=== PATIENT | female | born 1960 | race Caucasian/White ===

== ENCOUNTER 2017-03-10 20:19 | Inpatient (IN) | payer MEDICARE, OTHER ==
[2017-03-10] MEDS ORDERED: ONDANSETRON 4 MG/2 ML VIAL IVP STA (21:01)
[2017-03-10] MEDS ORDERED: SODIUM CHLORIDE 0.9% 1,000 ML IV STA ×2 (21:01→23:24)
--- NOTE | 2017-03-10 21:12 | ED ---
General Adult HPI - General Source: patient, RN notes reviewed Mode of arrival: ambulatory Limitations: no limitations <Edwina Mercer - Last Filed: 03/11/17 00:46> <Avery Mendes - Last Filed: 03/11/17 10:07> - General Chief complaint: Upper Respiratory Infection Stated complaint: left eye swelling Time Seen by Provider: 03/10/17 20:28 - History of Present Illness Initial comments: 56-year-old female presents emergency Department chief complaint of left eye pain and erythema. Patient states that over the last 2 days as well as redness to the left eye as well as above the left eye and came to the left eye. Patient also complaining of a terrible headache. Patient states that she has history of stroke and the headache was concerning her. Patient states that she chronically has nausea and vomiting. Patient states that she was concerned due to her symptoms so she thought that she should be evaluated. Patient states she has had cough cold runny nose like symptoms as well. Patient denies any other symptoms at this time. Patient denies any recent fever, chills, shortness of breath, chest pain, back pain, abdominal pain, nausea vomiting, numbness or tingling, dysuria or hematuria, constipation or diarrhea, visual changes, or any other current symptoms. (Edwina Mercer) - Related Data Home Medications Medication Instructions Recorded Confirmed Clopidogrel [Plavix] 75 mg PO DAILY 04/08/14 03/11/17 Lansoprazole [Prevacid] 30 mg PO DAILY 05/26/14 03/11/17 Tiotropium 18 Mcg/Puff [Spiriva] 1 cap INHALATION RT-DAILY 05/26/14 03/11/17 Mometasone/Formoterol [Dulera 200 1 puff INHALATION RT-BID PRN 12/16/15 03/11/17 Mcg/5 Mcg Inhaler] ARIPiprazole [Abilify] 5 mg PO HS 03/10/17 03/11/17 Aspirin 325 mg PO DAILY 03/10/17 03/11/17 Baclofen 10 mg PO HS 03/10/17 03/11/17 Ergocalciferol [Vitamin D2] 50,000 unit PO TH 03/10/17 03/11/17 Loratadine [Claritin] 10 mg PO DAILY 03/10/17 03/11/17 Omeprazole 40 mg PO DAILY 03/10/17 03/11/17 QUEtiapine FUMARATE [Seroquel] 50 mg PO HS 03/10/17 03/11/17 Sertraline [Zoloft] 100 mg PO HS 03/10/17 03/11/17 Vitamin B Complex 1 cap PO DAILY 03/10/17 03/11/17 traMADol HCL [Ultram] 50 mg PO BID PRN 03/10/17 03/11/17 Allergies Allergy/AdvReac Type Severity Reaction Status Date / Time iodine Allergy Rash/Hives Verified 03/10/17 20:38 codeine AdvReac Nausea & Verified 03/10/17 20:38 Vomiting & Diarrhea Review of Systems ROS Other: All systems not noted in ROS Statement are negative. <Edwina Mercer - Last Filed: 03/11/17 00:46> ROS Other: All systems not noted in ROS Statement are negative. <Avery Mendse - Last Filed: 03/11/17 10:07> ROS Statement: Those systems with pertinent positive or pertinent negative responses have been documented in the HPI. 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 History of Any Multi-Drug Resistant Organisms: None Reported Past Surgical History: Appendectomy, Cholecystectomy, Hysterectomy, Tonsillectomy Past Anesthesia/Blood Transfusion Reactions: No Reported Reaction Past Psychological History: Anxiety, Depression Smoking Status: Current every day smoker Past Alcohol Use History: None Reported Past Drug Use History: Marijuana - Past Family History Father Additional Family Medical History / Comment(s): Her father had bone cancer <Edwina Mercer - Last Filed: 03/11/17 00:46> General Exam Limitations: no limitations <Edwina Mercer - Last Filed: 03/11/17 00:46> <Avery Mendes - Last Filed: 03/11/17 10:07> - General Exam Comments Initial Comments: General: The patient is awake and alert, in no distress, and does not appear acutely ill. Eye: Pupils are equal, round and reactive to light, extra-ocular movements are intact; there is normal conjunctiva to the right eye, left eye does appear to have female. Left eyelid also appears to have bruising. No signs of icterus. Ears, nose, mouth and throat: There are moist mucous membranes and no oral lesions. Neck: The neck is supple, there is no tenderness. Cardiovascular: There is a regular rate and rhythm. No murmur, rub or gallop is appreciated. Respiratory: Lungs are clear to auscultation, respirations are non-labored, breath sounds are equal. No wheezes, stridor, rales, or rhonchi. Gastrointestinal: Soft, non-distended, non-tender abdomen without masses or organomegaly noted. There is no rebound or guarding present. No CVA tenderness. Bowel sounds are unremarkable. Back: There is no tenderness to palpation in the midline. There is no obvious deformity. No rashes noted. Musculoskeletal: Normal ROM, no tenderness, There is no pedal edema. There is no calf tenderness or swelling. Sensation intact. Pulses equal bilaterally 2+. Neurological: CN II-XII intact, There are no obvious motor or sensory deficits. Coordination appears grossly intact. Speech is normal. Skin: Skin is warm and dry and no rashes or lesions are noted. Psychiatric: Cooperative, appropriate mood & affect, normal judgment. (Edwina Mercer) Medical Decision Making - Lab Data Result diagrams: 03/10/17 21:38 03/10/17 21:38 - Radiology Data Radiology results: report reviewed, image reviewed <Edwina Mercer - Last Filed: 03/11/17 00:46> - Lab Data Result diagrams: 03/10/17 21:38 03/10/17 21:38 <Avery Mendes - Last Filed: 03/11/17 10:07> - Medical Decision Making 56-year-old female presents emergency room chief complaint of multiple complaints. At this time there is concerned due to the erythema and redness to the left eye. This and there is concern for orbital cellulitis. Vanco and Unasyn were started. This and will admit for continued IV antibiotics. This was discussed with the patient who is in agreement with the plan. All questions have been answered. They will be discharged. (Edwina Mercer) I saw this patient in conjunction with the physician pediatric assistant. I did perform independent H+P. Agree with case management. (Avery Mendes) - Lab Data Lab Results 03/10/17 03/10/17 03/10/17 Range/Units 21:38 21:38 21:38 WBC 9.2 (3.8-10.6) k/uL RBC 4.62 (3.80-5.40) m/uL Hgb 14.4 (11.4-16.0) gm/dL Hct 42.8 (34.0-46.0) % MCV 92.7 (80.0-100.0) fL MCH 31.1 (25.0-35.0) pg MCHC 33.5 (31.0-37.0) g/dL RDW 14.0 (11.5-15.5) % Plt Count 220 (150-450) k/uL Neutrophils % 68 % Lymphocytes % 24 % Monocytes % 6 % Eosinophils % 1 % Basophils % 0 % Neutrophils # 6.2 (1.3-7.7) k/uL Lymphocytes # 2.2 (1.0-4.8) k/uL Monocytes # 0.5 (0-1.0) k/uL Eosinophils # 0.1 (0-0.7) k/uL Basophils # 0.0 (0-0.2) k/uL PT 10.6 (9.0-12.0) sec INR 1.1 (<1.1) APTT 26.7 (22.0-30.0) sec Sodium 142 (137-145) mmol/L Potassium 4.2 (3.5-5.1) mmol/L Chloride 106 (98-107) mmol/L Carbon Dioxide 30 (22-30) mmol/L Anion Gap 6 mmol/L BUN 11 (7-17) mg/dL Creatinine 0.70 (0.52-1.04) mg/dL Est GFR (MDRD) Af Amer >60 (>60 ml/min/1.73 sqM) Est GFR (MDRD) Non-Af >60 (>60 ml/min/1.73 sqM) Glucose 96 (74-99) mg/dL Calcium 9.6 (8.4-10.2) mg/dL Total Bilirubin 0.4 (0.2-1.3) mg/dL AST 20 (14-36) U/L ALT 27 (9-52) U/L Alkaline Phosphatase 74 (38-126) U/L Total Protein 6.4 (6.3-8.2) g/dL Albumin 4.0 (3.5-5.0) g/dL Urine Color Urine Appearance (Clear) Urine pH (5.0-8.0) Ur Specific [place] (1.001-1.035) Urine Protein (Negative) Urine Glucose (UA) (Negative) Urine Ketones (Negative) Urine Blood (Negative) Urine Nitrite (Negative) Urine Bilirubin (Negative) Urine Urobilinogen (<2.0) mg/dL Ur Leukocyte Esterase (Negative) Urine RBC (0-5) /hpf Urine WBC (0-5) /hpf Ur Squamous Epith Cells (0-4) /hpf Amorphous Sediment (None) /hpf Urine Mucus (None) /hpf 03/10/17 Range/Units 21:38 WBC (3.8-10.6) k/uL RBC (3.80-5.40) m/uL Hgb (11.4-16.0) gm/dL Hct (34.0-46.0) % MCV (80.0-100.0) fL MCH (25.0-35.0) pg MCHC (31.0-37.0) g/dL RDW (11.5-15.5) % Plt Count (150-450) k/uL Neutrophils % % Lymphocytes % % Monocytes % % Eosinophils % % Basophils % % Neutrophils # (1.3-7.7) k/uL Lymphocytes # (1.0-4.8) k/uL Monocytes # (0-1.0) k/uL Eosinophils # (0-0.7) k/uL Basophils # (0-0.2) k/uL PT (9.0-12.0) sec INR (<1.1) APTT (22.0-30.0) sec Sodium (137-145) mmol/L Potassium (3.5-5.1) mmol/L Chloride (98-107) mmol/L Carbon Dioxide (22-30) mmol/L Anion Gap mmol/L BUN (7-17) mg/dL Creatinine (0.52-1.04) mg/dL Est GFR (MDRD) Af Amer (>60 ml/min/1.73 sqM) Est GFR (MDRD) Non-Af (>60 ml/min/1.73 sqM) Glucose (74-99) mg/dL Calcium (8.4-10.2) mg/dL Total Bilirubin (0.2-1.3) mg/dL AST (14-36) U/L ALT (9-52) U/L Alkaline Phosphatase (38-126) U/L Total Protein (6.3-8.2) g/dL Albumin (3.5-5.0) g/dL Urine Color Yellow Urine Appearance Clear (Clear) Urine pH 6.0 (5.0-8.0) Ur Specific [place] 1.016 (1.001-1.035) Urine Protein Negative (Negative) Urine Glucose (UA) Negative (Negative) Urine Ketones Negative (Negative) Urine Blood Negative (Negative) Urine Nitrite Negative (Negative) Urine Bilirubin Negative (Negative) Urine Urobilinogen <2.0 (<2.0) mg/dL Ur Leukocyte Esterase Moderate H (Negative) Urine RBC 2 (0-5) /hpf Urine WBC 36 H (0-5) /hpf Ur Squamous Epith Cells 3 (0-4) /hpf Amorphous Sediment Occasional H (None) /hpf Urine Mucus Occasional H (None) /hpf Disposition Time of Disposition: 00:00 Decision Date: 03/11/17 Decision Time: 00:00 <Edwina Mercer - Last Filed: 03/11/17 00:46> <Avery Mendes - Last Filed: 03/11/17 10:07> Clinical Impression: Orbital cellulitis on left, Traumatic subconjunctival hemorrhage of left eye Disposition: ADMITTED IP TO THIS [facility] Condition: Stable
[2017-03-10] MEDS ORDERED: HYDROmorphone 1 MG/ML 1 ML SYRINGE IVP STA (21:53)
[2017-03-10 22:10] LABS: Basophils % (A) 0 %; CH 31.1; CHCM 33.7; Eosinophils # (A) 0.1 k/uL (0-0.7); Eosinophils % (A) 1 %; HCT 42.8 % (34.0-46.0); HDW 2.32; HGB 14.4 gm/dL (11.4-16.0); Luc # (Auto) 0.14; Luc % (Auto) 2; Lymphocytes # (A) 2.2 k/uL (1.0-4.8); Lymphocytes % (A) 24 %; MCH 31.1 pg (25.0-35.0); MCHC 33.5 g/dL (31.0-37.0); MCV 92.7 fL (80.0-100.0); Mean Platelet Volume 6.8; Monocytes # (A) 0.5 k/uL (0-1.0); Monocytes % (A) 6 %; Neutrophils # (A) 6.2 k/uL (1.3-7.7); Neutrophils % (A) 68 %; RBC 4.62 m/uL (3.80-5.40); WBC 9.2 k/uL (3.8-10.6); WBC (Perox) 8.77
[2017-03-10 22:27] LABS: ALT 27 U/L (9-52); AST 20 U/L (14-36); Alkaline Phosphatase 74 U/L (38-126); Anion Gap 6 mmol/L; Blood Urea Nitrogen 11 mg/dL (7-17); Calcium 9.6 mg/dL (8.4-10.2); Carbon Dioxide 30 mmol/L (22-30); Chloride 106 mmol/L (98-107); Glucose 96 mg/dL (74-99); Non-African American GFR(MDRD) >60 (>60 ml/min/1.73 sqM); Potassium 4.2 mmol/L (3.5-5.1); Sodium 142 mmol/L (137-145); Total Bilirubin 0.4 mg/dL (0.2-1.3); Total Protein 6.4 g/dL (6.3-8.2)
[2017-03-10 22:29] LABS: Amorphous Sediment,Urine Occasional /hpf; Appearance,Urine Clear (Clear); Bilirubin,Urine Negative (Negative); Glucose,Urine (UA) Negative (Negative); Ketones,Urine Negative (Negative); Leukocyte Esterase,Urine Moderate (Negative); Mucus,Urine Occasional /hpf; Nitrite,Urine Negative (Negative); Particle Count 7252; Protein,Urine Negative (Negative); RBC,Urine 2 /hpf (0-5); Specific Gravity,Urine 1.016 (1.001-1.035); Squamous Epithelial Cell,Urine 3 /hpf (0-4); UA Billing (MACRO vs. MICRO) MICRO; Urobilinogen,Urine <2.0 mg/dL (<2.0); WBC,Urine 36 /hpf (0-5)
[2017-03-10 22:30] LABS: INR 1.1 (<1.1); Partial Thromboplastin Time 26.7 sec (22.0-30.0); Prothrombin Time 10.6 sec (9.0-12.0)
--- NOTE | 2017-03-10 22:40 | XR ---
EXAM: XR Chest, 2 Views CLINICAL HISTORY: Reason: cough TECHNIQUE: Frontal and lateral views of the chest. COMPARISON: 12/16/15. FINDINGS: Lungs: Mild basilar opacities, possible atelectasis. Pleural space: Unremarkable. No pneumothorax. Heart: Stable. Mediastinum: Unremarkable. Bones/joints: Unremarkable. IMPRESSION: Mild basilar opacities, possible atelectasis.
--- NOTE | 2017-03-10 22:51 | CT ---
ADDENDUM - Added by Mary Lou Tony M.D. on 03/10/2017 10:58 PM (-07:00) CTDI is 30.1 mGy and DLP is 313.7 mGy-cm. EXAM: CT Orbits Without Intravenous Contrast CLINICAL HISTORY: Reason: Pain TECHNIQUE: Axial computed tomography images of the orbits without intravenous contrast. CTDI is mGy and DLP is mGy-cm. This CT exam was performed using one or more of the following dose reduction techniques: automated exposure control, adjustment of the mA and/or kV according to patient size, and/or use of iterative reconstruction technique. COMPARISON: No relevant prior studies available. FINDINGS: Orbits: Left periorbital soft tissue swelling with mild stranding in the intraconal fat. Sinuses: Minimal paranasal sinus mucosal thickening. No air-fluid levels. Bones/joints: No acute fracture. Soft tissues: See above. A 7 x 3 x 10 mm mm low density subcutaneous lesion at the left medial cheek (image 3-5 and 7-9). IMPRESSION: 1. Left periorbital soft tissue swelling with mild stranding in the intraconal fat. Correlate clinically for orbital cellulitis. 2. A 7 x 3 x 10 mm mm low density subcutaneous lesion at the left medial cheek. [employer] 03/10/17 23:14 Verify Receipt Verified receipt with RAMYA Arguelles for Dr. Conklin 03/10 23:14 (-04:00)
--- NOTE | 2017-03-10 22:57 | CT ---
EXAM: CT Head Without Intravenous Contrast CLINICAL HISTORY: Reason: Pain TECHNIQUE: Axial computed tomography images of the head/brain without intravenous contrast. CTDI is 60.3 mGy and DLP is 1017.9 mGy-cm. This CT exam was performed using one or more of the following dose reduction techniques: automated exposure control, adjustment of the mA and/or kV according to patient size, and/or use of iterative reconstruction technique. COMPARISON: No relevant prior studies available. FINDINGS: Brain: Involutional changes. Right periventricular low attenuation compatible with chronic infarct. No intracranial hemorrhage, mass effect, or midline shift. No acute cortical infarct. Ventricles: See above. Bones/joints: No acute fracture. Soft tissues: Unremarkable. Sinuses: No air fluid levels. Mastoid air cells: Small left mastoid fluid. Orbits: Please refer to concurrent CT orbits report for additional findings. IMPRESSION: 1. No acute intracranial process. 2. Small left mastoid fluid.
[2017-03-10] MEDS ORDERED: AMPICILLIN-SULBACTAM 3 GM in SODIUM CHLORIDE 0.9% 100 ML IVPB STA (23:39)
[2017-03-10] MEDS ORDERED: IV VANCOMYCIN PER PHARMACY 1 EACH MISC MISCELLANE PRN (23:39)
[2017-03-11] MEDS ORDERED: NALOXONE 0.4 MG/ML 1 ML VIAL IV PRN
[2017-03-11] MEDS ORDERED: IBUPROFEN 400 MG TAB PO PRN
[2017-03-11] MEDS: SODIUM CHLORIDE 0.9% 1,000 ML IV SCH ×3 (01:13→13:40)
[2017-03-11] MEDS: VANCOMYCIN 1,000 MG in SODIUM CHLORIDE 0.9% 250 ML IVPB SCH ×2 (01:48→13:47)
[2017-03-11 02:14] VITALS: BMI 19.5
[2017-03-11] MEDS ORDERED: QUEtiapine 50 MG TAB PO STA (02:28)
[2017-03-11] MEDS: HYDROcodone/APAP 5-325MG 1 EACH TAB PO PRN ×4 (02:33→18:31)
[2017-03-11] MEDS: BACLOFEN 10 MG TAB PO SCH ×2 (02:52→21:03)
[2017-03-11] MEDS: ARIPiprazole 5 MG TAB PO SCH ×2 (02:53→21:04)
[2017-03-11] MEDS: ONDANSETRON 4 MG/2 ML VIAL IVP PRN ×2 (06:57→21:15)
[2017-03-11] MEDS ORDERED: NON-FORMULARY DRUG (Omeprazole [Omeprazole] 40 MG) PO SCH (09:00)
[2017-03-11] MEDS ORDERED: ASPIRIN 325 MG TAB PO SCH (09:00)
[2017-03-11] MEDS ORDERED: CLOPIDOGREL 75 MG TAB PO SCH (09:00)
[2017-03-11] MEDS: B COMPLEX-VIT C-VIT E-ZINC 1 EACH TAB PO SCH (10:35)
[2017-03-11] MEDS: LORATADINE 10 MG TAB PO SCH (10:35)
[2017-03-11] MEDS: PANTOPRAZOLE 40 MG TABLET PO SCH (10:35)
[2017-03-11] MEDS: ALBUTEROL NEBULIZED 2.5 MG/3 ML INHALATION PRN ×2 (11:49→20:50)
[2017-03-11] MEDS: TIOTROPIUM 18 MCG/PUFF INHALER INHALATION SCH (11:58)
--- NOTE | 2017-03-11 13:50 | P.HPIM ---
History of Present Illness H&P Date: 03/11/17 Chief Complaint: L eye pain and erythema Patient is a 56-year-old female who states that yesterday morning she woke up with pain in her left eye she started developing redness on the upper lid of her left eye that progress quickly, patient started having erythema in her eyeball, she decided to come to emergency room she was evaluated in the emergency department she was diagnosed was periorbital cellulitis she was started on Unasyn and vancomycin and was admitted to medical floor. Patient states that 15 years ago she had a stroke, she has been maintained on aspirin 325 mg daily and Plavix 75 mg daily for that the indication. Patient states that she had herpes zoster eruption "shingles", few years ago that was on the left side of her neck she was treated with pills and the rash disappeared after a few days. Otherwise patient denies any significant infections in the past she denies any previous surgery on her eyes she denies any eye problems in the past. 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 smoker 2 ppd since age 16 (40+ yrs) History of Any Multi-Drug Resistant Organisms: None Reported Past Surgical History: Appendectomy, Cholecystectomy, Hysterectomy, Tonsillectomy Past Anesthesia/Blood Transfusion Reactions: No Reported Reaction Past Psychological History: Anxiety, Depression Smoking Status: Former smoker Past Alcohol Use History: None Reported Past Drug Use History: Marijuana Additional Drug Use History / Comment(s): patient states she had accu puncture done and quit smoking 2 months ago. pt continues to smoke marijuana daily via vaporizer - Past Family History Father Additional Family Medical History / Comment(s): Her father had bone cancer Mother Additional Family Medical History / Comment(s): aneurism, heart problems Medications and Allergies Home Medications Medication Instructions Recorded Confirmed Type Clopidogrel [Plavix] 75 mg PO DAILY 04/08/14 03/11/17 History Lansoprazole [Prevacid] 30 mg PO DAILY 05/26/14 03/11/17 History Tiotropium 18 Mcg/Puff [Spiriva] 1 cap INHALATION RT-DAILY 05/26/14 03/11/17 History Mometasone/Formoterol [Dulera 200 1 puff INHALATION RT-BID PRN 12/16/15 History Mcg/5 Mcg Inhaler] ARIPiprazole [Abilify] 5 mg PO HS 03/10/17 03/11/17 History Aspirin 325 mg PO DAILY 03/10/17 03/11/17 History Baclofen 10 mg PO HS 03/10/17 03/11/17 History Ergocalciferol [Vitamin D2] 50,000 unit PO TH 03/10/17 03/11/17 History Loratadine [Claritin] 10 mg PO DAILY 03/10/17 03/11/17 History Omeprazole 40 mg PO DAILY 03/10/17 03/11/17 History QUEtiapine FUMARATE [Seroquel] 50 mg PO HS 03/10/17 03/11/17 History Sertraline [Zoloft] 100 mg PO HS 03/10/17 03/11/17 History Vitamin B Complex 1 cap PO DAILY 03/10/17 03/11/17 History traMADol HCL [Ultram] 50 mg PO BID PRN 03/10/17 03/11/17 History Allergies Allergy/AdvReac Type Severity Reaction Status Date / Time iodine Allergy Rash/Hives Verified 03/10/17 20:38 codeine AdvReac Nausea & Verified 03/10/17 20:38 Vomiting & Diarrhea Physical Exam Vitals: Vital Signs Temp Pulse Pulse Resp BP BP Pulse Ox 03/11/17 12:02 80 03/11/17 11:49 80 03/11/17 08:13 98.3 F 78 19 92/63 100 03/11/17 04:00 66 20 03/11/17 01:50 98.7 F 67 20 85/56 93 L 03/11/17 01:00 98.9 F 86 16 108/50 100 03/11/17 00:00 88 18 106/52 99 03/10/17 23:24 90 16 82/50 03/10/17 20:23 98.3 F 86 20 105/71 92 L Intake and Output 03/10/17 03/11/17 03/11/17 22:59 06:59 14:59 Output Total 200 Balance -200 Output: Emesis 200 Other: Weight 57.153 kg 60.1 kg 60.1 kg Patient Weight 03/12/17 06:59 Weight 60.1 kg HEENT there is erythema on the left upper eyelid there is erythema was conjunctival bleed in the left eye otherwise no significant abnormality Neck is supple no JVD no goiter no lymphadenopathy Chest exam reveals a few scattered rhonchi with wheezing Cardiac exam reveals regular heart sounds S1 and S2 no gallops no murmurs Abdomen is soft nontender no organomegaly Extremity exam reveals no edema no cyanosis or clubbing Results CBC & Chem 7: 03/10/17 21:38 03/10/17 21:38 Labs: Abnormal Lab Results - Last 24 Hours (Table) 03/10/17 Range/Units 21:38 Ur Leukocyte Esterase Moderate H (Negative) Urine WBC 36 H (0-5) /hpf Amorphous Sediment Occasional H (None) /hpf Urine Mucus Occasional H (None) /hpf Microbiology - Last 24 Hours (Table) 03/10/17 21:38 Urine Culture - Preliminary Urine,Clean Catch Thrombosis Risk Factor Assmnt - Choose All That Apply Any of the Below Risk Factors Present?: Yes Each Factor Represents 1 point: Abnormal pulmonary function (COPD), Age 41-60 years Other Risk Factors: No Other congenital or acquired thrombophilia - If yes, enter type in comment: No Thrombosis Risk Factor Assessment Total Risk Factor Score: 2 Thrombosis Risk Factor Assessment Level: Low Risk Assessment and Plan Plan: #1 left periorbital cellulitis #2 left conjunctiva bleeding #3 previous history of stroke 15 years ago #4 wheezing was possible COPD patient is a lifelong smoker she states she quit 2 ago, at this time she was started on albuterol updrafts when necessary Medication and labs were reviewed continue with IV vancomycin and IV Unasyn Consultation for infectious disease and ophthalmology were initiated Plavix and aspirin are on hold due to conjunctival bleeding Will follow closely
[2017-03-11] MEDS ORDERED: AMPICILLIN-SULBACTAM 3 GM in SODIUM CHLORIDE 0.9% 100 ML IVPB SCH (15:00)
[2017-03-11] MEDS ORDERED: TROPICAMIDE 1% OPHTH DROPS 2 ML BTL LEFT EYE ONE (16:45)
--- NOTE | 2017-03-11 20:38 | P.CONS ---
History of Present Illness - Reason for Consult Consult date: 03/11/17 - Chief Complaint Left eye swelling - History of Present Illness 56-year-old female with history of tobacco smoking until 2 months ago also has a history of a cerebrovascular accident 12 years ago. Choice at that time she was taking a weight loss supplement which resulted in a hypertensive stroke. Because of that she's been maintained on Plavix and aspirin from her neurologist Dr. Singh. The patient relates that she was gardening. And accidentally struck her face with the [employer] [place] when she was working. She rapidly developed swelling and erythema around the left eye and left eye itself. It is quite painful and has been associated with some increase of her baseline nausea and emesis. Pain is been significant. She denying bleeding in any other places. Vision the right eye is completely intact. She has mild headache. Denies neck stiffness. Relates that her health in general is quite poor. Review of Systems 56-year-old woman who appears older than her stated age is uncomfortable. No current emesis but has had nausea and emesis earlier in the day. HEENT:Denies headache or acute visual change. Denies sinus or mouth discomforts. Denies neck stiffness or pain. Denies significant oral cavity pain. Denies difficulty on swallowing. As per the HPI has a significant swelling to the left eye. Lungs: Denies significant shortness of breath, cough, sputum production, or hemoptysis. Cardiovascular: Denies significant shortness of breath, chest pain, chest wall pain, orthopnea, dyspnea on exertion, syncope Gastrointestinal:Denies diarrhea, constipation, hematemesis, melena, hematochezia. No no significant change of bowel habit noticed. Musculoskeletal: denies significant myalgias or arthralgias. No new joint swelling. Denies new back pain. Skin: As per the HPI Neuro: Denies headache or visual change. Denies any new onset weakness or difficulty with ambulation. Denies falls or seizures. 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 smoker 2 ppd since age 16 (40+ yrs) History of Any Multi-Drug Resistant Organisms: None Reported Past Surgical History: Appendectomy, Cholecystectomy, Hysterectomy, Tonsillectomy Past Anesthesia/Blood Transfusion Reactions: No Reported Reaction Past Psychological History: Anxiety, Depression Additional Psychological History / Comment(s): Patient is not . She lives with her daughter and her mother. Her father many years ago from lung cancer and metastasis. Patient was a smoker until 2 months ago. Denies alcohol use or recreational drug use. No experience. No international travel. Pet dog in the home recently had a cat but she did give it away to her nephew. Animals have not been ill. Smoking Status: Former smoker Past Alcohol Use History: None Reported Past Drug Use History: Marijuana Additional Drug Use History / Comment(s): patient states she had accu puncture done and quit smoking 2 months ago. pt continues to smoke marijuana daily via vaporizer - Past Family History Father Additional Family Medical History / Comment(s): Her father had bone cancer Mother Additional Family Medical History / Comment(s): aneurism, heart problems Medications and Allergies Home Medications and Allergies Comment(s): Current Medications Acetaminophen (Tylenol Tab) 650 mg PO Q6HR PRN PRN Reason: Mild Pain or Fever > 100.5 Hydrocodone Bitart/Acetaminophen ([place] 5-325) 1 each PO Q4HR PRN PRN Reason: Moderate Pain Last Admin: 03/11/17 18:31 Dose: 1 each Albuterol Sulfate (Ventolin Nebulized) 2.5 mg INHALATION RT-Q4H PRN PRN Reason: wheeze Last Admin: 03/11/17 11:49 Dose: 2.5 mg Aripiprazole (Abilify) 5 mg PO [facility] Last Admin: 03/11/17 02:53 Dose: 5 mg Baclofen (Lioresal) [address] [facility] Last Admin: 03/11/17 02:52 Dose: 10 mg Budesonide/Formoterol Fumarate (Symbicort 160-4.5 Mcg Inhaler) 1 puff INHALATION RT-BID PRN PRN Reason: Dyspnea Ciprofloxacin (Cipro Ophth Soln) [address]ID [facility] Ergocalciferol (Vitamin D2) 50,[address] [facility] Hydromorphone HCl (Dilaudid) 0.5 mg IV Q3HR PRN PRN Reason: Severe Pain Vancomycin HCl 1,000 mg/ (Sodium Chloride) 250 mls @ 125 mls/hr IVPB Q12H [facility] Last Admin: 03/11/17 13:47 Dose: 125 mls/hr Sodium Chloride (Saline 0.9%) 1,000 mls @ 100 mls/hr IV .Q10H [facility] Last Admin: 03/11/17 13:40 Dose: 100 mls/hr Ampicillin Sodium/Sulbactam (Sodium 3 gm/ Sodium Chloride) 100 mls @ 100 mls/ hr IVPB Q6H [facility] Last Admin: 03/11/17 16:54 Dose: 100 mls/hr Ibuprofen (Motrin) 400 mg PO Q6HR PRN PRN Reason: Mild Pain or Fever > 100.5 Loratadine (Claritin) [address] [facility] Last Admin: 03/11/17 10:35 Dose: 10 mg Naloxone HCl (Narcan) 0.2 mg IV Q2M PRN PRN Reason: Opioid Reversal Ondansetron HCl (Zofran) 4 mg IVP Q8HR PRN PRN Reason: Nausea And Vomiting Last Admin: 03/11/17 06:57 Dose: 4 mg Pantoprazole Sodium (Protonix) [address] [facility] Last Admin: 03/11/17 10:35 Dose: 40 mg Quetiapine Fumarate (Seroquel) [address] [facility] Sertraline HCl (Zoloft) [address] [facility] Tiotropium Soper (Spiriva) 1 puff INHALATION RT-DAILY [facility] Last Admin: 03/11/17 11:58 Dose: 1 puff Vitamin B Complex/Vit C/Vit E/Zinc (Z-Bec) [address] [facility] Last Admin: 03/11/17 10:35 Dose: 1 each Home Medications Medication Instructions Recorded Confirmed Type Clopidogrel [Plavix] 75 mg PO DAILY 04/08/14 03/11/17 History Lansoprazole [Prevacid] 30 mg PO DAILY 05/26/14 03/11/17 History Tiotropium 18 Mcg/Puff [Spiriva] 1 cap INHALATION RT-DAILY 05/26/14 03/11/17 History Mometasone/Formoterol [Dulera 200 1 puff INHALATION RT-BID PRN 12/16/15 History Mcg/5 Mcg Inhaler] ARIPiprazole [Abilify] 5 mg PO HS 03/10/17 03/11/17 History Aspirin 325 mg PO DAILY 03/10/17 03/11/17 History Baclofen 10 mg PO HS 03/10/17 03/11/17 History Ergocalciferol [Vitamin D2] 50,000 unit PO TH 03/10/17 03/11/17 History Loratadine [Claritin] 10 mg PO DAILY 03/10/17 03/11/17 History Omeprazole 40 mg PO DAILY 03/10/17 03/11/17 History QUEtiapine FUMARATE [Seroquel] 50 mg PO HS 03/10/17 03/11/17 History Sertraline [Zoloft] 100 mg PO HS 03/10/17 03/11/17 History Vitamin B Complex 1 cap PO DAILY 03/10/17 03/11/17 History traMADol HCL [Ultram] 50 mg PO BID PRN 03/10/17 03/11/17 History Allergies Allergy/AdvReac Type Severity Reaction Status Date / Time iodine Allergy Rash/Hives Verified 03/10/17 20:38 codeine AdvReac Nausea & Verified 03/10/17 20:38 Vomiting & Diarrhea Physical Exam Vitals: Vital Signs Temp Pulse Pulse Pulse Resp BP BP 03/11/17 16:25 97.9 F 70 20 114/79 03/11/17 13:15 98.0 F 71 19 90/62 03/11/17 12:02 80 03/11/17 11:49 80 03/11/17 08:13 98.3 F 78 19 92/63 03/11/17 04:00 66 20 03/11/17 01:50 98.7 F 67 20 85/56 03/11/17 01:00 98.9 F 86 16 108/50 03/11/17 00:00 88 18 106/52 03/10/17 23:24 90 16 82/50 Pulse Ox 03/11/17 16:25 95 03/11/17 13:15 92 L 03/11/17 12:02 03/11/17 11:49 03/11/17 08:13 100 03/11/17 04:00 03/11/17 01:50 93 L 03/11/17 01:00 100 03/11/17 00:00 99 03/10/17 23:24 Intake and Output 03/11/17 03/11/17 03/11/17 06:59 14:59 22:59 Intake Total 240 240 Output Total 200 Balance -200 240 240 Intake: Oral 240 240 Output: Emesis 200 Other: Weight 60.1 kg 60.1 kg Patient Weight 03/12/17 06:59 Weight 60.1 kg 56-year-old woman who appears older than her stated age. Is quite uncomfortable due to pain in her left eye as well as nausea. She has some chronic abdominal pain. HEENT: Anicteric, the right eye is without lesions. Left eye reveals evidence of the extensive hematoma about the lids and of the sclera. The periorbital tissue is slightly edematous but there is no tracking erythema. She does have ability to move the left eye in all 4 directions, no evidence of any lymphadenopathy to the neck. Oral cavity shows evidence of an upper plate poor dentition lower. No thrush is seen. Neck: The neck is supple without significant lymphadenopathy or thyromegaly. Lungs: Symmetrical air entry. Expiratory wheezes are scattered at the lung fernando. Few basilar crackles. No egophony or dullness. She coughs quite frequently. She relates that her chronic smoker's cough. Heart: Regular rate and rhythm with an audible S1-S2, no S3 no S4. There is no significant murmur click or rub, PMI was nondisplaced. Abdomen: Thin, Positive bowel sounds soft and nontender without palpable masses or organomegaly. There was no guarding or rebound. Extremities: The upper extremities have excellent pulses they are symmetric, no significant petechiae or telangiectasia. No splinter hemorrhages were noted. The lower extremities are free from significant edema. The peripheral pulses were 2+ and symmetric. Neuro: Awake alert oriented to person place and time. There are no acute new gross focal sensory motor deficits. Results CBC & Chem 7: 03/10/17 21:38 03/10/17 21:38 Labs: Abnormal Lab Results - Last 24 Hours (Table) 03/10/17 Range/Units 21:38 Ur Leukocyte Esterase Moderate H (Negative) Urine WBC 36 H (0-5) /hpf Amorphous Sediment Occasional H (None) /hpf Urine Mucus Occasional H (None) /hpf Microbiology - Last 24 Hours (Table) 03/10/17 21:38 Urine Culture - Preliminary Urine,Clean Catch Laboratory Results WBC 9.2 k/uL (3.8-10.6) 03/10/17 21:38 RBC 4.62 m/uL (3.80-5.40) 03/10/17 21:38 Hgb 14.4 gm/dL (11.4-16.0) 03/10/17 21:38 Hct 42.8 % (34.0-46.0) 03/10/17 21:38 MCV 92.7 fL (80.0-100.0) 03/10/17 21:38 MCH 31.1 pg (25.0-35.0) 03/10/17 21:38 MCHC 33.5 g/dL (31.0-37.0) 03/10/17 21:38 RDW 14.0 % (11.5-15.5) 03/10/17 21:38 Plt Count 220 k/uL (150-450) 03/10/17 21:38 Neutrophils % 68 % 03/10/17 21:38 Lymphocytes % 24 % 03/10/17 21:38 Monocytes % 6 % 03/10/17 21:38 Eosinophils % 1 % 03/10/17 21:38 Basophils % 0 % 03/10/17 21:38 Neutrophils # 6.2 k/uL (1.3-7.7) 03/10/17 21:38 Lymphocytes # 2.2 k/uL (1.0-4.8) 03/10/17 21:38 Monocytes # 0.5 k/uL (0-1.0) 03/10/17 21:38 Eosinophils # 0.1 k/uL (0-0.7) 03/10/17 21:38 Basophils # 0.0 k/uL (0-0.2) 03/10/17 21:38 PT 10.6 sec (9.0-12.0) 03/10/17 21:38 INR 1.1 (<1.1) 03/10/17 21:38 APTT 26.7 sec (22.0-30.0) 03/10/17 21:38 Sodium 142 mmol/L (137-145) 03/10/17 21:38 Potassium 4.2 mmol/L (3.5-5.1) 03/10/17 21:38 Chloride 106 mmol/L (98-107) 03/10/17 21:38 Carbon Dioxide 30 mmol/L (22-30) 03/10/17 21:38 Anion Gap 6 mmol/L 03/10/17 21:38 BUN 11 mg/dL (7-17) 03/10/17 21:38 Creatinine 0.70 mg/dL (0.52-1.04) 03/10/17 21:38 Est GFR (MDRD) Af Amer >60 (>60 ml/min/1.73 sqM) 03/10/17 21:38 Est GFR (MDRD) Non-Af >60 (>60 ml/min/1.73 sqM) 03/10/17 21:38 Glucose 96 mg/dL (74-99) 03/10/17 21:38 Calcium 9.6 mg/dL (8.4-10.2) 03/10/17 21:38 Total Bilirubin 0.4 mg/dL (0.2-1.3) 03/10/17 21:38 AST 20 U/L (14-36) 03/10/17 21:38 ALT 27 U/L (9-52) 03/10/17 21:38 Alkaline Phosphatase 74 U/L (38-126) 03/10/17 21:38 Total Protein 6.4 g/dL (6.3-8.2) 03/10/17 21:38 Albumin 4.0 g/dL (3.5-5.0) 03/10/17 21:38 Urine Color Yellow 03/10/17 21:38 Urine Appearance Clear (Clear) 03/10/17 21:38 Urine pH 6.0 (5.0-8.0) 03/10/17 21:38 Ur Specific [place] 1.016 (1.001-1.035) 03/10/17 21:38 Urine Protein Negative (Negative) 03/10/17 21:38 Urine Glucose (UA) Negative (Negative) 03/10/17 21:38 Urine Ketones Negative (Negative) 03/10/17 21:38 Urine Blood Negative (Negative) 03/10/17 21:38 Urine Nitrite Negative (Negative) 03/10/17 21:38 Urine Bilirubin Negative (Negative) 03/10/17 21:38 Urine Urobilinogen <2.0 mg/dL (<2.0) 03/10/17 21:38 Ur Leukocyte Esterase Moderate (Negative) H 03/10/17 21:38 Urine RBC 2 /hpf (0-5) 03/10/17 21:38 Urine WBC 36 /hpf (0-5) H 03/10/17 21:38 Ur Squamous Epith Cells 3 /hpf (0-4) 03/10/17 21:38 Amorphous Sediment Occasional /hpf (None) H 03/10/17 21:38 Urine Mucus Occasional /hpf (None) H 03/10/17 21:38 Microbiology 03/10/17 21:38 Urine,Clean Catch Urine Culture - Preliminary Comments: CT of orbits shows evidence of no fracture but some edema to the left eye and minimal stranding possible periorbital cellulitis CT brain without abnormality Chest x-ray shows evidence of possible basilar atelectasis, no focal infiltrate or mass Assessment and Plan (1) Traumatic subconjunctival hemorrhage of left eye Narrative/Plan: 56 year old female long-standing history of tobacco use stopping 2 months ago who has underlying symptoms of COPD, has a history of a prior stroke is on Plavix and aspirin. The patient relates that she was gardening and suffered a minimal trauma in her garden spade to her left eye area. This is resulted in the significant hematoma. She's been seen by ophthalmology with no plans for any specific intervention except topical drops. The patient has no history of MRSA The chest x-ray as mildly abnormal and she has ongoing symptoms. Will at this time streamline antibiotic therapy to Levaquin to complete a course for her potential pulmonary infection, would also finish treatment for the early cellulitic changes to the left periorbital site. Will need to follow with her primary care physician after discharge, in regards to her anticoagulation status. Status: Acute (2) Nausea and vomiting Status: Acute
[2017-03-11] MEDS: SYMBICORT 160-4.5 MCG INHALER INHALATION PRN (20:50)
[2017-03-11] MEDS: HYDROmorphone 1 MG/ML 1 ML SYRINGE IV PRN (20:55)
[2017-03-11] MEDS ORDERED: BACLOFEN 10 MG TAB PO SCH (21:00)
[2017-03-11] MEDS ORDERED: ARIPiprazole 5 MG TAB PO SCH (21:00)
[2017-03-11] MEDS: SERTRALINE 100 MG TAB PO SCH (21:03)
[2017-03-11] MEDS: LEVOFLOXACIN 500MG-D5W PMX 500 MG in DEXTROSE/WATER 1 100ML.BAG IVPB SCH (21:06)
[2017-03-11] MEDS: QUEtiapine 50 MG TAB PO SCH (21:06)
[2017-03-11] MEDS: CIPROFLOXACIN 0.3% OPHTH SOLN 2.5 ML BTL LEFT EYE SCH (21:10)
[2017-03-12] MEDS: PROCHLORPERAZINE 10 MG TAB PO PRN ×3 (01:24→21:17)
[2017-03-12] MEDS: SODIUM CHLORIDE 0.9% 1,000 ML IV SCH ×3 (03:22→20:54)
[2017-03-12] MEDS: ONDANSETRON 4 MG/2 ML VIAL IVP PRN ×2 (04:57→17:18)
[2017-03-12] MEDS: HYDROmorphone 1 MG/ML 1 ML SYRINGE IV PRN ×4 (05:00→20:44)
[2017-03-12 07:04] LABS: Basophils # (A) 0.1 k/uL (0-0.2); Basophils % (A) 0 %; CH 31.1; CHCM 33.2; Eosinophils # (A) 0.1 k/uL (0-0.7); Eosinophils % (A) 1 %; HCT 38.8 % (34.0-46.0); HDW 2.32; HGB 12.8 gm/dL (11.4-16.0); Luc # (Auto) 0.15; Luc % (Auto) 1; Lymphocytes # (A) 1.6 k/uL (1.0-4.8); Lymphocytes % (A) 15 %; MCH 31.1 pg (25.0-35.0); MCV 94.2 fL (80.0-100.0); Mean Platelet Volume 6.7; Monocytes # (A) 0.4 k/uL (0-1.0); Monocytes % (A) 4 %; Neutrophils # (A) 8.4 k/uL (1.3-7.7); Neutrophils % (A) 78 %; RBC 4.11 m/uL (3.80-5.40); RDW 13.8 % (11.5-15.5); WBC 10.8 k/uL (3.8-10.6); WBC (Perox) 11.35
[2017-03-12 07:23] LABS: ALT 25 U/L (9-52); AST 24 U/L (14-36); Alkaline Phosphatase 64 U/L (38-126); Anion Gap 5 mmol/L; Blood Urea Nitrogen 9 mg/dL (7-17); Calcium 8.5 mg/dL (8.4-10.2); Carbon Dioxide 28 mmol/L (22-30); Chloride 108 mmol/L (98-107); Glucose 105 mg/dL (74-99); Non-African American GFR(MDRD) >60 (>60 ml/min/1.73 sqM); Potassium 4.2 mmol/L (3.5-5.1); Sodium 141 mmol/L (137-145); Total Bilirubin 0.5 mg/dL (0.2-1.3); Total Protein 5.8 g/dL (6.3-8.2)
--- NOTE | 2017-03-12 09:27 | CONS ---
DATE OF CONSULTATION: CHIEF COMPLAINT: Redness left eye associated with discomfort for the last 2 days. HISTORY OF PRESENT ILLNESS: The patient developed redness and swelling of the left eye following a minor injury. She was accidentally hit with a shovel handle in the nasal bridge mainly on the left side. Since then, she developed this swelling of the lids and swelling of the conjunctiva. The patient is on Plavix, which was stopped today. MEDICAL HISTORY: Reviewed including patient developed stroke and was started on Plavix for this reason. EYE EXAMINATION: Vision is 20/25 right eye and 20/50 in the left eye. Extraocular motility full. Tension applanation was 20 mmHg right eye and 25 mmHg left eye. Left upper and lower lid shows hematoma and 2+ lid edema. Conjunctiva shows severe subconjunctival hemorrhage protruding through the palpebral fissure. Lens 1+ NS both eyes. Vitreous: No hemorrhage. Retina: No retinal detachment with normal disc. ASSESSMENT: 1. Left severe subconjunctival hemorrhage following trauma. 2. Left upper and lower lid edema. PLAN: This is mostly related to the bleeding from Plavix into the lid and subconjunctival area. Intravenous antibiotic is accepted to prevent secondary infection. I would start her on ciprofloxacin eye drops 1 drop 4 times a day to the left eye and continue the intravenous antibiotic. A CT scan of the orbit was reviewed. I would expect improvement of the swelling in a day or 2 and I will reexamine her in the office on Friday at 9 a.m.
[2017-03-12] MEDS: ALBUTEROL NEBULIZED 2.5 MG/3 ML INHALATION PRN ×2 (11:04→14:55)
[2017-03-12] MEDS: TIOTROPIUM 18 MCG/PUFF INHALER INHALATION SCH (11:04)
[2017-03-12] MEDS: PANTOPRAZOLE 40 MG TABLET PO SCH (11:05)
[2017-03-12] MEDS: CIPROFLOXACIN 0.3% OPHTH SOLN 2.5 ML BTL LEFT EYE SCH ×4 (11:06→23:44)
[2017-03-12] MEDS: LORATADINE 10 MG TAB PO SCH (11:06)
[2017-03-12] MEDS: B COMPLEX-VIT C-VIT E-ZINC 1 EACH TAB PO SCH (11:06)
--- NOTE | 2017-03-12 13:24 | P.PN ---
Subjective Patient is a 56-year-old female who states that yesterday morning she woke up with pain in her left eye she started developing redness on the upper lid of her left eye that progress quickly, patient started having erythema in her eyeball, she decided to come to emergency room she was evaluated in the emergency department she was diagnosed was periorbital cellulitis she was started on Unasyn and vancomycin and was admitted to medical floor. Patient was evaluated by Dr. Aiken and antibiotic were changed to Levaquin, to cover acute bronchitis and the periorbital cellulitis She was evaluated by ophthalmology and Cipro eyedrops were added Plavix and aspirin are on hold due to conjunctiva and bleed on the left, no other intervention recommended by ophthalmology Patient is complaining of nausea and multiple episodes of vomiting otherwise no new complaints Objective - Vital Signs Vital signs: Vital Signs Temp 98.7 F 03/12/17 12:12 Pulse 97 03/12/17 12:12 Resp 18 03/12/17 12:12 BP 127/78 03/12/17 12:12 Pulse Ox 96 03/12/17 12:12 Intake & Output 03/11/17 03/12/17 03/12/17 18:59 06:59 18:59 Intake Total 240 240 Output Total 700 600 Balance 240 -460 -600 Weight 60.1 kg Intake: Oral 240 240 Output: Urine 600 Emesis 700 Other: Voiding Method Toilet Toilet # Voids 1 - Exam HEENT there is erythema on the left upper eyelid there is erythema was conjunctival bleed in the left eye otherwise no significant abnormality Neck is supple no JVD no goiter no lymphadenopathy Chest exam reveals a few scattered rhonchi with wheezing Cardiac exam reveals regular heart sounds S1 and S2 no gallops no murmurs Abdomen is soft nontender no organomegaly Extremity exam reveals no edema no cyanosis or clubbing - Labs CBC & Chem 7: 03/12/17 06:44 03/12/17 06:44 Labs: Abnormal Lab Results - Last 24 Hours (Table) 03/12/17 03/12/17 Range/Units 06:44 06:44 WBC 10.8 H (3.8-10.6) k/uL Neutrophils # 8.4 H (1.3-7.7) k/uL Chloride 108 H (98-107) mmol/L Glucose 105 H (74-99) mg/dL Total Protein 5.8 L (6.3-8.2) g/dL Albumin 3.3 L (3.5-5.0) g/dL Microbiology - Last 24 Hours (Table) 060517 21:38 Blood Culture - Preliminary Blood No Growth after 24 hours [id number] 21:38 Urine Culture - Final Urine,Clean Catch Assessment and Plan Plan: #1 left periorbital cellulitis #2 left conjunctiva bleeding #3 previous history of stroke 15 years ago #4 wheezing was possible COPD patient is a lifelong smoker she states she quit 2 ago, at this time she was started on albuterol updrafts when necessary #5 multiple episodes of vomiting, will treat symptomatically Will obtain ultrasound of the abdomen to assess cause Medication and labs were reviewed continue with IV Levaquin per infectious disease recommendation Consultation for infectious disease and ophthalmology were initiated Plavix and aspirin are on hold due to conjunctival bleeding Will follow closely
[2017-03-12 13:48] LABS: Amylase 42 U/L (30-110)
--- NOTE | 2017-03-12 18:12 | P.PN ---
Subjective Principal diagnosis: Left eye swelling 56-year-old female with history of tobacco smoking until 2 months ago also has a history of a cerebrovascular accident 12 years ago. Choice at that time she was taking a weight loss supplement which resulted in a hypertensive stroke. Because of that she's been maintained on Plavix and aspirin from her neurologist Dr. Singh. The patient relates that she was gardening. And accidentally struck her face with the [employer] when she was working. She rapidly developed swelling and erythema around the left eye and left eye itself. It is quite painful and has been associated with some increase of her baseline nausea and emesis. Pain is been significant. She denying bleeding in any other places. Vision the right eye is completely intact. She has mild headache. Denies neck stiffness. Relates that her health in general is quite poor. Does relate the eye slightly better. However she's having significant nausea and emesis today. Apparently she's had great difficulties with this over time. She's been evaluated by GI in the past. She has a known hiatal hernia and gastritis. The symptoms are getting worse now that she's been in hospital. Has active emesis while in the room. Objective - Vital Signs Vital signs: Vital Signs Temp 98.1 F 03/12/17 15:45 Pulse 88 03/12/17 15:45 Resp 16 03/12/17 15:45 BP 107/64 03/12/17 15:45 Pulse Ox 97 03/12/17 15:45 Intake & Output 03/11/17 03/12/17 03/12/17 18:59 06:59 18:59 Intake Total 240 240 Output Total 700 600 Balance 240 -460 -600 Weight 60.1 kg Intake: Oral 240 240 Output: Urine 600 Emesis 700 Other: Voiding Method Toilet Toilet # Voids 1 # Emeses 1 - Exam Just after the exam the patient actually has emesis 2 nonbloody material. 56-year-old woman who appears older than her stated age. Is quite uncomfortable due to pain in her left eye as well as nausea. She has some chronic abdominal pain. HEENT: Anicteric, the right eye is without lesions. Left eye reveals evidence of the extensive hematoma about the lids and of the sclera. The periorbital tissue is slightly edematous but there is no tracking erythema. She does have ability to move the left eye in all 4 directions, no evidence of any lymphadenopathy to the neck. Oral cavity shows evidence of an upper plate poor dentition lower. No thrush is seen. Neck: The neck is supple without significant lymphadenopathy or thyromegaly. Lungs: Symmetrical air entry. Expiratory wheezes are scattered at the lung fernando. Few basilar crackles. No egophony or dullness. She coughs quite frequently. She relates that her chronic smoker's cough. Heart: Regular rate and rhythm with an audible S1-S2, no S3 no S4. There is no significant murmur click or rub, PMI was nondisplaced. Abdomen: Thin, Positive bowel sounds soft and nontender without palpable masses or organomegaly. There was no guarding or rebound. Extremities: The upper extremities have excellent pulses they are symmetric, no significant petechiae or telangiectasia. No splinter hemorrhages were noted. The lower extremities are free from significant edema. The peripheral pulses were 2+ and symmetric. Neuro: Awake alert oriented to person place and time. There are no acute new gross focal sensory motor deficits. - Labs CBC & Chem 7: 03/12/17 06:44 03/12/17 06:44 Labs: Abnormal Lab Results - Last 24 Hours (Table) 03/12/17 03/12/17 Range/Units 06:44 06:44 WBC 10.8 H (3.8-10.6) k/uL Neutrophils # 8.4 H (1.3-7.7) k/uL Chloride 108 H (98-107) mmol/L Glucose 105 H (74-99) mg/dL Total Protein 5.8 L (6.3-8.2) g/dL Albumin 3.3 L (3.5-5.0) g/dL Microbiology - Last 24 Hours (Table) 03/10/17 21:38 Blood Culture - Preliminary Blood No Growth after 24 hours 03/10/17 21:38 Urine Culture - Final Urine,Clean Catch Laboratory Results WBC 10.8 k/uL (3.8-10.6) H 03/12/17 06:44 RBC 4.11 m/uL (3.80-5.40) 03/12/17 06:44 Hgb 12.8 gm/dL (11.4-16.0) 03/12/17 06:44 Hct 38.8 % (34.0-46.0) 03/12/17 06:44 MCV 94.2 fL (80.0-100.0) 03/12/17 06:44 MCH 31.1 pg (25.0-35.0) 03/12/17 06:44 MCHC 33.0 g/dL (31.0-37.0) 03/12/17 06:44 RDW 13.8 % (11.5-15.5) 03/12/17 06:44 Plt Count 179 k/uL (150-450) 03/12/17 06:44 Neutrophils % 78 % 03/12/17 06:44 Lymphocytes % 15 % 03/12/17 06:44 Monocytes % 4 % 03/12/17 06:44 Eosinophils % 1 % 03/12/17 06:44 Basophils % 0 % 03/12/17 06:44 Neutrophils # 8.4 k/uL (1.3-7.7) H 03/12/17 06:44 Lymphocytes # 1.6 k/uL (1.0-4.8) 03/12/17 06:44 Monocytes # 0.4 k/uL (0-1.0) 03/12/17 06:44 Eosinophils # 0.1 k/uL (0-0.7) 03/12/17 06:44 Basophils # 0.1 k/uL (0-0.2) 03/12/17 06:44 PT 10.6 sec (9.0-12.0) 03/10/17 21:38 INR 1.1 (<1.1) 03/10/17 21:38 APTT 26.7 sec (22.0-30.0) 03/10/17 21:38 Sodium 141 mmol/L (137-145) 03/12/17 06:44 Potassium 4.2 mmol/L (3.5-5.1) 03/12/17 06:44 Chloride 108 mmol/L (98-107) H 03/12/17 06:44 Carbon Dioxide 28 mmol/L (22-30) 03/12/17 06:44 Anion Gap 5 mmol/L 03/12/17 06:44 BUN 9 mg/dL (7-17) 03/12/17 06:44 Creatinine 0.53 mg/dL (0.52-1.04) 03/12/17 06:44 Est GFR (MDRD) Af Amer >60 (>60 ml/min/1.73 sqM) 03/12/17 06:44 Est GFR (MDRD) Non-Af >60 (>60 ml/min/1.73 sqM) 03/12/17 06:44 Glucose 105 mg/dL (74-99) H 03/12/17 06:44 Calcium 8.5 mg/dL (8.4-10.2) 03/12/17 06:44 Total Bilirubin 0.5 mg/dL (0.2-1.3) 03/12/17 06:44 AST 24 U/L (14-36) 03/12/17 06:44 ALT 25 U/L (9-52) 03/12/17 06:44 Alkaline Phosphatase 64 U/L (38-126) 03/12/17 06:44 Total Protein 5.8 g/dL (6.3-8.2) L 03/12/17 06:44 Albumin 3.3 g/dL (3.5-5.0) L 03/12/17 06:44 Amylase 42 U/L (30-110) 03/12/17 06:44 Lipase 35 U/L (23-300) 03/12/17 06:44 Urine Color Yellow 03/10/17 21:38 Urine Appearance Clear (Clear) 03/10/17 21:38 Urine pH 6.0 (5.0-8.0) 03/10/17 21:38 Ur Specific [place] 1.016 (1.001-1.035) 03/10/17 21:38 Urine Protein Negative (Negative) 03/10/17 21:38 Urine Glucose (UA) Negative (Negative) 03/10/17 21:38 Urine Ketones Negative (Negative) 03/10/17 21:38 Urine Blood Negative (Negative) 03/10/17 21:38 Urine Nitrite Negative (Negative) 03/10/17 21:38 Urine Bilirubin Negative (Negative) 03/10/17 21:38 Urine Urobilinogen <2.0 mg/dL (<2.0) 03/10/17 21:38 Ur Leukocyte Esterase Moderate (Negative) H 03/10/17 21:38 Urine RBC 2 /hpf (0-5) 03/10/17 21:38 Urine WBC 36 /hpf (0-5) H 03/10/17 21:38 Ur Squamous Epith Cells 3 /hpf (0-4) 03/10/17 21:38 Amorphous Sediment Occasional /hpf (None) H 03/10/17 21:38 Urine Mucus Occasional /hpf (None) H 03/10/17 21:38 Microbiology 03/10/17 21:38 Blood Blood Culture - Preliminary No Growth after 24 hours 03/10/17 21:38 Urine,Clean Catch Urine Culture - Final Assessment and Plan (1) Traumatic subconjunctival hemorrhage of left eye Narrative/Plan: 56 year old female long-standing history of tobacco use stopping 2 months ago who has underlying symptoms of COPD, has a history of a prior stroke is on Plavix and aspirin. The patient relates that she was gardening and suffered a minimal trauma in her garden spade to her left eye area. This is resulted in the significant hematoma. She's been seen by ophthalmology with no plans for any specific intervention except topical drops. The patient has no history of MRSA The chest x-ray as mildly abnormal and she has ongoing symptoms. Will at this time streamline antibiotic therapy to Levaquin to complete a course for her potential pulmonary infection, would also finish treatment for the early cellulitic changes to the left periorbital site. Will need to follow with her primary care physician after discharge, in regards to her anticoagulation status. She is having active nausea and emesis. Warfarin as the primary care as far as any next workup is needed. Antiemetics are given. Status: Acute (2) Nausea and vomiting Status: Acute
[2017-03-12] MEDS: SYMBICORT 160-4.5 MCG INHALER INHALATION PRN (18:58)
[2017-03-12] MEDS: LEVOFLOXACIN 500MG-D5W PMX 500 MG in DEXTROSE/WATER 1 100ML.BAG IVPB SCH (20:51)
[2017-03-12] MEDS: BACLOFEN 10 MG TAB PO SCH (22:03)
[2017-03-12] MEDS: SERTRALINE 100 MG TAB PO SCH (22:03)
[2017-03-12] MEDS: ARIPiprazole 5 MG TAB PO SCH (22:03)
[2017-03-12] MEDS: QUEtiapine 50 MG TAB PO SCH (22:03)
[2017-03-13] MEDS: ONDANSETRON 4 MG/2 ML VIAL IVP PRN ×3 (01:23→18:30)
[2017-03-13] MEDS: HYDROmorphone 1 MG/ML 1 ML SYRINGE IV PRN ×5 (02:50→21:38)
[2017-03-13] MEDS: SODIUM CHLORIDE 0.9% 1,000 ML IV SCH (06:40)
[2017-03-13 07:12] LABS: Basophils % (A) 1 %; CH 31.3; CHCM 33.2; Eosinophils # (A) 0.1 k/uL (0-0.7); Eosinophils % (A) 1 %; HCT 37.9 % (34.0-46.0); HDW 2.31; HGB 12.3 gm/dL (11.4-16.0); Luc # (Auto) 0.12; Luc % (Auto) 2; Lymphocytes # (A) 1.7 k/uL (1.0-4.8); Lymphocytes % (A) 24 %; MCH 30.9 pg (25.0-35.0); MCHC 32.5 g/dL (31.0-37.0); MCV 94.9 fL (80.0-100.0); Mean Platelet Volume 7.7; Monocytes # (A) 0.4 k/uL (0-1.0); Monocytes % (A) 5 %; Neutrophils # (A) 4.9 k/uL (1.3-7.7); Neutrophils % (A) 68 %; RBC 3.99 m/uL (3.80-5.40); RDW 13.8 % (11.5-15.5); WBC 7.3 k/uL (3.8-10.6); WBC (Perox) 7.48
[2017-03-13 07:27] LABS: ALT 24 U/L (9-52); AST 20 U/L (14-36); Alkaline Phosphatase 62 U/L (38-126); Anion Gap 7 mmol/L; Blood Urea Nitrogen 8 mg/dL (7-17); Calcium 8.7 mg/dL (8.4-10.2); Carbon Dioxide 28 mmol/L (22-30); Chloride 107 mmol/L (98-107); Glucose 98 mg/dL (74-99); Non-African American GFR(MDRD) >60 (>60 ml/min/1.73 sqM); Sodium 142 mmol/L (137-145); Total Bilirubin 0.6 mg/dL (0.2-1.3); Total Protein 5.8 g/dL (6.3-8.2)
[2017-03-13] MEDS ORDERED: ERGOCALCIFEROL 50,000 UNIT CAP PO SCH (09:00)
[2017-03-13] MEDS: CIPROFLOXACIN 0.3% OPHTH SOLN 2.5 ML BTL LEFT EYE SCH ×2 (09:37→18:31)
[2017-03-13] MEDS: PANTOPRAZOLE 40 MG TABLET PO SCH (09:38)
[2017-03-13] MEDS: B COMPLEX-VIT C-VIT E-ZINC 1 EACH TAB PO SCH (09:38)
[2017-03-13] MEDS: LORATADINE 10 MG TAB PO SCH (09:38)
--- NOTE | 2017-03-13 10:18 | US ---
EXAMINATION TYPE: US abdomen complete DATE OF EXAM: 03/13/2017 COMPARISON: CT abdomen and pelvis May 27, 2014 CLINICAL HISTORY: vomiting. Vomiting, history of cholecystectomy EXAM MEASUREMENTS: Liver Length: 17.9 cm Gallbladder Wall: surgically absent CBD: 0.9 cm Spleen: 9.8 cm Right Kidney: 12.7 x 3.4 x 4.6 cm Left Kidney: 12.7 x 5.0 x 4.6 cm Pancreas: visualized portions wnl, tail obscured by overlying midline bowel gas Liver: slightly course echogenicity, otherwise wnl Gallbladder: surgically absent Evidence for sonographic Vigil's sign: yes CBD: wnl Spleen: visualized portions wnl, limited by rib shadowing and overlying bowel gas Right Kidney: dilated renal pelvis Left Kidney: dilated renal pelvis, superior pole limited by rib shadowing Upper IVC: wnl Abd Aorta: visualized portions wnl, distal portion partially obscured by overlying midline bowel gas Atherosclerotic change throughout aorta is present. Pancreatic duct is visualized but is upper limits of normal in size. There is prominent renal pelvis bilaterally without calyceal dilatation consisten t with extrarenal pelvises. The visualized liver is homogenous. The intrahepatic portion of the IVC and visualized abdominal aor ta are within normal limits. Gallbladder is surgically absent. Common bile duct is within normal mora its after cholecystectomy. The visualized portions of the pancreas are homogenous. The spleen is un remarkable. Kidneys are symmetric and free of hydronephrosis. No renal lesions are seen. IMPRESSION: No significant finding is seen to account for patient's symptoms of vomiting.
--- NOTE | 2017-03-13 11:07 | P.PN ---
Subjective Patient is a 56-year-old female who states that yesterday morning she woke up with pain in her left eye she started developing redness on the upper lid of her left eye that progress quickly after trauma to that eye, patient started having erythema in her eyeball, she decided to come to emergency room she was evaluated in the emergency department she was diagnosed was periorbital cellulitis she was started on Unasyn and vancomycin and was admitted to medical floor. Patient was evaluated by Dr. Aiken and antibiotic were changed to Levaquin, to cover acute bronchitis and the periorbital cellulitis She was evaluated by ophthalmology and Cipro eyedrops were added Plavix and aspirin are on hold due to conjunctiva and bleed on the left, no other intervention recommended by ophthalmology Patient is still complaining of some eye pain. Planning also of nausea with multiple episodes of vomiting. Patient does have a history of peptic ulcer disease. Her last EGD was about 6 years ago. Patient reports also at home she' s been vomiting about 3 times a week. She notes it after acid foods like spaghetti sauce. Abdominal ultrasound was negative. Amylase and lipase are within normal limits. Patient bowel movement was 2 days ago. She denies any chest pain or shortness of breath. Denies any difficulty urinating. Objective - Vital Signs Vital signs: Vital Signs Temp 98.2 F 03/13/17 08:00 Pulse 73 03/13/17 08:00 Resp 16 03/13/17 08:00 BP 105/60 03/13/17 08:00 Pulse Ox 98 03/13/17 08:00 Intake & Output 03/12/17 03/13/17 03/13/17 18:59 06:59 18:59 Intake Total 120 200 Output Total 600 1500 Balance -600 -1380 200 Intake: Oral 120 200 Output: Urine 600 1000 Emesis 500 Other: Voiding Method Toilet Toilet # Voids 1 # Emeses 1 2 - Exam HEENT erythema and bruising noted in the periorbital area of the left only. There is conjunctival bleeding in the left eye Head normocephalic Neck supple Lungs clear to auscultation bilaterally no wheezing or crackles Heart regular rate and rhythm S1-S2, no rub or gallop Abdomen is soft epigastric tenderness nondistended positive bowel sounds no hepatosplenomegaly Extremities no edema Neuro alert and orientated to 3 - Labs CBC & Chem 7: 03/13/17 06:51 03/13/17 06:51 Labs: Abnormal Lab Results - Last 24 Hours (Table) 03/13/17 Range/Units 06:51 Total Protein 5.8 L (6.3-8.2) g/dL Albumin 3.4 L (3.5-5.0) g/dL Microbiology - Last 24 Hours (Table) 03/10/17 21:38 Blood Culture - Preliminary Blood No Growth after 48 hours Assessment and Plan Plan: #1 left periorbital cellulitis: Antibiotics per infectious disease currently on Levaquin. Cipro eyedrops added by ophthalmology. Patient is a follow-up with ophthalmology outpatient on Friday #2 left conjunctiva bleeding: Evaluated by ophthalmology #3 previous history of stroke 15 years ago: Hold aspirin and Plavix due to the conjunctival hemorrhage #4 wheezing was possible COPD patient is a lifelong smoker she states she quit 2 ago, at this time she was started on albuterol updrafts when necessary #5 nausea and vomiting: Change Protonix to IV Protonix. Change Zofran to every 6 hours. Consult GI service for possible EGD. Patient has known history of peptic ulcer disease. Amylase and lipase normal. Abdominal ultrasound normal 6. Acute bronchitis currently on Levaquin. I performed an examination of the patient and discussed their management with the physician Charge Account Identification Clerk. I have reviewed the Physician Charge Account Identification Clerk's notes and agree with the documented findings and plan of care
[2017-03-13] MEDS: TIOTROPIUM 18 MCG/PUFF INHALER INHALATION SCH (13:12)
--- NOTE | 2017-03-13 21:03 | P.PN ---
Subjective Principal diagnosis: Left eye swelling 56-year-old female with history of tobacco smoking until 2 months ago also has a history of a cerebrovascular accident 12 years ago. Choice at that time she was taking a weight loss supplement which resulted in a hypertensive stroke. Because of that she's been maintained on Plavix and aspirin from her neurologist Dr. Singh. The patient relates that she was gardening. And accidentally struck her face with the [employer] when she was working. She rapidly developed swelling and erythema around the left eye and left eye itself. It is quite painful and has been associated with some increase of her baseline nausea and emesis. Pain is been significant. She denying bleeding in any other places. Vision the right eye is completely intact. She has mild headache. Denies neck stiffness. Relates that her health in general is quite poor. Does relate the eye slightly better. However she's having significant nausea and emesis today. Apparently she's had great difficulties with this over time. She's been evaluated by GI in the past. She has a known hiatal hernia and gastritis. The symptoms are getting worse now that she's been in hospital. Has had emesis today. Eating very little. Objective - Vital Signs Vital signs: Vital Signs Temp 98.6 F 03/13/17 17:30 Pulse 74 03/13/17 17:30 Resp 20 03/13/17 17:30 BP 124/79 03/13/17 17:30 Pulse Ox 97 03/13/17 17:30 Intake & Output 03/13/17 03/13/17 03/14/17 06:59 18:59 06:59 Intake Total 120 400 Output Total 1500 Balance -1380 400 Intake: Oral 120 400 Output: Urine 1000 Emesis 500 Other: Voiding Method Toilet # Voids 1 # Emeses 2 - Exam Just after the exam the patient actually has emesis 2 nonbloody material. 56-year-old woman who appears older than her stated age. Is quite uncomfortable due to pain in her left eye as well as nausea. She has some chronic abdominal pain. HEENT: Anicteric, the right eye is without lesions. Left eye reveals evidence of the improvement of the periorbital area. I is now open. The scleral hemorrhage is starting to improve a bit also. She does have ability to move the left eye in all 4 directions, no evidence of any lymphadenopathy to the neck. Oral cavity shows evidence of an upper plate poor dentition lower. No thrush is seen. Neck: The neck is supple without significant lymphadenopathy or thyromegaly. Lungs: Symmetrical air entry. Expiratory wheezes are scattered at the lung fernando. Few basilar crackles. No egophony or dullness. She coughs quite frequently. She relates that her chronic smoker's cough. Heart: Regular rate and rhythm with an audible S1-S2, no S3 no S4. There is no significant murmur click or rub, PMI was nondisplaced. Abdomen: Thin, Positive bowel sounds soft and nontender without palpable masses or organomegaly. There was no guarding or rebound. Extremities: The upper extremities have excellent pulses they are symmetric, no significant petechiae or telangiectasia. No splinter hemorrhages were noted. The lower extremities are free from significant edema. The peripheral pulses were 2+ and symmetric. Neuro: Awake alert oriented to person place and time. There are no acute new gross focal sensory motor deficits. - Labs CBC & Chem 7: 03/13/17 06:51 03/13/17 06:51 Labs: Abnormal Lab Results - Last 24 Hours (Table) 03/13/17 Range/Units 06:51 Total Protein 5.8 L (6.3-8.2) g/dL Albumin 3.4 L (3.5-5.0) g/dL Microbiology - Last 24 Hours (Table) 03/10/17 21:38 Blood Culture - Preliminary Blood No Growth after 48 hours Laboratory Results WBC 7.3 k/uL (3.8-10.6) 03/13/17 06:51 RBC 3.99 m/uL (3.80-5.40) 03/13/17 06:51 Hgb 12.3 gm/dL (11.4-16.0) 03/13/17 06:51 Hct 37.9 % (34.0-46.0) 03/13/17 06:51 MCV 94.9 fL (80.0-100.0) 03/13/17 06:51 MCH 30.9 pg (25.0-35.0) 03/13/17 06:51 MCHC 32.5 g/dL (31.0-37.0) 03/13/17 06:51 RDW 13.8 % (11.5-15.5) 03/13/17 06:51 Plt Count 178 k/uL (150-450) 03/13/17 06:51 Neutrophils % 68 % 03/13/17 06:51 Lymphocytes % 24 % 03/13/17 06:51 Monocytes % 5 % 03/13/17 06:51 Eosinophils % 1 % 03/13/17 06:51 Basophils % 1 % 03/13/17 06:51 Neutrophils # 4.9 k/uL (1.3-7.7) 03/13/17 06:51 Lymphocytes # 1.7 k/uL (1.0-4.8) 03/13/17 06:51 Monocytes # 0.4 k/uL (0-1.0) 03/13/17 06:51 Eosinophils # 0.1 k/uL (0-0.7) 03/13/17 06:51 Basophils # 0.0 k/uL (0-0.2) 03/13/17 06:51 PT 10.6 sec (9.0-12.0) 03/10/17 21:38 INR 1.1 (<1.1) 03/10/17 21:38 APTT 26.7 sec (22.0-30.0) 03/10/17 21:38 Sodium 142 mmol/L (137-145) 03/13/17 06:51 Potassium 4.0 mmol/L (3.5-5.1) 03/13/17 06:51 Chloride 107 mmol/L (98-107) 03/13/17 06:51 Carbon Dioxide 28 mmol/L (22-30) 03/13/17 06:51 Anion Gap 7 mmol/L 03/13/17 06:51 BUN 8 mg/dL (7-17) 03/13/17 06:51 Creatinine 0.56 mg/dL (0.52-1.04) 03/13/17 06:51 Est GFR (MDRD) Af Amer >60 (>60 ml/min/1.73 sqM) 03/13/17 06:51 Est GFR (MDRD) Non-Af >60 (>60 ml/min/1.73 sqM) 03/13/17 06:51 Glucose 98 mg/dL (74-99) 03/13/17 06:51 Calcium 8.7 mg/dL (8.4-10.2) 03/13/17 06:51 Total Bilirubin 0.6 mg/dL (0.2-1.3) 03/13/17 06:51 AST 20 U/L (14-36) 03/13/17 06:51 ALT 24 U/L (9-52) 03/13/17 06:51 Alkaline Phosphatase 62 U/L (38-126) 03/13/17 06:51 Total Protein 5.8 g/dL (6.3-8.2) L 03/13/17 06:51 Albumin 3.4 g/dL (3.5-5.0) L 03/13/17 06:51 Amylase 42 U/L (30-110) 03/12/17 06:44 Lipase 35 U/L (23-300) 03/12/17 06:44 Urine Color Yellow 03/10/17 21:38 Urine Appearance Clear (Clear) 03/10/17 21:38 Urine pH 6.0 (5.0-8.0) 03/10/17 21:38 Ur Specific [place] 1.016 (1.001-1.035) 03/10/17 21:38 Urine Protein Negative (Negative) 03/10/17 21:38 Urine Glucose (UA) Negative (Negative) 03/10/17 21:38 Urine Ketones Negative (Negative) 03/10/17 21:38 Urine Blood Negative (Negative) 03/10/17 21:38 Urine Nitrite Negative (Negative) 03/10/17 21:38 Urine Bilirubin Negative (Negative) 03/10/17 21:38 Urine Urobilinogen <2.0 mg/dL (<2.0) 03/10/17 21:38 Ur Leukocyte Esterase Moderate (Negative) H 03/10/17 21:38 Urine RBC 2 /hpf (0-5) 03/10/17 21:38 Urine WBC 36 /hpf (0-5) H 03/10/17 21:38 Ur Squamous Epith Cells 3 /hpf (0-4) 03/10/17 21:38 Amorphous Sediment Occasional /hpf (None) H 03/10/17 21:38 Urine Mucus Occasional /hpf (None) H 03/10/17 21:38 Microbiology 03/10/17 21:38 Blood Blood Culture - Preliminary No Growth after 48 hours 03/10/17 21:38 Urine,Clean Catch Urine Culture - Final Assessment and Plan (1) Traumatic subconjunctival hemorrhage of left eye Narrative/Plan: 56 year old female long-standing history of tobacco use stopping 2 months ago who has underlying symptoms of COPD, has a history of a prior stroke is on Plavix and aspirin. The patient relates that she was gardening and suffered a minimal trauma in her garden spade to her left eye area. This is resulted in the significant hematoma. She's been seen by ophthalmology with no plans for any specific intervention except topical drops. The patient has no history of MRSA The chest x-ray as mildly abnormal and she has ongoing symptoms. Will at this time streamline antibiotic therapy to Levaquin to complete a course for her potential pulmonary infection, would also finish treatment for the early cellulitic changes to the left periorbital site. Will need to follow with her primary care physician after discharge, in regards to her anticoagulation status. She is having active nausea and emesis. GI consult was then placed and hopefully will have EGD soon for further diagnosis. Status: Acute (2) Nausea and vomiting Status: Acute
[2017-03-13] MEDS: BACLOFEN 10 MG TAB PO SCH (21:28)
[2017-03-13] MEDS: ARIPiprazole 5 MG TAB PO SCH (21:28)
[2017-03-13] MEDS: LEVOFLOXACIN 500 MG TAB PO SCH (21:28)
[2017-03-13] MEDS: SERTRALINE 100 MG TAB PO SCH (21:28)
[2017-03-13] MEDS: QUEtiapine 50 MG TAB PO SCH (21:29)
[2017-03-14] MEDS: CIPROFLOXACIN 0.3% OPHTH SOLN 2.5 ML BTL LEFT EYE SCH ×6 (02:58→21:39)
[2017-03-14] MEDS: SODIUM CHLORIDE 0.9% 1,000 ML IV SCH ×4 (02:59→21:40)
[2017-03-14] MEDS: ONDANSETRON 4 MG/2 ML VIAL IVP PRN ×2 (03:00→09:17)
[2017-03-14] MEDS: HYDROmorphone 1 MG/ML 1 ML SYRINGE IV PRN ×2 (03:00→21:29)
[2017-03-14] MEDS: LORATADINE 10 MG TAB PO SCH (07:55)
[2017-03-14] MEDS: B COMPLEX-VIT C-VIT E-ZINC 1 EACH TAB PO SCH (07:55)
[2017-03-14] MEDS: TIOTROPIUM 18 MCG/PUFF INHALER INHALATION SCH (08:11)
[2017-03-14] MEDS ORDERED: PANTOPRAZOLE 40 MG/10 ML VIAL IVP SCH (09:00)
--- NOTE | 2017-03-14 09:35 | P.PN ---
Subjective Patient is a 56-year-old female who states that yesterday morning she woke up with pain in her left eye she started developing redness on the upper lid of her left eye that progress quickly after trauma to that eye, patient started having erythema in her eyeball, she decided to come to emergency room she was evaluated in the emergency department she was diagnosed was periorbital cellulitis she was started on Unasyn and vancomycin and was admitted to medical floor. Patient was evaluated by Dr. Aiken and antibiotic were changed to Levaquin, to cover acute bronchitis and the periorbital cellulitis She was evaluated by ophthalmology and Cipro eyedrops were added Plavix and aspirin are on hold due to conjunctiva and bleed on the left, no other intervention recommended by ophthalmology 03/13/2017 Patient is still complaining of some eye pain. Planning also of nausea with multiple episodes of vomiting. Patient does have a history of peptic ulcer disease. Her last EGD was about 6 years ago. Patient reports also at home she' s been vomiting about 3 times a week. She notes it after acid foods like spaghetti sauce. Abdominal ultrasound was negative. Amylase and lipase are within normal limits. Patient bowel movement was 2 days ago. She denies any chest pain or shortness of breath. Denies any difficulty urinating. 03/14/2017 patient complaining of nausea no vomiting to the night or this morning. She is scheduled for EGD this afternoon. Still complaining of some eye pain. Swelling has shown improvement. No bowel movement 3 days. Denies any chest pain or shortness of breath. Cough improving. Denies any difficulty urinating. Objective - Vital Signs Vital signs: Vital Signs Temp 98.1 F 03/14/17 07:45 Pulse 86 03/14/17 07:45 Resp 16 03/14/17 07:45 BP 144/80 03/14/17 07:45 Pulse Ox 94 L 03/14/17 07:45 Intake & Output 03/13/17 03/14/17 03/14/17 18:59 06:59 18:59 Intake Total 400 Balance 400 Weight 60.1 kg Intake: Oral 400 Other: Voiding Method Toilet Toilet # Voids 1 # Emeses 2 - Exam HEENT erythema and bruising noted in the periorbital area of the left only. There is conjunctival bleeding in the left eye Mouth oral thrush present Head normocephalic Neck supple Lungs clear to auscultation bilaterally no wheezing or crackles Heart regular rate and rhythm S1-S2, no rub or gallop Abdomen is soft epigastric tenderness nondistended positive bowel sounds no hepatosplenomegaly Extremities no edema Neuro alert and orientated to 3 - Labs CBC & Chem 7: 03/13/17 06:51 03/13/17 06:51 Labs: Microbiology - Last 24 Hours (Table) 03/10/17 21:38 Blood Culture - Preliminary Blood No Growth after 72 hours Assessment and Plan Plan: #1 left periorbital cellulitis: Antibiotics per infectious disease currently on Levaquin. Cipro eyedrops added by ophthalmology. Patient is a follow-up with ophthalmology outpatient on Friday #2 left conjunctiva bleeding: Evaluated by ophthalmology #3 previous history of stroke 15 years ago: Hold aspirin and Plavix due to the conjunctival hemorrhage #4 mild acute COPD exacerbation: patient is a lifelong smoker she states she quit 2 ago, at this time she was started on albuterol updrafts when necessary #5 nausea and vomiting: Change Protonix to IV Protonix. Change Zofran to every 6 hours. Age is scheduled for EGD this afternoon. Patient has known history of peptic ulcer disease. Amylase and lipase normal. Abdominal ultrasound normal 6. Acute bronchitis currently on Levaquin. 7. Oral thrush start nystatin swish and swallow 8. Pain management: To switch patient to oral pain medication such as [place] for pain control. Use Dilaudid for breakthrough pain I performed an examination of the patient and discussed their management with the physician School Psychologist. I have reviewed the Physician School Psychologist's notes and agree with the documented findings and plan of care
--- NOTE | 2017-03-14 11:48 | P.CONS ---
History of Present Illness - Reason for Consult Consult date: 03/14/17 Nausea vomiting Requesting physician: Chuck Max - History of Present Illness 56-year-old female with a history of COPD long-standing nicotine cigarette dependency quit a few months ago, CVA/TIA, hyperlipidemia, cholecystectomy, anxiety and depression. Patient admitted with left eye swelling pain redness secondary to garden shovel injury while gardening. Consultation requested for nausea vomiting. Apparently patient has been having intermittent nonbloody nausea vomiting for the last 4 months. No history of peptic ulcer disease or EGD. Denies abdominal pain, fever, chills, or rapid weight loss. Gallbladder ultrasound CBD 0.9 cm. White count 7.3. Hemoglobin 12.3. INR 1.1. LFTs total bilirubin normal. Lipase 35. Home medications include respiratory updrafts, Plavix, and full strength aspirin. Aspirin and Plavix have been discontinued. Review of Systems Constitutional: Denies fever, chills, sweats, weight gain, or loss. HEENT: Negative for migraines, blurred vision or loss, earaches, drainage, tinnitus, oral mucosal lesions, dysphagia, or odynophagia. CARDIAC: Hyperlipidemia. Negative for chest pain, arrhythmias, or palpitation. RESPIRATORY: COPD. Negative for shortness of breath, hemoptysis, cough, or sputum production. GI: See HPI for pertinent findings. : Negative for hematuria, urgency, frequency, polyuria, or dysuria. GYNc: Denies possibility of . Negative vaginal discharge. MUSCULOSKELETAL: Negative for muscle aches, swelling, arthritis, and arthralgias. NEUROLOGIC: CVA/TIA. ENDOCRINE: Negative for thyroid problems. SKIN: Negative for rash or itching. PSYCHIATRIC: Depression and anxiety All systems: negative (See HPI) Past Medical History Past Medical History: COPD, CVA/TIA, Hyperlipidemia Additional Past Medical History / Comment(s): Rt sided CVA 2003 with foot drop. smoker 2 ppd since age 16 (40+ yrs) History of Any Multi-Drug Resistant Organisms: None Reported Past Surgical History: Appendectomy, Cholecystectomy, Hysterectomy, Tonsillectomy Past Anesthesia/Blood Transfusion Reactions: No Reported Reaction Past Psychological History: Anxiety, Depression Additional Psychological History / Comment(s): Patient is not . She lives with her daughter and her mother. Her father many years ago from lung cancer and metastasis. Patient was a smoker until 2 months ago. Denies alcohol use or recreational drug use. No experience. No international travel. Pet dog in the home recently had a cat but she did give it away to her nephew. Animals have not been ill. Smoking Status: Former smoker Past Alcohol Use History: None Reported Past Drug Use History: Marijuana Additional Drug Use History / Comment(s): patient states she had accu puncture done and quit smoking 2 months ago. pt continues to smoke marijuana daily via vaporizer - Past Family History Father Additional Family Medical History / Comment(s): Her father had bone cancer Mother Additional Family Medical History / Comment(s): aneurism, heart problems Medications and Allergies Home Medications Medication Instructions Recorded Confirmed Type Clopidogrel [Plavix] 75 mg PO DAILY 04/08/14 03/11/17 History Lansoprazole [Prevacid] 30 mg PO DAILY 05/26/14 03/11/17 History Tiotropium 18 Mcg/Puff [Spiriva] 1 cap INHALATION RT-DAILY 05/26/14 03/11/17 History Mometasone/Formoterol [Dulera 200 1 puff INHALATION RT-BID PRN 12/16/15 History Mcg/5 Mcg Inhaler] ARIPiprazole [Abilify] 5 mg PO HS 03/10/17 03/11/17 History Aspirin 325 mg PO DAILY 03/10/17 03/11/17 History Baclofen 10 mg PO HS 03/10/17 03/11/17 History Ergocalciferol [Vitamin D2] 50,000 unit PO TH 03/10/17 03/11/17 History Loratadine [Claritin] 10 mg PO DAILY 03/10/17 03/11/17 History Omeprazole 40 mg PO DAILY 03/10/17 03/11/17 History QUEtiapine FUMARATE [Seroquel] 50 mg PO HS 03/10/17 03/11/17 History Sertraline [Zoloft] 100 mg PO HS 03/10/17 03/11/17 History Vitamin B Complex 1 cap PO DAILY 03/10/17 03/11/17 History traMADol HCL [Ultram] 50 mg PO BID PRN 03/10/17 03/11/17 History Allergies Allergy/AdvReac Type Severity Reaction Status Date / Time iodine Allergy Rash/Hives Verified 03/10/17 20:38 codeine AdvReac Nausea & Verified 03/10/17 20:38 Vomiting & Diarrhea Physical Exam Vitals: Vital Signs Temp Pulse Pulse Resp BP Pulse Ox 03/14/17 07:45 98.1 F 86 16 144/80 94 L 03/14/17 04:00 98.2 F 72 18 140/78 93 L 03/14/17 00:00 20 03/13/17 17:30 98.6 F 74 20 124/79 97 03/13/17 12:30 98.7 F 86 16 102/54 90 L Intake and Output 03/13/17 03/14/17 03/14/17 22:59 06:59 14:59 Other: Voiding Method Toilet Toilet # Voids 1 Weight 60.1 kg General appearance: The patient is alert, oriented, in no acute distress. HET: Head is normocephalic and atraumatic. Pupils are equal and reactive. Left orbital swelling erythema eyelid closed. Oropharynx with white-based tongue possible candidiasis. Neck: Supple without lymphadenopathy. Trachea midline. Heart: S1 S2. Regular rate and rhythm. Lungs: No crackles or wheezes are heard. Abdomen: Soft, nontender, nondistended with bowel sounds. No peritoneal signs. No palpable organomegaly or masses. Extremities: Normal skin color and turgor. No cyanosis, rash, ulceration, clubbing, or edema. Radial and pedal pulses are 2/4 bilaterally. Neurological: No focal deficits. Strength and sensation are grossly intact. Results CBC & Chem 7: 03/13/17 06:51 03/13/17 06:51 Labs: Microbiology - Last 24 Hours (Table) 03/10/17 21:38 Blood Culture - Preliminary Blood No Growth after 72 hours US - abdomen: report reviewed (Dr. Coreas) Assessment and Plan (1) Nausea & vomiting Narrative/Plan: Evidence of oral candidiasis possible esophageal candidiasis which could be contributing to her symptoms. We'll evaluate for evidence of peptic ulcer disease, gastritis, esophagitis. Status: Acute (2) Oral candidiasis Status: Acute (3) Left eye injury Status: Acute (4) Orbital cellulitis on left Status: Acute Plan: 1. We'll proceed with EGD evaluation. 2. Continue supportive measures and GI prophylaxis. The directional bore operator has discussed the risks, benefits and alternative therapies for the above-mentioned procedure and for both sedation/analgesia as well as necessary blood product administration, if indicated, as they pertain to this patient. The patient has indicated understanding and acceptance of the risks and procedures discussed. Thank you for this kind referral and the opportunity to participate in the care of your patient. This consultation was discussed with Dr. Coreas. The impression and plan of care have been directed as dictated.
[2017-03-14] MEDS: NYSTATIN 100,000 UNIT/ML SUSP 500,000 UNIT/5 ML CUP PO SCH ×4 (12:18→21:23)
--- NOTE | 2017-03-14 12:57 | P.PN ---
Subjective Principal diagnosis: Left eye swelling 56-year-old female with history of tobacco smoking until 2 months ago also has a history of a cerebrovascular accident 12 years ago. Choice at that time she was taking a weight loss supplement which resulted in a hypertensive stroke. Because of that she's been maintained on Plavix and aspirin from her neurologist Dr. Singh. The patient relates that she was gardening. And accidentally struck her face with the [employer] [place] when she was working. She rapidly developed swelling and erythema around the left eye and left eye itself. It is quite painful and has been associated with some increase of her baseline nausea and emesis. Pain is been significant. She denying bleeding in any other places. Vision the right eye is completely intact. She has mild headache. Denies neck stiffness. Relates that her health in general is quite poor. Does relate the eye slightly better. However she's having significant nausea and emesis today. Apparently she's had great difficulties with this over time. She's been evaluated by GI in the past. She has a known hiatal hernia and gastritis. The symptoms are getting worse now that she's been in hospital. Has had emesis today. Eating very little. Objective - Vital Signs Vital signs: Vital Signs Temp 98.1 F 03/14/17 07:45 Pulse 86 03/14/17 07:45 Resp 16 03/14/17 07:45 BP 144/80 03/14/17 07:45 Pulse Ox 94 L 03/14/17 07:45 Intake & Output 03/13/17 03/14/17 03/14/17 18:59 06:59 18:59 Intake Total 400 Balance 400 Weight 60.1 kg Intake: Oral 400 Other: Voiding Method Toilet Toilet # Voids 1 1 # Emeses 2 - Exam Just after the exam the patient actually has emesis 2 nonbloody material. 56-year-old woman who appears older than her stated age. Is quite uncomfortable due to pain in her left eye as well as nausea. She has some chronic abdominal pain. HEENT: Anicteric, the right eye is without lesions. Left eye reveals evidence of the improvement of the periorbital area. I is now open. The scleral hemorrhage is starting to improve a bit also. She does have ability to move the left eye in all 4 directions, no evidence of any lymphadenopathy to the neck. Oral cavity shows evidence of an upper plate poor dentition lower. No thrush is seen. Neck: The neck is supple without significant lymphadenopathy or thyromegaly. Lungs: Symmetrical air entry. Expiratory wheezes are scattered at the lung fernando. Few basilar crackles. No egophony or dullness. She coughs quite frequently. She relates that her chronic smoker's cough. Heart: Regular rate and rhythm with an audible S1-S2, no S3 no S4. There is no significant murmur click or rub, PMI was nondisplaced. Abdomen: Thin, Positive bowel sounds soft and nontender without palpable masses or organomegaly. There was no guarding or rebound. Extremities: The upper extremities have excellent pulses they are symmetric, no significant petechiae or telangiectasia. No splinter hemorrhages were noted. The lower extremities are free from significant edema. The peripheral pulses were 2+ and symmetric. Neuro: Awake alert oriented to person place and time. There are no acute new gross focal sensory motor deficits. - Labs CBC & Chem 7: 03/13/17 06:51 03/13/17 06:51 Labs: Microbiology - Last 24 Hours (Table) 03/10/17 21:38 Blood Culture - Preliminary Blood No Growth after 72 hours Laboratory Results WBC 7.3 k/uL (3.8-10.6) 03/13/17 06:51 RBC 3.99 m/uL (3.80-5.40) 03/13/17 06:51 Hgb 12.3 gm/dL (11.4-16.0) 03/13/17 06:51 Hct 37.9 % (34.0-46.0) 03/13/17 06:51 MCV 94.9 fL (80.0-100.0) 03/13/17 06:51 MCH 30.9 pg (25.0-35.0) 03/13/17 06:51 MCHC 32.5 g/dL (31.0-37.0) 03/13/17 06:51 RDW 13.8 % (11.5-15.5) 03/13/17 06:51 Plt Count 178 k/uL (150-450) 03/13/17 06:51 Neutrophils % 68 % 03/13/17 06:51 Lymphocytes % 24 % 03/13/17 06:51 Monocytes % 5 % 03/13/17 06:51 Eosinophils % 1 % 03/13/17 06:51 Basophils % 1 % 03/13/17 06:51 Neutrophils # 4.9 k/uL (1.3-7.7) 03/13/17 06:51 Lymphocytes # 1.7 k/uL (1.0-4.8) 03/13/17 06:51 Monocytes # 0.4 k/uL (0-1.0) 03/13/17 06:51 Eosinophils # 0.1 k/uL (0-0.7) 03/13/17 06:51 Basophils # 0.0 k/uL (0-0.2) 03/13/17 06:51 PT 10.6 sec (9.0-12.0) 03/10/17 21:38 INR 1.1 (<1.1) 03/10/17 21:38 APTT 26.7 sec (22.0-30.0) 03/10/17 21:38 Sodium 142 mmol/L (137-145) 03/13/17 06:51 Potassium 4.0 mmol/L (3.5-5.1) 03/13/17 06:51 Chloride 107 mmol/L (98-107) 03/13/17 06:51 Carbon Dioxide 28 mmol/L (22-30) 03/13/17 06:51 Anion Gap 7 mmol/L 03/13/17 06:51 BUN 8 mg/dL (7-17) 03/13/17 06:51 Creatinine 0.56 mg/dL (0.52-1.04) 03/13/17 06:51 Est GFR (MDRD) Af Amer >60 (>60 ml/min/1.73 sqM) 03/13/17 06:51 Est GFR (MDRD) Non-Af >60 (>60 ml/min/1.73 sqM) 03/13/17 06:51 Glucose 98 mg/dL (74-99) 03/13/17 06:51 Calcium 8.7 mg/dL (8.4-10.2) 03/13/17 06:51 Total Bilirubin 0.6 mg/dL (0.2-1.3) 03/13/17 06:51 AST 20 U/L (14-36) 03/13/17 06:51 ALT 24 U/L (9-52) 03/13/17 06:51 Alkaline Phosphatase 62 U/L (38-126) 03/13/17 06:51 Total Protein 5.8 g/dL (6.3-8.2) L 03/13/17 06:51 Albumin 3.4 g/dL (3.5-5.0) L 03/13/17 06:51 Amylase 42 U/L (30-110) 03/12/17 06:44 Lipase 35 U/L (23-300) 03/12/17 06:44 Urine Color Yellow 03/10/17 21:38 Urine Appearance Clear (Clear) 03/10/17 21:38 Urine pH 6.0 (5.0-8.0) 03/10/17 21:38 Ur Specific [place] 1.016 (1.001-1.035) 03/10/17 21:38 Urine Protein Negative (Negative) 03/10/17 21:38 Urine Glucose (UA) Negative (Negative) 03/10/17 21:38 Urine Ketones Negative (Negative) 03/10/17 21:38 Urine Blood Negative (Negative) 03/10/17 21:38 Urine Nitrite Negative (Negative) 03/10/17 21:38 Urine Bilirubin Negative (Negative) 03/10/17 21:38 Urine Urobilinogen <2.0 mg/dL (<2.0) 03/10/17 21:38 Ur Leukocyte Esterase Moderate (Negative) H 03/10/17 21:38 Urine RBC 2 /hpf (0-5) 03/10/17 21:38 Urine WBC 36 /hpf (0-5) H 03/10/17 21:38 Ur Squamous Epith Cells 3 /hpf (0-4) 03/10/17 21:38 Amorphous Sediment Occasional /hpf (None) H 03/10/17 21:38 Urine Mucus Occasional /hpf (None) H 03/10/17 21:38 Microbiology 03/10/17 21:38 Blood Blood Culture - Preliminary No Growth after 72 hours 03/10/17 21:38 Urine,Clean Catch Urine Culture - Final Assessment and Plan (1) Traumatic subconjunctival hemorrhage of left eye Narrative/Plan: 56 year old female long-standing history of tobacco use stopping 2 months ago who has underlying symptoms of COPD, has a history of a prior stroke is on Plavix and aspirin. The patient relates that she was gardening and suffered a minimal trauma in her garden spade to her left eye area. This is resulted in the significant hematoma. She's been seen by ophthalmology with no plans for any specific intervention except topical drops. The patient has no history of MRSA The chest x-ray as mildly abnormal and she has ongoing symptoms. Will at this time streamline antibiotic therapy to Levaquin to complete a course for her potential pulmonary infection, would also finish treatment for the early cellulitic changes to the left periorbital site. Will need to follow with her primary care physician after discharge, in regards to her anticoagulation status. She is having active nausea and emesis. GI consult was then placed and will have EGD today for further diagnosis. Status: Acute (2) Nausea and vomiting Status: Acute
[2017-03-14] MEDS: HYDROcodone/APAP 5-325MG 1 EACH TAB PO PRN (14:46)
[2017-03-14] MEDS ORDERED: IV FLUID CONTINUATION 1,000 ML IV ONE (15:45)
[2017-03-14] MEDS ORDERED: LIDOCAINE 1% INJ 10MG/ML (20 ML MDV) ONE (15:50)
[2017-03-14] MEDS ORDERED: PROPOFOL 10 MG/ML 20 ML VIAL IV ONE (15:50)
--- NOTE | 2017-03-14 16:14 | P.PCN ---
Date of Procedure: 03/14/17 Preoperative Diagnosis: Postoperative Diagnosis: Procedure(s) Performed: Procedure: Esophagogastroduodenoscopy and biopsy. Preoperative diagnosis: Nausea and vomiting. Postoperative diagnosis: 1. Small sliding hiatal hernia with no obvious esophagitis or complicated reflux disease. 2. Mild antral gastritis. 3. Multiple biopsies obtained from the duodenum, antrum and esophagus. Preparation sedation: Was provided by anesthesia. Brief clinical history: The patient is a 56-year-old female with a history of COPD long-standing nicotine cigarette dependency quit a few months ago, CVA/TIA , hyperlipidemia, cholecystectomy, anxiety and depression. She was admitted with left eye swelling, pain and redness secondary to garden shovel injury while gardening. Consultation was requested for nausea vomiting. Apparently, patient has been having intermittent nausea and nonbloody vomiting for the last 4 months. No history of peptic ulcer disease or EGD. Denies abdominal pain, fever, chills, or rapid weight loss. Gallbladder ultrasound CBD 0.9 cm. White count 7.3. Hemoglobin 12.3. INR 1.1. LFTs total bilirubin normal. Lipase 35. The details are summarized in the history and physical and dictated consultation. Procedure: With the patient on her left lateral decubitus position and after informed consent and adequate sedation, I passed the Olympus-GIF 160 video upper endoscope through the cricopharyngeus down the esophagus. GE junction was around 41-42 cm from the incisors and there was a small sliding hiatal hernia. The esophagus did not show any obvious erosions, ulcers, strictures or Booker's esophagus. The endoscope was then passed into the stomach which was insufflated with air and inspected in detail including the retroflex view in the cardia. There was some mottling and erythema in the antrum but no ulcers or erosions. Pyloric channel, duodenal bulb, post bulbar area and descending duodenum appeared within normal limits. Because of her symptoms, I obtained biopsies from the duodenum, antrum and esophagus then the endoscope was withdrawn. The patient tolerated the procedure well. Plan: The patient was reassured. Will await pathology results. Will allow regular diet as tolerated and further plans based on her course and biopsy results. Implants: Indications for Procedure: Operative Findings: Description of Procedure:
[2017-03-14] MEDS: SYMBICORT 160-4.5 MCG INHALER INHALATION PRN (19:27)
[2017-03-14] MEDS: SERTRALINE 100 MG TAB PO SCH (21:22)
[2017-03-14] MEDS: QUEtiapine 50 MG TAB PO SCH (21:22)
[2017-03-14] MEDS: ARIPiprazole 5 MG TAB PO SCH (21:22)
[2017-03-14] MEDS: LEVOFLOXACIN 500 MG TAB PO SCH (21:22)
[2017-03-14] MEDS: BACLOFEN 10 MG TAB PO SCH (21:22)
[2017-03-15] MEDS: ACETAMINOPHEN TAB 325 MG TAB PO PRN ×4 (02:39→21:48)
[2017-03-15] MEDS: TIOTROPIUM 18 MCG/PUFF INHALER INHALATION SCH ×2 (08:40→08:46)
[2017-03-15] MEDS: CIPROFLOXACIN 0.3% OPHTH SOLN 2.5 ML BTL LEFT EYE SCH ×4 (10:01→21:51)
[2017-03-15] MEDS: PANTOPRAZOLE 40 MG TABLET PO SCH (10:02)
[2017-03-15] MEDS: LORATADINE 10 MG TAB PO SCH (10:02)
[2017-03-15] MEDS: NYSTATIN 100,000 UNIT/ML SUSP 500,000 UNIT/5 ML CUP PO SCH ×4 (10:02→21:58)
[2017-03-15] MEDS: B COMPLEX-VIT C-VIT E-ZINC 1 EACH TAB PO SCH (10:02)
[2017-03-15 10:40] LABS: Basophils % (A) 1 %; CH 31.8; CHCM 34.8; Eosinophils # (A) 0.1 k/uL (0-0.7); Eosinophils % (A) 1 %; HCT 36.5 % (34.0-46.0); HDW 2.44; HGB 12.3 gm/dL (11.4-16.0); Luc # (Auto) 0.14; Luc % (Auto) 2; Lymphocytes # (A) 1.8 k/uL (1.0-4.8); Lymphocytes % (A) 24 %; MCH 30.8 pg (25.0-35.0); MCHC 33.6 g/dL (31.0-37.0); MCV 91.6 fL (80.0-100.0); Mean Platelet Volume 7.3; Monocytes # (A) 0.4 k/uL (0-1.0); Monocytes % (A) 6 %; Neutrophils # (A) 4.8 k/uL (1.3-7.7); Neutrophils % (A) 66 %; RBC 3.99 m/uL (3.80-5.40); RDW 13.3 % (11.5-15.5); WBC 7.2 k/uL (3.8-10.6); WBC (Perox) 7.68
[2017-03-15 10:53] LABS: ALT 23 U/L (9-52); AST 18 U/L (14-36); Alkaline Phosphatase 57 U/L (38-126); Anion Gap 5 mmol/L; Blood Urea Nitrogen 12 mg/dL (7-17); Calcium 8.3 mg/dL (8.4-10.2); Carbon Dioxide 29 mmol/L (22-30); Chloride 107 mmol/L (98-107); Glucose 81 mg/dL (74-99); Non-African American GFR(MDRD) >60 (>60 ml/min/1.73 sqM); Potassium 3.7 mmol/L (3.5-5.1); Sodium 141 mmol/L (137-145); Total Bilirubin 0.6 mg/dL (0.2-1.3); Total Protein 5.3 g/dL (6.3-8.2)
--- NOTE | 2017-03-15 11:27 | P.PN ---
Subjective Patient is doing slightly better today. She was able to tolerate liquid diet this morning. Objective - Vital Signs Vital signs: Vital Signs Temp 98.5 F 03/15/17 08:20 Pulse 79 03/15/17 08:20 Resp 16 03/15/17 08:20 BP 132/81 03/15/17 08:20 Pulse Ox 96 03/15/17 08:20 Intake & Output 03/14/17 03/15/17 03/15/17 18:59 06:59 18:59 Intake Total 50 200 150 Balance 50 200 150 Weight 60.1 kg Intake: IV 50 Oral 200 150 Other: Voiding Method Toilet # Voids 1 1 - Exam General: The patient is awake and alert, in no distress Eye: there is significant upper and lower eyelid swelling on the left. There is conjunctival injection. Neck: The neck is supple, there is no JVD. Cardiovascular: Normal S1-S2, no S3-S4, no murmurs. Respiratory: Lungs clear to auscultation bilaterally Gastrointestinal: Abdomen is soft, nontender Musculoskeletal: There is no pedal edema. Neurological:. Speech is normal. Skin: Skin is warm and dry - Labs CBC & Chem 7: 03/15/17 06:19 03/15/17 06:19 Labs: Abnormal Lab Results - Last 24 Hours (Table) 03/15/17 Range/Units 06:19 Calcium 8.3 L (8.4-10.2) mg/dL Total Protein 5.3 L (6.3-8.2) g/dL Albumin 3.0 L (3.5-5.0) g/dL Microbiology - Last 24 Hours (Table) 03/10/17 21:38 Blood Culture - Preliminary Blood No Growth after 96 hours Assessment and Plan Plan: #1 left periorbital cellulitis: Antibiotics per infectious disease patient was seen and evaluated by ophthalmology. To follow-up in the office. #2 left conjunctiva bleeding: #3 previous history of stroke 15 years ago: Hold aspirin and Plavix for now due to conjunctival hemorrhage #4 mild acute COPD exacerbation: patient is a lifelong smoker she states she quit 2 ago, at this time she was started on albuterol updrafts when necessary #5 nausea and vomiting: Seen and evaluated by GI. Underwent an EGD with mild gastritis and no other significant findings. Continue Zofran when necessary. Patient has known history of peptic ulcer disease. Amylase and lipase normal. Abdominal ultrasound normal 6. Acute bronchitis currently on Levaquin. 7. Oral thrush start nystatin swish and swallow
[2017-03-15] MEDS: ALBUTEROL NEBULIZED 2.5 MG/3 ML INHALATION PRN (12:07)
--- NOTE | 2017-03-15 18:25 | PN ---
DATE OF SERVICE: 03/15/1027 The patient is a 56-year-old pleasant white female admitted to the hospital with intractable nausea and vomiting for the last 4 days' duration. She underwent an upper endoscopy by Dr. Coreas yesterday, which showed evidence of small hiatal hernia and mild antral gastritis. No evidence of peptic ulcer disease or gastric outlet obstruction presently seen. Presently on proton pump inhibitors and antiemetics. This morning she is feeling better. She still has some pain, but no emesis. On a regular diet, tolerating well. On physical examination, she appears comfortable in no apparent distress. Vitals as are stable. Blood pressure 131/90, pulse rate 83, temperature 98.7. HEENT: Unremarkable. Conjunctivae pink. Sclerae anicteric. Oral cavity, no lesions. NECK: No JVD or lymph node enlargement. CHEST: Clear to auscultation. HEART: Regular rate and rhythm. ABDOMEN: Soft. There was mild tenderness in the epigastric area. Bowel sounds positive. No organomegaly. EXTREMITIES: No pedal edema. SKIN: No rashes. NEURO: Alert and oriented x3. No focal deficits. IMPRESSION: Persistent nausea and vomiting for the last 4 days' duration. Upper endoscopy done yesterday showed small hiatal hernia and mild gastritis. Presently on Protonix 40 mg daily as well as antiemetics with Compazine and Zofran as needed, doing much better. RECOMMENDATIONS: 1. Advance diet as tolerated. 2. Continue with Protonix and antiemetics for now. 3. Hopefully discharge home in a.m. Thank you for this consultation.
[2017-03-15] MEDS ORDERED: ONDANSETRON 4 MG TAB PO PRN (18:42)
[2017-03-15] MEDS: SYMBICORT 160-4.5 MCG INHALER INHALATION PRN (19:31)
[2017-03-15] MEDS: HYDROcodone/APAP 5-325MG 1 EACH TAB PO PRN (21:47)
[2017-03-15] MEDS: QUEtiapine 50 MG TAB PO SCH (21:50)
[2017-03-15] MEDS: LEVOFLOXACIN 500 MG TAB PO SCH (21:50)
[2017-03-15] MEDS: ARIPiprazole 5 MG TAB PO SCH (21:50)
[2017-03-15] MEDS: SERTRALINE 100 MG TAB PO SCH (21:50)
[2017-03-15] MEDS: BACLOFEN 10 MG TAB PO SCH (21:51)
[2017-03-16] MEDS: ACETAMINOPHEN TAB 325 MG TAB PO PRN (04:39)
[2017-03-16] MEDS: HYDROcodone/APAP 5-325MG 1 EACH TAB PO PRN ×3 (04:39→21:24)
[2017-03-16 06:55] LABS: Basophils % (A) 1 %; CH 31.9; CHCM 34.5; Eosinophils # (A) 0.1 k/uL (0-0.7); Eosinophils % (A) 2 %; HCT 39.5 % (34.0-46.0); HDW 2.34; HGB 13.5 gm/dL (11.4-16.0); Luc # (Auto) 0.13; Luc % (Auto) 2; Lymphocytes # (A) 1.5 k/uL (1.0-4.8); Lymphocytes % (A) 25 %; MCH 31.7 pg (25.0-35.0); MCHC 34.3 g/dL (31.0-37.0); MCV 92.6 fL (80.0-100.0); Monocytes # (A) 0.4 k/uL (0-1.0); Monocytes % (A) 6 %; Neutrophils # (A) 3.8 k/uL (1.3-7.7); Neutrophils % (A) 64 %; RBC 4.26 m/uL (3.80-5.40); RDW 13.8 % (11.5-15.5); WBC (Perox) 6.32
[2017-03-16 07:27] LABS: ALT 31 U/L (9-52); AST 19 U/L (14-36); Alkaline Phosphatase 64 U/L (38-126); Anion Gap 8 mmol/L; Blood Urea Nitrogen 10 mg/dL (7-17); Calcium 8.9 mg/dL (8.4-10.2); Carbon Dioxide 28 mmol/L (22-30); Chloride 106 mmol/L (98-107); Glucose 116 mg/dL (74-99); Non-African American GFR(MDRD) >60 (>60 ml/min/1.73 sqM); Potassium 3.7 mmol/L (3.5-5.1); Sodium 142 mmol/L (137-145); Total Bilirubin 0.4 mg/dL (0.2-1.3); Total Protein 5.7 g/dL (6.3-8.2)
[2017-03-16] MEDS: LORATADINE 10 MG TAB PO SCH (09:00)
[2017-03-16] MEDS: NYSTATIN 100,000 UNIT/ML SUSP 500,000 UNIT/5 ML CUP PO SCH ×4 (09:00→21:26)
[2017-03-16] MEDS: CIPROFLOXACIN 0.3% OPHTH SOLN 2.5 ML BTL LEFT EYE SCH ×4 (09:00→21:26)
[2017-03-16] MEDS: B COMPLEX-VIT C-VIT E-ZINC 1 EACH TAB PO SCH (09:00)
[2017-03-16] MEDS: TIOTROPIUM 18 MCG/PUFF INHALER INHALATION SCH (09:11)
[2017-03-16] MEDS: SYMBICORT 160-4.5 MCG INHALER INHALATION PRN (09:11)
[2017-03-16] MEDS: PANTOPRAZOLE 40 MG TABLET PO SCH (09:12)
--- NOTE | 2017-03-16 13:25 | P.PN ---
Subjective Patient is complaining of headache that she rates as 6 out of 10 in severity. She said that earlier her headache was 15 out of 10 in severity. Her blood pressure is not well controlled this morning. Objective - Vital Signs Vital signs: Vital Signs Temp 98.5 F 03/16/17 11:51 Pulse 94 03/16/17 11:51 Resp 16 03/16/17 11:51 BP 153/97 03/16/17 11:51 Pulse Ox 96 03/16/17 11:51 Intake & Output 03/15/17 03/16/17 03/16/17 18:59 06:59 18:59 Intake Total 300 250 Balance 300 250 Intake: Oral 300 250 Other: # Voids 1 - Exam General: The patient is awake and alert, in no distress Eye: there is significant upper and lower eyelid swelling on the left. There is conjunctival injection. Neck: The neck is supple, there is no JVD. Cardiovascular: Normal S1-S2, no S3-S4, no murmurs. Respiratory: Lungs clear to auscultation bilaterally Gastrointestinal: Abdomen is soft, nontender Musculoskeletal: There is no pedal edema. Neurological:. Speech is normal. Skin: Skin is warm and dry - Labs CBC & Chem 7: 03/16/17 06:36 03/16/17 06:36 Labs: Abnormal Lab Results - Last 24 Hours (Table) 03/16/17 Range/Units 06:36 Glucose 116 H (74-99) mg/dL Total Protein 5.7 L (6.3-8.2) g/dL Albumin 3.4 L (3.5-5.0) g/dL Microbiology - Last 24 Hours (Table) 03/10/17 21:38 Blood Culture - Preliminary Blood No Growth after 120 hours Assessment and Plan Plan: #1 left periorbital cellulitis: Antibiotics per infectious disease patient was seen and evaluated by ophthalmology. #2 left conjunctiva bleeding: #3 previous history of stroke 15 years ago: Hold aspirin and Plavix for now due to conjunctival hemorrhage #4 mild acute COPD exacerbation: patient is a lifelong smoker she states she quit 2 ago, at this time she was started on albuterol updrafts when necessary #5 nausea and vomiting: Seen and evaluated by GI. Underwent an EGD with mild gastritis and no other significant findings. Continue Zofran when necessary. Patient has known history of peptic ulcer disease. Amylase and lipase normal. Abdominal ultrasound normal 6. Acute bronchitis currently on Levaquin. 7. Oral thrush start nystatin swish and swallow For better blood pressure control. Ordered Versed as needed for her headache. We will continue to monitor closely. If headache is not improving and may consider noncontrast CT of the brain tomorrow. Otherwise if better patient will be discharged home. Aspirin and Plavix need to be discussed with ophthalmology prior to resuming giving conjunctiva bleeding.
[2017-03-16] MEDS: amLODIPine 2.5 MG TAB PO SCH (13:36)
[2017-03-16] MEDS ORDERED: SENNOSIDES-DOCUSATE SODIUM 1 EACH TAB PO PRN (15:32)
[2017-03-16] MEDS: BUTA/APAP/CAF/COD 50-325-40-30 CAP PO PRN (18:49)
[2017-03-16] MEDS: LEVOFLOXACIN 500 MG TAB PO SCH (21:23)
[2017-03-16] MEDS: QUEtiapine 50 MG TAB PO SCH (21:23)
[2017-03-16] MEDS: SERTRALINE 100 MG TAB PO SCH (21:24)
[2017-03-16] MEDS: BACLOFEN 10 MG TAB PO SCH (21:25)
[2017-03-16] MEDS: ARIPiprazole 5 MG TAB PO SCH (21:25)
[2017-03-17] MEDS: BUTA/APAP/CAF/COD 50-325-40-30 CAP PO PRN ×2 (01:53→08:34)
[2017-03-17 06:55] LABS: Basophils # (A) 0.1 k/uL (0-0.2); Basophils % (A) 1 %; CH 31.5; Eosinophils # (A) 0.2 k/uL (0-0.7); Eosinophils % (A) 3 %; HCT 42.7 % (34.0-46.0); HDW 2.31; HGB 14.2 gm/dL (11.4-16.0); Luc # (Auto) 0.21; Luc % (Auto) 4; Lymphocytes # (A) 2.1 k/uL (1.0-4.8); Lymphocytes % (A) 35 %; MCHC 33.3 g/dL (31.0-37.0); MCV 93.1 fL (80.0-100.0); Mean Platelet Volume 6.9; Monocytes # (A) 0.4 k/uL (0-1.0); Monocytes % (A) 6 %; Neutrophils # (A) 3.2 k/uL (1.3-7.7); Neutrophils % (A) 52 %; RBC 4.59 m/uL (3.80-5.40); RDW 13.9 % (11.5-15.5); WBC 6.2 k/uL (3.8-10.6); WBC (Perox) 6.41
[2017-03-17] MEDS: TIOTROPIUM 18 MCG/PUFF INHALER INHALATION SCH (07:02)
[2017-03-17 07:05] LABS: ALT 33 U/L (9-52); AST 18 U/L (14-36); Alkaline Phosphatase 62 U/L (38-126); Anion Gap 10 mmol/L; Blood Urea Nitrogen 15 mg/dL (7-17); Calcium 9.1 mg/dL (8.4-10.2); Carbon Dioxide 28 mmol/L (22-30); Chloride 105 mmol/L (98-107); Glucose 93 mg/dL (74-99); Non-African American GFR(MDRD) >60 (>60 ml/min/1.73 sqM); Potassium 4.1 mmol/L (3.5-5.1); Sodium 143 mmol/L (137-145); Total Bilirubin 0.3 mg/dL (0.2-1.3); Total Protein 5.9 g/dL (6.3-8.2)
[2017-03-17] MEDS: PANTOPRAZOLE 40 MG TABLET PO SCH (07:48)
[2017-03-17 08:27] VITALS: RESP 16
[2017-03-17] MEDS: amLODIPine 2.5 MG TAB PO SCH (08:35)
[2017-03-17] MEDS: NYSTATIN 100,000 UNIT/ML SUSP 500,000 UNIT/5 ML CUP PO SCH (08:35)
[2017-03-17] MEDS: B COMPLEX-VIT C-VIT E-ZINC 1 EACH TAB PO SCH (08:35)
[2017-03-17] MEDS: LORATADINE 10 MG TAB PO SCH (08:36)
[2017-03-17] MEDS: CIPROFLOXACIN 0.3% OPHTH SOLN 2.5 ML BTL LEFT EYE SCH ×2 (08:36→12:34)
--- NOTE | 2017-03-17 11:41 | P.DS ---
Providers Date of admission: 03/11/17 00:46 Expected date of discharge: 03/17/17 Attending physician: Chuck Max Consults: 03/11/17 00:47 Consult Physician Routine Consulting Provider: Linda Greer Consult Reason/Comments: left eye orbital cellulitis Do you want consulting provider notified?: Yes, Notify in am 03/11/17 13:34 Consult Physician Routine Consulting Provider: Herman Aiken Consult Reason/Comments: periorbital cellulitis Do you want consulting provider notified?: Yes 03/13/17 10:54 Consult Physician Routine Consulting Provider: Kelly Lai Consult Reason/Comments: vomiting, possible EGD Do you want consulting provider notified?: Yes Primary care physician: Jeana Bridges [facility] Course: Discharge diagnosis #1 left periorbital cellulitis: Antibiotics per infectious disease patient was seen and evaluated by ophthalmology. #2 left conjunctiva bleeding: #3 previous history of stroke 15 years ago: Hold aspirin and Plavix for now due to conjunctival hemorrhage #4 mild acute COPD exacerbation: patient is a lifelong smoker she states she quit 2 ago, at this time she was started on albuterol updrafts when necessary #5 nausea and vomiting: Seen and evaluated by GI. Underwent an EGD with mild gastritis and small hiatal hernia. Continue Protonix. Patient has known history of peptic ulcer disease. Amylase and lipase normal. Abdominal ultrasound normal 6. Acute bronchitis currently on Levaquin. 7. Oral thrush start nystatin swish and swallow 8. Hypertension started on Norvasc during this admission Hospital course Patient is a 56-year-old female who states that yesterday morning she woke up with pain in her left eye she started developing redness on the upper lid of her left eye that progress quickly after trauma to that eye, patient started having erythema in her eyeball, she decided to come to emergency room she was evaluated in the emergency department she was diagnosed was periorbital cellulitis she was started on Unasyn and vancomycin and was admitted to medical floor. On admission patient did have a computed tomography scan of the brain which showed no acute changes. Computed tomography scan of the orbits which had shown a left periorbital soft tissue swelling with mild stranding and they intraconal fat. Correlate for orbital cellulitis. And a 7 x 3 x 10 mm low- density subcutaneous lesion in the left medial cheek. Patient was evaluated by Dr. Aiken and antibiotic were changed to Levaquin, to cover acute bronchitis and the periorbital cellulitis She was evaluated by ophthalmology and Cipro eyedrops were added Plavix and aspirin are on hold due to conjunctiva and bleed on the left, no other intervention recommended by ophthalmology. Patient also continue has some nausea and multiple episodes of vomiting due to her history of peptic ulcer disease GI service was consulted. She underwent an EGD that had showed mild gastritis and a small hiatal hernia. She will continue on Protonix. Symptoms have resolved and she is tolerating diet. Her left orbital cellulitis and conjunctival bleeding is showing improvement. 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 We will continue to hold the aspirin and Plavix for now until she is evaluated by ophthalmology outpatient. She can resume those medications when they have cleared it. She also was started on small blood pressure pill Norvasc 2.5 mg daily for her hypertension. Blood pressures are stable. She is medically stable for discharge. She has also been complaining of headaches and will be given a prescription for Fioricet with codeine. This has helped with her headaches. Patient is medically stable for discharge. She'll follow-up with ophthalmology outpatient and her primary care physician in the next 3 days. We'll continue with the eyedrops and Levaquin. Patient Condition at Discharge: Stable Plan - Discharge Summary New Discharge Prescriptions: New amLODIPine [Norvasc] 2.5 mg PO DAILY #30 tab Buta/APAP/Caf/Cod 12-798-96-30 [Fioricet w/Cod 46-850-76-30MG] 1 each PO Q6HR PRN #40 cap PRN Reason: Headache Ciprofloxacin Ophth Soln [Ciloxan 0.3% Ophth Soln] 2 drops LEFT EYE QID #1 bottle Nystatin 100,000 Unit/ml Susp [Mycostatin Oral Susp] 500,000 unit PO QID #28 dose Pantoprazole [Protonix] 40 mg PO AC-BRKFST #30 tab Continue Tiotropium 18 Mcg/Puff [Spiriva] 1 cap INHALATION RT-DAILY Mometasone/Formoterol [Dulera 200 Mcg/5 Mcg Inhaler] 1 puff INHALATION RT- BID PRN PRN Reason: Dyspnea Loratadine [Claritin] 10 mg PO DAILY Vitamin B Complex 1 cap PO DAILY QUEtiapine FUMARATE [Seroquel] 50 mg PO HS Ergocalciferol [Vitamin D2 (DRISDOL)] 50,000 unit PO TH Baclofen 10 mg PO HS ARIPiprazole [Abilify] 5 mg PO HS traMADol HCL [Ultram] 50 mg PO BID PRN PRN Reason: Pain Sertraline [Zoloft] 100 mg PO HS Discontinued Clopidogrel [Plavix] 75 mg PO DAILY Lansoprazole [Prevacid] 30 mg PO DAILY Omeprazole 40 mg PO DAILY Aspirin 325 mg PO DAILY Discharge Medication List Tiotropium 18 Mcg/Puff [Spiriva] 1 cap INHALATION RT-DAILY 05/26/14 [History] Mometasone/Formoterol [Dulera 200 Mcg/5 Mcg Inhaler] 1 puff INHALATION RT-BID PRN 12/16/15 [History] ARIPiprazole [Abilify] 5 mg PO HS 03/10/17 [History] Baclofen 10 mg PO HS 03/10/17 [History] Ergocalciferol [Vitamin D2 (DRISDOL)] 50,000 unit PO TH 03/10/17 [History] Loratadine [Claritin] 10 mg PO DAILY 03/10/17 [History] QUEtiapine FUMARATE [Seroquel] 50 mg PO HS 03/10/17 [History] Sertraline [Zoloft] 100 mg PO HS 03/10/17 [History] Vitamin B Complex 1 cap PO DAILY 03/10/17 [History] traMADol HCL [Ultram] 50 mg PO BID PRN 03/10/17 [History] Buta/APAP/Caf/Cod [id number] [Fioricet w/Cod 18-192-53-30MG] 1 each PO Q6HR PRN #40 cap 03/17/17 [Rx] Ciprofloxacin Ophth Soln [Ciloxan 0.3% Ophth Soln] 2 drops LEFT EYE QID #1 bottle 03/17/17 [Rx] Nystatin 100,000 Unit/ml Susp [Mycostatin Oral Susp] 500,000 unit PO QID #28 dose 03/17/17 [Rx] Pantoprazole [Protonix] 40 mg PO AC-BRKFST #30 tab 03/17/17 [Rx] amLODIPine [Norvasc] 2.5 mg PO DAILY #30 tab 03/17/17 [Rx] Follow up Appointment(s)/Referral(s): Fior Mckeon MD [STAFF PHYSICIAN] - 03/19/17 3:00 pm [facility], [NON-STAFF] - 1 Week Jeana Bridges MD [Primary Care Provider] - 3 Days Activity/Diet/Wound Care/Special Instructions: Diet: cardiac Activity: as tolerated Hold aspirin and plavix until opthamologist says it is ok to resume Discharge Disposition: HOME WITH HOME HEALTH SERVICES
[2017-03-17 11:53] VITALS: BP 114/72; PULSE 80; TEMP 98.3
== END 2017-03-17 12:50 | disposition home health service (06) | DRG 121 ==
LOC: EC 20:19 → 6PED 03-11 00:46
PROVIDERS: ADMIT Internal Medicine; ATTEND Internal Medicine
PROC: 0DB78ZX Excision of Stomach, Pylorus, Via Natural or Artificial Opening Endoscopic, Diagnostic (ICD-10-PCS; 2017-03-14)
PROC: 0DB58ZX Excision of Esophagus, Via Natural or Artificial Opening Endoscopic, Diagnostic (ICD-10-PCS; 2017-03-14)
PROC: 0DB98ZX Excision of Duodenum, Via Natural or Artificial Opening Endoscopic, Diagnostic (ICD-10-PCS; principal; 2017-03-14 09:40)
DX: H05.012 Cellulitis of left orbit (principal); L03.213 Periorbital cellulitis; B37.0 Candidal stomatitis; J44.0 Chronic obstructive pulmonary disease with (acute) lower respiratory infection; J44.1 Chronic obstructive pulmonary disease with (acute) exacerbation; I10 Essential (primary) hypertension; R51 Headache; J20.9 Acute bronchitis, unspecified; K29.60 Other gastritis without bleeding; K44.9 Diaphragmatic hernia without obstruction or gangrene; F41.9 Anxiety disorder, unspecified; M21.371 Foot drop, right foot; I69.398 Other sequelae of cerebral infarction; T45.525A Adverse effect of antithrombotic drugs, initial encounter; H11.32 Conjunctival hemorrhage, left eye; S00.12XA Contusion of left eyelid and periocular area, initial encounter; E78.5 Hyperlipidemia, unspecified; G89.29 Other chronic pain; F32.9 Major depressive disorder, single episode, unspecified; F12.90 Cannabis use, unspecified, uncomplicated; Z88.5 Allergy status to narcotic agent; Z87.891 Personal history of nicotine dependence; Z86.19 Personal history of other infectious and parasitic diseases; Z91.041 Radiographic dye allergy status; Z79.82 Long term (current) use of aspirin; Z80.8 Family history of malignant neoplasm of other organs or systems; Z79.02 Long term (current) use of antithrombotics/antiplatelets; Z79.899 Other long term (current) drug therapy; Z87.11 Personal history of peptic ulcer disease; Z80.1 Family history of malignant neoplasm of trachea, bronchus and lung; Z79.891 Long term (current) use of opiate analgesic; Z71.3 Dietary counseling and surveillance; Z82.49 Family history of ischemic heart disease and other diseases of the circulatory system; Z90.49 Acquired absence of other specified parts of digestive tract; Z90.710 Acquired absence of both cervix and uterus; X58.XXXA Exposure to other specified factors, initial encounter; Y93.H2 Activity, gardening and landscaping; Y92.017 Garden or yard in single-family (private) house as the place of occurrence of the external cause
CPT/HCPCS: 36415; 43239; 70450; 70480; 71020; 76700; 80053; 81001; 82150; 83690; 85025; 85610; 85730; 87040; 87086; 88305; 88342; 94640; 94760; 96361; 96365; 96375; 99285

== ENCOUNTER → 2017-12-11 | Outpatient (CLI) | payer MEDICARE, OTHER ==
--- NOTE | 2017-12-11 19:19 | MR ---
EXAMINATION TYPE: MR shoulder LT wo con DATE OF EXAM: 12/11/2017 COMPARISON: Left humerus MRI same date HISTORY: Pain Swelling in arm and Limited ROM Left Shoulder TECHNIQUE: Multiplanar, multisequence imaging of the left shoulder is performed without contrast. FINDINGS: There is motion on the exam. Rotator Cuff: Abnormal increased signal present within the rotator cuff. At minimum there is tendinos is, findings suggest a small tear at the insertion of the rotator cuff. Acromioclavicular Joint: Acromioclavicular joint arthropathy changes present. Glenohumeral Joint: Intact, no dislocation Labrum: The labrum appears grossly intact given limitation of non-arthrogram study. Biceps Tendon: The long head of biceps is in normal location within bicipital groove. Bone marrow signal: No focal abnormal marrow signal is appreciated. Other: Fluid signal present in the subacromial subdeltoid bursa, questionable left upper lobe lung ma ss present on axial image 14, coronal image 1 IMPRESSION: There is motion due to patient's cough. There may be a small partial tear of the rotator cuff. Cannot exclude the left upper lobe subpleural lung mass. Acromioclavicular joint arthropathy.
--- NOTE | 2017-12-11 19:24 | MR ---
MR left humerus HISTORY: Pain and swelling, limited range of motion Multiplanar multisequence imaging through the left humerus Left humerus shows normal marrow signal. Surrounding musculature is unremarkable. Questionable mass a t the aorticopulmonary window. No evident axillary adenopathy. There is motion due to patient's cough . IMPRESSION: Findings suspicious for mediastinal mass, recommend chest CT. Motion on the exam. Exam is limited. Findings relayed to Dr. Bridges telephonically at the time of interpretation.
== END | disposition home or self-care (01) ==
LOC: RADMRIMAIN 17:10
PROVIDERS: ATTEND Family Medicine
DX: M12.812 Other specific arthropathies, not elsewhere classified, left shoulder (principal); M79.89 Other specified soft tissue disorders
CPT/HCPCS: 73220; 73221; A9581

== ENCOUNTER → 2017-12-16 | Outpatient (CLI) | payer MEDICARE, OTHER ==
--- NOTE | 2017-12-16 19:29 | CT ---
EXAMINATION TYPE: CT chest w con DATE OF EXAM: 12/16/2017 COMPARISON: NONE HISTORY: chest mass CT DLP: 600 mGycm Automated exposure control for dose reduction was used. CONTRAST: CT scan of the chest is performed with IV Contrast, patient injected with 100 mL of Omnipaque 300. FINDINGS: There is a 9 mm rounded soft tissue density adjacent to the pleura in the lateral left upper lobe. It is not clear if this is arising from the pleura or from the lung. The other lung fernando are clear. There is focal emphysema at the left posterior lung base. There is n o pleural effusion. Heart size is normal. There is no pericardial effusion. There is a 2.5 cm rounded intermediate density at the superior left pulmonary hilum consistent with an enlarged lymph node. Th ere is a 1 cm enlarged lymph node anterior to the lower trachea. Thyroid gland is symmetric. Thoracic aorta has normal size. There is no sign of aneurysm or dissection. The bony thorax appears intact. IMPRESSION: There are 2 enlarged mediastinal densities. There is also a subpleural or pleural nodule in the lateral left upper lobe. Minimal emphysema. The findings are nonspecific.
== END | disposition home or self-care (01) ==
LOC: RADCTMAIN 18:38
PROVIDERS: ATTEND Family Medicine
DX: J43.9 Emphysema, unspecified (principal); R91.1 Solitary pulmonary nodule
CPT/HCPCS: 71260; Q9967

== ENCOUNTER → 2017-12-20 | Outpatient (CLI) | payer MEDICARE, OTHER ==
--- NOTE | 2017-12-23 07:05 | PE ---
EXAMINATION TYPE: PET CT fusion skull to thigh DATE OF EXAM: 12/20/2017 COMPARISON: CT chest December 16, 2017 HISTORY: Solitary pulmonary nodule, abnormal CT TECHNIQUE: Following the intravenous administration of 14.798 mCi of F-18 FDG, whole body images are performed from the skull base to the midthigh. Images are reviewed on the computer in the coronal, axial, and sagittal planes. Reconstructed rotating images are created on independent workstation and reviewed on the computer. A noncontrast CT is performed in conjunction with the PET scan. SCAN: Initial Scan FINDINGS: SKULL BASE AND NECK: In posterior aspect right parotid gland there is hypermetabolic 9 x 4 mm solid nodule in which neoplasm cannot be excluded axial image 24, max SUV is 4.3. CHEST, MEDIASTINUM, AND HILAR REGION: There is background mild to moderate underlying emphysematous c hange redemonstrated. In the periphery of left upper lobe there is redemonstration of 10 x 7 mm nodul e abutting pleural surface axial image 59, max SUV is 5.78. There is abnormal left anterior superior hilar mass or adenopathy adjacent to pulmonary root measurin g 2.1 x 1.4 cm axial image 83 with max SUV of 17.81. This is better seen on recent contrast-enhanced CT measuring 2.4 x 2.1 cm more accurately axial image 27 more likely localize to the prevascular spac e. No additional areas of suspicious hypermetabolic uptake are seen in the thorax. ABDOMEN AND PELVIS: No suspicious hypermetabolic uptake is identified in the abdomen or pelvis. OSSEOUS STRUCTURES: No suspicious hypermetabolic uptake is seen. OTHER CT: Cholecystectomy clips are present. There is some cortical atrophy in the right kidney. There is redemonstration of prominent renal pelvi ses bilaterally without definitive calyceal dilatation consistent with extrarenal pelvises. Uterus is surgically absent. There are few scattered colonic diverticula. There is mild to moderate calcified plaque scattered throughout the aorta and visualized branches. Slight underlying S-shaped scoliosis is present. IMPRESSION: Unusual case where small peripheral lymph node and larger mediastinal adenopathy. Would s till favor primary lung carcinoma. Suspicious lesion posterior right parotid gland warrants further w orkup, advise ENT consult and ultrasound guided fine-needle aspiration to sample. Cannot exclude [place] primary neoplasm or malignancy. Unusual to be metastatic disease. Lung Cancer Staging T2(pleura involvement),N2,M0(favored see above parotid) Stage IIIA (favored if M0)
== END | disposition home or self-care (01) ==
LOC: RADPETMAIN 15:50
PROVIDERS: ATTEND Internal Medicine Critical Care Medicine
DX: R91.1 Solitary pulmonary nodule (principal); R59.0 Localized enlarged lymph nodes
CPT/HCPCS: 78815; A9552

== ENCOUNTER → 2017-12-22 | Outpatient (CLI) | payer MEDICARE, OTHER ==
[2017-12-23 02:15] LABS: Hepatitis A Ab, Total Reactive (Non-Reactive); Hepatitis A Antibody IgM Reactive (Non-Reactive)
== END | disposition home or self-care (01) ==
LOC: LABWHC1 16:42
PROVIDERS: ATTEND Family Medicine
DX: R53.83 Other fatigue (principal); R41.0 Disorientation, unspecified; R19.7 Diarrhea, unspecified
CPT/HCPCS: 36415; 86708; 86709

== ENCOUNTER → 2018-01-12 | Outpatient (CLI) | payer MEDICARE, OTHER ==
[2018-01-12 14:32] LABS: Appearance,Urine Cloudy (Clear); Bacteria,Urine Rare /hpf; Bilirubin,Urine Negative (Negative); Blood,Urine Negative (Negative); Color,Urine Yellow; Glucose,Urine (UA) Negative (Negative); Ketones,Urine Negative (Negative); Leukocyte Esterase,Urine Large (Negative); Mucus,Urine Rare /hpf; Nitrite,Urine Negative (Negative); Protein,Urine Negative (Negative); Specific Gravity,Urine 1.008 (1.001-1.035); Squamous Epithelial Cell,Urine 5 /hpf (0-4); Urobilinogen,Urine <2.0 mg/dL (<2.0); WBC,Urine 11 /hpf (0-5)
[2018-01-12 14:36] LABS: Basophils % (A) 1 %; Eosinophils # (A) 0.1 k/uL (0-0.7); Eosinophils % (A) 1 %; HGB 13.3 gm/dL (11.4-16.0); Lymphocytes # (A) 1.5 k/uL (1.0-4.8); Lymphocytes % (A) 22 %; MCH 29.1 pg (25.0-35.0); MCHC 33.3 g/dL (31.0-37.0); MCV 87.4 fL (80.0-100.0); Mean Platelet Volume 6.8; Monocytes # (A) 0.4 k/uL (0-1.0); Monocytes % (A) 5 %; Neutrophils # (A) 4.7 k/uL (1.3-7.7); Neutrophils % (A) 69 %; Platelet Count 240 k/uL (150-450); RBC 4.57 m/uL (3.80-5.40); RDW 13.4 % (11.5-15.5); WBC 6.8 k/uL (3.8-10.6)
[2018-01-12 14:39] LABS: Potassium 4.1 mmol/L (3.5-5.1)
[2018-01-12 14:40] LABS: Partial Thromboplastin Time 24.8 sec (22.0-30.0); Prothrombin Time 9.7 sec (9.0-12.0)
== END | disposition home or self-care (01) ==
LOC: LABPAT 14:04
PROVIDERS: ATTEND Thoracic Surgery (Cardiothoracic Vascular Surgery)
DX: R91.8 Other nonspecific abnormal finding of lung field (principal)
CPT/HCPCS: 36415; 80051; 81001; 82947; 85025; 85610; 85730; 87086

== ENCOUNTER 2018-01-21 10:37 | Inpatient (IN) | payer MEDICARE, OTHER ==
[~2018-01-21 10:37] MED LIST: DEXAMETHASONE SOD PHOSPHATE 10 MG/ML 1 ML VIAL IV ONE; LACTATED RINGERS 1,000 ML IV SCH; LIDOCAINE 1% 20 ML VIAL (10MG/ML) FOR IV START INTRADERMA PRN; ONDANSETRON 4 MG/2 ML VIAL IVP ONE; SCOPOLAMINE 1.5MG/72HR PATCH TRANSDERM ONE; ceFAZolin IN SWFI 2 GM/20 ML SYRINGE IVP ONE
[2018-01-21] MEDS ORDERED: MIDAZOLAM 2 MG/2 ML VIAL ONE ×2 (12:11→12:59)
[2018-01-21] MEDS ORDERED: fentaNYL (PF) 50 MCG/ML 2 ML AMP ONE (12:59)
[2018-01-21] MEDS ORDERED: GLYCOPYRROLATE 0.2 MG/ML 2 ML VIAL ONE (12:59)
[2018-01-21] MEDS ORDERED: ROCURONIUM BROMIDE 10 MG/ML 10 ML VIAL IV ONE (12:59)
[2018-01-21] MEDS ORDERED: NEOSTIGMINE 1 MG/ML 10 ML VIAL ONE (12:59)
[2018-01-21] MEDS ORDERED: PROPOFOL 10 MG/ML 20 ML VIAL IV ONE (12:59)
[2018-01-21] MEDS ORDERED: SUCCINYLCHOLINE CHLORIDE 100 MG/5 ML SYR IV ONE (12:59)
[2018-01-21] MEDS ORDERED: LIDOCAINE 1% INJ 10MG/ML (20 ML MDV) ONE (12:59)
[2018-01-21] MEDS ORDERED: BUPIVACAINE (PF) 0.5% 30 ML VIAL SQ ONE ×2 (13:34→14:15)
[2018-01-21] MEDS ORDERED: MORPHINE SULFATE 4 MG/ML SYRINGE IV ONE ×2 (14:50→15:29)
--- NOTE | 2018-01-21 14:54 | P.OP ---
Date of Procedure: 01/21/18 Preoperative Diagnosis: Upper lobe lung mass, enlarged AP window lymph node. Postoperative Diagnosis: Same Procedure(s) Performed: Left thoracoscopy with lysis of adhesions and excisional biopsy of left upper lobe mass, Trung-Cut needle biopsy of mediastinal mass. Anesthesia: GABBYA Surgeon: Mekhi Garcia Research And Development Manager #1: Chauncey Rae Estimated Blood Loss (ml): 20 IV fluids (ml): 1,000 Urine output (ml): 250 Pathology: other (Left upper lobe wedge resection, Trung-Cut needle biopsy of AP window lymph node, culture of left upper lobe mass) Condition: stable Disposition: PACU Indications for Procedure: 57-year-old female with complaints of shoulder pain who underwent CT of the shoulder. This demonstrated a mass in the left upper lobe of the lung. Computed tomography scan of the chest confirmed the presence of a mass in the left upper lobe along as well as enlarged lymph node in the AP window. PET scan confirmed uptake in both the lung mass and the mediastinal lymph node. Operative Findings: On entering the left pleural space, the left pleural space was fused with filmy adhesions throughout. There able to successfully take these down. We were not able to clearly identify the mass in the left upper lobe. Initial wedge resection was performed but did not demonstrate the mass. On careful examination of the staple line in the chest we saw suspicious area. We will re- resected this area and identified the mass right at the previous staple line. The new staple line was grossly free of tumor and was marked for pathology. There was a large mass in the AP window. This was very hard and firm. There were unable to biopsy it with either scissors or mediastinoscopy biopsy forceps but were able to successfully obtain a good core with the Trung-Cut needle. Description of Procedure: Patient was brought to the operating room, placed supine on the operating table , anesthetized and intubated with a double-lumen endotracheal tube. The tube was positioned with fiberoptic bronchoscopy and secured. Patient was turned in the right lateral decubitus position and the left chest sterilely prepped and draped. Initial incision was made in the sixth interspace in the anterior axillary line. It was carried down through skin and subcutaneous tissue and through the pericostal muscle and pleura under direct vision. It was immediately evidence of filmy adhesions in the pleural space. These were taken down with a finger. Second incision was made in the fourth interspace anterior axillary line and adhesions between the 2 sites were taken down with blunt dissection and electrocautery dissection. Incision was then made in the seventh interspace in the posterior axillary line and through these 3 incisions we proceeded to take down all the adhesions in the upper lobe and superior segment of the lower lobe region. CO2 insufflation was used to facilitate maintaining the lung out of our visual field. Palpation of the apex of the lung was unable to reveal the mass. A generous resection of the apex of the left upper lobe was performed with multiple firings of Endo BERNY stapler. Specimen was removed with an Endo Catch bag and examined on the back table. Clear-cut evidence of the mass was not present. We again palpated the lung and were still unable to feel a mass. However on careful examination there appeared to be a little bit of the mass sticking out right adjacent to the staple line inside the chest. We resection of this area of the staple line was performed with a Endo BERNY stapler. On removing the mass from the chest with another Endo Catch bag it was evident that the mass was just adjacent to the initial staple line and had a good margin with the new staple line. The new staple line was marked with a suture. A small bit of the mass was resected and sent for culture. The remainder was placed in formalin for permanent section. We now dissected further the lung in the upper lobe away from the mediastinal pleura and identified the arch and the aorta and the underlying enlarged AP window lymph node. This was aspirated with a skinny needle and no blood return was noted. The mass was very hard and firm. Attempts to biopsy it with mediastinoscopy biopsy forceps were unsuccessful due to its size and firmness. We used a 14-gauge Trung-Cut needle to take a generous core biopsy and a good specimen was obtained. There was a small amount of bleeding from the puncture site and this was controlled with direct pressure. Once the bleeding and been controlled, the chest was suctioned free and a 28-Norwegian chest tube was placed through separate stab incision and positioned posterior apically. It was secured with an 0 Ethibond suture. Rib blocks were performed at the level of the incision with half percent Marcaine. We then closed the incision with layers of Vicryl suture. Skin glue and dry sterile dressings were applied and the patient was transferred to recovery room in stable condition.
[2018-01-21] MEDS ORDERED: traMADol 50 MG TAB PO PRN (14:57)
--- NOTE | 2018-01-21 15:02 | XR ---
EXAMINATION TYPE: XR chest 1V portable DATE OF EXAM: 01/21/2018 COMPARISON: 03/10/2017 INDICATION: Left side thoracoscopy TECHNIQUE: Single frontal view of the chest is obtained. Patient is slightly rotated to the left. FINDINGS: The heart size is normal. The pulmonary vasculature is normal. The lungs are clear. No pneumothorax is evident. Left-sided chest tube is directed towards the apex. IMPRESSION: 1. No pneumothorax is evident. Left-sided chest tube is in position.
[2018-01-21] MEDS ORDERED: DEXTROSE 5%-0.45% NACL 1,000 ML IV SCH (15:08)
[2018-01-21] MEDS ORDERED: IPRATROPIUM-ALBUTEROL 3 ML NEB IH PRN (15:08)
[2018-01-21] MEDS ORDERED: HYDROcodone/APAP 5-325MG 1 EACH TAB PO PRN (15:56)
[2018-01-21] MEDS ORDERED: ONDANSETRON 4 MG/2 ML VIAL IVP PRN (15:57)
[2018-01-21] MEDS: IPRATROPIUM-ALBUTEROL 3 ML NEB IH SCH ×2 (16:26→19:11)
--- NOTE | 2018-01-21 16:53 | P.CNPUL ---
<Nina Elkins - Last Filed: 01/21/18 16:46> History of Present Illness Consult date: 01/21/18 Reason for consult: lung mass History of present illness: A 57-year-old female patient who was taken to the operating room today for a left thoracoscopy, excision of a left upper lobe mass and a needle biopsy of a mediastinal mass. The patient has been seen by Dr. Villalpando on outpatient basis regarding a lung mass. The patient as part of her workup underwent a PET scan that showed background moderate severe emphysema in addition to a lesion in the left upper lobe periphery measuring around 10 x 7 mm in size abutting the pleural surface with an SUV of 5.7. There is also an abnormal left superior hilar mass/lymph node measuring 2.1 x 1.4 cm in size with an SUV of 17.8 and overall finding was highly suspicious for an underlying malignancy. Nevertheless, the left upper lobe and a left suprahilar mass was not accessible for bronchoscopic approach and based on that the patient underwent a wedge resection and a biopsy of the mediastinal mass. The patient is currently postop day #0. She has chest tubes on the left. No significant air leaks. The chest x-ray is showing no evidence of any pneumothorax. Left sided chest tubes are in place. Her pain is under good control. She is hemodynamically stable and there has been no other significant events. Note that the patient has advanced COPD with a baseline FEV1 of 0.8 L which is only 26% of predicted. The diffusion capacity is at 34% of predicted. She has been maintained on Symbicort on outpatient basis. She has a long history of smoking of around 2-3 pack of cigarettes for the past 40 years. She quit smoking approximately year ago. She also continues to smoke marijuana and she does marijuana edibles in addition. Review of Systems Constitutional: Denies chills, Denies fever Eyes: denies blurred vision, denies bulging eye, denies decreased vision Ears: deny: ear discharge, earache, tinnitus Ears, nose, mouth and throat: Denies headache, Denies sore throat Cardiovascular: Reports decreased exercise tolerance, Reports dyspnea on exertion, Reports shortness of breath Respiratory: Reports dyspnea, Reports wheezing Gastrointestinal: Denies abdominal pain, Denies diarrhea, Denies nausea, Denies vomiting Genitourinary: Denies dysuria, Denies hematuria Menstruation: Reports as per HPI Musculoskeletal: Reports as per HPI Musculoskeletal: absent: ankle pain, ankle stiffness, ankle swelling Integumentary: Denies pruritus, Denies rash Neurological: Denies numbness, Denies weakness Psychiatric: Denies anxiety, Denies depression Endocrine: Denies fatigue, Denies weight change Past Medical History Past Medical History: COPD, CVA/TIA, GERD/Reflux, Hyperlipidemia Additional Past Medical History / Comment(s): Advanced COPD with an FEV1 of 26% of predicted, hyperlipidemia, acid reflux, history of a right-sided CVA with residual foot drop, history of chronic smoking, smoker 2 ppd since age 16 (40+ yrs) History of Any Multi-Drug Resistant Organisms: None Reported Past Surgical History: Appendectomy, Cholecystectomy, Hysterectomy, Tonsillectomy Past Anesthesia/Blood Transfusion Reactions: No Reported Reaction, Motion Sickness Smoking Status: Former smoker (Patient has smoked around 2-3 pack of cigarette a day for a total of 40 years and she quit smoking approximately year ago. She continues to use marijuana mainly edibles and she does not smoke much. No history of IV drugs.) - Past Family History Father Family Medical History: Cancer Additional Family Medical History / Comment(s): Her father had bone cancer Mother Additional Family Medical History / Comment(s): aneurysm, heart problems Medications and Allergies Home Medications Medication Instructions Recorded Confirmed Type ARIPiprazole [Abilify] 5 mg PO HS 03/10/17 01/21/18 History QUEtiapine FUMARATE [Seroquel] 50 mg PO HS 03/10/17 01/21/18 History Vitamin B Complex 1 cap PO DAILY 03/10/17 01/21/18 History traMADol HCL [Ultram] 50 mg PO BID PRN 03/10/17 01/21/18 History Albuterol Inhaler [Ventolin Hfa 1 - 2 puff INHALATION RT-Q6H PRN 01/13/18 History Inhaler] Aspirin [Adult Low Dose Aspirin EC] 81 mg PO DAILY 01/13/18 01/21/18 History Budesonide-Formot 160-4.5 Mcg 1 puff INHALATION RT-BID 01/13/18 01/21/18 History [Symbicort 160-4.5 Mcg Inhaler] Cbd Oil 1 dose TOPICAL BID 01/13/18 01/21/18 History Cholecalciferol [Vitamin D3] 800 unit PO BID 01/13/18 01/21/18 History Clopidogrel [Plavix] 75 mg PO DAILY 01/13/18 01/21/18 History Cyclobenzaprine [Flexeril] 10 mg PO HS 01/13/18 01/21/18 History Manuka Honey 1 dose PO DAILY 01/13/18 01/21/18 History Ondansetron [Zofran] 4 mg PO Q12HR 01/13/18 01/21/18 History Ben Ariza Oil 1 dose TOPICAL BID 01/13/18 01/21/18 History Sertraline [Zoloft] 200 mg PO DAILY 01/13/18 01/21/18 History Tiotropium 18 Mcg/Puff [Spiriva] 1 cap INHALATION RT-HS 01/13/18 01/21/18 History Allergies Allergy/AdvReac Type Severity Reaction Status Date / Time iodine Allergy Rash/Hives Verified 01/21/18 11:09 codeine AdvReac Nausea & Verified 01/21/18 11:09 Vomiting & Diarrhea Physical Exam Vitals: Vital Signs Temp Pulse Resp BP Pulse Ox 01/21/18 16:15 89 18 124/77 98 01/21/18 16:02 91 18 122/78 98 01/21/18 15:45 92 18 124/79 98 01/21/18 15:34 146/78 01/21/18 15:30 94 18 140/89 100 01/21/18 15:15 94 18 140/89 100 01/21/18 15:00 89 18 141/90 100 01/21/18 14:45 90 18 126/82 100 01/21/18 14:38 97.1 F L 96 18 125/74 100 01/21/18 11:02 98.2 F 91 16 141/95 94 L Intake and Output 01/21/18 01/21/18 01/21/18 06:59 14:59 22:59 Intake Total 700 350 Output Total 170 Balance 530 350 Intake: IV 700 350 Output: Urine 150 Estimated Blood Loss 20 Head exam was generally normal. There was no scleral icterus or corneal arcus. Mucous membranes were moist.Head exam was generally normal. There was no scleral icterus or corneal arcus. Mucous membranes were moist. There was no scleral icterus or corneal arcus. Mucous membranes were moist.Neck was supple and without jugular venous distension, thyromegaly, or carotid bruits. Carotids were easily palpable bilaterally. There was no adenopathy. Lung sounds are diminished bilaterally. The patient has a surgical wound site over the left anterior chest area which is dry clean and intact. Chest tubes in place. There are diminished breath sound bilaterally. Few scattered expiratory wheeze. No use of accessory muscles of breathing and she is calm and comfortable. No evidence of any air leak from the chest tube.Cardiac exam revealed the PMI to be normally situated and sized. The rhythm was regular and no extrasystoles were noted during several minutes of auscultation. The first and second heart sounds were normal and physiologic splitting of the second heart sound was noted. There were no murmurs, rubs, clicks, or gallops.Abdominal exam revealed normal bowel sounds. The abdomen was soft, non- tender, and without masses, organomegaly, or appreciable enlargement of the abdominal aorta.Examination of the extremities revealed easily palpable radial, femoral and pedal pulses. There was no cyanosis, clubbing or edema.Examination of the skin revealed no evidence of significant rashes, suspicious appearing nevi or other concerning lesions. Neurologically she is a bit sedated yet she is following commands and answering questions appropriately. Results - Diagnostic Findings Chest x-ray: image reviewed CT scan - chest: image reviewed Assessment and Plan Plan: Assessment 1 left superior hilar mass/lymph node measuring 2.1 x 1.4 cm in size with a peripheral 9 x 4 cm pulmonary nodule in the left upper lobe abutting the pleura. The findings are highly suggestive of an underlying lung cancer and for that reason the patient underwent a thoracoscopic left upper lobe wedge resection in addition to biopsy of the left suprahilar lymph nodes. Results are still pending for now. Patient is postop day #0. Surgical wound site is clean. Chest tubes in place. She is hemodynamically stable 2 COPD severe with a baseline FEV1 of 28% of predicted 3 history of chronic smoking more than [id number] 4 CVA history of with some residual right-sided weakness 5 hyperlipidemia 6 history of foot drop related to a CVA Plan Provide this patient incentive spirometer. Continue DuoNeb nebulized treatments around the clock. Restart Symbicort as maintenance. Noted the patient has Spiriva in addition regarding advanced COPD that she does on outpatient basis. The postoperative chest x-ray was reviewed and there is adequate expansion of the left lung without evidence of any pneumothorax. The chest tube is in a good location. Pain is under good control. The patient has an outpatient medication or renewed. We'll continue to follow and make further recommendations based on her progress. <Yarely Wilder M - Last Filed: 01/22/18 09:33> Physical Exam Vitals: Vital Signs Temp Pulse Pulse Resp BP BP Pulse Ox 01/22/18 08:38 86 01/22/18 08:28 84 01/22/18 04:00 98.1 F 83 18 95/55 96 01/22/18 00:00 97.9 F 79 17 87/45 94 L 01/21/18 20:00 97.9 F 73 16 94/61 96 01/21/18 19:22 88 01/21/18 19:12 86 01/21/18 18:31 94 16 102/50 96 01/21/18 16:45 97.4 F L 98 20 113/64 96 01/21/18 16:15 89 18 124/77 98 01/21/18 16:02 91 18 122/78 98 01/21/18 15:45 92 18 124/79 98 01/21/18 15:34 146/78 01/21/18 15:30 94 18 140/89 100 01/21/18 15:15 94 18 140/89 100 01/21/18 15:00 89 18 141/90 100 01/21/18 14:45 90 18 126/82 100 01/21/18 14:38 97.1 F L 96 18 125/74 100 01/21/18 11:02 98.2 F 91 16 141/95 94 L Intake and Output 01/21/18 01/22/18 01/22/18 22:59 06:59 14:59 Intake Total 410 200 Output Total 110 16 Balance 300 184 Intake: IV 350 200 Dextrose 5%-0.45% NaCl 1, 200 000 ml @ 40 mls/hr IV . Q24H [facility] Rx#:[id number] Oral 60 Output: Chest Tube Drainage 110 16 Chest Tube Left Lower 110 16 Other: Weight 70.5 kg Results - Laboratory Findings CBC and BMP: 01/22/18 06:15 01/22/18 06:15 Abnormal lab findings: Abnormal Labs 01/22/18 01/22/18 06:15 06:15 WBC 11.9 H Neutrophils # 9.2 H BUN 19 H Glucose 112 H
[2018-01-21] MEDS: CHOLECALCIFEROL 400 UNIT TAB PO SCH (17:32)
[2018-01-21] MEDS: HEPARIN SODIUM,PORCINE 5,000 UNIT/ML 1 ML VIAL SQ SCH ×2 (17:32→23:25)
[2018-01-21] MEDS: KETOROLAC 30 MG/ML 1 ML VIAL IVP SCH ×2 (17:41→23:25)
[2018-01-21] MEDS: HYDROcodone/APAP 5-325MG 1 EACH TAB PO PRN ×2 (17:46→22:14)
[2018-01-21] MEDS: SYMBICORT 160-4.5 MCG INHALER INHALATION SCH (19:11)
[2018-01-21] MEDS ORDERED: CYCLOBENZAPRINE 10 MG TAB PO SCH (21:00)
[2018-01-21] MEDS ORDERED: NON-FORMULARY DRUG (Tiotropium 18 Mcg/Puff 1 CAP) INHALATION SCH (21:00)
[2018-01-21] MEDS ORDERED: QUEtiapine 50 MG TAB PO SCH (21:00)
[2018-01-21] MEDS ORDERED: ARIPiprazole 5 MG TAB PO SCH (21:00)
[2018-01-21] MEDS ORDERED: ONDANSETRON 4 MG TAB PO SCH (21:00)
[2018-01-21] MEDS: ceFAZolin IN SWFI 2 GM/20 ML SYRINGE IVP SCH (21:27)
[2018-01-22] MEDS: HYDROcodone/APAP 5-325MG 1 EACH TAB PO PRN (04:55)
[2018-01-22] MEDS: ceFAZolin IN SWFI 2 GM/20 ML SYRINGE IVP SCH (05:04)
[2018-01-22 05:20] VITALS: RESP 18
[2018-01-22] MEDS: KETOROLAC 30 MG/ML 1 ML VIAL IVP SCH ×2 (05:42→11:24)
[2018-01-22 06:40] LABS: Basophils % (A) 0 %; Eosinophils % (A) 0 %; Lymphocytes % (A) 16 %; MCH 28.7 pg (25.0-35.0); MCHC 32.3 g/dL (31.0-37.0); MCV 88.9 fL (80.0-100.0); Monocytes # (A) 0.6 k/uL (0-1.0); Monocytes % (A) 5 %; Neutrophils # (A) 9.2 k/uL (1.3-7.7); Neutrophils % (A) 77 %; Platelet Count 208 k/uL (150-450); RBC 4.16 m/uL (3.80-5.40); RDW 13.6 % (11.5-15.5); WBC 11.9 k/uL (3.8-10.6)
[2018-01-22] MEDS: CHOLECALCIFEROL 400 UNIT TAB PO SCH (06:40)
[2018-01-22 06:50] LABS: Calcium 8.9 mg/dL (8.4-10.2); Potassium 4.3 mmol/L (3.5-5.1)
--- NOTE | 2018-01-22 07:20 | XR ---
EXAMINATION TYPE: XR chest 1V DATE OF EXAM: 01/22/2018 HISTORY: Shortness of breath. COMPARISON: 01/21/2018 TECHNIQUE: Single view of the chest is submitted. FINDINGS: Left-sided chest tube noted with small less than 10% pneumothorax identified. There is no evidence for focal infiltrate. The heart is stable. Hilar and mediastinal structures are within normal limits. Degenerative changes are seen of the dorsal spine. IMPRESSION: 1. Left-sided chest tube noted with small less than 10% pneumothorax identified.
[2018-01-22] MEDS: HEPARIN SODIUM,PORCINE 5,000 UNIT/ML 1 ML VIAL SQ SCH (08:23)
[2018-01-22] MEDS: SYMBICORT 160-4.5 MCG INHALER INHALATION SCH (08:28)
[2018-01-22] MEDS: IPRATROPIUM-ALBUTEROL 3 ML NEB IH SCH ×2 (08:28→11:49)
[2018-01-22] MEDS ORDERED: CLOPIDOGREL 75 MG TAB PO SCH (09:00)
[2018-01-22] MEDS ORDERED: SERTRALINE 100 MG TAB PO SCH (09:00)
[2018-01-22] MEDS ORDERED: ASPIRIN 81 MG PO SCH (09:00)
[2018-01-22 09:56] VITALS: BMI 22.9
--- NOTE | 2018-01-22 11:27 | XR ---
EXAMINATION TYPE: XR chest 2V DATE OF EXAM: 01/22/2018 COMPARISON: 01/22/2018 HISTORY: Status post chest tube removal TECHNIQUE: Frontal and lateral views of the chest are obtained. FINDINGS: Left-sided chest tube has been removed. Approximately 10% pneumothorax continues to be visible. There is new subcutaneous emphysema noted along the upper left chest wall. No focal infiltrates. No evidence for mediastinal shift. Heart size is stable. Mediastinal structures are stable and grossly unremarkable. No evidence for hilar prominence. Degenerative changes dorsal spine. IMPRESSION: 1. Left-sided chest tube has been removed. Approximately 10% pneumothorax continues to be visible. Th ere is new subcutaneous emphysema noted along the upper left chest wall.
[2018-01-22] MEDS ORDERED: B COMPLEX-VIT C-VIT E-ZINC 1 EACH TAB PO SCH (12:00)
[2018-01-22 12:02] VITALS: BP 87/57; PULSE 83; TEMP 97.2
--- NOTE | 2018-01-22 12:29 | P.PN ---
Subjective Progress Note Date: 01/22/18 Principal diagnosis: Upper lobe lung mass, enlarged AP window lymph node. History of stroke, hypertension, marijuana use, previous tobacco dependence. POD #1 left thoracoscopy with lysis of adhesions and excisional biopsy of left upper lobe mass, Trung-Cut needle biopsy of mediastinal mass. Patient's currently sitting up in bed in no acute distress. States pain is controlled on current medications. Objective - Vital Signs Vital signs: Vital Signs Temp 97.2 F L 01/22/18 11:00 Pulse 80 01/22/18 11:59 Resp 18 01/22/18 11:00 BP 87/57 01/22/18 11:00 Pulse Ox 96 01/22/18 11:00 Intake & Output 01/21/18 01/22/18 01/22/18 18:59 06:59 18:59 Intake Total 1110 200 118 Output Total 245 51 0 Balance 865 149 118 Weight 70.5 kg 70.5 kg Intake: IV 1050 200 Dextrose 5%-0.45% NaCl 1, 200 000 ml @ 40 mls/hr IV . Q24H [facility] Rx#:[id number] Oral 60 118 Output: Chest Tube Drainage 75 51 0 Chest Tube Left Lower 75 51 0 Urine 150 Estimated Blood Loss 20 - Constitutional General appearance: Present: cooperative, no acute distress - Respiratory Details: Lungs sounds diminished bilaterally. Respirations even, nonlabored. Currently on room air with oxygen saturation 96%. Able to achieve 1009 mL on incentive spirometry. Left pleural chest tube to waterseal, 60 mL serous drainage overnight, 130 mL since surgery, no air leaks present. - Cardiovascular Details: S1, S2 present. Regular rate and rhythm, sinus rhythm on telemetry. Palpable peripheral pulses bilaterally. No edema present. No calf pain or tenderness noted. SCDs present. - Gastrointestinal Gastrointestinal Comment(s): Abdomen soft, nontender, nondistended. Active bowel sounds present 4 quadrants. Tolerating diet. - Genitourinary Genitourinary Comment(s): Continues to void clear, yellow urine. - Integumentary Integumentary Comment(s): Skin is warm and dry with evidence of good perfusion. - Neurologic Neurologic: Present: CNII-XII intact - Musculoskeletal Musculoskeletal: Present: gait normal, strength equal bilaterally - Psychiatric Psychiatric: Present: A&O x's 3, appropriate affect, intact judgment & insight - Allied health notes Allied health notes reviewed: nursing - Labs CBC & Chem 7: 01/22/18 06:15 01/22/18 06:15 Labs: Abnormal Lab Results - Last 24 Hours (Table) 01/22/18 01/22/18 Range/Units 06:15 06:15 WBC 11.9 H (3.8-10.6) k/uL Neutrophils # 9.2 H (1.3-7.7) k/uL BUN 19 H (7-17) mg/dL Glucose 112 H (74-99) mg/dL Microbiology - Last 24 Hours (Table) 01/21/18 14:18 Gram Stain - Preliminary Lung - Left Upper Lobe Tissue Culture - Preliminary 01/21/18 14:18 Acid Fast Bacilli Culture - Preliminary Lung - Left Upper Lobe 01/21/18 14:18 Anaerobic Culture - Preliminary Lung - Left Upper Lobe 01/21/18 14:18 Fungal Culture - Preliminary Lung - Left Upper Lobe - Imaging and Cardiology Chest x-ray: report reviewed, image reviewed Assessment and Plan (1) Mass of upper lobe of left lung Current Visit: Yes Status: Chronic Code(s): R91.8 - OTHER NONSPECIFIC ABNORMAL FINDING OF LUNG FIELD SNOMED Code(s): 771354921 (2) Tobacco dependence in remission Current Visit: No Status: Resolved Code(s): F17.201 - NICOTINE DEPENDENCE, UNSPECIFIED, IN REMISSION SNOMED Code(s): 819398314 (3) Marijuana use Current Visit: Yes Status: Chronic Code(s): F12.90 - CANNABIS USE, UNSPECIFIED, UNCOMPLICATED SNOMED Code(s): 915596657 (4) History of stroke Current Visit: No Status: Resolved Code(s): Z86.73 - PRSNL HX OF TIA (TIA), AND CEREB INFRC W/O RESID DEFICITS SNOMED Code(s): 031741927 (5) Hypertension Current Visit: Yes Status: Chronic Code(s): I10 - ESSENTIAL (PRIMARY) HYPERTENSION SNOMED Code(s): 11850772 Plan: 1. Left chest tube discontinued without incident. Repeat chest x-ray demonstrates small but stable pneumothorax. 2. Encourage incentive spirometry 10 times every hour. 3. Encourage continued smoking cessation. 4. Pain management with ordered pain medication. 5. Will discharge to home later today. Follow-up appointment made with Dr. Garcia. Time with Patient: Greater than 30
--- NOTE | 2018-01-22 13:02 | P.PN ---
Subjective Progress Note Date: 01/22/18 Principal diagnosis: Left superior hilar mass/lymph node enlargement suggestive of an underlying lung cancer, that is post-thoracoscopic left upper lobe wedge resection and biopsy of the left suprahilar lymph nodes A 57-year-old female patient who was taken to the operating room today for a left thoracoscopy, excision of a left upper lobe mass and a needle biopsy of a mediastinal mass. The patient has been seen by Dr. Villalpando on outpatient basis regarding a lung mass. The patient as part of her workup underwent a PET scan that showed background moderate severe emphysema in addition to a lesion in the left upper lobe periphery measuring around 10 x 7 mm in size abutting the pleural surface with an SUV of 5.7. There is also an abnormal left superior hilar mass/lymph node measuring 2.1 x 1.4 cm in size with an SUV of 17.8 and overall finding was highly suspicious for an underlying malignancy. Nevertheless, the left upper lobe and a left suprahilar mass was not accessible for bronchoscopic approach and based on that the patient underwent a wedge resection and a biopsy of the mediastinal mass. The patient is currently postop day #0. She has chest tubes on the left. No significant air leaks. The chest x-ray is showing no evidence of any pneumothorax. Left sided chest tubes are in place. Her pain is under good control. She is hemodynamically stable and there has been no other significant events. Note that the patient has advanced COPD with a baseline FEV1 of 0.8 L which is only 26% of predicted. The diffusion capacity is at 34% of predicted. She has been maintained on Symbicort on outpatient basis. She has a long history of smoking of around 2-3 pack of cigarettes for the past 40 years. She quit smoking approximately year ago. She also continues to smoke marijuana and she does marijuana edibles in addition. On 01/22/2018 patient seen in follow-up on selective care unit. Her left pleural chest tube was discontinued today per cardiothoracic surgery, patient is currently on 2 L per nasal cannula with O2 sat 96%. She is afebrile, vital signs are stable. Denies any acute distress, her pain is controlled on oral pain medications. Able to achieve 1000 mL on the incentive spirometry, today's chest x-ray showed interval change of the left-sided chest tube, with approximately 10% pneumothorax on the left, with new subcutaneous emphysema along the upper left chest wall. The lung wedge biopsy and lymph node biopsy results are still pending at this time. Remains stable, and is anticipated to be discharged home today. Objective - Vital Signs Vital signs: Vital Signs Temp 97.2 F L 01/22/18 11:00 Pulse 80 01/22/18 11:59 Resp 18 01/22/18 11:00 BP 87/57 01/22/18 11:00 Pulse Ox 96 01/22/18 11:00 Intake & Output 01/21/18 01/22/18 01/22/18 18:59 06:59 18:59 Intake Total 1110 200 118 Output Total 245 51 0 Balance 865 149 118 Weight 70.5 kg 70.5 kg Intake: IV 1050 200 Dextrose 5%-0.45% NaCl 1, 200 000 ml @ 40 mls/hr IV . Q24H [facility] Rx#:[id number] Oral 60 118 Output: Chest Tube Drainage 75 51 0 Chest Tube Left Lower 75 51 0 Urine 150 Estimated Blood Loss 20 - Exam GENERAL EXAM: Alert, pleasant, 57-year-old white female comfortable in no apparent distress. Left pleural chest tube has been discontinued, left chest incisions clean dry and intact. HEAD: Normocephalic/atraumatic. EYES: Normal reaction of pupils, equal size. Conjunctiva pink, sclera white. NOSE: Clear with pink turbinates. THROAT: No erythema or exudates. NECK: No masses, no JVD, no thyroid enlargement, no adenopathy. CHEST: No chest wall deformity. Symmetrical expansion. LUNGS: Equal air entry with no crackles, wheeze, rhonchi or dullness. Left pleural chest tube has been discontinued, the site is covered with a dressing, left chest incision is clean dry and intact CVS: Regular rate and rhythm, normal S1 and S2, no gallops, no murmurs, no rubs ABDOMEN: Soft, nontender. No hepatosplenomegaly, normal bowel sounds, no guarding or rigidity. EXTREMITIES: No clubbing, no edema, no cyanosis, 2+ pulses and upper and lower extremities. MUSCULOSKELETAL: Muscle strength and tone normal. SPINE: No scoliosis or deformity SKIN: No rashes CENTRAL NERVOUS SYSTEM: Alert and oriented -3. No focal deficits, tone is normal in all 4 extremities. PSYCHIATRIC: Alert and oriented -3. Appropriate affect. Intact judgment and insight. - Labs CBC & Chem 7: 01/22/18 06:15 01/22/18 06:15 Labs: Abnormal Lab Results - Last 24 Hours (Table) 01/22/18 01/22/18 Range/Units 06:15 06:15 WBC 11.9 H (3.8-10.6) k/uL Neutrophils # 9.2 H (1.3-7.7) k/uL BUN 19 H (7-17) mg/dL Glucose 112 H (74-99) mg/dL Microbiology - Last 24 Hours (Table) 01/21/18 14:18 Gram Stain - Preliminary Lung - Left Upper Lobe Tissue Culture - Preliminary 01/21/18 14:18 Acid Fast Bacilli Culture - Preliminary Lung - Left Upper Lobe 01/21/18 14:18 Anaerobic Culture - Preliminary Lung - Left Upper Lobe 01/21/18 14:18 Fungal Culture - Preliminary Lung - Left Upper Lobe Assessment and Plan Plan: Assessment: 1 left superior hilar mass/lymph node measuring 2.1 x 1.4 cm in size with a peripheral 9 x 4 cm pulmonary nodule in the left upper lobe abutting the pleura. The findings are highly suggestive of an underlying lung cancer and for that reason the patient underwent a thoracoscopic left upper lobe wedge resection in addition to biopsy of the left suprahilar lymph nodes. Results are still pending for now. Patient is postop day #1. Surgical wound site is clean. Left pleural chest tube was discontinued, patient is hemodynamically stable, is anticipated for discharge today 2 COPD severe with a baseline FEV1 of 28% of predicted 3 history of chronic smoking more than [id number] 4 CVA history of with some residual right-sided weakness 5 hyperlipidemia 6 history of foot drop related to a CVA Plan Left pleural chest tube has been discontinued per cardiothoracic surgery. Patient is doing well, remains stable, denies any acute distress, her pain is reasonably controlled with oral indications. No dyspnea, vital signs are stable , no acute events overnight. Left upper lobe wedge biopsy and lymph node biopsy results are still pending at this time. Continue encouraging incentive spirometry, ambulation. Cardiothoracic surgery has cleared the patient for discharge later today. I performed a history & physical examination of the patient and discussed their management with my nurse practitioner, Yarely Wilder. I reviewed the nurse practitioner's note and agree with the documented findings and plan of care. Lung sounds are clear. The findings and the impression was discussed with the patient. I attest to the documentation by the nurse practitioner. Time with Patient: Less than 30
--- NOTE | 2018-01-22 17:09 | P.DS ---
Providers Date of admission: 01/21/18 10:37 Expected date of discharge: 01/22/18 Attending physician: Mekhi Garcia Consults: 01/21/18 15:08 Consult Physician Routine Consulting Provider: [place] Reason/Comments: pulmonology managment Do you want consulting provider notified?: Yes Primary care physician: Stated None - Discharge Diagnosis(es) (1) Mass of upper lobe of left lung Status: Chronic (2) Tobacco dependence in remission Status: Resolved (3) Marijuana use Status: Chronic (4) History of stroke Status: Resolved (5) Hypertension Status: Chronic Hospital Course: FINAL DIAGNOSIS: 1. Left upper lobe lung mass, enlarged AP window lymph node 2. History of stroke 3. History of hypertension 4. Previous tobacco dependence 5. Marijuana use PRINCIPAL PROCEDURE: 1. Left thoracoscopy with lysis of adhesions and excisional biopsy of left upper lobe mass, Trung-Cut needle biopsy of mediastinal mass HISTORY OF PRESENT ILLNESS: This is a 57-year-old female patient referred by Dr. Victoria for possible lung mediastinal mass biopsy. She had presented to her primary care physician with left shoulder pain with an indeterminant etiology. As part of her workup she had CAT scan which demonstrated presence of a small peripheral mass in the left upper lobe of the lung as well as a large mediastinal mass in the AP window and the patient was referred to Dr. Victoria. Dr. Victoria ordered a PET scan which demonstrated significant uptake in both masses consistent with stage IIIa lung carcinoma. Of note, there was right parotid focal uptake in the patient and is pending a consult with Dr. Montano. She was referred to Dr. Garcia, recommendation was made for surgical biopsy of the lung mass as well as mediastinal mass, risks versus benefits and possible complications were outlined to the patient, the usual perioperative course was outlined. All questions were answered. The patient verbalized agreement and consented to surgery. HOSPITAL COURSE: On 01/21/2018 the patient was brought to the hospital, taken to the preoperative area, prepared in the usual fashion, and subsequently taken to the operating room where Dr. Garcia performed an elective left thoracoscopy with lysis of adhesions and excisional biopsy of the left upper lobe mass, and Trung-Cut needle biopsy of the mediastinal mass. Upon completion of surgery she was extubated and taken to the recovery room where she was monitored hemodynamically. She was eventually admitted to 6 E. selective care for further monitoring. On postop day #1 she was tolerating oral intake, her pain was controlled with ordered medications, she had minimal drainage from her chest tube with no air leak, and her chest tube was discontinued. Follow-up x- ray demonstrated small but stable apical pneumothorax. Her oxygen was titrated down, she was ambulatory in the hallway, and she was ready to be discharged to home on postoperative day #1. She received written and verbal instructions regarding her medications, activity restriction, signs and symptoms requiring physician notification, and follow-up appointments. COMPLICATIONS: The patient experienced no postoperative complications. Patient Condition at Discharge: Stable Plan - Discharge Summary Discharge Rx Participant: Yes New Discharge Prescriptions: Continue Vitamin B Complex 1 cap PO DAILY QUEtiapine FUMARATE [Seroquel] 50 mg PO HS ARIPiprazole [Abilify] 5 mg PO HS traMADol HCL [Ultram] 50 mg PO BID PRN PRN Reason: Pain Tiotropium 18 Mcg/Puff [Spiriva] 1 cap INHALATION RT-HS Budesonide-Formot 160-4.5 Mcg [Symbicort 160-4.5 Mcg Inhaler] 1 puff INHALATION RT-BID Albuterol Inhaler [Ventolin Hfa Inhaler] 1 - 2 puff INHALATION RT-Q6H PRN PRN Reason: Dyspnea Sertraline [Zoloft] 200 mg PO DAILY Ondansetron [Zofran] 4 mg PO Q12HR Clopidogrel [Plavix] 75 mg PO DAILY Aspirin [Adult Low Dose Aspirin EC] 81 mg PO DAILY Cyclobenzaprine [Flexeril] 10 mg PO HS Cholecalciferol [Vitamin D3] 800 unit PO BID Ben Ariza Oil 1 dose TOPICAL BID Cbd Oil 1 dose TOPICAL BID Manuka Honey 1 dose PO DAILY Discharge Medication List ARIPiprazole [Abilify] 5 mg PO HS 03/10/17 [History] QUEtiapine FUMARATE [Seroquel] 50 mg PO HS 03/10/17 [History] Vitamin B Complex 1 cap PO DAILY 03/10/17 [History] traMADol HCL [Ultram] 50 mg PO BID PRN 03/10/17 [History] Albuterol Inhaler [Ventolin Hfa Inhaler] 1 - 2 puff INHALATION RT-Q6H PRN [History] Aspirin [Adult Low Dose Aspirin EC] 81 mg PO DAILY 01/13/18 [History] Budesonide-Formot 160-4.5 Mcg [Symbicort 160-4.5 Mcg Inhaler] 1 puff INHALATION RT-BID 01/13/18 [History] Cbd Oil 1 dose TOPICAL BID 01/13/18 [History] Cholecalciferol [Vitamin D3] 800 unit PO BID 01/13/18 [History] Clopidogrel [Plavix] 75 mg PO DAILY 01/13/18 [History] Cyclobenzaprine [Flexeril] 10 mg PO HS 01/13/18 [History] Manuka Honey 1 dose PO DAILY 01/13/18 [History] Ondansetron [Zofran] 4 mg PO Q12HR 01/13/18 [History] Ben Ariza Oil 1 dose TOPICAL BID 01/13/18 [History] Sertraline [Zoloft] 200 mg PO DAILY 01/13/18 [History] Tiotropium 18 Mcg/Puff [Spiriva] 1 cap INHALATION RT-HS 01/13/18 [History] Follow up Appointment(s)/Referral(s): Mekhi Garcia MD [STAFF PHYSICIAN] - 02/05/18 1:45 pm [place] DO [Doctor of Osteopathic Medicine] - 01/29/18 10:00 am Activity/Diet/Wound Care/Special Instructions: DISCHARGE INSTRUCTIONS: 1. No driving for 2 weeks, or until physician gives their ok. 2. The patient should sleep in their own bed, no medical bed needed. 3. Stairs are not an issue. If the bedroom is upstairs, it is advised that the patient go up at night and down in the morning for the first week. Go slowly, using handrail and take 1 step at a time. 4. No lifting, pushing, or pulling more than 10 pounds for 2 weeks. The physician will advise of any restriction changes. 5. Continue pain control per as needed orders. 6. Continue with incentive spirometry until otherwise directed by the physician. 7. May shower daily beginning January 24 8. Routine incision care. No powders, lotions, ointments on incisions. 9. Please call surgeon/[facility] [employer] for temp greater than 101 F or purulent drainage from incisions. Discharge Disposition: HOME SELF-CARE
--- NOTE | 2018-01-29 10:20 | CDI ---
Documentation Clarification Form Date: 01/29/2018 12:00:00 AM From: EVELIA Reno; Adeola Isaac [employer] Project Manager Phone: If you have a question about this query, please contact Adeola Isaac [employer] Project Manager at [phone] between 8am and 5pm. Admit Date: 01/21/2018 10:37:00 AM Patient Name: Kari Rooney Visit Number: [id number] Discharge Date: 01/22/2018 ATTENTION: The Clinical Documentation Specialists (CDI) and [facility] Coding Staff appreciate your assistance in clarifying documentation. Please respond to the clarification below the line at the bottom and electronically sign. The CDI & [facility] Coding staff will review the response and follow-up if needed. Please note: Queries are made part of the Legal Health Record. If you have any questions, please contact the author of this message via ITS. Dr. Mekhi Garcia The patient presented for wedge resection of lung, with lymph node resection. 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 Metastasis in ipsilateral parabronchial or ipsilateral hilar lymph nodes. Documentation states: Upper lobe lung mass. Findings suggestive of underlying lung cancer; biopsy results pending. In your professional opinion, do you agree with the pathology report specifying mixed large cell neuroendocrine carcinoma and small cell carcinoma, lung left upper lobe, with metastasis to lymph nodes? X Yes No Other (please specify) Unable to determine MTDD
== END 2018-01-22 15:27 | disposition home or self-care (01) | DRG 164 ==
LOC: 2ORMAIN 10:37 → 6SEL 16:03
PROVIDERS: ADMIT Thoracic Surgery (Cardiothoracic Vascular Surgery); ATTEND Thoracic Surgery (Cardiothoracic Vascular Surgery)
PROC: 0BBG4ZZ Excision of Left Upper Lung Lobe, Percutaneous Endoscopic Approach (ICD-10-PCS; principal; 2018-01-21 12:30)
PROC: 07B74ZX Excision of Thorax Lymphatic, Percutaneous Endoscopic Approach, Diagnostic (ICD-10-PCS; principal; 2018-01-21 12:30)
PROC: 0BBG4ZX Excision of Left Upper Lung Lobe, Percutaneous Endoscopic Approach, Diagnostic (ICD-10-PCS; principal; 2018-01-21 12:30)
DX: C34.12 Malignant neoplasm of upper lobe, left bronchus or lung (principal); J93.9 Pneumothorax, unspecified; C77.1 Secondary and unspecified malignant neoplasm of intrathoracic lymph nodes; J98.2 Interstitial emphysema; E78.5 Hyperlipidemia, unspecified; F12.90 Cannabis use, unspecified, uncomplicated; F17.201 Nicotine dependence, unspecified, in remission; I10 Essential (primary) hypertension; J44.9 Chronic obstructive pulmonary disease, unspecified; I69.398 Other sequelae of cerebral infarction; K21.9 Gastro-esophageal reflux disease without esophagitis; Z79.02 Long term (current) use of antithrombotics/antiplatelets; Z79.51 Long term (current) use of inhaled steroids; Z79.82 Long term (current) use of aspirin; Z79.899 Other long term (current) drug therapy; Z80.8 Family history of malignant neoplasm of other organs or systems; Z90.710 Acquired absence of both cervix and uterus; Z88.5 Allergy status to narcotic agent; Z91.041 Radiographic dye allergy status
CPT/HCPCS: 71045; 71046; 80048; 85025; 86850; 86900; 86901; 87070; 87075; 87102; 87116; 87205; 87206; 88305; 88307; 88341; 88342; 94640

== ENCOUNTER 2018-01-30 09:42 | Day surgery (SDC) | payer MEDICARE, OTHER ==
[2018-01-30 10:10] VITALS: BP 148/75; PULSE 83; RESP 20; TEMP 98.5
[2018-01-30] MEDS ORDERED: ALPRAZolam 0.5 MG TAB PO STA (10:12)
--- NOTE | 2018-01-30 11:37 | US ---
ULTRASOUND GUIDED FNA RIGHT PAROTID GLAND MASS BIOPSY: CLINICAL HISTORY: Right parotid gland mass FINDINGS: The procedure was explained to the patient. The risks, complications, benefits and alternatives were discussed and any questions were answered. Informed consent was obtained. Patient was placed supin e on the ultrasound table and prepped and draped in the usual sterile fashion. Utilizing a 25 gauge needle, 6 passes were made into the right parotid gland. Patient was stable throughout the procedure. Pathology is pending. All elements of maximal barrier and sterile technique were utilized. IMPRESSION: 1. Successful ultrasound guided FNA parotid gland mass biopsy.
== END 2018-01-30 11:25 | disposition home or self-care (01) ==
LOC: RADPROMAIN 09:42
PROVIDERS: ATTEND Otolaryngology
DX: K11.9 Disease of salivary gland, unspecified (principal)
CPT/HCPCS: 10022; 76942; 88173; 88305

== ENCOUNTER → 2018-02-10 | Outpatient (CLI) | payer MEDICARE, OTHER ==
--- NOTE | 2018-02-10 16:49 | MR ---
EXAMINATION TYPE: MR brain wo/w con DATE OF EXAM: 02/10/2018 COMPARISON: CT brain 03/10/2017 HISTORY: Malignant Neoplasm of Lung, miranda CONTRAST: Performed utilizing 7 mL intravenous Gadavist gadolinium contrast. TECHNIQUE: Multiplanar, multiecho imaging on a 3.0 Alma magnet is performed through the brain. Stud y is performed within 24 hours of arrival to the hospital. The craniovertebral junction is normal. The pituitary is normal. Diffusion-weighted imaging is performed. No abnormal hyperintensity is present to suggest an acute i ntracranial infarct or acute ischemic change. There is a prior lacunar infarct within the right basal ganglion extending into the periventricular w aide matter. Some ex vacuo effect is present. Periventricular white matter ischemic type changes, lik marquez chronic are present. A mass lesion is not identified. No suspicious enhancement is evident. Ventricles and sulci are slightly prominent for the patient age. IMPRESSIONS: 1. Mild age-related atrophy with periventricular white matter ischemic type changes. 2. Prior lacunar type infarct right basal ganglion extending into the right regan radiata at the lev el of the right lateral ventricle. Ex vacuo effect is evident. 3. Suspicious enhancement or mass lesions to suggest metastatic disease is not identified.
== END | disposition home or self-care (01) ==
LOC: RADMRIMAIN 07:24
PROVIDERS: ATTEND Internal Medicine Hematology & Oncology
DX: G31.1 Senile degeneration of brain, not elsewhere classified (principal); I67.82 Cerebral ischemia; C34.92 Malignant neoplasm of unspecified part of left bronchus or lung; Z86.73 Personal history of transient ischemic attack (TIA), and cerebral infarction without residual deficits
CPT/HCPCS: 70553; A9581

== ENCOUNTER 2018-03-21 15:16 | Emergency (ER) | payer MEDICARE, OTHER ==
[2018-03-21 15:23] VITALS: RESP 18
--- NOTE | 2018-03-21 15:39 | ED ---
General Adult HPI - General Chief complaint: Back Pain/Injury Stated complaint: BACK PAIN Time Seen by Provider: 03/21/18 15:23 Source: EMS, RN notes reviewed, old records reviewed Mode of arrival: EMS Limitations: no limitations - History of Present Illness Initial comments: This is a 57-year-old female the ER for evaluation. Patient is today for evaluation of back pain. Acute on chronic back pain. States she has history of back pain. Denies any neurological deficits denies trauma or injury. Patient has no loss of bowel or bladder. She states she has severe pain. Patient does have history of lung CA but has no known history of metastasis. Patient denies any shortness of breath cough or congestion no chest pain. Patient denies any other complaints aside from pain in her lower back, lumbar area - Related Data Home Medications Medication Instructions Recorded Confirmed ARIPiprazole [Abilify] 5 mg PO HS 03/10/17 01/30/18 QUEtiapine FUMARATE [Seroquel] 50 mg PO HS 03/10/17 01/30/18 Vitamin B Complex 1 cap PO DAILY 03/10/17 01/30/18 traMADol HCL [Ultram] 50 mg PO BID PRN 03/10/17 01/30/18 Albuterol Inhaler [Ventolin Hfa 1 - 2 puff INHALATION RT-Q6H PRN 01/13/18 Inhaler] Aspirin [Adult Low Dose Aspirin EC] 81 mg PO DAILY 01/13/18 01/30/18 Budesonide-Formot 160-4.5 Mcg 1 puff INHALATION RT-BID 01/13/18 01/30/18 [Symbicort 160-4.5 Mcg Inhaler] Cbd Oil 1 dose TOPICAL BID 01/13/18 01/30/18 Cholecalciferol [Vitamin D3] 800 unit PO BID 01/13/18 01/30/18 Clopidogrel [Plavix] 75 mg PO DAILY 01/13/18 01/30/18 Cyclobenzaprine [Flexeril] 10 mg PO HS 01/13/18 01/30/18 Manuka Honey 1 dose PO DAILY 01/13/18 01/30/18 Ondansetron [Zofran] 4 mg PO Q12HR 01/13/18 01/30/18 Ben Ariza Oil 1 dose TOPICAL BID 01/13/18 01/30/18 Sertraline [Zoloft] 200 mg PO DAILY 01/13/18 01/30/18 Tiotropium 18 Mcg/Puff [Spiriva] 1 cap INHALATION RT-HS 01/13/18 01/30/18 Allergies Allergy/AdvReac Type Severity Reaction Status Date / Time iodine Allergy Rash/Hives Verified 01/30/18 10:16 codeine AdvReac Nausea & Verified 01/30/18 10:16 Vomiting & Diarrhea Review of Systems ROS Statement: Those systems with pertinent positive or pertinent negative responses have been documented in the HPI. ROS Other: All systems not noted in ROS Statement are negative. 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 smoker 2 ppd since age 16 (40+ yrs) History of Any Multi-Drug Resistant Organisms: None Reported Past Surgical History: Appendectomy, Cholecystectomy, Hysterectomy, Tonsillectomy Additional Past Surgical History / Comment(s): recent thorascopic biopsy left mediastinal masses 01/21/18/. Past Anesthesia/Blood Transfusion Reactions: No Reported Reaction Past Psychological History: Anxiety, Depression Smoking Status: Former smoker Past Alcohol Use History: None Reported Past Drug Use History: Marijuana - Past Family History Father Family Medical History: Cancer Additional Family Medical History / Comment(s): Her father had bone cancer Mother Additional Family Medical History / Comment(s): aneurysm, heart problems General Exam Limitations: no limitations General appearance: alert, in no apparent distress Head exam: Present: atraumatic, normocephalic, normal inspection Eye exam: Present: normal appearance, PERRL, EOMI. Absent: scleral icterus, conjunctival injection, periorbital swelling ENT exam: Present: normal exam, mucous membranes moist Neck exam: Present: normal inspection. Absent: tenderness, meningismus, lymphadenopathy Respiratory exam: Present: normal lung sounds bilaterally. Absent: respiratory distress, wheezes, rales, rhonchi, stridor Cardiovascular Exam: Present: regular rate, normal rhythm, normal heart sounds. Absent: systolic murmur, diastolic murmur, rubs, gallop, clicks GI/Abdominal exam: Present: soft, normal bowel sounds. Absent: distended, tenderness, guarding, rebound, rigid Extremities exam: Present: normal inspection, full ROM, normal capillary refill. Absent: tenderness, pedal edema, joint swelling, calf tenderness Back exam: Present: normal inspection Neurological exam: Present: alert, oriented X3, CN II-XII intact Psychiatric exam: Present: normal affect, normal mood Skin exam: Present: warm, dry, intact, normal color. Absent: rash Course Vital Signs 03/21/18 15:18 Temperature 98.8 F Pulse Rate 64 Respiratory 18 Rate Blood Pressure 120/68 O2 Sat by Pulse 97 Oximetry - Reevaluation(s) Reevaluation #1: 03/21/18 16:01 Patient currently well-controlled Medical Decision Making - Medical Decision Making 57 female to the ED complains of back pain. Acute on chronic back pain. Back pain right now is well-controlled. Patient will be discharged home continue take Motrin Tylenol for pain - Radiology Data Radiology results: report reviewed (CT lumbar spine is negative for acute disease), image reviewed Disposition Clinical Impression: Mechanical back pain, Lumbar radiculopathy Disposition: HOME SELF-CARE Condition: Good Instructions: Acute Low Back Pain (ED), Chronic Back Pain (ED) Is patient prescribed a controlled substance at d/c from ED?: No Referrals: Jeana Bridges MD [Primary Care Provider] - 1-2 days
[2018-03-21] MEDS ORDERED: IBUPROFEN 800 MG TAB PO STA (15:40)
[2018-03-21] MEDS ORDERED: DIAZEPAM 5 MG TAB PO STA (15:40)
[2018-03-21] MEDS ORDERED: MORPHINE SULFATE 2 MG/ML SYRINGE IM STA (15:40)
--- NOTE | 2018-03-21 16:04 | CT ---
EXAMINATION TYPE: CT lumbar spine wo con DATE OF EXAM: 03/21/2018 3:57 PM COMPARISON: NONE HISTORY: Low back pain. History of lung cancer. CT DLP: 666.9 mGycm Automated exposure control for dose reduction was used. Unenhanced CT of the lumbar spine was performed. Bone and soft tissue window settings are submitted as well as coronal and sagittal reconstructions. There is mild lumbar dextroscoliosis. There is some degenerative disc space narrowing at L4-5 anterio r spurring. There is no lumbar paraspinal mass. There is no compression fracture. There is mild later al recess stenosis due to facet arthropathy at L4-5. I see no focal bone destruction. Sacroiliac join ts appear intact. There is mild posterior disc bulging at L4-5 and L5-S1. IMPRESSION: Mild spondylotic changes with dextroscoliosis. No fracture. No focal bone destruction. Mild lateral r ecess stenosis at L4-5.
[2018-03-21] MEDS ORDERED: HYDROcodone/APAP 5-325MG 1 EACH TAB PO STA (16:56)
[2018-03-21 17:44] VITALS: BP 126/70; PULSE 66; TEMP 98.2
== END 2018-03-21 17:42 | disposition home or self-care (01) ==
LOC: EC 15:16
DX: M54.16 Radiculopathy, lumbar region (principal); J44.9 Chronic obstructive pulmonary disease, unspecified; F41.9 Anxiety disorder, unspecified; F32.9 Major depressive disorder, single episode, unspecified; Z86.73 Personal history of transient ischemic attack (TIA), and cerebral infarction without residual deficits; Z85.118 Personal history of other malignant neoplasm of bronchus and lung; Z87.891 Personal history of nicotine dependence; Z79.82 Long term (current) use of aspirin; Z79.51 Long term (current) use of inhaled steroids; Z79.02 Long term (current) use of antithrombotics/antiplatelets; Z79.899 Other long term (current) drug therapy; Z91.048 Other nonmedicinal substance allergy status; Z88.5 Allergy status to narcotic agent
CPT/HCPCS: 72131; 99284; 96372; J2270

== ENCOUNTER → 2018-05-04 | Outpatient (CLI) | payer MEDICARE, OTHER ==
[2018-05-04 12:30] LABS: Blood Urea Nitrogen 14 mg/dL (7-17)
--- NOTE | 2018-05-04 13:16 | CT ---
EXAMINATION TYPE: CT chest w con DATE OF EXAM: 05/04/2018 COMPARISON: 12/16/2017 HISTORY: Follow up lung cancer. CT DLP: 222.7 mGycm. Automated Exposure Control for Dose Reduction was Utilized. TECHNIQUE: CT scan of the thorax is performed following with IV Contrast, patient injected with 100 mL of Isovue M300. FINDINGS: LUNGS: Surgical sutures within the left lung apex are now seen extending to the mediastinum from wedg e resection of the left lung apex for peripheral left upper lobe/apical pulmonary nodule. There is mi ld background centrilobular emphysematous change. 3 mm solid pulmonary nodule in a subpleural locatio n of the right upper lobe anterior laterally on series 4 image 28 is unchanged from the prior. No new pulmonary nodules identified. Pleural thickening along the mediastinum measures 2 mm on series 3 reagan ge 18, postsurgical change. There is no pleural effusion or pneumothorax seen. No focal consolidatio n is present. The tracheobronchial tree is patent. MEDIASTINUM: The previously seen soft tissue density/adenopathy in the prevascular space extending in to the aorticopulmonary window that measured 2.1 x 2.4 cm has markedly decreased now measuring up to 7 mm in short axis. There are no greater than 1 cm hilar or mediastinal lymph nodes. No pericardial effusion is seen. OTHER: There is partial visualization of a left-sided extrarenal pelvis as seen on the prior. Cholecy stectomy clips are noted within the gallbladder fossa. IMPRESSION: 1. Surgical resection of the left apical pulmonary nodule. Response to treatment of the mediastinal a denopathy with marked decrease in size (previously measuring 2.4 cm and now measuring 0.7 cm. No new pulmonary nodules aerated 2. Stable 2 mm right upper lobe subpleural pulmonary nodule.
== END | disposition home or self-care (01) ==
LOC: RADCTMAIN 11:49
PROVIDERS: ATTEND Internal Medicine Hematology & Oncology
DX: C34.92 Malignant neoplasm of unspecified part of left bronchus or lung (principal); R91.1 Solitary pulmonary nodule; Z91.048 Other nonmedicinal substance allergy status; Z98.890 Other specified postprocedural states
CPT/HCPCS: 82565; 84520; 71260; 36415; Q9967

== ENCOUNTER → 2018-05-11 | Outpatient (CLI) | payer MEDICARE, OTHER ==
--- NOTE | 2018-05-11 11:35 | MR ---
EXAMINATION TYPE: MR brain wo/w con DATE OF EXAM: 05/11/2018 COMPARISON: Prior MRI brain February 22, 2018 HISTORY: Known Malignant neoplasm of upper lobe with new memory loss per patient. TECHNIQUE: Multiplanar, multisequence images of the brain and brainstem is performed without and with IV contras t, utilizing 7.5 mL intravenous Gadavist . FINDINGS: Diffusion weighted images demonstrate no evidence of a recent infarct or other diffusion ab normality. There is no worrisome extra-axial fluid collection. The ventricular system and cisternal spaces are stable in size and appearance. The brain volume is age appropriate. Old infarct right co geraldine radiata near axial flare image 39 is redemonstrated. Few scattered foci of T2 hyperintensity see n throughout the deep and periventricular white matter redemonstrated. Midline structures demonstrate normal morphology. The craniocervical junction appears within normal limits. Post contrast images demonstrate no new areas of suspicious enhancement. The dural venous si nuses appear patent. The visualized sinuses are clear and the globes are intact. IMPRESSION: Overall stable findings, no new enhancing intraparenchymal lesions identified to suggest metastatic disease. Stable mild age-related cerebral atrophy and chronic small vessel ischemic change with old right-sided infarct all redemonstrated.
== END | disposition home or self-care (01) ==
LOC: RADMRIMAIN 10:10
PROVIDERS: ATTEND Radiology Radiation Oncology
DX: G31.1 Senile degeneration of brain, not elsewhere classified (principal); I67.82 Cerebral ischemia; C34.12 Malignant neoplasm of upper lobe, left bronchus or lung; Z86.73 Personal history of transient ischemic attack (TIA), and cerebral infarction without residual deficits; Z87.891 Personal history of nicotine dependence
CPT/HCPCS: 70553; A9581

== ENCOUNTER → 2018-08-03 | Outpatient (CLI) | payer MEDICARE, OTHER ==
--- NOTE | 2018-08-03 16:34 | CT ---
EXAMINATION TYPE: CT ChestAbdPelvis w con DATE OF EXAM: 08/03/2018 COMPARISON: Prior CT chest 05/04/2018 HISTORY: Lung cancer CT DLP: 750.9 mGycm Automated exposure control for dose reduction was used. CONTRAST: CT scan of the chest, abdomen and pelvis is performed with Oral Contrast and with IV Contrast, patien t injected with 100 mL of Isovue 300. FINDINGS: LUNGS: The lungs are grossly clear, there is no concerning parenchymal mass or nodule identified. Pos top changes are noted in the left lung, there is underlying emphysematous change There is no pleural effusion or pneumothorax seen. The tracheobronchial tree is patent. MEDIASTINUM: There are no greater than 1 cm hilar or mediastinal lymph nodes. No pericardial effusi on is seen. AORTA: No significant abnormality is seen. OTHER: No additional significant abnormality is seen. LIVER/GB: Patient is post cholecystectomy. Liver shows low attenuation. PANCREAS: No significant abnormality is seen. SPLEEN: No significant abnormality is seen. ADRENALS: No significant abnormality is seen. KIDNEYS: Extrarenal pelvis present bilaterally is present on previous exam, there is scarring present at the lower pole of the right kidney.. REPRODUCTIVE ORGANS: No gross abnormality seen. BOWEL: No significant abnormality is seen. FREE AIR: No Free Air visible. ASCITES: None seen. RETROPERITONEAL ADENOPATHY: No retroperitoneal adenopathy is seen. LYMPH NODES: No greater than 1 cm abdominal or pelvic lymph nodes are appreciated. URINARY BLADDER: No significant abnormality is seen. PELVIC ADENOPATHY: None visualized. OSSEOUS STRUCTURES: No significant abnormality is seen. IMPRESSION: No significant interval change. Postop changes, no evident recurrence.
== END | disposition home or self-care (01) ==
LOC: RADCTMAIN 12:12
PROVIDERS: ATTEND Internal Medicine Hematology & Oncology
DX: C34.92 Malignant neoplasm of unspecified part of left bronchus or lung (principal); Z98.890 Other specified postprocedural states; Z91.041 Radiographic dye allergy status
CPT/HCPCS: 71260; 74177; Q9967

== ENCOUNTER → 2018-10-30 | Outpatient (CLI) | payer MEDICARE, OTHER ==
--- NOTE | 2018-10-30 15:33 | MR ---
EXAMINATION TYPE: MR brain wo/w con DATE OF EXAM: 10/30/2018 COMPARISON: Prior brain MRI 08/07/2018 HISTORY: Lung CA mets TECHNIQUE: Multiplanar, multisequence images of the brain and brainstem is performed without and with IV contras t, utilizing 7 mL intravenous Gadavist . FINDINGS: Diffusion weighted images demonstrate no evidence of a recent infarct or other diffusion ab normality. There is no extra-axial fluid collection or significant interval change in white matter s ignal abnormality. The ventricular system and cisternal spaces are normal in size and appearance. T he brain shows a stable appearance. Ex vacuo appearance with encephalomalacic changes again noted in the right cerebrum, periventricular location. Midline structures demonstrate normal morphology. The craniocervical junction appears within normal limits. Post contrast images demonstrate no abnormal e nhancement. The dural venous sinuses appear patent. The visualized sinuses are clear and the globes a re intact. Mastoid air cells show inflammatory changes. IMPRESSION: Stable appearance of the brain.
== END | disposition home or self-care (01) ==
LOC: RADMRIMAIN 10:07
PROVIDERS: ATTEND Radiology Radiation Oncology
DX: C34.12 Malignant neoplasm of upper lobe, left bronchus or lung (principal); Z87.891 Personal history of nicotine dependence
CPT/HCPCS: 70553; A9585

== ENCOUNTER → 2018-11-04 | Outpatient (CLI) | payer MEDICARE, OTHER ==
--- NOTE | 2018-11-04 16:56 | CT ---
EXAMINATION TYPE: CT ChestAbdPelvis w con DATE OF EXAM: 11/04/2018 INDICATION: Follow up lung cancer. COMPARISON: 08/03/2018 CT DLP: 839.3 mGycm CONTRAST: Performed with Oral Contrast and with IV Contrast, patient injected with 100 mL of Isovue M300. TECHNIQUE: Axial images at 5 mm thick sections. Reconstructed images in the coronal plane. Delayed images through the kidneys. FINDINGS: CT CHEST: Portion of the thyroid visualized is normal. No suspicious lung nodules or focal infiltrates are present. There appears be some scarring at the le ft apex. This was present previously and appears more delicate previous study. There is a pneumatocel e the posterior left midlung. No enlarged mediastinal or hilar adenopathy is evident. The ascending aorta diameter at the level of the main pulmonary artery is 3.2 cm. The main pulmonary artery diameter at the bifurcation is 2.1 cm. Very minimal pericardial effusion may be present. CT ABDOMEN: Liver: Normal Spleen: Normal Pancreas: Normal Adrenal glands: The adrenal glands are normal. Gallbladder: Surgically absent Kidneys: No masses are evident. No hydronephrosis is present. There is an extrarenal pelvis on the le ft kidney. Couple of nonobstructing punctate renal stones at the inferior pole left kidney likely pre sent. No cysts are present. Delayed images were obtained through the kidneys, which remain unremarka ble. Aorta: Vascular calcification is within the aorta. Inferior vena cava: Normal. CT PELVIS: Loops of bowel within the abdomen and pelvis are normal. There are loops of bowel which are incom pletely distended or lack oral contrast limiting their evaluation. Appendix: Not visualized. No suspicious dilated tubular structures or inflammatory changes are eviden t. Urinary bladder: Normal. Genitourinary structures: Uterus and ovaries are not identified. No free fluid is within the pelvis. Osseous structures: No suspicious lytic or sclerotic lesions. There is a scoliosis within the thoraci c and lumbar spine. IMPRESSIONS: 1. No suspicious changes to suggest recurrent or metastatic lung cancer
== END | disposition home or self-care (01) ==
LOC: RADCTMAIN 11:30
PROVIDERS: ATTEND Internal Medicine Hematology & Oncology
DX: C34.92 Malignant neoplasm of unspecified part of left bronchus or lung (principal); Z91.048 Other nonmedicinal substance allergy status
CPT/HCPCS: 71260; 74177; Q9967

== ENCOUNTER → 2018-11-09 | Outpatient (CLI) | payer MEDICARE, OTHER ==
[~2018-11-09] MED LIST changes: -DEXAMETHASONE SOD PHOSPHATE 10 MG/ML 1 ML VIAL IV ONE; +DOBUTamine DRIP for NUC MED 500 MG in DEXTROSE/WATER 1 250ML.BAG IV ONE; -LACTATED RINGERS 1,000 ML IV SCH; -LIDOCAINE 1% 20 ML VIAL (10MG/ML) FOR IV START INTRADERMA PRN; -ONDANSETRON 4 MG/2 ML VIAL IVP ONE; -SCOPOLAMINE 1.5MG/72HR PATCH TRANSDERM ONE; -ceFAZolin IN SWFI 2 GM/20 ML SYRINGE IVP ONE
--- NOTE | 2018-11-09 12:54 | ECHOS ---
STRESS ECHOCARDIOGRAM DATE OF SERVICE: 11/09/2018 INDICATIONS: Chest pain. MEDICATIONS: BASELINE HEART RATE: 85 BASELINE BLOOD PRESSURE: 157/44 MAXIMUM HEART RATE: 140 MAXIMUM BLOOD PRESSURE: 163/62 85% MPHR: 138 100% MPHR: 162 METS: MAXIMUM STAGE REACHED: TOTAL EXERCISE TIME: CLINICAL INFORMATION: A dobutamine stress echo report. The patient was given dobutamine infusion according to the standard protocol. Peak heart rate of 140, was achieved. Maximum blood pressure of 144/61 mmHg was noted. Resting EKG shows normal sinus rhythm with normal TX interval and QRS duration and normal ST-T waves. No ST-segment depression suggestive of ischemia is noted. The baseline echocardiographic images reveal normal left ventricular chamber size with normal left ventricular systolic function. In the immediate post exercise period, a normal increase in the wall thickness and contractility is noted. FINAL IMPRESSION: 1. This stress echocardiographic study is negative for stress-induced ischemia. 2. EKG portion of the stress test is not suggestive of ischemia. 3. No dysrhythmias are noted. MMODL / IJN: [id number] /
== END | disposition home or self-care (01) ==
LOC: RADNMMAIN 09:36
PROVIDERS: ATTEND Family Medicine
DX: R07.89 Other chest pain (principal); Z91.041 Radiographic dye allergy status
CPT/HCPCS: 93351; J1250

== ENCOUNTER → 2018-12-11 | Outpatient (CLI) | payer MEDICARE, OTHER ==
--- NOTE | 2018-12-11 10:58 | CT ---
EXAMINATION TYPE: CT ChestAbdPelvis w con DATE OF EXAM: 12/11/2018 COMPARISON: 11/04/2018, 08/03/2018 and 05/27/2014 HISTORY: Lung cancer. Follow-up exam. CT DLP: 875.3 mGycm. Automated Exposure Control for Dose Reduction was Utilized. CONTRAST: CT scan of the thorax, abdomen and pelvis is performed with IV Contrast, patient injected with 100 mL of Isovue 300. FINDINGS: LUNGS: Postoperative changes seen within the left lung apex from prior partial lobectomy. Scarring is seen without focal nodularity or soft tissue component. There is a new 3 mm solid pulmonary nodule o n series 4 image 16 within the left upper lobe. Scattered blebs are noted on the left. No additional new suspicious pulmonary nodule is seen within the lungs. Mild centrilobular emphysematous changes ar e present. The lungs are grossly clear, there is no concerning parenchymal mass or nodule identified. There is no pleural effusion or pneumothorax seen. The tracheobronchial tree is patent. MEDIASTINUM: There are no greater than 1 cm hilar or mediastinal lymph nodes. No pericardial effusi on is seen. LIVER/GB: There is a too small to accurately characterize 5 mm hypoechoic hepatic lesion on series 3 image 54. This is unchanged from the prior exam and exams dating back to 05/27/2014 representing a sma ll benign cyst. Gallbladder is surgically absent. PANCREAS: No significant abnormality is seen. SPLEEN: No significant abnormality is seen. ADRENALS: No significant abnormality is seen. KIDNEYS: There is redemonstration of bilateral extrarenal pelvises sees, left greater than right. Cor tical scarring is noted within the right kidney multifocally. No new suspicious renal lesion. Nonobst ructing 5 mm left lower pole renal calculus is noted. BOWEL: No large or small bowel dilatation. GENITAL ORGANS: No gross abnormality seen. LYMPH NODES: No greater than 1cm abdominal or pelvic lymph nodes are appreciated. OSSEOUS STRUCTURES: There is a very mild S-shaped scoliotic curvature of the thoracolumbar spine. Non specific sclerotic focus within the right femoral head is punctate and unchanged from the prior and o f low suspicion, likely a bone island degenerative changes are seen at the lumbosacral junction and a t L4-L5. OTHER: Moderate atherosclerosis is seen of the abdominal aorta and its branches. Abdominal aorta is o f normal course and caliber. IMPRESSION: 1. New 3 mm left upper lobe solid pulmonary nodule. Considering this was not present on the recent of 11/04/2018 short-term follow-up in 3 months is recommended to assess for interval growth. 2. No additional evidence of metastasis within the chest, abdomen, or pelvis.
== END | disposition home or self-care (01) ==
LOC: RADCTMAIN 08:36
PROVIDERS: ATTEND Internal Medicine Hematology & Oncology
DX: R91.1 Solitary pulmonary nodule (principal); C34.92 Malignant neoplasm of unspecified part of left bronchus or lung; Z91.048 Other nonmedicinal substance allergy status
CPT/HCPCS: 71260; 74177; Q9967

== ENCOUNTER → 2019-02-08 | Outpatient (CLI) | payer MEDICARE, OTHER ==
--- NOTE | 2019-02-08 13:27 | MR ---
EXAMINATION TYPE: MR brain wo/w con DATE OF EXAM: 02/08/2019 1:22 PM COMPARISON: NONE HISTORY: Lung CA, mets Contrast: 7ml gadavist FINDINGS: The ventricles, basal cisterns and sulci overlying the cerebral convexities are mildly enlarged. There is evidence of mild periventricular white matter ischemic demyelination. Focal remote insult r ight regan radiata. Remote deep white matter insults are also noted. No acute edema is seen on diffusion weighted imaging. There is no evidence for midline shift or mass effect. Acute intracranial hemorrhage or extra-axial collection is not evident. No evidence for enhancing lesion. Chronic mastoiditis changes noted. IMPRESSION: Age-related atrophic and chronic small vessel ischemic change. No acute intracranial process at this time.
== END | disposition home or self-care (01) ==
LOC: RADMRIMAIN 12:11
PROVIDERS: ATTEND Radiology Radiation Oncology
DX: I67.82 Cerebral ischemia (principal); G31.1 Senile degeneration of brain, not elsewhere classified; C34.12 Malignant neoplasm of upper lobe, left bronchus or lung; Z87.891 Personal history of nicotine dependence; Z92.3 Personal history of irradiation
CPT/HCPCS: 70553; A9585

== ENCOUNTER → 2019-02-19 | Outpatient (CLI) | payer MEDICARE, OTHER ==
--- NOTE | 2019-02-19 14:06 | CT ---
EXAMINATION TYPE: CT ChestAbdPelvis w con DATE OF EXAM: 02/19/2019 COMPARISON: 12/11/2018 and 11/04/2018 this is also retrospectively unchanged from 11/04/2018. HISTORY: Lung Cancer CT DLP: 1623 mGycm. Automated Exposure Control for Dose Reduction was Utilized. CONTRAST: CT scan of the thorax, abdomen and pelvis is performed with IV Contrast, patient injected with 100 ml mL of Isovue 300. FINDINGS: LUNGS: Partial lobectomy changes again seen of the left upper lobe with curvilinear sutures present a long the mediastinal border. The previously seen linear area of associated fibrosis has decreased in thickness from the prior of 12/11/2018. Similarly and again is compatible with fibrotic change with no evidence of thickening to suggest recurrence. There is a punctate nodular density remaining in the le ft upper lobe measuring approximately 3 mm on image 20 with no interval growth. There is also a punct ate density measuring 3 mm in the right upper lobe on image 27 that are retrospectively is unchanged from the exam of 12/11/2018. No new suspicious ulnar nodules or masses are seen within either lung. Und erlying mild centrilobular emphysematous changes are again appreciated. No new focal consolidation, p leural effusion or pneumothorax. MEDIASTINUM: There are no greater than 1 cm hilar or mediastinal lymph nodes. There is a very trace p ericardial effusion present. LIVER/GB: There is stability of a too small to accurately characterize right hepatic lobe lesion on i mage 59 and an arterial enhancing, possibly-filling hemangioma in the left hepatic lobe on image 53 m easuring 3 mm. These are both too small to accurately characterize and continued surveillance is eden mmended although right hepatic lobe lesion is presumed to represent a cyst, stable from 2014. Further more there is mild degree hepatic steatosis, which limits evaluation for hepatic masses. No new hepat ic mass is appreciated. PANCREAS: Pancreatic duct is slightly prominent however no gross evidence of pancreatic mass. SPLEEN: No significant abnormality is seen. ADRENALS: No significant abnormality is seen. KIDNEYS: There are bilateral extrarenal pelvises sees. 2 nonobstructing 4 and 3 mm left lower pole re nal calculi are seen. Multiple cortical defects are present bilaterally, right greater than left, lik marquez from prior renal injury. BOWEL: No dilated large or small bowel. GENITAL ORGANS: Uterus appears surgically absent. LYMPH NODES: No greater than 1cm abdominal or pelvic lymph nodes are appreciated. OSSEOUS STRUCTURES: Stable nonspecific sclerotic focus within the right femoral head is seen. Again t here is very mild S-shaped scoliotic curvature of the thoracolumbar spine and degenerative changes at L4-L5. OTHER: Moderate atherosclerosis of the abdominal aorta and its branches is again noted. IMPRESSION: 1. Stable postsurgical changes of the left upper lobe without evidence of local recurrence. There are bilateral punctate pulmonary nodules, stable from the prior exam. 2. Punctate 3 mm hepatic lesion is also stable from the prior and may represent a flash filling heman gioma. Continued surveillance is recommended. 3. No new evidence of metastasis within the chest, abdomen, or pelvis.
== END | disposition home or self-care (01) ==
LOC: RADCTMAIN 09:01
PROVIDERS: ATTEND Internal Medicine Hematology & Oncology
DX: Z08 Encounter for follow-up examination after completed treatment for malignant neoplasm (principal); R91.8 Other nonspecific abnormal finding of lung field; Z90.2 Acquired absence of lung [part of]; Z91.041 Radiographic dye allergy status; Z85.118 Personal history of other malignant neoplasm of bronchus and lung
CPT/HCPCS: 71260; 74177; Q9967

== ENCOUNTER → 2019-04-23 | Outpatient (CLI) | payer MEDICARE, OTHER ==
--- NOTE | 2019-04-26 15:50 | CT ---
EXAMINATION TYPE: CT ChestAbdPelvis w con DATE OF EXAM: 04/23/2019 COMPARISON: 02/19/2019 HISTORY: Low back pain. Hx RT lobe lung ca. Isovue 300/100 ml. Pt allergic, confirmed premedicated. R edicat injested CT DLP: 1205.1 mGycm CONTRAST: CT scan of the chest, abdomen and pelvis is performed with Oral Contrast and with IV Contrast, patien t injected with 100 mL of Isovue 300. CT Chest: LUNGS: Redemonstrated is partial lobectomy changes left upper lobe without significant change. No corwin dence for recurrent mass. Mild associated fibrosis. Stable 3 mm nodular density right upper lobe imag e 30 versus 3 mm previously. Left upper lobe pulmonary nodular density seen previously is not reprodu tomasa at this time. No new nodules are seen. Emphysematous bulla at the left lung base. MEDIASTINUM: Thoracic aorta is of normal caliber. The heart is not enlarged. Mild pericardial thick ening persists. No evidence for mediastinal mass or adenopathy. HILAR STRUCTURES: No evidence for mass. No hilar adenopathy is appreciated. OTHER: No significant abnormality. CONTRAST CT ABDOMEN AND PELVIS FINDINGS: LIVER/GB: The gallbladder surgically absent. Mild hepatic steatosis. Stable 3 mm hypoattenuating lesi on anterior segment right hepatic lobe is stable and may reflect a small cyst. Biliary tree is of nor mal caliber. PANCREAS: No inflammation. No distinct mass. SPLEEN: No splenic enlargement. No lesion seen. ADRENALS: No nodule. No thickening. KIDNEYS/BLADDER: Extrarenal pelves noted bilaterally. No nephrolithiasis. No distinct renal mass. BOWEL: Normal appendix. Normal bowel caliber. No inflammation. GENITAL ORGANS: No gross abnormality. LYMPH NODES: No greater than 1cm abdominal or pelvic lymph nodes are appreciated. AORTA: No significant abnormality. OSSEOUS STRUCTURES: Stable probable bone island right femoral head. Degenerative changes thoracolumba r spine with scoliotic curvature. OTHER: No significant additional abnormality is seen. IMPRESSION: 1. Stable postsurgical changes of partial left upper lobectomy. No recurrent or residual mass appreci ated. 2. Stable pulmonary nodule right upper lobe. 3 stable hypoattenuating lesion too small to characterize within the liver may reflect a cyst.
--- NOTE | 2019-04-27 08:25 | CT ---
EXAMINATION TYPE: CT cervical spine wo con DATE OF EXAM: 04/23/2019 COMPARISON: None HISTORY: Cervicalgia. Hx lung ca CT DLP: [address] of the cervical spine was performed with bone and soft tissue window settings submitted . Coronal and sagittal reconstruction is obtained. C2-3: Within normal limits C3-4: Mild degenerative disc space narrowing. Posterior central disc bulge. No herniation or protrusi on or central stenosis. Foramina are patent bilaterally. C4-5: Moderate to severe degenerative disc disease. Moderate posterior disc bulge and partially encap sulated in spur resulting in disc endplate complex. Effacement ventral thecal sac with mild central s tenosis suggested. Lateral left greater than right foraminal encroachment. C5-6:Moderate to severe degenerative disc disease. Moderate posterior disc bulge and partially encaps ulated in spur resulting in disc endplate complex. Effacement ventral thecal sac with mild central st enosis suggested. Bilateral foraminal encroachment. C6-7: Jeec-zd-gamowgjp disc space narrowing. Posterior disc bulge. No evidence for herniation or cent ral stenosis. No foraminal encroachment seen. C7-T1: Within normal limits. IMPRESSION: 1. Degenerative disc disease as noted. 2. Central stenosis at C4-5 and C5-6. Foraminal encroachment as discussed.
== END | disposition home or self-care (01) ==
LOC: RADCTMAIN 15:11
PROVIDERS: ATTEND Family Medicine
DX: M48.02 Spinal stenosis, cervical region (principal); M50.321 Other cervical disc degeneration at C4-C5 level; R91.1 Solitary pulmonary nodule; K76.9 Liver disease, unspecified; Z90.2 Acquired absence of lung [part of]; Z91.041 Radiographic dye allergy status; M54.2 Cervicalgia; M54.5 Low back pain
CPT/HCPCS: 72125; 71260; 74177; Q9967

== ENCOUNTER → 2019-06-02 | Outpatient (CLI) | payer MEDICARE, OTHER ==
--- NOTE | 2019-06-02 08:36 | MR ---
EXAMINATION TYPE: MR brain wo/w con DATE OF EXAM: 06/02/2019 COMPARISON: MRI of the brain dated 05/11/2018, 08/07/2018, 10/30/2018, and 02/08/2019 HISTORY: Lung cancer TECHNIQUE: Multiplanar, multisequence images of the brain and brainstem is performed without and with IV contras t, utilizing 7 mL intravenous Gadavist . FINDINGS: Some patient motion artifact is seen limiting the examination. Diffusion weighted images de monstrate no evidence of a recent infarct or other diffusion abnormality. There is encephalomalacia of the right regan radiata just above the basal ganglia with some involvement of the basal ganglia a nd ex vacuo dilatation of the right lateral ventricle. This is unchanged from prior exams. There is s urrounding gliosis. Old lacunar infarct is also seen on the left regan radiata on FLAIR and axial fa t sat image 43. Mild to moderate burden nonspecific white matter changes seen as there are scattered foci of subcortical and periventricular white matter including within the right oneyda and left medial cerebellar hemisphere near the vermis. There is no extra-axial fluid collection or significant white matter signal abnormality. The ventricular system and cisternal spaces are normal in size and appear ance. The brain volume is age appropriate. Midline structures demonstrate normal morphology. The craniocervical junction appears within normal limits. Post contrast images demonstrate no abnormal enhancement. The dural venous sinuses appear pa tent. Mild mucosal thickening is seen within the ethmoid sinuses. The remaining visualized sinuses ar e clear and the globes are intact. There is partial opacification of the bilateral mastoid air cells, left greater than right. There is mild leftward nasal septal deviation noted. Very minimal subarachn oid fluid is present surrounding the optic nerves unchanged in degree from the prior exams. Partially empty sella turcica is also noted. Nonenhancing 6 mm pineal gland cyst is seen without narrowing of the cerebral aqueduct. IMPRESSION: 1. No new evidence of intracranial metastasis. No midline shift, mass effect, or abnormal intracrania l enhancement. 2. Redemonstration of encephalomalacia from prior infarct involving the right basal ganglia and coron a radiata. Moderate burden nonspecific white matter changes similar in degree from the prior. Old pun ctate left lacunar injury is also seen within the regan radiata. 3. Slightly prominent subarachnoid fluid surrounds the optic nerves although similar to prior exams. In combination with a partially empty sella turcica this could represent sequela of increased intracr anial pressure in the appropriate clinical setting. Correlation with ophthalmologic exam to exclude p apilledema is recommended. 4. Partial opacification of the bilateral mastoid air cells, left greater than right, correlate with point tenderness to exclude mastoiditis. Again this is a chronic finding.
== END | disposition home or self-care (01) ==
LOC: RADMRIMAIN 07:26
PROVIDERS: ATTEND Radiology Radiation Oncology
DX: I63.9 Cerebral infarction, unspecified (principal); G93.89 Other specified disorders of brain; R90.89 Other abnormal findings on diagnostic imaging of central nervous system; C34.12 Malignant neoplasm of upper lobe, left bronchus or lung; Z92.21 Personal history of antineoplastic chemotherapy; Z92.3 Personal history of irradiation; Z87.891 Personal history of nicotine dependence
CPT/HCPCS: 70553; A9585

== ENCOUNTER → 2019-07-07 | Outpatient (CLI) | payer MEDICARE, OTHER ==
--- NOTE | 2019-07-07 09:04 | CT ---
EXAMINATION TYPE: CT chest w con DATE OF EXAM: 07/07/2019 COMPARISON: Most recent CT April 23, 2019 and older studies HISTORY: Lung Cancer treated with chemotherapy and radiation ended [address] DLP: 252.00 mGycm. Automated Exposure Control for Dose Reduction was Utilized. TECHNIQUE: CT scan of the thorax is performed following with IV Contrast, patient injected with 100 ml mL of Isovue 300. FINDINGS: LUNGS: Mild underlying emphysematous change with [id number] left apical linear scarring. Succes sful resection of peripheral left upper lobe nodule. No recurrent nodules are identified. Stable 3 mm peripheral scarlike opacity or nodule right lung axial image 27. No new nodules or masses. MEDIASTINUM: There are no new greater than 1 cm hilar or mediastinal lymph nodes. Stable posttreatmen t change left hilar region axial image 33 for reference with some irregular soft tissue identified. S table trace pericardial effusion is seen. No cardiomegaly. OTHER: Subcentimeter hyperdense focus anterior left liver axial image 54 is stable. Subcentimeter hyp odense lesion right hepatic lobe posteriorly image 58 is stable. Cholecystectomy clips are noted. Sli ght scoliotic curvature redemonstrated. IMPRESSION: Overall stable findings. No new suspicious nodules or adenopathy to suggest active neopla stic recurrence.
== END | disposition home or self-care (01) ==
LOC: RADCTMAIN 07:19
PROVIDERS: ATTEND Internal Medicine Hematology & Oncology
DX: C34.92 Malignant neoplasm of unspecified part of left bronchus or lung (principal); Z91.048 Other nonmedicinal substance allergy status
CPT/HCPCS: 71260; Q9967

== ENCOUNTER → 2019-09-24 | Outpatient (CLI) | payer MEDICARE, OTHER ==
--- NOTE | 2019-09-24 13:18 | MR ---
EXAMINATION TYPE: MR brain wo/w con DATE OF EXAM: 09/24/2019 COMPARISON: MRI brain 06/02/2019 HISTORY: Lung CA, CONTRAST: Performed utilizing 7 mL intravenous Gadavist gadolinium contrast. TECHNIQUE: Multiplanar, multiecho imaging on a 3.0 [place] magnet is performed through the brain. Stud y is performed within 24 hours of arrival to the hospital. The craniovertebral junction is normal. The pituitary is normal. Diffusion-weighted imaging is performed. No abnormal hyperintensity is present to suggest an acute i ntracranial infarct or acute ischemic change. There is an old right basal ganglion infarct with ex vacuo effect on the right lateral ventricle. Fin dings are stable from the comparison. Cerebellar pontine angles are normal. Internal auditory canals are normal. Normal vascular flow voids are evident. Optic chiasm appears unremarkable. There are a few scattered punctate hyperintensities within the deep white matter most likely on the b asis of chronic white matter ischemic change. Ventricles and sulci are prominent for the patient age. Ex vacuo effect on the right lateral ventricl e is evident. Small amount of fluid is within the inferior left mastoid air cell. No abnormal enhancement is evident. IMPRESSIONS: 1. No suspicious changes to suggest metastatic disease within the brain. 2. Encephalomalacia from prior right basal ganglion infarct with ex vacuo effect on the right lateral ventricle.
== END | disposition home or self-care (01) ==
LOC: RADMRIMAIN 11:14
PROVIDERS: ATTEND Radiology Radiation Oncology
DX: G93.89 Other specified disorders of brain (principal); C34.12 Malignant neoplasm of upper lobe, left bronchus or lung; C77.9 Secondary and unspecified malignant neoplasm of lymph node, unspecified; Z92.21 Personal history of antineoplastic chemotherapy; Z92.3 Personal history of irradiation; Z87.891 Personal history of nicotine dependence
CPT/HCPCS: 70553; A9585

== ENCOUNTER → 2019-11-08 | Outpatient (CLI) | payer MEDICARE, OTHER ==
--- NOTE | 2019-11-08 09:21 | CT ---
EXAMINATION TYPE: CT chest w con DATE OF EXAM: 11/08/2019 COMPARISON: July 07, 2019 HISTORY: follow up lung cancer CT DLP: 519 mGycm Automated exposure control for dose reduction was used. CONTRAST: CT scan of the chest is performed with IV Contrast, patient injected with 100 mL of Isovue 300. FINDINGS: LUNGS: Postoperative changes left upper lobe medially is stable. Stable tiny 3 mm peripheral nodule r ight upper lobe image 27 unchanged from prior examination. No additional nodules are evident. MEDIASTINUM: There are no greater than 1 cm hilar or mediastinal lymph nodes. No pericardial effusi on is seen. Thoracic aorta is of normal caliber. The heart is not enlarged. UPPER ABDOMEN: No significant abnormality appreciated. OTHER: No additional significant abnormality is seen. IMPRESSION: Stable appearance of the chest without evidence for recurrent or residual disease. Tiny nodule within the periphery of the right upper lobe.
== END | disposition home or self-care (01) ==
LOC: RADCTMAIN 08:41
PROVIDERS: ATTEND Internal Medicine Hematology & Oncology
DX: Z03.89 Encounter for observation for other suspected diseases and conditions ruled out (principal); C34.92 Malignant neoplasm of unspecified part of left bronchus or lung
CPT/HCPCS: 71260; Q9967

== ENCOUNTER → 2020-02-04 | Outpatient (CLI) | payer MEDICARE, OTHER ==
--- NOTE | 2020-02-06 17:02 | CT ---
EXAMINATION TYPE: CT ChestAbdPelvis w con DATE OF EXAM: 02/04/2020 COMPARISON: 11/08/[address] of the chest, abdomen, and pelvis dated 04/23/2019 HISTORY: Lung cancer CT DLP: 1496 mGycm. Automated Exposure Control for Dose Reduction was Utilized. CONTRAST: CT scan of the thorax, abdomen and pelvis is performed with IV Contrast, patient injected with 100 ml mL of Isovue 300. FINDINGS: LUNGS: Continued stability of the right upper lobe anterior lateral 3 mm solid pulmonary nodule on im age 24. Postoperative change of a partial left upper lobectomy is again seen with sutures at the lung apex and multifocal scarring along the left mediastinal border. No new suspicious nodules. Scattered atelectasis at the lung bases. Plaque is noted of the posterior left lower lobe. New slightly nodula r density in the right middle lobe on image 44 and 45 could be on the basis of atelectasis. Attention on follow-up exams. Lingular atelectasis is also noted. MEDIASTINUM: There are no greater than 1 cm hilar or mediastinal lymph nodes. No pericardial effusi on is seen. LIVER/GB: Hepatic parenchyma is diffusely hypoattenuated in comparison to that of the spleen, most co mmonly seen in hepatic steatosis. This finding limits evaluation for hepatic masses. Similar-appearin g approximately 4 mm hypoattenuated hepatic lesion on image 53. This is markedly hypoattenuated and l ikely represents a small cyst. No intrahepatic biliary ductal dilatation. Gallbladder is surgically a bsent. PANCREAS: No ductal dilatation. SPLEEN: No significant abnormality is seen. ADRENALS: No significant abnormality is seen. KIDNEYS: There are 2 adjacent left lower pole nonobstructing renal calculi. The largest measures 5 mm . Multifocal pleural parenchymal scarring of the right renal cortex. Motion artifact limits evaluatio n of the inferior margin of the kidneys. There are bilateral extrarenal pelvises incidentally noted. BOWEL: Few scattered diverticula are seen without pericolonic fat stranding. Bowel is somewhat limite d by patient motion mid abdomen. No dilated large or small bowel. LYMPH NODES: No greater than 1cm abdominal or pelvic lymph nodes are appreciated. OSSEOUS STRUCTURES: Scattered sclerotic foci in the pelvis are 3 mm and below and stable. These may r epresent bone islands. Mild scoliosis of the spine and mild to moderate degenerative disc disease of the spine. Possible bone island is also stable of the anterior margin of an upper thoracic vertebrae on sagittal series 6 image 84. IMPRESSION: Images, particularly in the mid abdomen, are limited and partially degraded due to patien t motion. 1. Stable 3 mm right upper lobe pulmonary nodule and too small to accurately characterize hepatic les ion, favored to represent a small cyst. No new evidence of metastasis in the chest, abdomen, or pelvi s is seen. 2. Hepatic steatosis.
== END | disposition home or self-care (01) ==
LOC: RADCTMAIN 12:46
PROVIDERS: ATTEND Internal Medicine Hematology & Oncology
DX: C34.92 Malignant neoplasm of unspecified part of left bronchus or lung (principal); K76.0 Fatty (change of) liver, not elsewhere classified
CPT/HCPCS: 71260; 74177; Q9967

== ENCOUNTER 2020-03-20 15:37 | Emergency (ER) | payer MEDICARE, OTHER ==
[2020-03-20 15:51] VITALS: RESP 18
[2020-03-20] MEDS ORDERED: PANTOPRAZOLE 40 MG/10 ML VIAL IVP ONE (16:25)
--- NOTE | 2020-03-20 16:27 | ED ---
General Adult HPI - General Chief complaint: GI Bleed Stated complaint: GI bleed Time Seen by Provider: 03/20/20 16:13 Source: patient Mode of arrival: wheelchair Limitations: no limitations - History of Present Illness Initial comments: Dictation was produced using [employer] dictation software. please excuse any grammatical, word or spelling errors. This patient was cared for during a federal and state declared state of emergency secondary to Covid 19 Chief Complaint: 59-year-old female past medical history of COPD, CVA, dyslipidemia presents with GI bleed. History of Present Illness: Female. Yesterday she had a bloody mild bowel movement. She had dark stool followed by bright red blood in the toilet. She states that she had a clot that was passed proximally the size of quarter. Patient had normal bowel movement today. Denies any nausea or vomiting. No abdominal pain. Denies any rectal pain. The ROS documented in this emergency department record has been reviewed and confirmed by me. Those systems with pertinent positive or negative responses have been documented in the HPI. All other systems are other negative and/or noncontributory. PHYSICAL EXAM: General Impression: Alert and oriented x3, not in acute distress HEENT: Normocephalic atraumatic, extra-ocular movements intact, pupils equal and reactive to light bilaterally, mucous membranes moist. Cardiovascular: Heart regular rate and rhythm Chest: Able to complete full sentences, no retractions, no tachypnea Abdomen: abdomen soft, non-tender, non-distended, no organomegaly Musculoskeletal: Pulses present and equal in all extremities, no peripheral edema Motor: no focal deficits noted Neurological: CN II-XII grossly intact, no focal motor or sensory deficits noted Skin: Intact with no visualized rashes Rectal exam: Multiple polyps at the anus. No identifiable hemorrhoid. No rectal masses palpated. No gross blood on digital rectal Psych: Normal affect and mood ED course: 59 yo Female with episode of bloody bowel movement yesterday. Signs upon arrival are within acceptable limits. Laboratory evaluation obtained. CBC unremarkable. No anemia. Coag panel unremarkable, metabolic panel unremarkable. Stool occult blood is negative. P atient observed in emergency department for several hours with no repeat or recurrence of GI bleed. Patient told that she should follow-up with GI doctor. Patient given GI doctor referral. Return parameters discussed. Prescription provided for Protonix. - Related Data Home Medications Medication Instructions Recorded Confirmed ARIPiprazole [Abilify] 5 mg PO HS 03/10/17 03/21/18 Clopidogrel [Plavix] 75 mg PO DAILY 01/13/18 03/21/18 Cyclobenzaprine [Flexeril] 10 mg PO HS 01/13/18 03/21/18 Sertraline [Zoloft] 200 mg PO DAILY 01/13/18 03/21/18 Albuterol Inhaler [Ventolin Hfa 1 puff INHALATION RT-Q6H PRN 03/20/20 03/20/20 Inhaler] QUEtiapine [SEROquel] 100 mg PO HS 03/20/20 03/20/20 Previous Rx's Medication Instructions Recorded Pantoprazole Sodium [Protonix] 40 mg PO DAILY #20 tablet. 03/20/20 Allergies Allergy/AdvReac Type Severity Reaction Status Date / Time codeine AdvReac Nausea & Verified 03/20/20 17:19 Vomiting & Diarrhea Iodinated Contrast Media AdvReac Rash/Hives Verified 03/20/20 17:19 Review of Systems ROS Statement: Those systems with pertinent positive or pertinent negative responses have been documented in the HPI. ROS Other: All systems not noted in ROS Statement are negative. 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 smoker 2 ppd since age 16 (40+ yrs) History of Any Multi-Drug Resistant Organisms: None Reported Past Surgical History: Appendectomy, Cholecystectomy, Hysterectomy, Tonsillectomy Additional Past Surgical History / Comment(s): recent thorascopic biopsy left mediastinal masses 01/21/18/. Past Anesthesia/Blood Transfusion Reactions: No Reported Reaction Past Psychological History: Anxiety, Depression Smoking Status: Former smoker Past Alcohol Use History: None Reported Past Drug Use History: Marijuana - Past Family History Father Family Medical History: Cancer Additional Family Medical History / Comment(s): Her father had bone cancer Mother Additional Family Medical History / Comment(s): aneurysm, heart problems General Exam Limitations: no limitations Course Vital Signs 03/20/20 15:48 Temperature 97.8 F Pulse Rate 98 Respiratory 18 Rate Blood Pressure 123/82 O2 Sat by Pulse 98 Oximetry Medical Decision Making - Lab Data Result diagrams: 03/20/20 16:40 03/20/20 16:40 Lab Results 03/20/20 03/20/20 03/20/20 Range/Units 16:40 16:40 16:40 WBC 5.8 (3.8-10.6) k/uL RBC 4.81 (3.80-5.40) m/uL Hgb 14.0 (11.4-16.0) gm/dL Hct 43.3 (34.0-46.0) % MCV 90.0 (80.0-100.0) fL MCH 29.2 (25.0-35.0) pg MCHC 32.4 (31.0-37.0) g/dL RDW 13.1 (11.5-15.5) % Plt Count 229 (150-450) k/uL Neutrophils % 60 % Lymphocytes % 28 % Monocytes % 6 % Eosinophils % 2 % Basophils % 1 % Neutrophils # 3.5 (1.3-7.7) k/uL Lymphocytes # 1.6 (1.0-4.8) k/uL Monocytes # 0.4 (0-1.0) k/uL Eosinophils # 0.1 (0-0.7) k/uL Basophils # 0.0 (0-0.2) k/uL PT 9.5 (9.0-12.0) sec INR 0.9 (<1.2) APTT 23.5 (22.0-30.0) sec Sodium 138 (137-145) mmol/L Potassium 4.2 (3.5-5.1) mmol/L Chloride 100 (98-107) mmol/L Carbon Dioxide 33 H (22-30) mmol/L Anion Gap 5 mmol/L BUN 9 (7-17) mg/dL Creatinine 0.61 (0.52-1.04) mg/dL Est GFR (CKD-EPI)AfAm >90 (>60 ml/min/1.73 sqM) Est GFR (CKD-EPI)NonAf >90 (>60 ml/min/1.73 sqM) Glucose 92 (74-99) mg/dL Calcium 9.1 (8.4-10.2) mg/dL Stool Occult Blood (Negative) 03/20/20 Range/Units 16:40 WBC (3.8-10.6) k/uL RBC (3.80-5.40) m/uL Hgb (11.4-16.0) gm/dL Hct (34.0-46.0) % MCV (80.0-100.0) fL MCH (25.0-35.0) pg MCHC (31.0-37.0) g/dL RDW (11.5-15.5) % Plt Count (150-450) k/uL Neutrophils % % Lymphocytes % % Monocytes % % Eosinophils % % Basophils % % Neutrophils # (1.3-7.7) k/uL Lymphocytes # (1.0-4.8) k/uL Monocytes # (0-1.0) k/uL Eosinophils # (0-0.7) k/uL Basophils # (0-0.2) k/uL PT (9.0-12.0) sec INR (<1.2) APTT (22.0-30.0) sec Sodium (137-145) mmol/L Potassium (3.5-5.1) mmol/L Chloride (98-107) mmol/L Carbon Dioxide (22-30) mmol/L Anion Gap mmol/L BUN (7-17) mg/dL Creatinine (0.52-1.04) mg/dL Est GFR (CKD-EPI)AfAm (>60 ml/min/1.73 sqM) Est GFR (CKD-EPI)NonAf (>60 ml/min/1.73 sqM) Glucose (74-99) mg/dL Calcium (8.4-10.2) mg/dL Stool Occult Blood Negative (Negative) Disposition Clinical Impression: GI bleed Disposition: HOME SELF-CARE Condition: Good Instructions (If sedation given, give patient instructions): Gastrointestinal Bleeding (ED) Prescriptions: Pantoprazole Sodium [Protonix] 40 mg PO DAILY #20 tablet.dr Is patient prescribed a controlled substance at d/c from ED?: No Referrals: Ronnie Velazquez MD [STAFF PHYSICIAN] - 1-2 days Time of Disposition: 17:23
[2020-03-20 16:53] LABS: Basophils % (A) 1 %; Eosinophils # (A) 0.1 k/uL (0-0.7); Eosinophils % (A) 2 %; HCT 43.3 % (34.0-46.0); Lymphocytes # (A) 1.6 k/uL (1.0-4.8); Lymphocytes % (A) 28 %; MCH 29.2 pg (25.0-35.0); MCHC 32.4 g/dL (31.0-37.0); Mean Platelet Volume 7.3; Monocytes # (A) 0.4 k/uL (0-1.0); Monocytes % (A) 6 %; Neutrophils # (A) 3.5 k/uL (1.3-7.7); Neutrophils % (A) 60 %; Platelet Count 229 k/uL (150-450); RBC 4.81 m/uL (3.80-5.40); RDW 13.1 % (11.5-15.5); WBC 5.8 k/uL (3.8-10.6)
[2020-03-20 17:02] LABS: African American GFR (CKD) >90 (>60 ml/min/1.73 sqM); Anion Gap 5 mmol/L; Blood Urea Nitrogen 9 mg/dL (7-17); Calcium 9.1 mg/dL (8.4-10.2); Carbon Dioxide 33 mmol/L (22-30); Chloride 100 mmol/L (98-107); Glucose 92 mg/dL (74-99); Non-African American GFR(CKD) >90 (>60 ml/min/1.73 sqM); Potassium 4.2 mmol/L (3.5-5.1); Sodium 138 mmol/L (137-145)
[2020-03-20 17:04] LABS: INR 0.9 (<1.2); Partial Thromboplastin Time 23.5 sec (22.0-30.0); Prothrombin Time 9.5 sec (9.0-12.0)
[2020-03-20 17:32] VITALS: BP 110/86; PULSE 87; TEMP 98.5
== END 2020-03-20 17:36 | disposition home or self-care (01) ==
LOC: EC 15:37
DX: K92.2 Gastrointestinal hemorrhage, unspecified (principal); F32.9 Major depressive disorder, single episode, unspecified; F41.9 Anxiety disorder, unspecified; Z79.899 Other long term (current) drug therapy; Z79.02 Long term (current) use of antithrombotics/antiplatelets; Z88.5 Allergy status to narcotic agent; Z87.891 Personal history of nicotine dependence; Z90.89 Acquired absence of other organs; Z90.49 Acquired absence of other specified parts of digestive tract; Z90.710 Acquired absence of both cervix and uterus; Z86.73 Personal history of transient ischemic attack (TIA), and cerebral infarction without residual deficits
CPT/HCPCS: 99284 ×2; 96374 ×2; 36415; 86900; 86901; 80048; 85025; 85610; 85730; 86850; 82272; 70553; C9113; A9585

== ENCOUNTER → 2020-03-20 | Outpatient (CLI) | payer MEDICARE, OTHER ==
--- NOTE | 2020-03-20 11:38 | MR ---
EXAMINATION TYPE: MR brain wo/w con DATE OF EXAM: 03/20/2020 COMPARISON: Prior MR brain 09/24/2019 HISTORY: Hx of Small and Large Cell Lung CA. Follow up Brain Study. C34.12 TECHNIQUE: Multiplanar, multisequence images of the brain and brainstem is performed without and with IV contras t, utilizing 7 mL intravenous Gadavist . FINDINGS: Diffusion weighted images demonstrate no evidence of a recent infarct or other diffusion ab normality. There is no extra-axial fluid collection or significant interval change in white matter s ignal abnormality. Encephalomalacia seen on prior exam the periventricular location extending to the basal ganglia shows a stable appearance. The ventricular system and cisternal spaces are stable in si ze and appearance. The brain volume is age appropriate. Midline structures demonstrate stable morphology, there is a partially empty sella. The craniocervic al junction appears within normal limits. Post contrast images demonstrate no abnormal enhancement. The dural venous sinuses appear patent. The visualized sinuses are clear and the globes are intact. I nflammatory change mastoid air cells bilaterally again noted. IMPRESSION: Stable exam.
== END | disposition home or self-care (01) ==
LOC: RADMRIMAIN 09:13
PROVIDERS: ATTEND Radiology Radiation Oncology
DX: C34.12 Malignant neoplasm of upper lobe, left bronchus or lung (principal); C77.9 Secondary and unspecified malignant neoplasm of lymph node, unspecified; Z92.21 Personal history of antineoplastic chemotherapy; Z92.3 Personal history of irradiation; Z87.891 Personal history of nicotine dependence
CPT/HCPCS: 70553; A9585

== ENCOUNTER → 2020-04-18 | Outpatient (CLI) | payer MEDICARE, OTHER ==
--- NOTE | 2020-04-19 08:40 | MM ---
Reason for exam: screening (asymptomatic). Last mammogram was performed 5 years and 6 months ago. History: Patient is postmenopausal, has history of other cancer at age 57, and is nulliparous. Family history of breast cancer in maternal aunt. Physical Findings: A clinical breast exam by your physician is recommended on an annual basis and results should be correlated with mammographic findings. MG 3D Screening Mammo W/Cad Bilateral CC and MLO view(s) were taken. Prior study comparison: October 19, 2014, bilateral MG diagnostic mammo w CAD CELINE. July 15, 2007, workup left diagnostic mammogram. The breast tissue is heterogeneously dense. This may lower the sensitivity of mammography. Focal asymmetry upper outer left breast. ASSESSMENT: Incomplete: need additional imaging evaluation, BI-RAD 0 RECOMMENDATION: Special view mammogram of the left breast. If lesion persists on supplemental views, image directed ultrasound is recommended. [facility] will attempt to contact patient to return for supplemental views and ultrasound if indicated.
== END | disposition home or self-care (01) ==
LOC: RADMAMWWP 08:57
PROVIDERS: ATTEND Internal Medicine Hematology & Oncology
DX: Z12.31 Encounter for screening mammogram for malignant neoplasm of breast (principal)
CPT/HCPCS: 77063; 77067

== ENCOUNTER → 2020-05-01 | Outpatient (CLI) | payer MEDICARE, OTHER ==
--- NOTE | 2020-05-05 07:41 | MM ---
Reason for exam: additional evaluation requested from abnormal screening. Last mammogram was performed less than 1 month ago. History: Patient is postmenopausal, has history of other cancer at age 57, and is nulliparous. Family history of breast cancer in maternal aunt. Physical Findings: Nurse did not find any significant physical abnormalities on exam. MG 3D Work Up W/Cad LT Spot compression CC, spot compression MLO, and ML view(s) were taken of the left breast. Prior study comparison: April 18, 2020, bilateral MG 3d screening mammo w/cad. October 19, 2014, bilateral MG diagnostic mammo w CAD CELINE. The breast tissue is heterogeneously dense. This may lower the sensitivity of mammography. Focal asymmetry left upper outer quadrant, decreased from comparison. These results were verbally communicated with the patient and result sheet given to the patient on 05/01/20. ASSESSMENT: Probably benign, BI-RAD 3 RECOMMENDATION: Follow-up diagnostic mammogram of the left breast in 6 months.
== END | disposition home or self-care (01) ==
LOC: RADMAMWWP 10:28
PROVIDERS: ATTEND Internal Medicine Hematology & Oncology
DX: R92.8 Other abnormal and inconclusive findings on diagnostic imaging of breast (principal)
CPT/HCPCS: 77065; G0279; 77061

== ENCOUNTER → 2020-09-30 | Outpatient (CLI) | payer MEDICARE, OTHER ==
--- NOTE | 2020-09-30 18:09 | MR ---
EXAMINATION TYPE: MR brain wo/w con DATE OF EXAM: 09/30/2020 COMPARISON: 03/20/2020 HISTORY: Lung cancer, six month follow up CONTRAST: Standard multiplanar, multisequence MRI departmental protocol utilizing 7 mL intravenous Gadavist td olinium contrast. There is some cerebral cortical atrophy. There is no mass effect nor midline shift. There is 2 x 1 cm area of on the T2 images in the right internal capsule related to old lacunar infarct. There is slig ht enlargement of the right lateral ventricle consistent with right-sided atrophy. There are scattere d white matter high signal foci around the lateral ventricles that measure up to 1.5 cm consistent wi th old lacunar infarcts. Unchanged. I see no evidence of an acute cortical infarct. The brainstem is intact. The contrast images show no pathologic enhancement. There is normal enhancement of the venous sinuses. IMPRESSION: Chronic small vessel ischemia. Old large lacunar infarct in the right internal capsule. Brain unchang ed compared to old exam. Mild atrophy. There is no evidence of metastatic disease.
== END | disposition home or self-care (01) ==
LOC: RADMRIMAIN 14:07
PROVIDERS: ATTEND Radiology Radiation Oncology
DX: I67.82 Cerebral ischemia (principal); G31.9 Degenerative disease of nervous system, unspecified; C34.12 Malignant neoplasm of upper lobe, left bronchus or lung; C77.9 Secondary and unspecified malignant neoplasm of lymph node, unspecified; Z92.21 Personal history of antineoplastic chemotherapy; Z92.3 Personal history of irradiation; Z87.891 Personal history of nicotine dependence
CPT/HCPCS: 70553; A9585

== ENCOUNTER → 2020-10-19 | Outpatient (CLI) | payer MEDICARE, OTHER ==
--- NOTE | 2020-10-19 14:23 | MM ---
Reason for exam: follow-up at short interval from prior study. Last mammogram was performed 6 months ago. History: Patient is postmenopausal, has history of other cancer at age 57, and is nulliparous. Physical Findings: Nurse did not find any significant physical abnormalities on exam. MG Diagnostic Mammo LT w CAD CC and MLO view(s) were taken of the left breast. Prior study comparison: May 01, 2020, left breast MG 3d work up w/cad LT. April 18, 2020, bilateral MG 3d screening mammo w/cad. There are scattered fibroglandular densities. There are benign appearing round calcifications in the left breast. Asymmetric breast tissue, stable. There is no discrete abnormality. These results were verbally communicated with the patient and result sheet given to the patient on 10/19/20. ASSESSMENT: Benign, BI-RAD 2 RECOMMENDATION: Return to routine screening mammogram schedule for both breasts. Back on schedule.
== END | disposition home or self-care (01) ==
LOC: RADMAMWWP 12:48
PROVIDERS: ATTEND Family Medicine
DX: R92.8 Other abnormal and inconclusive findings on diagnostic imaging of breast (principal)
CPT/HCPCS: 77065

== ENCOUNTER 2020-11-23 14:48 | Inpatient (IN) | payer MEDICARE, OTHER ==
[2020-11-23] MEDS ORDERED: IPRATROPIUM-ALBUTEROL 3 ML NEB INHALATION STA ×2 (15:22→16:46)
[2020-11-23] MEDS ORDERED: methylPREDNISolone SOD SUCCI 125 MG/2 ML VIAL IV STA (15:22)
[2020-11-23] MEDS ORDERED: SODIUM CHLORIDE 0.9% 1,000 ML IV STA (15:22)
--- NOTE | 2020-11-23 15:24 | ED ---
SOB HPI - General Chief Complaint: Shortness of Breath Stated Complaint: SOB, Low 02 Time Seen by Provider: 11/23/20 15:16 Source: patient, RN notes reviewed Mode of arrival: ambulatory Limitations: no limitations - History of Present Illness Initial Comments: This is a 60-year-old female history of COPD also history of a left upper lobe pneumonectomy for cancer 2 years ago who states she's had one week of shortness of breath cough with yellow phlegm she's had intermittent episodes of sweats with chills. Chest tightness due to the shortness of breath she states she has run out of some of her medication home. He was sent into the hospital by her family physician. Patient states she has some chest tightness because of difficulty breathing no discomfort at this time. She denies any other complaints or modifying factors at this time MD Complaint: shortness of breath, cough - Related Data Home Medications Medication Instructions Recorded Confirmed ARIPiprazole [Abilify] 5 mg PO HS 03/10/17 03/20/20 Clopidogrel [Plavix] 75 mg PO DAILY 01/13/18 03/20/20 Cyclobenzaprine [Flexeril] 10 mg PO HS 01/13/18 03/20/20 Sertraline [Zoloft] 100 mg PO HS 01/13/18 03/20/20 Albuterol Inhaler [Ventolin Hfa 1 puff INHALATION RT-Q6H PRN 03/20/20 03/20/20 Inhaler] Atorvastatin [Lipitor] 10 mg PO HS 03/20/20 03/20/20 Fluticasone/Umeclidin/Vilanter 2 puff INHALATION RT-DAILY 03/20/20 03/20/20 [Trelegy Ellipta 100-62.5-25] Mirabegron [Myrbetriq] 25 mg PO DAILY 03/20/20 03/20/20 Oxybutynin Chloride [Ditropan XL] 5 mg PO DAILY 03/20/20 03/20/20 Pantoprazole [Protonix] 40 mg PO DAILY 03/20/20 03/20/20 QUEtiapine [SEROquel] 100 mg PO HS 03/20/20 03/20/20 Previous Rx's Medication Instructions Recorded Pantoprazole Sodium [Protonix] 40 mg PO DAILY #20 tablet. 06/15/20 Allergies Allergy/AdvReac Type Severity Reaction Status Date / Time codeine AdvReac Nausea & Verified 11/23/20 15:05 Vomiting & Diarrhea Iodinated Contrast Media AdvReac Rash/Hives Verified 11/23/20 15:05 Review of Systems ROS Statement: Those systems with pertinent positive or pertinent negative responses have been documented in the HPI. ROS Other: All systems not noted in ROS Statement are negative. 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 smoker 2 ppd since age 16 (40+ yrs) History of Any Multi-Drug Resistant Organisms: None Reported Past Surgical History: Appendectomy, Cholecystectomy, Hysterectomy, Tonsillectomy Additional Past Surgical History / Comment(s): recent thorascopic biopsy left mediastinal masses 01/21/18/. pneumectomy Past Anesthesia/Blood Transfusion Reactions: No Reported Reaction Past Psychological History: Anxiety, Depression Smoking Status: Former smoker Past Alcohol Use History: None Reported Past Drug Use History: Marijuana - Past Family History Father Family Medical History: Cancer Additional Family Medical History / Comment(s): Her father had bone cancer Mother Additional Family Medical History / Comment(s): aneurysm, heart problems General Exam - General Exam Comments Initial Comments: This is a well-developed sec appearing female who is awake alert oriented 3 Limitations: no limitations General appearance: alert, anxious, in distress Head exam: Present: atraumatic, normocephalic, normal inspection Eye exam: Present: normal appearance, PERRL, EOMI. Absent: scleral icterus, conjunctival injection, periorbital swelling ENT exam: Present: mucous membranes dry Neck exam: Present: normal inspection. Absent: tenderness, meningismus, lymphadenopathy Respiratory exam: Present: wheezes, accessory muscle use, decreased breath sounds. Absent: respiratory distress, rales, rhonchi, stridor Cardiovascular Exam: Present: regular rate, normal rhythm, normal heart sounds. Absent: systolic murmur, diastolic murmur, rubs, gallop, clicks GI/Abdominal exam: Present: soft, normal bowel sounds. Absent: distended, tenderness, guarding, rebound, rigid Extremities exam: Present: normal inspection, full ROM, normal capillary refill. Absent: tenderness, pedal edema, joint swelling, calf tenderness Back exam: Present: normal inspection Neurological exam: Present: alert, oriented X3, CN II-XII intact Psychiatric exam: Present: normal affect, normal mood Skin exam: Present: warm, dry, intact, normal color. Absent: rash Course Vital Signs 11/23/20 11/23/20 11/23/20 15:05 15:09 15:48 Temperature 98 F Pulse Rate 100 92 Respiratory 18 18 Rate Blood Pressure 117/89 O2 Sat by Pulse 89 L Oximetry 11/23/20 11/23/20 11/23/20 16:00 16:36 17:05 Temperature Pulse Rate 94 89 89 Respiratory 18 Rate Blood Pressure 117/89 O2 Sat by Pulse 98 Oximetry 11/23/20 17:16 Temperature Pulse Rate 92 Respiratory Rate Blood Pressure O2 Sat by Pulse Oximetry - Reevaluation(s) Reevaluation #1: 11/23/20 15:56 Today's EKG was compared with one dated 12/21/15 showing some change in T-wave configuration anteriorly. Reevaluation #2: 11/23/20 17:30 Reevaluation after treatment revealed minimal improvement. After repeat treatment still not much improvement. Medical Decision Making - Medical Decision Making I did discuss findings with the patient as well as with Dr. Freed, patient will be admitted for inpatient treatment as well as consultation by Dr. Elkins - Lab Data Result diagrams: 11/23/20 15:43 11/23/20 15:43 Lab Results 11/23/20 11/23/20 11/23/20 Range/Units 15:43 15:43 15:43 WBC 7.7 (3.8-10.6) k/uL RBC 5.24 (3.80-5.40) m/uL Hgb 15.5 (11.4-16.0) gm/dL Hct 46.6 H (34.0-46.0) % MCV 88.8 (80.0-100.0) fL MCH 29.6 (25.0-35.0) pg MCHC 33.3 (31.0-37.0) g/dL RDW 13.6 (11.5-15.5) % Plt Count 194 (150-450) k/uL MPV 6.8 Neutrophils % 65 % Lymphocytes % 26 % Monocytes % 5 % Eosinophils % 2 % Basophils % 1 % Neutrophils # 5.0 (1.3-7.7) k/uL Lymphocytes # 2.0 (1.0-4.8) k/uL Monocytes # 0.4 (0-1.0) k/uL Eosinophils # 0.1 (0-0.7) k/uL Basophils # 0.1 (0-0.2) k/uL PT 9.7 (9.0-12.0) sec INR 0.9 (<1.2) APTT 22.4 (22.0-30.0) sec Sodium 136 L (137-145) mmol/L Potassium 4.4 (3.5-5.1) mmol/L Chloride 97 L (98-107) mmol/L Carbon Dioxide 36 H (22-30) mmol/L Anion Gap 3 mmol/L BUN 14 (7-17) mg/dL Creatinine 0.65 (0.52-1.04) mg/dL Est GFR (CKD-EPI)AfAm >90 (>60 ml/min/1.73 sqM) Est GFR (CKD-EPI)NonAf >90 (>60 ml/min/1.73 sqM) Glucose 100 H (74-99) mg/dL Plasma Lactic Acid William (0.7-2.0) mmol/L Calcium 9.2 (8.4-10.2) mg/dL Magnesium 2.0 (1.6-2.3) mg/dL Total Bilirubin 0.5 (0.2-1.3) mg/dL AST 22 (14-36) U/L ALT 15 (4-34) U/L Alkaline Phosphatase 109 (38-126) U/L Creatine Kinase 55 (30-135) U/L Troponin I (0.000-0.034) ng/mL NT-Pro-B Natriuret Pep pg/mL Total Protein 7.1 (6.3-8.2) g/dL Albumin 4.0 (3.5-5.0) g/dL Coronavirus (PCR) (Not Detectd) 11/23/20 11/23/20 11/23/20 Range/Units 15:43 15:43 15:43 WBC (3.8-10.6) k/uL RBC (3.80-5.40) m/uL Hgb (11.4-16.0) gm/dL Hct (34.0-46.0) % MCV (80.0-100.0) fL MCH (25.0-35.0) pg MCHC (31.0-37.0) g/dL RDW (11.5-15.5) % Plt Count (150-450) k/uL MPV Neutrophils % % Lymphocytes % % Monocytes % % Eosinophils % % Basophils % % Neutrophils # (1.3-7.7) k/uL Lymphocytes # (1.0-4.8) k/uL Monocytes # (0-1.0) k/uL Eosinophils # (0-0.7) k/uL Basophils # (0-0.2) k/uL PT (9.0-12.0) sec INR (<1.2) APTT (22.0-30.0) sec Sodium (137-145) mmol/L Potassium (3.5-5.1) mmol/L Chloride (98-107) mmol/L Carbon Dioxide (22-30) mmol/L Anion Gap mmol/L BUN (7-17) mg/dL Creatinine (0.52-1.04) mg/dL Est GFR (CKD-EPI)AfAm (>60 ml/min/1.73 sqM) Est GFR (CKD-EPI)NonAf (>60 ml/min/1.73 sqM) Glucose (74-99) mg/dL Plasma Lactic Acid William 0.7 (0.7-2.0) mmol/L Calcium (8.4-10.2) mg/dL Magnesium (1.6-2.3) mg/dL Total Bilirubin (0.2-1.3) mg/dL AST (14-36) U/L ALT (4-34) U/L Alkaline Phosphatase (38-126) U/L Creatine Kinase (30-135) U/L Troponin I <0.012 (0.000-0.034) ng/mL NT-Pro-B Natriuret Pep 117 pg/mL Total Protein (6.3-8.2) g/dL Albumin (3.5-5.0) g/dL Coronavirus (PCR) (Not Detectd) 11/23/20 Range/Units 15:47 WBC (3.8-10.6) k/uL RBC (3.80-5.40) m/uL Hgb (11.4-16.0) gm/dL Hct (34.0-46.0) % MCV (80.0-100.0) fL MCH (25.0-35.0) pg MCHC (31.0-37.0) g/dL RDW (11.5-15.5) % Plt Count (150-450) k/uL MPV Neutrophils % % Lymphocytes % % Monocytes % % Eosinophils % % Basophils % % Neutrophils # (1.3-7.7) k/uL Lymphocytes # (1.0-4.8) k/uL Monocytes # (0-1.0) k/uL Eosinophils # (0-0.7) k/uL Basophils # (0-0.2) k/uL PT (9.0-12.0) sec INR (<1.2) APTT (22.0-30.0) sec Sodium (137-145) mmol/L Potassium (3.5-5.1) mmol/L Chloride (98-107) mmol/L Carbon Dioxide (22-30) mmol/L Anion Gap mmol/L BUN (7-17) mg/dL Creatinine (0.52-1.04) mg/dL Est GFR (CKD-EPI)AfAm (>60 ml/min/1.73 sqM) Est GFR (CKD-EPI)NonAf (>60 ml/min/1.73 sqM) Glucose (74-99) mg/dL Plasma Lactic Acid William (0.7-2.0) mmol/L Calcium (8.4-10.2) mg/dL Magnesium (1.6-2.3) mg/dL Total Bilirubin (0.2-1.3) mg/dL AST (14-36) U/L ALT (4-34) U/L Alkaline Phosphatase (38-126) U/L Creatine Kinase (30-135) U/L Troponin I (0.000-0.034) ng/mL NT-Pro-B Natriuret Pep pg/mL Total Protein (6.3-8.2) g/dL Albumin (3.5-5.0) g/dL Coronavirus (PCR) Not Detected (Not Detectd) - EKG Data -: EKG Interpreted by Me EKG Comments: Social 96. Interval 160 QRS duration 96 QT since QTC 362/457 there were axis nonspecific ST-T wave configuration - Radiology Data Radiology results: report reviewed (Imaging reviewed the x-ray shows no evidence of any obvious infiltrate.), image reviewed Critical Care Time Critical Care Time: Yes Total Critical Care Time: 31 Critical Care Time: Critical care time includes initial presentation with history physical labs x- rays multiple reevaluation patient responsive therapy review of old charting is available discussed with the admitting physician admitting orders and documentation of the above Disposition Clinical Impression: Acute exacerbation of chronic obstructive pulmonary disease, Acute respiratory distress syndrome in adult, Tracheobronchitis, History of lung cancer Disposition: ADMITTED IP TO THIS HOSP Condition: Fair Referrals: Niranjan Freed MD [Primary Care Provider] - 1-2 days
[2020-11-23 15:55] LABS: Basophils # (A) 0.1 k/uL (0-0.2); Basophils % (A) 1 %; Eosinophils # (A) 0.1 k/uL (0-0.7); Eosinophils % (A) 2 %; HCT 46.6 % (34.0-46.0); HGB 15.5 gm/dL (11.4-16.0); Lymphocytes % (A) 26 %; MCH 29.6 pg (25.0-35.0); MCHC 33.3 g/dL (31.0-37.0); MCV 88.8 fL (80.0-100.0); Mean Platelet Volume 6.8; Monocytes # (A) 0.4 k/uL (0-1.0); Monocytes % (A) 5 %; Neutrophils % (A) 65 %; Platelet Count 194 k/uL (150-450); RBC 5.24 m/uL (3.80-5.40); RDW 13.6 % (11.5-15.5); WBC 7.7 k/uL (3.8-10.6)
[2020-11-23 16:05] LABS: INR 0.9 (<1.2); Partial Thromboplastin Time 22.4 sec (22.0-30.0); Prothrombin Time 9.7 sec (9.0-12.0)
[2020-11-23 16:06] LABS: ALT 15 U/L (4-34); AST 22 U/L (14-36); African American GFR (CKD) >90 (>60 ml/min/1.73 sqM); Alkaline Phosphatase 109 U/L (38-126); Anion Gap 3 mmol/L; Blood Urea Nitrogen 14 mg/dL (7-17); Calcium 9.2 mg/dL (8.4-10.2); Carbon Dioxide 36 mmol/L (22-30); Chloride 97 mmol/L (98-107); Creatine Kinase 55 U/L (30-135); Glucose 100 mg/dL (74-99); Non-African American GFR(CKD) >90 (>60 ml/min/1.73 sqM); Potassium 4.4 mmol/L (3.5-5.1); Sodium 136 mmol/L (137-145); Total Bilirubin 0.5 mg/dL (0.2-1.3); Total Protein 7.1 g/dL (6.3-8.2)
--- NOTE | 2020-11-23 16:19 | XR ---
EXAMINATION TYPE: XR chest 2V DATE OF EXAM: 11/23/2020 COMPARISON: 01/22/2018 HISTORY: Shortness of breath TECHNIQUE: Frontal and lateral views of the chest are obtained. FINDINGS: Scattered senescent parenchymal changes noted. Hyperinflation compatible with COPD. No evidence for infiltrate. No evidence for atelectasis. Heart size is stable. Mediastinal structures are stable and grossly unremarkable. No evidence for hilar prominence. Degenerative changes dorsal spine. IMPRESSION: 1. No evidence for acute pulmonary disease.
[2020-11-23] MEDS: methylPREDNISolone SOD SUCCI 125 MG/2 ML VIAL IV SCH (18:23)
[2020-11-23] MEDS ORDERED: CYCLOBENZAPRINE 10 MG TAB PO PRN (19:33)
[2020-11-23] MEDS: SODIUM CHLORIDE 0.9% 1,000 ML IV SCH (19:36)
[2020-11-23] MEDS: IPRATROPIUM-ALBUTEROL 3 ML NEB INHALATION SCH (20:47)
[2020-11-23] MEDS ORDERED: ARIPiprazole 5 MG TAB PO SCH (21:00)
[2020-11-23] MEDS ORDERED: SERTRALINE 100 MG TAB PO SCH (21:00)
[2020-11-23] MEDS: ATORVASTATIN 10 MG TAB PO SCH (21:27)
[2020-11-23] MEDS: CYCLOBENZAPRINE 10 MG TAB PO SCH (21:27)
[2020-11-23] MEDS: QUEtiapine 100 MG TAB PO SCH (21:28)
[2020-11-24] MEDS: methylPREDNISolone SOD SUCCI 125 MG/2 ML VIAL IV SCH ×5 (00:20→23:06)
[2020-11-24] MEDS: IPRATROPIUM-ALBUTEROL 3 ML NEB INHALATION SCH ×9 (02:23→23:33)
[2020-11-24] MEDS: SODIUM CHLORIDE 0.9% 1,000 ML IV SCH ×3 (03:30→23:00)
[2020-11-24] MEDS ORDERED: IPRATROPIUM 0.5 MG/2.5 ML NEBU INHALATION SCH (08:00)
[2020-11-24] MEDS: SYMBICORT 80-4.5 MCG INHALER INHALATION SCH ×2 (08:02→19:27)
[2020-11-24] MEDS ORDERED: PANTOPRAZOLE 40 MG TABLET PO SCH (09:00)
[2020-11-24] MEDS: ASPIRIN 81 MG PO SCH (09:53)
[2020-11-24] MEDS: OXYBUTYNIN XL 5 MG TAB.ER.24 PO SCH (09:53)
[2020-11-24] MEDS: PANTOPRAZOLE 40 MG TABLET PO SCH (09:53)
[2020-11-24] MEDS: CLOPIDOGREL 75 MG TAB PO SCH (09:53)
[2020-11-24] MEDS: ARIPiprazole 5 MG TAB PO SCH (09:53)
[2020-11-24] MEDS: LEVOFLOXACIN 500 MG TAB PO SCH (09:53)
[2020-11-24] MEDS: NON FORMULARY DRUG (Mirabegron [Myrbetriq] 25 MG Tab.Er.24h) PO SCH (09:54)
[2020-11-24] MEDS: SERTRALINE 100 MG TAB PO SCH (10:26)
[2020-11-24] MEDS: ACETAMINOPHEN TAB 325 MG TAB PO PRN (11:36)
[2020-11-24 11:47] LABS: Glucose,Whole Blood 221 mg/dL (75-99)
--- NOTE | 2020-11-24 12:43 | P.CNPUL ---
History of Present Illness Consult date: 11/24/20 Requesting physician: Niranjan Freed Reason for consult: dyspnea, COPD Chief complaint: Shortness of breath History of present illness: This is a 60-year-old female patient with a history of hyperlipidemia, CVA/TIA, anxiety/depression. 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 She had undergone a left upper lobe resection and chemo/radiation. She follows with Dr. Tavarez. She follows with Dr. Elkins in our office. She does have significant chronic obstructive pulmonary disease in a 40+ year smoking history. She is still smoking. She presented here to the emergency room yesterday with complaints of increasing shortness of breath, cough and congestion. Chest x-ray shows no acute pulmonary process. White count 7.7. Hemoglobin 15.5. Sodium 136. Potassium 4.4. Creatinine 0.65. ProBNP 117. Morris virus not detected. She is seen today in consultation on the regular medical floor. She is curr ently sitting up at the bedside. Awake and alert in no acute distress. Maintaining good O2 saturations in the 90s on 2 L/m per nasal cannula. She's been initiated on DuoNeb inhalations, Symbicort, IV Solu-Medrol. Review of Systems REVIEW OF SYSTEMS: CONSTITUTIONAL: Denies any recent significant weight loss or weight gain. EYES: Denies change in vision. EARS, NOSE, MOUTH, THROAT: Denies headaches, denies sore throat. CARDIOVASCULAR: Denies chest pain, palpitations or syncopal episodes. RESPIRATORY: Positive for shortness of breath, cough, congestion no hemoptysis. GASTROINTESTINAL: Denies change in appetite, denies abdominal pain GENITOURINARY: Denies hematuria, denies infections. MUSKULOSKELETAL: Denies pain, denies swelling. INTEGUMENTARY: Denies rash, denies eczema. NEUROLOGICAL: Denies recent memory loss, no recent seizure activity. PSYCHIATRIC: Denies anxiety, denies depression. HEMATOLOGIC/LYMPHATIC: Denies anemia, denies enlarged lymph nodes. 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 smoker 2 ppd since age 16 (40+ yrs) History of Any Multi-Drug Resistant Organisms: None Reported Past Surgical History: Appendectomy, Cholecystectomy, Hysterectomy, Tonsillectomy Additional Past Surgical History / Comment(s): recent thorascopic biopsy left mediastinal masses 01/21/18/. pneumectomy Past Anesthesia/Blood Transfusion Reactions: No Reported Reaction Past Psychological History: Anxiety, Depression Additional Psychological History / Comment(s): Patient is not . She lives with her daughter and her mother. Her father many years ago from lung cancer and metastasis. Patient was a smoker until 2 months ago. Denies alcohol use or recreational drug use. No experience. No international travel. Pet dog in the home recently had a cat but she did give it away to her nephew. Animals have not been ill. Smoking Status: Former smoker Past Alcohol Use History: None Reported Additional Past Alcohol Use History / Comment(s): started smoking age 16 smoked 40+ years 2ppd quit 2016 Past Drug Use History: Marijuana Additional Drug Use History / Comment(s): patient states she had accu puncture done and quit smoking 2 months ago. pt continues to smoke marijuana daily via vaporizer - Past Family History Father Family Medical History: Cancer Additional Family Medical History / Comment(s): Her father had bone cancer Mother Family Medical History: CVA/TIA Additional Family Medical History / Comment(s): aneurysm, heart problems Medications and Allergies Home Medications Medication Instructions Recorded Confirmed Type ARIPiprazole [Abilify] 5 mg PO HS 03/10/17 11/23/20 History Clopidogrel [Plavix] 75 mg PO DAILY 01/13/18 11/23/20 History Cyclobenzaprine [Flexeril] 10 mg PO HS 01/13/18 11/23/20 History Sertraline [Zoloft] 100 mg PO DAILY 01/13/18 11/23/20 History Albuterol Inhaler [Ventolin Hfa 1 puff INHALATION RT-Q6H PRN 03/20/20 11/23/20 History Inhaler] Atorvastatin [Lipitor] 10 mg PO HS 03/20/20 11/23/20 History Fluticasone/Umeclidin/Vilanter 2 puff INHALATION RT-DAILY 03/20/20 11/23/20 History [Trelegy Ellipta 100-62.5-25] Mirabegron [Myrbetriq] 25 mg PO DAILY 03/20/20 11/23/20 History Oxybutynin Chloride [Ditropan XL] 5 mg PO DAILY 03/20/20 11/23/20 History QUEtiapine [SEROquel] 100 mg PO HS 03/20/20 11/23/20 History Aspirin EC [Ecotrin Low Dose] 81 mg PO DAILY 11/23/20 11/23/20 History Cyanocobalamin (Vitamin B-12) 1,000 mcg PO DAILY 11/23/20 11/23/20 History [Vitamin B-12] Cyclobenzaprine [Flexeril] 10 mg PO DAILY PRN 11/23/20 11/23/20 History Magnesium Oxide 400 mg PO DAILY 11/23/20 11/23/20 History Allergies Allergy/AdvReac Type Severity Reaction Status Date / Time codeine AdvReac Nausea & Verified 11/23/20 18:50 Vomiting & Diarrhea Iodinated Contrast Media AdvReac Rash/Hives Verified 11/23/20 18:50 Physical Exam Vitals: Vital Signs Temp Pulse Pulse Resp BP BP Pulse Ox 11/24/20 11:30 74 11/24/20 11:19 72 11/24/20 08:13 78 11/24/20 08:02 76 11/24/20 07:09 98.3 F 96 18 98/57 96 11/24/20 04:23 82 11/24/20 04:12 82 11/24/20 01:45 98.1 F 92 20 104/65 93 L 11/23/20 20:56 92 11/23/20 20:47 96 11/23/20 20:20 98.1 F 92 22 96/64 94 L 11/23/20 20:00 92 22 11/23/20 17:16 92 11/23/20 17:05 89 11/23/20 16:36 89 18 117/89 98 11/23/20 16:00 94 11/23/20 15:48 92 11/23/20 15:09 18 11/23/20 15:05 98 F 100 18 117/89 89 L Intake and Output 11/23/20 11/24/20 11/24/20 22:59 06:59 14:59 Intake Total 240 300 280 Balance 240 300 280 Intake: Oral 240 300 280 Other: # Voids 1 2 Weight 70.307 kg GENERAL EXAM: Alert, 60-year-old female patient, appears older than stated age, on 2 L nasal cannula, comfortable in no apparent distress. HEAD: Normocephalic. EYES: Normal reaction of pupils, equal size. NOSE: Clear with pink turbinates. THROAT: No erythema or exudates. NECK: No masses, no JVD. CHEST: No chest wall deformity. LUNGS: Equal air entry with bilateral end expiratory wheeze, diminished. CVS: S1 and S2 normal with no audible murmur, regular rhythm. ABDOMEN: No hepatosplenomegaly, normal bowel sounds, no guarding or rigidity. SPINE: No scoliosis or deformity SKIN: No rashes CENTRAL NERVOUS SYSTEM: No focal deficits, tone is normal in all 4 extremities. EXTREMITIES: There is no peripheral edema. No clubbing, no cyanosis. Peripheral pulses are intact. Results - Laboratory Findings CBC and BMP: 11/23/20 15:43 11/23/20 15:43 PT/INR, D-dimer PT 9.7 sec (9.0-12.0) 11/23/20 15:43 INR 0.9 (<1.2) 11/23/20 15:43 Abnormal lab findings: Abnormal Labs 11/23/20 11/23/20 11/24/20 15:43 15:43 11:45 Hct 46.6 H Sodium 136 L Chloride 97 L Carbon Dioxide 36 H Glucose 100 H POC Glucose (mg/dL) 221 H - Diagnostic Findings Chest x-ray: image reviewed Assessment and Plan Assessment: 1 Acute exacerbation of chronic obstructive pulmonary disease 2 Chronic and ongoing tobacco dependence of greater than 40 years 3 History of neuroendocrine carcinoma of the left lung status post wedge resecti on, chemotherapy/radiation in 2018 4 History of anxiety/depression 5 History of CVA in 2003 6 Hyperlipidemia Plan: The patient was seen and evaluated by Dr. Krueger Chest x-ray and labs reviewed Continue bronchodilators, steroids Empiric antibiotics in the form of Levaquin Increase her activity as tolerated We will continue to follow and make further recommendations based on her clinical status I, the cosigning physician, performed a history & physical examination of the p atient. Lungs sounds with bilateral end expiratory wheeze, diminished. Maintaining good O2 saturations in the 90s on 2 L/m per nasal cannula. I discussed the assessment and plan of care with my nurse practitioner, Naina Block. I attest to the above consultation as dictated by her. Time with Patient: Greater than 30
[2020-11-24] MEDS: INSULIN ASPART (NovoLOG) 100 UNIT/ML VIAL SQ SCH ×3 (12:52→20:12)
[2020-11-24 17:13] LABS: Glucose,Whole Blood 131 mg/dL (75-99)
[2020-11-24 19:55] LABS: Glucose,Whole Blood 296 mg/dL (75-99)
[2020-11-24] MEDS: CYCLOBENZAPRINE 10 MG TAB PO SCH (20:12)
[2020-11-24] MEDS: ATORVASTATIN 10 MG TAB PO SCH (20:12)
[2020-11-24] MEDS: QUEtiapine 100 MG TAB PO SCH (20:12)
[2020-11-24] MEDS: traZODone HCL 50 MG TAB PO SCH (20:12)
--- NOTE | 2020-11-24 22:13 | P.HPIM ---
History of Present Illness H&P Date: 11/24/20 Chief Complaint: shortness of breath Kari Rooney is a 60 yo F with PMH of COPD, tobacco abuse, hx lung cancer s/p DAYTON resection, CVA, HLD who presented to the ED complaining of worsening shortness of breath over the past month and especially the last few days. She denies sore throat, fever, chills, loss of sense of smell or taste. She does endorse cough productive for clear sputum. Pt does continue to smoke. On presentation she was hypoxic and tachypneic, WBC 7.7k, Cr 0.65, BNP 117. CXR no acute process. COVID PCR negative. Review of Systems All systems: negative Constitutional: Reports malaise, Reports weakness, Denies chills, Denies fever Eyes: denies blurred vision, denies pain Ears, nose, mouth and throat: Denies headache, Denies sore throat Cardiovascular: Denies chest pain, Denies shortness of breath Respiratory: Reports as per HPI, Reports cough, Reports cough with sputum, Reports dyspnea Gastrointestinal: Denies abdominal pain, Denies diarrhea, Denies nausea, Denies vomiting Genitourinary: Denies dysuria, Denies hematuria Musculoskeletal: Denies myalgias Integumentary: Denies pruritus, Denies rash Neurological: Denies numbness, Denies weakness Psychiatric: Denies anxiety, Denies depression Endocrine: Denies fatigue, Denies weight change Past Medical History Past Medical History: Cancer, COPD, CVA/TIA, Hyperlipidemia Additional Past Medical History / Comment(s): Rt sided CVA 2003 with foot drop. smoker 2 ppd since age 16 (40+ yrs) History of Any Multi-Drug Resistant Organisms: None Reported Past Surgical History: Appendectomy, Cholecystectomy, Hysterectomy, Tonsillectomy Additional Past Surgical History / Comment(s): recent thorascopic biopsy left mediastinal masses 01/21/18/. pneumectomy Past Anesthesia/Blood Transfusion Reactions: No Reported Reaction Past Psychological History: Anxiety, Depression Additional Psychological History / Comment(s): Patient is not . She live s with her daughter and her mother. Her father many years ago from lung cancer and metastasis. Patient was a smoker until 2 months ago. Denies alcohol use or recreational drug use. No experience. No international travel. Pet dog in the home recently had a cat but she did give it away to her nephew. Animals have not been ill. Smoking Status: Former smoker Past Alcohol Use History: None Reported Additional Past Alcohol Use History / Comment(s): started smoking age 16 smoked 40+ years 2ppd quit 2017 Past Drug Use History: Marijuana Additional Drug Use History / Comment(s): patient states she had accu puncture done and quit smoking 2 months ago. pt continues to smoke marijuana daily via vaporizer - Past Family History Father Family Medical History: Cancer Additional Family Medical History / Comment(s): Her father had bone cancer Mother Family Medical History: CVA/TIA Additional Family Medical History / Comment(s): aneurysm, heart problems Medications and Allergies Home Medications Medication Instructions Recorded Confirmed Type ARIPiprazole [Abilify] 5 mg PO HS 03/10/17 11/23/20 History Clopidogrel [Plavix] 75 mg PO DAILY 01/13/18 11/23/20 History Cyclobenzaprine [Flexeril] 10 mg PO HS 01/13/18 11/23/20 History Sertraline [Zoloft] 100 mg PO DAILY 01/13/18 11/23/20 History Albuterol Inhaler [Ventolin Hfa 1 puff INHALATION RT-Q6H PRN 03/20/20 11/23/20 History Inhaler] Atorvastatin [Lipitor] 10 mg PO HS 03/20/20 11/23/20 History Fluticasone/Umeclidin/Vilanter 2 puff INHALATION RT-DAILY 03/20/20 11/23/20 History [Trelegy Ellipta 100-62.5-25] Mirabegron [Myrbetriq] 25 mg PO DAILY 03/20/20 11/23/20 History Oxybutynin Chloride [Ditropan XL] 5 mg PO DAILY 03/20/20 11/23/20 History QUEtiapine [SEROquel] 100 mg PO HS 03/20/20 11/23/20 History Aspirin EC [Ecotrin Low Dose] 81 mg PO DAILY 11/23/20 11/23/20 History Cyanocobalamin (Vitamin B-12) 1,000 mcg PO DAILY 11/23/20 11/23/20 History [Vitamin B-12] Cyclobenzaprine [Flexeril] 10 mg PO DAILY PRN 11/23/20 11/23/20 History Magnesium Oxide 400 mg PO DAILY 11/23/20 11/23/20 History Allergies Allergy/AdvReac Type Severity Reaction Status Date / Time codeine AdvReac Nausea & Verified 11/23/20 18:50 Vomiting & Diarrhea Iodinated Contrast Media AdvReac Rash/Hives Verified 11/23/20 18:50 Physical Exam Vitals: Vital Signs Temp Pulse Pulse Resp BP Pulse Ox 11/24/20 19:36 76 11/24/20 19:28 75 11/24/20 19:03 97.7 F 98 16 112/63 94 L 11/24/20 15:15 76 11/24/20 15:07 75 11/24/20 14:00 97.4 F L 105 H 17 107/57 92 L 11/24/20 11:30 74 11/24/20 11:19 72 11/24/20 08:13 78 11/24/20 08:02 76 11/24/20 07:09 98.3 F 96 18 98/57 96 11/24/20 04:23 82 11/24/20 04:12 82 11/24/20 01:45 98.1 F 92 20 104/65 93 L Intake and Output 11/24/20 11/24/20 11/24/20 06:59 14:59 22:59 Intake Total 300 460 180 Balance 300 460 180 Intake: Oral 300 460 180 Other: Voiding Method Toilet # Voids 2 1 # Bowel Movements 1 General: well nourished, well developed, NAD. Vitals reviewed Eyes: PERRL, EOMI, conjunctiva normal HENT: normocephalic, mucus membranes moist Neck: supple, no JVD Lungs: normal respiratory effort, Wheezing and ronchi throughout CV: Regular rate and rhythm, no murmur. Peripheral pulses 2+ Abdomen: soft, nondistended, no organomegaly Lymph: no cervical or axillary LAD Skin: warm and dry. Neuro: A&Ox3, normal mood and affect Results CBC & Chem 7: 11/23/20 15:43 11/23/20 15:43 Labs: Abnormal Lab Results - Last 24 Hours (Table) 11/24/20 11/24/20 11/24/20 Range/Units 11:45 17:12 19:54 POC Glucose (mg/dL) 221 H 131 H 296 H (75-99) mg/dL Microbiology - Last 24 Hours (Table) 11/23/20 15:55 Blood Culture - Preliminary Blood No Growth after 24 hours Thrombosis Risk Factor Assmnt - Choose All That Apply Each Factor Represents 1 point: Age 41-60 years Thrombosis Risk Factor Assessment Total Risk Factor Score: 1 Thrombosis Risk Factor Assessment Level: Low Risk Assessment and Plan (1) Acute respiratory failure with hypoxia Current Visit: Yes Status: Acute Code(s): J96.01 - ACUTE RESPIRATORY FAILURE WITH HYPOXIA SNOMED Code(s): 73644171 (2) Acute exacerbation of chronic obstructive pulmonary disease Current Visit: Yes Status: Acute Code(s): J44.1 - CHRONIC OBSTRUCTIVE PULMONARY DISEASE W (ACUTE) EXACERBATION SNOMED Code(s): 914727584 (3) History of lung cancer Current Visit: Yes Status: Acute Code(s): Z85.118 - PERSONAL HISTORY OF MALIGNANT NEOPLASM OF BRONCHUS AND LUNG SNOMED Code(s): 309346213 Plan: 1. Acute hypoxic respiratory failure, secondary to COPD exacerbation. Admit, start IV steroids and empiric antibiotics. Consult pulmonology. Duonebs and continue home inhaler. Titrate supplemental O2 to maintain above 88% 2. Recurrent major depression. Continue home seroquel and zoloft 3. GERD. Continue protonix 4. History of DAYTON cancer DVT prophylaxis lovenox
[2020-11-25] MEDS: IPRATROPIUM-ALBUTEROL 3 ML NEB INHALATION SCH ×5 (03:54→19:35)
[2020-11-25] MEDS: methylPREDNISolone SOD SUCCI 125 MG/2 ML VIAL IV SCH ×2 (05:42→11:49)
[2020-11-25 06:53] LABS: Glucose,Whole Blood 137 mg/dL (75-99)
[2020-11-25] MEDS: SYMBICORT 80-4.5 MCG INHALER INHALATION SCH ×2 (07:46→19:37)
[2020-11-25] MEDS: ASPIRIN 81 MG PO SCH (07:54)
[2020-11-25] MEDS: ENOXAPARIN 40 MG/0.4 ML SYRINGE SQ SCH (07:54)
[2020-11-25] MEDS: CLOPIDOGREL 75 MG TAB PO SCH (07:54)
[2020-11-25] MEDS: LEVOFLOXACIN 500 MG TAB PO SCH (07:55)
[2020-11-25] MEDS: INSULIN ASPART (NovoLOG) 100 UNIT/ML VIAL SQ SCH ×4 (07:55→20:30)
[2020-11-25] MEDS: SERTRALINE 100 MG TAB PO SCH (07:55)
[2020-11-25] MEDS: OXYBUTYNIN XL 5 MG TAB.ER.24 PO SCH (07:55)
[2020-11-25] MEDS: QUEtiapine 100 MG TAB PO SCH ×2 (07:55→20:34)
[2020-11-25] MEDS: PANTOPRAZOLE 40 MG TABLET PO SCH (07:55)
[2020-11-25] MEDS: ARIPiprazole 5 MG TAB PO SCH (07:57)
[2020-11-25] MEDS: SODIUM CHLORIDE 0.9% 1,000 ML IV SCH ×2 (07:59→17:13)
[2020-11-25] MEDS: NON FORMULARY DRUG (Mirabegron [Myrbetriq] 25 MG Tab.Er.24h) PO SCH (08:04)
[2020-11-25 11:16] LABS: Glucose,Whole Blood 124 mg/dL (75-99)
--- NOTE | 2020-11-25 12:02 | P.PN ---
Subjective Progress Note Date: 11/25/20 Principal diagnosis: Acute exacerbation of chronic obstructive pulmonary disease This is a 60-year-old female patient with a history of hyperlipidemia, CVA/TIA, anxiety/depression. 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 She had undergone a left upper lobe resection and chemo/radiation. She follows with Dr. Tavarez. She follows with Dr. Elkins in our office. She does have significant chronic obstructive pulmonary disease in a 40+ year smoking history. She is still smoking. She presented here to the emergency room yesterday with complaints of increasing shortness of breath, cough and congestion. Chest x-ray shows no acute pulmonary process. White count 7.7. Hemoglobin 15.5. Sodium 136. Potassium 4.4. Creatinine 0.65. ProBNP 117. Morris virus not detected. She is seen today in consultation on the regular medical floor. She is currently sitting up at the bedside. Awake and alert in no acute distress. Maintaining good O2 saturations in the 90s on 2 L/m per nasal cannula. She's been initiated on DuoNeb inhalations, Symbicort, IV Solu-Medrol. The patient is seen today 11/25/2020 in follow-up on the regular medical floor. She is sitting up in bed. Awake and alert in no acute distress. Maintaining O2 saturations in the 90s on 2 L/m per nasal cannula. She states she is breathing about the same today compared to yesterday. Not much improvement. Not worse. Blood culture reveals no growth to date. Glucose 124. Remains on IV Solu- Medrol, bronchodilators, Levaquin. Objective - Vital Signs Vital signs: Vital Signs Temp 98.1 F 11/25/20 07:20 Pulse 74 11/25/20 11:41 Resp 18 11/25/20 07:38 BP 123/82 11/25/20 07:20 Pulse Ox 96 11/25/20 07:20 Intake & Output 11/24/20 11/25/20 11/25/20 18:59 06:59 18:59 Intake Total 640 Balance 640 Intake: Oral 640 Other: Voiding Method Toilet Toilet # Voids 5 1 # Bowel Movements 1 - Exam GENERAL EXAM: Alert, 60-year-old female patient, appears older than stated age, on 2 L nasal cannula, comfortable in no apparent distress. HEAD: Normocephalic. EYES: Normal reaction of pupils, equal size. NOSE: Clear with pink turbinates. THROAT: No erythema or exudates. NECK: No masses, no JVD. CHEST: No chest wall deformity. LUNGS: Equal air entry with bilateral end expiratory wheeze, diminished. CVS: S1 and S2 normal with no audible murmur, regular rhythm. ABDOMEN: No hepatosplenomegaly, normal bowel sounds, no guarding or rigidity. SPINE: No scoliosis or deformity SKIN: No rashes CENTRAL NERVOUS SYSTEM: No focal deficits, tone is normal in all 4 extremities. EXTREMITIES: There is no peripheral edema. No clubbing, no cyanosis. Peripheral pulses are intact. - Labs CBC & Chem 7: 11/23/20 15:43 11/23/20 15:43 Labs: Abnormal Lab Results - Last 24 Hours (Table) 11/24/20 11/24/20 11/25/20 Range/Units 17:12 19:54 06:49 POC Glucose (mg/dL) 131 H 296 H 137 H (75-99) mg/dL 11/25/20 Range/Units 11:11 POC Glucose (mg/dL) 124 H (75-99) mg/dL Microbiology - Last 24 Hours (Table) 11/23/20 15:55 Blood Culture - Preliminary Blood No Growth after 24 hours Assessment and Plan Assessment: 1 Acute exacerbation of chronic obstructive pulmonary disease 2 Chronic and ongoing tobacco dependence of greater than 40 years 3 History of neuroendocrine carcinoma of the left lung status post wedge resection, chemotherapy/radiation in 2018 4 History of anxiety/depression 5 History of CVA in 2003 6 Hyperlipidemia Plan: The patient was seen and evaluated by Dr. Krueger Continue bronchodilators, steroids Empiric antibiotics in the form of Levaquin Increase her activity as tolerated We will continue to follow I, the cosigning physician, performed a history & physical examination of the patient. Lungs sounds with bilateral end expiratory wheeze, diminished. Maintaining good O2 saturations in the 90s on 2 L/m per nasal cannula. I discussed the assessment and plan of care with my nurse practitioner, Naina Block. I attest to the above consultation note as dictated by her.
--- NOTE | 2020-11-25 13:33 | P.PN ---
Subjective 60-year-old female is admitted for COPD exacerbation remains on the 2 does of oxygen patient is comparing of shortness of breath admitted with melena minimal exertion and amputation. Patient the remains on the IV steroids and levofloxacin. The patient is feeling much better but the not to her baseline. Patient doesn't usually use oxygen at home Constitutional: Denied any fatigue denied any fever. Cardio vascular: denied any chest pain, palpitations Gastrointestinal denied any nausea vomiting Pulmonary: As mentioned in HPI Neurologic denied any new focal deficits All inpatient medications were reviewed and appropriate changes in these me dications as dictated in the interval history and assessment and plan. Objective - Vital Signs Vital signs: Vital Signs Temp 98.1 F 11/25/20 07:20 Pulse 74 11/25/20 11:41 Resp 18 11/25/20 07:38 BP 123/82 11/25/20 07:20 Pulse Ox 96 11/25/20 07:20 Intake & Output 11/24/20 11/25/20 11/25/20 18:59 06:59 18:59 Intake Total 640 Balance 640 Intake: Oral 640 Other: Voiding Method Toilet Toilet # Voids 5 1 # Bowel Movements 1 - Exam PHYSICAL EXAMINATION: GENERAL: The patient is alert and oriented x3, not in any acute distress. Well developed, well nourished. HEENT: Pupils are round and equally reacting to light. EOMI. No scleral icterus. No conjunctival pallor. Normocephalic, atraumatic. No pharyngeal erythema. No thyromegaly. CARDIOVASCULAR: S1 and S2 present. No murmurs, rubs, or gallops. PULMONARY: Minimal expiratory wheezing fairly good air entry into bilateral lung fernando ABDOMEN: Soft, nontender, nondistended, normoactive bowel sounds. No palpable organomegaly. MUSCULOSKELETAL: No joint swelling or deformity. EXTREMITIES: No cyanosis, clubbing, or pedal edema. NEUROLOGICAL: Gross neurological examination did not reveal any focal deficits. SKIN: No rashes. - Labs CBC & Chem 7: 11/23/20 15:43 11/23/20 15:43 Labs: Abnormal Lab Results - Last 24 Hours (Table) 11/24/20 11/24/20 11/25/20 Range/Units 17:12 19:54 06:49 POC Glucose (mg/dL) 131 H 296 H 137 H (75-99) mg/dL 11/25/20 Range/Units 11:11 POC Glucose (mg/dL) 124 H (75-99) mg/dL Microbiology - Last 24 Hours (Table) 11/23/20 15:55 Blood Culture - Preliminary Blood No Growth after 24 hours Assessment and Plan Plan: - COPD exacerbation: Patient will be continued on systemic steroids and initial treatments -Anxiety/depression -CVA in the past -Hyperlipidemia -History of neuroendocrine tumor for which patient had left lung wedge resection with chemo and radiation therapy in 2018 J prophylaxis with Protonix and DVT prophylaxis Lovenox
[2020-11-25 17:06] LABS: Glucose,Whole Blood 190 mg/dL (75-99)
[2020-11-25] MEDS: methylPREDNISolone SOD SUCCI 40 MG/ML 1 ML VIAL IV SCH ×2 (17:12→23:10)
[2020-11-25 20:04] LABS: Glucose,Whole Blood 128 mg/dL (75-99)
[2020-11-25] MEDS: ACETAMINOPHEN TAB 325 MG TAB PO PRN (20:33)
[2020-11-25] MEDS: traZODone HCL 50 MG TAB PO SCH (20:34)
[2020-11-25] MEDS: CYCLOBENZAPRINE 10 MG TAB PO SCH (20:34)
[2020-11-25] MEDS: ATORVASTATIN 10 MG TAB PO SCH (20:34)
[2020-11-26] MEDS: IPRATROPIUM-ALBUTEROL 3 ML NEB INHALATION SCH ×8 (00:40→23:33)
[2020-11-26] MEDS: SODIUM CHLORIDE 0.9% 1,000 ML IV SCH ×2 (04:46→17:05)
[2020-11-26 06:56] LABS: Glucose,Whole Blood 159 mg/dL (75-99)
[2020-11-26] MEDS: methylPREDNISolone SOD SUCCI 40 MG/ML 1 ML VIAL IV SCH ×3 (07:06→23:10)
[2020-11-26] MEDS: ASPIRIN 81 MG PO SCH (07:07)
[2020-11-26] MEDS: LEVOFLOXACIN 500 MG TAB PO SCH (07:07)
[2020-11-26] MEDS: ARIPiprazole 5 MG TAB PO SCH (07:07)
[2020-11-26] MEDS: CLOPIDOGREL 75 MG TAB PO SCH (07:07)
[2020-11-26] MEDS: OXYBUTYNIN XL 5 MG TAB.ER.24 PO SCH (07:08)
[2020-11-26] MEDS: INSULIN ASPART (NovoLOG) 100 UNIT/ML VIAL SQ SCH ×4 (07:08→20:24)
[2020-11-26] MEDS: SERTRALINE 100 MG TAB PO SCH (07:08)
[2020-11-26] MEDS: PANTOPRAZOLE 40 MG TABLET PO SCH (07:08)
[2020-11-26] MEDS: ENOXAPARIN 40 MG/0.4 ML SYRINGE SQ SCH (07:09)
[2020-11-26] MEDS: SYMBICORT 80-4.5 MCG INHALER INHALATION SCH ×2 (08:26→20:37)
[2020-11-26] MEDS: NON FORMULARY DRUG (Mirabegron [Myrbetriq] 25 MG Tab.Er.24h) PO SCH (09:05)
--- NOTE | 2020-11-26 09:40 | P.PN ---
Subjective 60-year-old female is admitted for COPD exacerbation remains on the 2 does of oxygen patient is comparing of shortness of breath with minimal exertion and amputation. Patient the remains on the IV steroids and levofloxacin. The patient is feeling much better but the not to her baseline. Patient doesn't usually use oxygen at home. 11/26/2020 Patient is saturating fairly well on 3 L but it appears to be worsening of her COPD, compared to yesterday patient barely has any air movement. Minimal wheezing and exam patient is easily getting short of breath and feels congested unable to bring up anything. Constitutional: Denied any fatigue denied any fever. Cardio vascular: denied any chest pain, palpitations Gastrointestinal denied any nausea vomiting Pulmonary: As mentioned in HPI Neurologic denied any new focal deficits All inpatient medications were reviewed and appropriate changes in these medications as dictated in the interval history and assessment and plan. Objective - Vital Signs Vital signs: Vital Signs Temp 97.9 F 11/26/20 08:00 Pulse 76 11/26/20 08:23 Resp 18 11/26/20 08:00 BP 107/67 11/26/20 08:00 Pulse Ox 97 11/26/20 08:00 Intake & Output 11/25/20 11/26/20 11/26/20 18:59 06:59 18:59 Intake Total 1200 222 Balance 1200 222 Intake: Intake, IV Titration 1200 Amount Sodium Chloride 0.9% 1, 1200 000 ml @ 100 mls/hr IV . Q10H [facility] Rx#:[id number] Oral 222 Other: Voiding Method Toilet Toilet # Voids 1 1 - Exam PHYSICAL EXAMINATION: GENERAL: The patient is alert and oriented x3, not in any acute distress. Well developed, well nourished. HEENT: Pupils are round and equally reacting to light. EOMI. No scleral icterus. No conjunctival pallor. Normocephalic, atraumatic. No pharyngeal erythema. No thyromegaly. CARDIOVASCULAR: S1 and S2 present. No murmurs, rubs, or gallops. PULMONARY: Very minimal air entry into bilateral lung fernando no unexpected wheezing patient appears to be really tight ABDOMEN: Soft, nontender, nondistended, normoactive bowel sounds. No palpable organomegaly. MUSCULOSKELETAL: No joint swelling or deformity. EXTREMITIES: No cyanosis, clubbing, or pedal edema. NEUROLOGICAL: Gross neurological examination did not reveal any focal deficits. SKIN: No rashes. - Labs CBC & Chem 7: 11/23/20 15:43 11/23/20 15:43 Labs: Abnormal Lab Results - Last 24 Hours (Table) 11/25/20 11/25/20 11/25/20 Range/Units 11:11 16:55 20:02 POC Glucose (mg/dL) 124 H 190 H 128 H (75-99) mg/dL 11/26/20 Range/Units 06:47 POC Glucose (mg/dL) 159 H (75-99) mg/dL Microbiology - Last 24 Hours (Table) 11/23/20 15:55 Blood Culture - Preliminary Blood No Growth after 48 hours Assessment and Plan Plan: - COPD exacerbation: Patient will be continued on systemic steroids and initial treatments significant improvement compared to yesterday patient will benefit from mucositis but the decision will be left to pulmonary. -Anxiety/depression -CVA in the past -Hyperlipidemia -History of neuroendocrine tumor for which patient had left lung wedge resection with chemo and radiation therapy in 2018 J prophylaxis with Protonix and DVT prophylaxis Lovenox
[2020-11-26 11:21] LABS: Glucose,Whole Blood 183 mg/dL (75-99)
[2020-11-26] MEDS: ACETAMINOPHEN TAB 325 MG TAB PO PRN (11:45)
--- NOTE | 2020-11-26 12:19 | P.PN ---
Subjective Progress Note Date: 11/26/20 This is a 60-year-old female patient with a history of hyperlipidemia, CVA/TIA, anxiety/depression. 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 She had undergone a left upper lobe resection and chemo/radiation. She follows with Dr. Tavarez. She follows with Dr. Elkins in our office. She does have significant chronic obstructive pulmonary disease in a 40+ year smoking history. She is still smoking. She presented here to the emergency room yesterday with complaints of increasing shortness of breath, cough and congestion. Chest x-ray shows no acute pulmonary process. White count 7.7. Hemoglobin 15.5. Sodium 1 36. Potassium 4.4. Creatinine 0.65. ProBNP 117. Morris virus not detected. She is seen today in consultation on the regular medical floor. She is currently sitting up at the bedside. Awake and alert in no acute distress. Maintaining good O2 saturations in the 90s on 2 L/m per nasal cannula. She's been initiated on DuoNeb inhalations, Symbicort, IV Solu-Medrol. The patient is seen today 11/25/2020 in follow-up on the regular medical floor. She is sitting up in bed. Awake and alert in no acute distress. Maintaining O2 saturations in the 90s on 2 L/m per nasal cannula. She states she is breathing about the same today compared to yesterday. Not much improvement. Not worse. Blood culture reveals no growth to date. Glucose 124. Remains on IV Solu- Medrol, bronchodilators, Levaquin. 11/26/2020 the patient is still struggling with her breathing. She is short of breath bronchospastic and wheezy and she has had minimal recovery for now. She is on Symbicort and DuoNeb nebulized treatments 4 times a day and she started on IV Solu Medrol 60 mg every 6 hours and she is on oxygen at 2 L per minute nasal cannula. She has [id number] smoking history and she has COPD with an FEV1 of 50% of predicted. She has CVA/TIA, chronic anxiety/depression and previous history of lung cancer diagnosed in 2018 and she underwent a resection and the pathology was consistent with neuroendocrine carcinoma with positive lymph nodes and she underwent a left upper lobe resection followed by chemoradiation therapy. She is still under the care of Dr. Tavarez. Her Covid 19 testing was negative. The chest x-ray showed hyperinflation without any acute abnormalities. Objective - Vital Signs Vital signs: Vital Signs Temp 97.9 F 11/26/20 08:00 Pulse 72 11/26/20 12:05 Resp 18 11/26/20 08:00 BP 107/67 11/26/20 08:00 Pulse Ox 97 11/26/20 08:00 Intake & Output 11/25/20 11/26/20 11/26/20 18:59 06:59 18:59 Intake Total 1200 222 Balance 1200 222 Intake: Intake, IV Titration 1200 Amount Sodium Chloride 0.9% 1, 1200 000 ml @ 100 mls/hr IV . Q10H [facility] Rx#:[id number] Oral 222 Other: Voiding Method Toilet Toilet # Voids 1 1 - Exam GENERAL EXAM: Alert, 60-year-old female patient, appears older than stated age, on 2 L nasal cannula, comfortable in no apparent distress. HEAD: Normocephalic. EYES: Normal reaction of pupils, equal size. NOSE: Clear with pink turbinates. THROAT: No erythema or exudates. NECK: No masses, no JVD. CHEST: No chest wall deformity. LUNGS: Equal air entry with bilateral end expiratory wheeze, diminished. CVS: S1 and S2 normal with no audible murmur, regular rhythm. ABDOMEN: No hepatosplenomegaly, normal bowel sounds, no guarding or rigidity. SPINE: No scoliosis or deformity SKIN: No rashes CENTRAL NERVOUS SYSTEM: No focal deficits, tone is normal in all 4 extremities. EXTREMITIES: There is no peripheral edema. No clubbing, no cyanosis. Peripheral pulses are intact. - Labs CBC & Chem 7: 11/23/20 15:43 11/23/20 15:43 Labs: Abnormal Lab Results - Last 24 Hours (Table) 11/25/20 11/25/20 11/26/20 Range/Units 16:55 20:02 06:47 POC Glucose (mg/dL) 190 H 128 H 159 H (75-99) mg/dL 11/26/20 Range/Units 11:19 POC Glucose (mg/dL) 183 H (75-99) mg/dL Microbiology - Last 24 Hours (Table) 11/23/20 15:55 Blood Culture - Preliminary Blood No Growth after 48 hours Assessment and Plan Plan: 1 Acute exacerbation of chronic obstructive pulmonary disease 2 Chronic and ongoing tobacco dependence of greater than 40 years 3 History of neuroendocrine carcinoma of the left lung status post wedge resection, chemotherapy/radiation in 2018 4 History of anxiety/depression 5 History of CVA in 2003 6 Hyperlipidemia Plan: Clinically the patient is still struggling with her breathing. She still having symptomatic COPD exacerbation. I will give another 24 hours at the same treatme nt of bronchodilators and steroids. She is also on antibiotics for now. Chest x-ray is free of any acute disease. Continue bronchodilators, steroids Empiric antibiotics in the form of Levaquin Increase her activity as tolerated We will continue to follow
[2020-11-26] MEDS: guaiFENesin-DM 600/30MG 1 EACH TAB.ER.12H PO SCH ×2 (13:10→20:23)
[2020-11-26 16:38] LABS: Glucose,Whole Blood 131 mg/dL (75-99)
[2020-11-26 20:09] LABS: Glucose,Whole Blood 160 mg/dL (75-99)
[2020-11-26] MEDS: ATORVASTATIN 10 MG TAB PO SCH (20:23)
[2020-11-26] MEDS: QUEtiapine 100 MG TAB PO SCH (20:23)
[2020-11-26] MEDS: CYCLOBENZAPRINE 10 MG TAB PO SCH (20:23)
[2020-11-26] MEDS: traZODone HCL 50 MG TAB PO SCH (20:24)
[2020-11-27] MEDS: IPRATROPIUM-ALBUTEROL 3 ML NEB INHALATION SCH ×5 (04:00→21:19)
[2020-11-27 07:14] LABS: Glucose,Whole Blood 160 mg/dL (75-99)
[2020-11-27] MEDS: SERTRALINE 100 MG TAB PO SCH (08:06)
[2020-11-27] MEDS: ASPIRIN 81 MG PO SCH (08:06)
[2020-11-27] MEDS: OXYBUTYNIN XL 5 MG TAB.ER.24 PO SCH (08:06)
[2020-11-27] MEDS: CLOPIDOGREL 75 MG TAB PO SCH (08:07)
[2020-11-27] MEDS: PANTOPRAZOLE 40 MG TABLET PO SCH (08:07)
[2020-11-27] MEDS: LEVOFLOXACIN 500 MG TAB PO SCH (08:07)
[2020-11-27] MEDS: guaiFENesin-DM 600/30MG 1 EACH TAB.ER.12H PO SCH ×2 (08:08→21:38)
[2020-11-27] MEDS: ARIPiprazole 5 MG TAB PO SCH (08:08)
[2020-11-27] MEDS: methylPREDNISolone SOD SUCCI 40 MG/ML 1 ML VIAL IV SCH ×2 (08:08→21:38)
[2020-11-27] MEDS: INSULIN ASPART (NovoLOG) 100 UNIT/ML VIAL SQ SCH ×4 (08:08→21:38)
[2020-11-27] MEDS: ENOXAPARIN 40 MG/0.4 ML SYRINGE SQ SCH (08:08)
[2020-11-27] MEDS: NON FORMULARY DRUG (Mirabegron [Myrbetriq] 25 MG Tab.Er.24h) PO SCH (08:09)
[2020-11-27] MEDS: SYMBICORT 80-4.5 MCG INHALER INHALATION SCH ×2 (08:22→21:18)
[2020-11-27] MEDS: ACETAMINOPHEN TAB 325 MG TAB PO PRN ×2 (11:11→21:43)
[2020-11-27 11:35] LABS: Glucose,Whole Blood 115 mg/dL (75-99)
--- NOTE | 2020-11-27 11:43 | P.PN ---
Subjective Progress Note Date: 11/27/20 Since a 60-year-old female with past medical history of neuroendocrine carcinoma of the left lung status post wedge resection, chemotherapy, radiation 2018 ,admitted with acute COPD exacerbation and multiple other medical issues. Maintained on IV steroids, nebulized bronchodilators, Levaquin. Blood sugars controlled .Ambulating back from bathroom to bed, complaining of exertional shortness of breath. Requiring 3 L nasal cannula O2 to maintain O2 sats in the 90s. She states she does not wear oxygen at home. Afebrile. Denies chest pain or palpitations. Objective - Vital Signs Vital signs: Vital Signs Temp 97.8 F 11/27/20 07:53 Pulse 88 11/27/20 08:35 Resp 16 11/27/20 07:53 BP 134/81 11/27/20 07:53 Pulse Ox 97 11/27/20 07:53 Intake & Output 11/26/20 11/27/20 11/27/20 18:59 06:59 18:59 Intake Total 200 Balance 200 Intake: Oral 200 Other: Voiding Method Toilet Toilet # Voids 3 3 - Exam PHYSICAL EXAMINATION: GENERAL: The patient is alert and oriented x3, no acute distress. HEENT: Pupils are round and equally reacting to light. EOMI. No scleral icterus. No conjunctival pallor. Normocephalic, atraumatic. No pharyngeal erythema. CARDIOVASCULAR: S1 and S2 present. No murmurs, rubs, or gallops. PULMONARY: Congested, mucousy with expiratory wheezing throughout ABDOMEN: Soft, nontender, nondistended, normoactive bowel sounds. No palpable organomegaly. EXTREMITIES: No cyanosis, clubbing, or pedal edema. NEUROLOGICAL: Gross neurological examination did not reveal any focal deficits. SKIN: Warm and dry, No rashes. - Labs CBC & Chem 7: 11/23/20 15:43 11/23/20 15:43 Labs: Abnormal Lab Results - Last 24 Hours (Table) 11/26/20 11/26/20 11/27/20 Range/Units 16:32 20:07 07:08 POC Glucose (mg/dL) 131 H 160 H 160 H (75-99) mg/dL Microbiology - Last 24 Hours (Table) 11/23/20 15:55 Blood Culture - Preliminary Blood No Growth after 72 hours Assessment and Plan Assessment: Acute COPD exacerbation History of neuroendocrine tumor status post left lung wedge resection with chemotherapy, radiation in 2018 Anxiety Depression Chronic CVA Hyperlipidemia Plan: Continue current medication regime ,monitoring and symptomatic treatment. Steroid tapering in progress, we'll decrease Solu-Medrol down to every 12 hours. GI and DVT prophylaxis in place with both Lovenox and Protonix. Patient reports increased anxiety, agitation, mood swings on oral steroids. Discussed increasing Seroquel dose to facilitate oral prednisone taper at discharge. Increase ambulation as tolerated. Discharge planning in progress pending final DC recommendations and clearance from pulmonary. The impression and plan of care has been dictated as directed. : I performed a history and examination of this patient, discussed the same with the dictator. I agree with the dictator's note ,documented as a scribe. Any additional findings or plans will be noted.
--- NOTE | 2020-11-27 14:34 | XR ---
EXAMINATION TYPE: XR chest 2V DATE OF EXAM: 11/27/2020 COMPARISON: 11/23/2020 INDICATION: COPD TECHNIQUE: Frontal and lateral views of the chest are obtained. FINDINGS: The heart size is normal. The pulmonary vasculature is normal. The lungs are clear. There is some hyperinflation and mild flattening the diaphragms which can be re lated to COPD IMPRESSION: 1. No acute pulmonary process. 2. COPD 3. Stable exam
[2020-11-27 15:13] LABS: Basophils # (A) 0.01 X 10*3/uL (0.00-0.10); Basophils % (A) 0.1 %; Eosinophils # (A) 0 X 10*3/uL (0.04-0.35); Eosinophils % (A) 0 %; HCT 40.2 % (37.2-46.3); HGB 13.1 g/dL (12.0-15.0); Lymphocytes # (A) 0.96 X 10*3/uL (0.90-5.00); MCH 29.2 pg (27.0-32.0); MCHC 32.6 g/dL (32.0-37.0); MCV 89.5 fL (80.0-97.0); Mean Platelet Volume 10.4 fL (9.5-12.2); Monocytes # (A) 0.52 X 10*3/uL (0.20-1.00); Monocytes % (A) 5.4 %; Neutrophils % (A) 83.5 %; Platelet Count 200 X 10*3/uL (140-440); RBC 4.49 X 10*6/uL (4.10-5.20); RDW 14.3 % (11.5-14.5); WBC 9.59 X 10*3/uL (4.50-10.00)
[2020-11-27] MEDS ORDERED: METOCLOPRAMIDE 5 MG/ML 2 ML VIAL IVP STA (16:12)
[2020-11-27] MEDS: SODIUM CHLORIDE 0.9% 1,000 ML IV SCH (16:18)
[2020-11-27] MEDS ORDERED: MAGNESIUM SULFATE-D5W PMX 1 GM in DEXTROSE/WATER 1 100ML.BAG IVPB ONE (16:30)
--- NOTE | 2020-11-27 16:49 | P.PN ---
Subjective Progress Note Date: 11/27/20 Principal diagnosis: Acute exacerbation of COPD This is a 60-year-old female patient with a history of hyperlipidemia, CVA/TIA, anxiety/depression. 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 She had undergone a left upper lobe resection and chemo/radiation. She follows with Dr. Tavarez. She follows with Dr. Elkins in our office. She does have significant chronic obstructive pulmonary disease in a 40+ year smoking history. She is still smoking. She presented here to the emergency room yesterday with complaints of increasing shortness of breath, cough and congestion. Chest x-ray shows no acute pulmonary process. White count 7.7. Hemoglobin 15.5. Sodium 136. Potassium 4.4. Creatinine 0.65. ProBNP 117. Morris virus not detected. She is seen today in consultation on the regular medical floor. She is currently sitting up at the bedside. Awake and alert in no acute distress. Maintaining good O2 saturations in the 90s on 2 L/m per nasal cannula. She's been initiated on DuoNeb inhalations, Symbicort, IV Solu-Medrol. The patient is seen today 11/25/2020 in follow-up on the regular medical floor. She is sitting up in bed. Awake and alert in no acute distress. Maintaining O2 saturations in the 90s on 2 L/m per nasal cannula. She states she is breathing about the same today compared to yesterday. Not much improvement. Not worse. Blood culture reveals no growth to date. Glucose 124. Remains on IV Solu- Medrol, bronchodilators, Levaquin. 11/26/2020 the patient is still struggling with her breathing. She is short of breath bronchospastic and wheezy and she has had minimal recovery for now. She is on Symbicort and DuoNeb nebulized treatments 4 times a day and she started on IV Solu Medrol 60 mg every 6 hours and she is on oxygen at 2 L per minute nasal cannula. She has [id number] smoking history and she has COPD with an FEV1 of 50% of predicted. She has CVA/TIA, chronic anxiety/depression and previous history of lung cancer diagnosed in 2018 and she underwent a resection and the pathology was consistent with neuroendocrine carcinoma with positive lymph nodes and she underwent a left upper lobe resection followed by chemoradiation therapy. She is still under the care of Dr. Tavarez. Her Covid 19 testing was negative. The chest x-ray showed hyperinflation without any acute abnormalities. On 11/27/2020 patient seen in follow-up on medical floor, she is doing better, breathing easier, although still dyspneic and bronchospastic, and not quite ready for discharge, she continues on steroids in the form of IV Solu-Medrol 40 mg twice daily, nebulized bronchodilators, she is on Levaquin for empiric antibiotic coverage. His labs have been noted, no leukocytosis, hemoglobin is 13. Blood cultures have shown no growth. She has had no fever or chills, taste chest x-ray showed COPD, and no evidence of acute pulmonary process. Objective - Vital Signs Vital signs: Vital Signs Temp 98.4 F 11/27/20 14:00 Pulse 95 11/27/20 14:00 Resp 16 11/27/20 14:00 BP 128/74 11/27/20 14:00 Pulse Ox 99 11/27/20 14:00 Intake & Output 11/26/20 11/27/20 11/27/20 18:59 06:59 18:59 Intake Total 200 Balance 200 Intake: Oral 200 Other: Voiding Method Toilet Toilet # Voids 3 3 - Exam GENERAL EXAM: Alert, very pleasant, 60-year-old white female, on 3 L of oxygen with pulse ox of 99% comfortable in no apparent distress. HEAD: Normocephalic/atraumatic. EYES: Normal reaction of pupils, equal size. Conjunctiva pink, sclera white. NOSE: Clear with pink turbinates. THROAT: No erythema or exudates. NECK: No masses, no JVD, no thyroid enlargement, no adenopathy. CHEST: No chest wall deformity. Symmetrical expansion. LUNGS: Equal air entry with no crackles, wheeze, rhonchi or dullness. CVS: Regular rate and rhythm, normal S1 and S2, no gallops, no murmurs, no rubs ABDOMEN: Soft, nontender. No hepatosplenomegaly, normal bowel sounds, no guarding or rigidity. EXTREMITIES: No clubbing, no edema, no cyanosis, 2+ pulses and upper and lower extremities. MUSCULOSKELETAL: Muscle strength and tone normal. SPINE: No scoliosis or deformity SKIN: No rashes CENTRAL NERVOUS SYSTEM: Alert and oriented -3. No focal deficits, tone is normal in all 4 extremities. PSYCHIATRIC: Alert and oriented -3. Appropriate affect. Intact judgment and insight. - Labs CBC & Chem 7: 11/27/20 09:02 11/23/20 15:43 Labs: Abnormal Lab Results - Last 24 Hours (Table) 11/26/20 11/27/20 11/27/20 Range/Units 20:07 07:08 09:02 Immature Gran # 0.10 H (0.00-0.04) X 10*3/uL Neutrophils # 8.00 H (1.80-7.70) X 10*3/uL Eosinophils # 0 L (0.04-0.35) X 10*3/uL POC Glucose (mg/dL) 160 H 160 H (75-99) mg/dL 11/27/20 Range/Units 11:34 Immature Gran # (0.00-0.04) X 10*3/uL Neutrophils # (1.80-7.70) X 10*3/uL Eosinophils # (0.04-0.35) X 10*3/uL POC Glucose (mg/dL) 115 H (75-99) mg/dL Microbiology - Last 24 Hours (Table) 11/23/20 15:55 Blood Culture - Preliminary Blood No Growth after 72 hours Assessment and Plan Plan: Assessment: 1 Acute exacerbation of chronic obstructive pulmonary disease 2 Chronic and ongoing tobacco dependence of greater than 40 years 3 History of neuroendocrine carcinoma of the left lung status post wedge resection, chemotherapy/radiation in 2018 4 History of anxiety/depression 5 History of CVA in 2003 6 Hyperlipidemia Plan: None quite ready for discharge, continue current medical treatment including IV steroids, bronchodilators, empiric antibiotics, follow-up chest x-ray has been reviewed showing background of COPD, and no acute pulmonary process. We'll continue to increase her activity as tolerated, will follow I performed a history & physical examination of the patient and discussed their management with my nurse practitioner, Yarely Wilder. I reviewed the nurse practitioner's note and agree with the documented findings and plan of care. Lung sounds are positive for diminished breath sounds. The findings and the impression was discussed with the patient. I attest to the documentation by the nurse practitioner. Time with Patient: Less than 30
[2020-11-27 17:02] LABS: Glucose,Whole Blood 159 mg/dL (75-99)
[2020-11-27 20:31] LABS: Glucose,Whole Blood 127 mg/dL (75-99)
[2020-11-27] MEDS: CYCLOBENZAPRINE 10 MG TAB PO SCH (21:38)
[2020-11-27] MEDS: traZODone HCL 50 MG TAB PO SCH (21:38)
[2020-11-27] MEDS: QUEtiapine 100 MG TAB PO SCH (21:38)
[2020-11-27] MEDS: ATORVASTATIN 10 MG TAB PO SCH (21:38)
[2020-11-28] MEDS: IPRATROPIUM-ALBUTEROL 3 ML NEB INHALATION SCH ×5 (00:48→15:13)
[2020-11-28 07:26] LABS: Glucose,Whole Blood 139 mg/dL (75-99)
[2020-11-28] MEDS: LEVOFLOXACIN 500 MG TAB PO SCH (07:29)
[2020-11-28] MEDS: CLOPIDOGREL 75 MG TAB PO SCH (07:29)
[2020-11-28] MEDS: SERTRALINE 100 MG TAB PO SCH (07:29)
[2020-11-28] MEDS: PANTOPRAZOLE 40 MG TABLET PO SCH (07:29)
[2020-11-28] MEDS: methylPREDNISolone SOD SUCCI 40 MG/ML 1 ML VIAL IV SCH (07:30)
[2020-11-28] MEDS: OXYBUTYNIN XL 5 MG TAB.ER.24 PO SCH (07:30)
[2020-11-28] MEDS: ASPIRIN 81 MG PO SCH (07:30)
[2020-11-28] MEDS: NON FORMULARY DRUG (Mirabegron [Myrbetriq] 25 MG Tab.Er.24h) PO SCH (07:30)
[2020-11-28] MEDS: ENOXAPARIN 40 MG/0.4 ML SYRINGE SQ SCH (07:31)
[2020-11-28] MEDS: ARIPiprazole 5 MG TAB PO SCH (07:31)
[2020-11-28] MEDS: guaiFENesin-DM 600/30MG 1 EACH TAB.ER.12H PO SCH (07:31)
[2020-11-28] MEDS: INSULIN ASPART (NovoLOG) 100 UNIT/ML VIAL SQ SCH ×2 (07:45→11:59)
[2020-11-28 08:10] VITALS: BP 129/82; RESP 16; TEMP 97.9
[2020-11-28] MEDS: SYMBICORT 80-4.5 MCG INHALER INHALATION SCH (09:18)
--- NOTE | 2020-11-28 09:30 | P.DS ---
Providers Date of admission: 11/23/20 17:33 Expected date of discharge: 11/28/20 Attending physician: Niranjan Freed MD Consults: 11/23/20 17:33 Consult Physician Routine Consulting Provider: Nina Elkins Consult Reason/Comments: COPD Exacerbation, tracheobronchitis, history of lung cancer Do you want consulting provider notified?: Yes Primary care physician: Niranjan Freed MD Hospital Course: Final Diagnoses: Acute COPD exacerbation History of neuroendocrine tumor status post left lung wedge resection with chemotherapy, radiation in 2018 Anxiety Depression Chronic CVA Hyperlipidemia Hospital course:Since a 60-year-old female with past medical history of neuroendocrine carcinoma of the left lung status post wedge resection, chemotherapy, radiation 2018 ,admitted with acute COPD exacerbation and multiple other medical issues. Maintained on IV steroids, nebulized bronchodilators, Levaquin. Blood sugars controlled .Ambulating back from bathroom to bed, compl aining of exertional shortness of breath. Requiring 3 L nasal cannula O2 to maintain O2 sats in the 90s. She states she does not wear oxygen at home. Afebrile. Denies chest pain or palpitations. Significant clinical improvement. Reports less shortness of breath, minimal wheezing. Maintaining O2 sats in the 90s on 3 L nasal cannula. Denies chest pain, palpitations. Discussed discharging on tapering steroid and will increase at bedtime dose of Seroquel to 200 mg every at bedtime-while on steroids. Patient will be discharged home today pending final DC recommendations and clearance from pulmonary. The impression and plan of care has been dictated as directed. : I performed a history and examination of this patient, discussed the same with the dictator. I agree with the dictator's note ,documented as a scribe. Any additional findings or plans will be noted. Patient Condition at Discharge: Stable Plan - Discharge Summary Discharge Rx Participant: No New Discharge Prescriptions: New Ipratropium-Albuterol Nebulize [Duoneb 0.5 mg-3 mg/3 ml Soln] 3 ml INHALATION QID #120 ml Levofloxacin [Levaquin] 500 mg PO DAILY #2 tab guaiFENesin-DM 600/30MG [Mucinex Dm] 1 each PO Q12HR tab.er.12h predniSONE 10 mg PO DIRECTED #30 tab Pantoprazole [Protonix] 40 mg PO DAILY@0730 #30 [address] Thompson ARIPiprazole [Abilify] 5 mg PO HS Sertraline [Zoloft] 100 mg PO DAILY Clopidogrel [Plavix] 75 mg PO DAILY Cyclobenzaprine [Flexeril] 10 mg PO HS Albuterol Inhaler [Ventolin Hfa Inhaler] 1 puff INHALATION RT-Q6H PRN PRN Reason: Shortness Of Breath Oxybutynin Chloride [Ditropan XL] 5 mg PO DAILY Mirabegron [Myrbetriq] 25 mg PO DAILY Atorvastatin [Lipitor] 10 mg PO HS Fluticasone/Umeclidin/Vilanter [Trelegy Ellipta 100-62.5-25] 2 puff INHALATION RT-DAILY Cyclobenzaprine [Flexeril] 10 mg PO DAILY PRN PRN Reason: Muscle Spasm Magnesium Oxide 400 mg PO DAILY Cyanocobalamin (Vitamin B-12) [Vitamin B-12] 1,000 mcg PO DAILY Aspirin EC [Ecotrin Low Dose] 81 mg PO DAILY Changed QUEtiapine [SEROquel] 200 mg PO HS #30 tab Discharge Medication List ARIPiprazole [Abilify] 5 mg PO HS 03/10/17 [History] Clopidogrel [Plavix] 75 mg PO DAILY 01/13/18 [History] Cyclobenzaprine [Flexeril] 10 mg PO HS 01/13/18 [History] Sertraline [Zoloft] 100 mg PO DAILY 01/13/18 [History] Albuterol Inhaler [Ventolin Hfa Inhaler] 1 puff INHALATION RT-Q6H PRN 03/20/20 [History] Atorvastatin [Lipitor] 10 mg PO HS 03/20/20 [History] Fluticasone/Umeclidin/Vilanter [Trelegy Ellipta 100-62.5-25] 2 puff INHALATION RT-DAILY 03/20/20 [History] Mirabegron [Myrbetriq] 25 mg PO DAILY 03/20/20 [History] Oxybutynin Chloride [Ditropan XL] 5 mg PO DAILY 03/20/20 [History] Aspirin EC [Ecotrin Low Dose] 81 mg PO DAILY 11/23/20 [History] Cyanocobalamin (Vitamin B-12) [Vitamin B-12] 1,000 mcg PO DAILY 11/23/20 [History] Cyclobenzaprine [Flexeril] 10 mg PO DAILY PRN 11/23/20 [History] Magnesium Oxide 400 mg PO DAILY 11/23/20 [History] Ipratropium-Albuterol Nebulize [Duoneb 0.5 mg-3 mg/3 ml Soln] 3 ml INHALATION QID #120 ml 11/28/20 [Rx] Levofloxacin [Levaquin] 500 mg PO DAILY #2 tab 11/28/20 [Rx] Pantoprazole [Protonix] 40 mg PO DAILY@0730 #30 tablet.dr 11/28/20 [Rx] QUEtiapine [SEROquel] 200 mg PO HS #30 tab 11/28/20 [Rx] guaiFENesin-DM 600/30MG [Mucinex Dm] 1 each PO Q12HR tab.er.12h 11/28/20 [Rx] predniSONE 10 mg PO DIRECTED #30 tab 11/28/20 [Rx] Follow up Appointment(s)/Referral(s): Niranjan Freed MD [Primary Care Provider] - 12/01/20 12:00 pm (At [place] location) Nina Elkins MD [STAFF PHYSICIAN] - 12/18/20 1:15 pm Activity/Diet/Wound Care/Special Instructions: O2 sat on room air after ambulation 87%. Patient requiring nebulized bronchodilators at discharge, O2 sat on room air after ambulation 87%.
[2020-11-28 11:22] LABS: Basophils # (A) 0.01 X 10*3/uL (0.00-0.10); Basophils % (A) 0.1 %; Eosinophils # (A) 0 X 10*3/uL (0.04-0.35); Eosinophils % (A) 0 %; HCT 41.5 % (37.2-46.3); HGB 13.5 g/dL (12.0-15.0); Lymphocytes # (A) 0.84 X 10*3/uL (0.90-5.00); Lymphocytes % (A) 10.1 %; MCH 29.2 pg (27.0-32.0); MCHC 32.5 g/dL (32.0-37.0); MCV 89.6 fL (80.0-97.0); Monocytes # (A) 0.47 X 10*3/uL (0.20-1.00); Monocytes % (A) 5.6 %; Neutrophils # (A) 6.94 X 10*3/uL (1.80-7.70); Neutrophils % (A) 83.1 %; Platelet Count 199 X 10*3/uL (140-440); RBC 4.63 X 10*6/uL (4.10-5.20); RDW 14.2 % (11.5-14.5); WBC 8.35 X 10*3/uL (4.50-10.00)
[2020-11-28 11:41] LABS: African American GFR (CKD) 92.9 (60.0-200.0); Anion Gap 5.1 mmol/L (4.00-12.00); BUN/Creat Ratio 22.5 Ratio (12.00-20.00); Calcium 8.3 mg/dL (8.7-10.3); Carbon Dioxide 33.9 mmol/L (21.6-31.8); Non-African American GFR(CKD) 80.1 (60.0-200.0); Potassium 4.3 mmol/L (3.5-5.5)
[2020-11-28 11:46] LABS: Glucose,Whole Blood 134 mg/dL (75-99)
[2020-11-28 12:25] VITALS: PULSE 88
--- NOTE | 2020-11-28 16:31 | P.PN ---
Subjective Progress Note Date: 11/28/20 Principal diagnosis: Acute exacerbation of COPD This is a 60-year-old female patient with a history of hyperlipidemia, CVA/TIA, anxiety/depression. 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 She had undergone a left upper lobe resection and chemo/radiation. She follows with Dr. Tavarez. She follows with Dr. Elkins in our office. She does have significant chronic obstructive pulmonary disease in a 40+ year smoking history. She is still smoking. She presented here to the emergency room yesterday with complaints of increasing shortness of breath, cough and congestion. Chest x-ray shows no acute pulmonary process. White count 7.7. Hemoglobin 15.5. Sodium 136. Potassium 4.4. Creatinine 0.65. ProBNP 117. Morris virus not detected. She is seen today in consultation on the regular medical floor. She is currently sitting up at the bedside. Awake and alert in no acute distress. Maintaining good O2 saturations in the 90s on 2 L/m per nasal cannula. She's been initiated on DuoNeb inhalations, Symbicort, IV Solu-Medrol. The patient is seen today 11/25/2020 in follow-up on the regular medical floor. She is sitting up in bed. Awake and alert in no acute distress. Maintaining O2 saturations in the 90s on 2 L/m per nasal cannula. She states she is breathing about the same today compared to yesterday. Not much improvement. Not worse. Blood culture reveals no growth to date. Glucose 124. Remains on IV Solu- Medrol, bronchodilators, Levaquin. 11/26/2020 the patient is still struggling with her breathing. She is short of breath bronchospastic and wheezy and she has had minimal recovery for now. She is on Symbicort and DuoNeb nebulized treatments 4 times a day and she started on IV Solu Medrol 60 mg every 6 hours and she is on oxygen at 2 L per minute nasal cannula. She has 60-[id number] smoking history and she has COPD with an FEV1 of 50% of predicted. She has CVA/TIA, chronic anxiety/depression and previous history of lung cancer diagnosed in 2018 and she underwent a resection and the pathology was consistent with neuroendocrine carcinoma with positive lymph nodes and she underwent a left upper lobe resection followed by chemoradiation therapy. She is still under the care of Dr. Tavarez. Her Covid 19 testing was negative. The chest x-ray showed hyperinflation without any acute abnormalities. On 9 11/27/2020 patient seen in follow-up on medical floor, she is doing better, breathing easier, although still dyspneic and bronchospastic, and not quite ready for discharge, she continues on steroids in the form of IV Solu-Medrol 40 mg twice daily, nebulized bronchodilators, she is on Levaquin for empiric antibiotic coverage. His labs have been noted, no leukocytosis, hemoglobin is 13. Blood cultures have shown no growth. She has had no fever or chills, taste chest x-ray showed COPD, and no evidence of acute pulmonary process. On 11/28/2020 patient seen in follow-up. She is currently down to 3 L of oxygen, her pulse ox of 90%, this can probably be further wean down, she is breathing easier today, she sounds and feels much better. Vital signs have been stable overnight, she continues on steroids, bronchodilators, and empiric ant ibiotics, she has had no fever or chills. Follow-up chest x-ray yesterday showed no acute pulmonary process. She has been tolerating ambulation. Objective - Vital Signs Vital signs: Vital Signs Temp 97.9 F 11/28/20 08:00 Pulse 88 11/28/20 15:25 Resp 16 11/28/20 08:00 BP 129/82 11/28/20 08:00 Pulse Ox 98 11/28/20 10:27 Intake & Output 11/27/20 11/28/20 11/28/20 18:59 06:59 18:59 Other: Voiding Method Toilet Toilet Toilet # Voids 2 - Exam GENERAL EXAM: Alert, very pleasant, 60-year-old white female, on 3 L of oxygen with pulse ox of 99% comfortable in no apparent distress. HEAD: Normocephalic/atraumatic. EYES: Normal reaction of pupils, equal size. Conjunctiva pink, sclera white. NOSE: Clear with pink turbinates. THROAT: No erythema or exudates. NECK: No masses, no JVD, no thyroid enlargement, no adenopathy. CHEST: No chest wall deformity. Symmetrical expansion. LUNGS: Equal air entry with no crackles, wheeze, rhonchi or dullness. CVS: Regular rate and rhythm, normal S1 and S2, no gallops, no murmurs, no rubs ABDOMEN: Soft, nontender. No hepatosplenomegaly, normal bowel sounds, no guarding or rigidity. EXTREMITIES: No clubbing, no edema, no cyanosis, 2+ pulses and upper and lower extremities. MUSCULOSKELETAL: Muscle strength and tone normal. SPINE: No scoliosis or deformity SKIN: No rashes CENTRAL NERVOUS SYSTEM: Alert and oriented -3. No focal deficits, tone is normal in all 4 extremities. PSYCHIATRIC: Alert and oriented -3. Appropriate affect. Intact judgment and insight. - Labs CBC & Chem 7: 11/28/20 06:21 11/28/20 06:21 Labs: Abnormal Lab Results - Last 24 Hours (Table) 11/27/20 11/27/20 11/28/20 Range/Units 17:01 20:29 06:21 Immature Gran # 0.09 H (0.00-0.04) X 10*3/uL Lymphocytes # 0.84 L (0.90-5.00) X 10*3/uL Eosinophils # 0 L (0.04-0.35) X 10*3/uL Carbon Dioxide (21.6-31.8) mmol/L BUN/Creatinine Ratio (12.00-20.00) Ratio Glucose (70-110) mg/dL POC Glucose (mg/dL) 159 H 127 H (75-99) mg/dL Calcium (8.7-10.3) mg/dL 11/28/20 11/28/20 11/28/20 Range/Units 06:21 07:25 11:45 Immature Gran # (0.00-0.04) X 10*3/uL Lymphocytes # (0.90-5.00) X 10*3/uL Eosinophils # (0.04-0.35) X 10*3/uL Carbon Dioxide 33.9 H (21.6-31.8) mmol/L BUN/Creatinine Ratio 22.50 H (12.00-20.00) Ratio Glucose 116 H (70-110) mg/dL POC Glucose (mg/dL) 139 H 134 H (75-99) mg/dL Calcium 8.3 L (8.7-10.3) mg/dL Microbiology - Last 24 Hours (Table) 11/23/20 15:55 Blood Culture - Preliminary Blood No Growth after 96 hours Assessment and Plan Plan: Assessment: 1 Acute exacerbation of chronic obstructive pulmonary disease 2 Chronic and ongoing tobacco dependence of greater than 40 years 3 History of neuroendocrine carcinoma of the left lung status post wedge resection, chemotherapy/radiation in 2018 4 History of anxiety/depression 5 History of CVA in 2003 6 Hyperlipidemia Plan: Patient is improving, tolerating ambulation, FiO2 down to 3 L, obtain home oxygen assessment, patient is feeling and sounding much better, she said no fever or chills, no worsening dyspnea and hypoxia, she is being discharged home today, she can complete outpatient course of antibiotics and prednisone taper. She can follow up with Dr. Elkins in 7-10 days. I performed a history & physical examination of the patient and discussed their management with my nurse practitioner, Yarely Wilder. I reviewed the nurse practitioner's note and agree with the documented findings and plan of care. Lung sounds are positive for diminished breath sounds. The findings and the impression was discussed with the patient. I attest to the documentation by the nurse practitioner. Time with Patient: Less than 30
== END 2020-11-28 15:51 | disposition home or self-care (01) | DRG 191 ==
LOC: EC 14:48 → 4SSUR 17:33
PROVIDERS: ADMIT Family Medicine; ATTEND Family Medicine
DX: J44.1 Chronic obstructive pulmonary disease with (acute) exacerbation (principal); F33.9 Major depressive disorder, recurrent, unspecified; E78.5 Hyperlipidemia, unspecified; F41.9 Anxiety disorder, unspecified; K21.9 Gastro-esophageal reflux disease without esophagitis; Z20.822 Contact with and (suspected) exposure to COVID-19; Z85.118 Personal history of other malignant neoplasm of bronchus and lung; Z90.710 Acquired absence of both cervix and uterus; Z92.3 Personal history of irradiation; Z92.21 Personal history of antineoplastic chemotherapy; Z79.82 Long term (current) use of aspirin; Z79.899 Other long term (current) drug therapy; Z80.1 Family history of malignant neoplasm of trachea, bronchus and lung; Z79.02 Long term (current) use of antithrombotics/antiplatelets; F17.210 Nicotine dependence, cigarettes, uncomplicated; I69.398 Other sequelae of cerebral infarction; M21.379 Foot drop, unspecified foot; Z88.5 Allergy status to narcotic agent; Z91.041 Radiographic dye allergy status
CPT/HCPCS: 36415; 71046; 80048; 80053; 82550; 83605; 83735; 83880; 84484; 85025; 85610; 85730; 87040; 87635; 93005; 94640; 96361; 96374; 99291

== ENCOUNTER → 2021-01-04 | Outpatient (CLI) | payer MEDICARE, OTHER ==
--- NOTE | 2021-01-04 15:00 | MR ---
EXAMINATION TYPE: MR brain wo/w con DATE OF EXAM: 01/04/2021 2:48 PM COMPARISON: 09/30/2020 HISTORY: Follow up treatment for lung cancer and headaches. CONTRAST: Patient received 6.5 mL intravenous Gadavist gadolinium contrast. Multiplanar and multispin-echo imaging of the brain was performed . Pre and post contrast enhanced i mages are obtained. The ventricles, basal cisterns and sulci overlying the cerebral convexities are mildly enlarged. There is evidence of mild periventricular white matter ischemic demyelination. Old large lacunar inf arct in the right internal capsule. Remote deep white matter insults are also noted. No acute edema is seen on diffusion weighted imaging. There is no evidence for midline shift or mass effect. Acute intracranial hemorrhage or extra-axial collection is not evident. No enhancing lesions are seen. The paranasal sinuses and mastoid air cells are well-aerated. IMPRESSION: Age-related atrophic and chronic small vessel ischemic change. No acute intracranial process at this time. No enhancing lesions are seen.
== END | disposition home or self-care (01) ==
LOC: RADMRIMAIN 13:44
PROVIDERS: ATTEND Radiology Radiation Oncology
DX: C34.12 Malignant neoplasm of upper lobe, left bronchus or lung (principal); I67.82 Cerebral ischemia
CPT/HCPCS: 70553; A9585

== ENCOUNTER → 2021-01-08 | Outpatient (CLI) | payer MEDICARE, OTHER ==
--- NOTE | 2021-01-08 11:52 | CT ---
EXAMINATION TYPE: CT ChestAbdPelvis wo con DATE OF EXAM: 01/08/2021 COMPARISON: 02/04/2020 HISTORY: Follow up scan per patient. CT DLP: 612.2mGycm Unenhanced CT of the Chest, Abdomen and Pelvis Unenhanced CT of the chest ,abdomen and pelvis is performed. The lack of intravenous contrast limits evaluation of the solid and hollow viscera. Oral contrast: Yes CT Chest: LUNGS: Postoperative change of a partial left upper lobectomy is again seen with sutures at the lung apex and multifocal scarring along the left mediastinal border. There is a new density left suprahila r region medially measuring 3.2 x 1.2 cm could reflect enlarging scar although underlying lesion is n ot excluded. Nodule right upper lobe anteriorly image 40 measuring 2.5 mm. Stable 3 mm nodular density right upper lobe image 24. New pleural-based nodularity left upper lobe measuring 4.5 mm image 25. Small 3 mm le ft upper lobe pulmonary nodule is also new image 26. MEDIASTINUM: Thoracic aorta is of normal caliber. The heart is not enlarged. No evidence for media stinal mass or adenopathy. HILAR STRUCTURES: No evidence for mass. No hilar adenopathy is appreciated. OTHER: No significant abnormality. CONTRAST CT ABDOMEN AND PELVIS: LIVER/GB: The gallbladder is surgically absent. No space occupying hepatic lesion. Biliary tree is of normal caliber. PANCREAS: No inflammation. No distinct mass. SPLEEN: No splenic enlargement. No lesion seen. ADRENALS: No nodule. No thickening. KIDNEYS/BLADDER: No hydronephrosis. Left-sided extrarenal pelvis. Nonobstructing nephrolithiasis lo wer pole left kidney unchanged from prior study. No distinct renal mass. BOWEL: Normal appendix. Normal bowel caliber. No inflammation. GENITAL ORGANS: No gross abnormality. LYMPH NODES: No greater than 1cm abdominal or pelvic lymph nodes are appreciated AORTA: No significant abnormality. OSSEOUS STRUCTURES: Severe degenerative change L4-5 with endplate sclerosis. OTHER: No significant additional abnormality is seen. IMPRESSION: 1. New area of soft tissue left suprahilar region medially may reflect parenchymal scarring however I cannot exclude tumor recurrence or underlying neoplasm. Correlate with PET/CT. 2. A few new scattered pulmonary nodules are nonspecific. Metastatic disease not excluded.
== END | disposition home or self-care (01) ==
LOC: RADCTMAIN 10:56
PROVIDERS: ATTEND Radiology Radiation Oncology
DX: C34.12 Malignant neoplasm of upper lobe, left bronchus or lung (principal); R91.8 Other nonspecific abnormal finding of lung field; L90.5 Scar conditions and fibrosis of skin; Z90.49 Acquired absence of other specified parts of digestive tract
CPT/HCPCS: 71250; 74176

== ENCOUNTER 2021-02-13 18:23 | Observation (INO) | payer MEDICARE, OTHER ==
[2021-02-13] MEDS ORDERED: ASPIRIN 81 MG PO STA (18:25)
[2021-02-13 19:38] LABS: Basophils % (A) 1 %; Eosinophils # (A) 0.3 k/uL (0-0.7); Eosinophils % (A) 5 %; HGB 10.1 gm/dL (11.4-16.0); Lymphocytes # (A) 1.2 k/uL (1.0-4.8); Lymphocytes % (A) 23 %; MCH 30.3 pg (25.0-35.0); MCHC 32.5 g/dL (31.0-37.0); MCV 93.3 fL (80.0-100.0); Mean Platelet Volume 6.2; Monocytes # (A) 0.2 k/uL (0-1.0); Monocytes % (A) 5 %; Neutrophils # (A) 3.2 k/uL (1.3-7.7); Neutrophils % (A) 64 %; Platelet Count 269 k/uL (150-450); RBC 3.33 m/uL (3.80-5.40); WBC 5.1 k/uL (3.8-10.6)
[2021-02-13 19:44] LABS: ALT 17 U/L (4-34); AST 20 U/L (14-36); African American GFR (CKD) >90 (>60 ml/min/1.73 sqM); Albumin 3.5 g/dL (3.5-5.0); Alkaline Phosphatase 92 U/L (38-126); Anion Gap 5 mmol/L; Blood Urea Nitrogen 17 mg/dL (7-17); Calcium 8.9 mg/dL (8.4-10.2); Carbon Dioxide 30 mmol/L (22-30); Chloride 103 mmol/L (98-107); Glucose 117 mg/dL (74-99); Magnesium 1.9 mg/dL (1.6-2.3); Non-African American GFR(CKD) >90 (>60 ml/min/1.73 sqM); Potassium 4.1 mmol/L (3.5-5.1); Sodium 138 mmol/L (137-145); Total Bilirubin 0.2 mg/dL (0.2-1.3); Total Protein 5.6 g/dL (6.3-8.2)
[2021-02-13 19:57] LABS: INR 0.9 (<1.2); Prothrombin Time 9.4 sec (9.0-12.0)
--- NOTE | 2021-02-13 20:06 | XR ---
EXAMINATION TYPE: XR chest 2V DATE OF EXAM: 02/13/2021 COMPARISON: 11/27/2020 HISTORY: Chest pain TECHNIQUE: FINDINGS: Heart and mediastinum are normal. Lungs are clear of infiltrate. There are chest leads. Cos tophrenic angles are clear. Bony thorax appears intact. IMPRESSION: No active cardiopulmonary disease. No change.
--- NOTE | 2021-02-13 20:07 | ED ---
Chest Pain HPI - General Chief Complaint: Chest Pain Stated Complaint: Chest Pain Time Seen by Provider: 02/13/21 18:25 Source: EMS Mode of arrival: EMS - History of Present Illness Initial Comments: Patient complains of chest pain. Nothing makes the pain better or worse. The pain is in the middle of the chest. She took no medicine for this. She denies any sick contacts. She has no palpitations. She has no weakness. She has no lightheadedness. She has no nausea or vomiting. She has no back pain. She has no pain or swelling in the arms or legs. She has no headache. She did not pass out. The pain doesn't radiate anywhere. She wasn't doing anything when this began. - Related Data Home Medications Medication Instructions Recorded Confirmed ARIPiprazole [Abilify] 5 mg PO HS@209903/10/17 02/13/21 Clopidogrel [Plavix] 75 mg PO DAILY@0800 01/13/18 02/13/21 Sertraline [Zoloft] 100 mg PO DAILY@0801/13/18 02/13/21 Atorvastatin [Lipitor] 10 mg PO HS@209903/20/20 02/13/21 Mirabegron [Myrbetriq] 25 mg PO DAILY@0803/20/20 02/13/21 Aspirin EC [Ecotrin Low Dose] 81 mg PO DAILY@0800 11/23/20 02/13/21 Magnesium Oxide 400 mg PO DAILY@0800 11/23/20 02/13/21 ALPRAZolam [Xanax] 0.25 mg PO HS PRN 02/13/21 02/13/21 Budesonide/Formoterol Fumarate 2 puff INHALATION RT-BID@0800,209902/13/21 02/13/21 [Symbicort 160-4.5 Mcg Inhaler] Docusate [Colace] 100 mg PO BID@0800,1700 02/13/21 02/13/21 HYDROcodone/APAP 7.5-325MG [[place] 1 tab PO Q4H PRN 02/13/21 02/13/21 7.5-325] Hydrocortisone Cream 1 applic TOPICAL BID PRN 02/13/21 02/13/21 [Hydrocortisone 2.5% Cream] Ipratropium-Albuterol Nebulize 3 ml INHALATION RT-Q6H PRN 02/13/21 02/13/21 [Duoneb 0.5 mg-3 mg/3 ml Soln] Ipratropium-Albuterol Nebulize 3 ml INHALATION RT-QID 02/13/21 02/13/21 [Duoneb 0.5 mg-3 mg/3 ml Soln] Magnesium Hydroxide [Milk of 7,200 mg PO DAILY PRN 02/13/21 02/13/21 Magnesia Concentrate] Na Phos,M-B/Na Phos,Di-Ba [Fleet 133 ml RECTAL DAILY PRN 02/13/21 02/13/21 Adult] Ondansetron [Zofran] 4 mg PO Q8HR PRN 02/13/21 02/13/21 Pantoprazole [Protonix] 40 mg PO DAILY@0600 02/13/21 02/13/21 QUEtiapine [SEROquel] 200 mg PO HS@2100 02/13/21 02/13/21 Vitamin B Complex 1 cap PO DAILY@0800 02/13/21 02/13/21 bisacodyL [Dulcolax] 10 mg RECTAL DAILY PRN 02/13/21 02/13/21 polyethylene glycoL 3350 [Miralax] 17 gm PO DAILY@0800 02/13/21 02/13/21 Allergies Allergy/AdvReac Type Severity Reaction Status Date / Time codeine AdvReac Nausea & Verified 02/13/21 20:21 Vomiting & Diarrhea Iodinated Contrast Media AdvReac Rash/Hives Verified 02/13/21 20:21 Review of Systems ROS Statement: Those systems with pertinent positive or pertinent negative responses have been documented in the HPI. ROS Other: All systems not noted in ROS Statement are negative. EKG Findings - EKG Comments: EKG Findings:: Twelve-lead EKG shows ventricular rate 101 bpm, normal UT interval and QRS complexes, no ST elevation or depression, interpreted by me as sinus tachycardia. Past Medical History Past Medical History: Cancer, COPD, CVA/TIA, Hyperlipidemia, Myocardial Infarction (MS) Additional Past Medical History / Comment(s): Rt sided CVA 2003 with foot drop. smoker 2 ppd since age 16 (40+ yrs), aspirated, MS, cardiac arrest, History of Any Multi-Drug Resistant Organisms: None Reported Past Surgical History: Appendectomy, Cholecystectomy, Hysterectomy, Tonsillectomy Additional Past Surgical History / Comment(s): recent thorascopic biopsy left mediastinal masses 01/21/18/. pneumectomy Past Anesthesia/Blood Transfusion Reactions: No Reported Reaction Past Psychological History: Anxiety, Depression Smoking Status: Former smoker Past Alcohol Use History: None Reported Past Drug Use History: Marijuana - Past Family History Father Family Medical History: Cancer Additional Family Medical History / Comment(s): Her father had bone cancer Mother Family Medical History: CVA/TIA Additional Family Medical History / Comment(s): aneurysm, heart problems General Exam General appearance: alert, in no apparent distress Head exam: Present: atraumatic, normocephalic, normal inspection Eye exam: Present: normal appearance, PERRL, EOMI. Absent: scleral icterus, conjunctival injection, periorbital swelling ENT exam: Present: normal exam, mucous membranes moist Neck exam: Present: normal inspection. Absent: tenderness, meningismus, lymphadenopathy Respiratory exam: Present: normal lung sounds bilaterally. Absent: respiratory distress, wheezes, rales, rhonchi, stridor Cardiovascular Exam: Present: regular rate, normal rhythm, normal heart sounds. Absent: systolic murmur, diastolic murmur, rubs, gallop, clicks GI/Abdominal exam: Present: soft, normal bowel sounds. Absent: distended, tenderness, guarding, rebound, rigid Extremities exam: Present: normal inspection, full ROM, normal capillary refill. Absent: tenderness, pedal edema, joint swelling, calf tenderness Back exam: Present: normal inspection Neurological exam: Present: alert, oriented X3, CN II-XII intact Psychiatric exam: Present: normal affect, normal mood Skin exam: Present: warm, dry, intact, normal color. Absent: rash Course Vital Signs 02/13/21 02/13/21 02/13/21 18:24 18:58 19:28 Temperature 98.1 F 98.2 F Pulse Rate 101 H 98 91 Respiratory 18 20 18 Rate Blood Pressure 103/68 92/72 91/68 O2 Sat by Pulse 97 98 98 Oximetry Chest Pain MDM - Core Measures AMI Core Measures Followed: Yes - MDM Patient presents with chest pain. Her troponin is negative. She still has ongoing chest pain, so I will at that the patient. Disposition Clinical Impression: Chest pain Disposition: ADMITTED IP TO THIS HOSP Condition: Fair Referrals: Herman Pinon MD [Primary Care Provider] - 1-2 days
[2021-02-13] MEDS ORDERED: NALOXONE 0.4 MG/ML 1 ML VIAL IV PRN (20:48)
[2021-02-13] MEDS ORDERED: IPRATROPIUM-ALBUTEROL 3 ML NEB INHALATION PRN (20:49)
[2021-02-13] MEDS ORDERED: bisacodyL 10 MG SUPP RECTAL PRN (20:49)
[2021-02-13] MEDS ORDERED: ARIPiprazole 5 MG TAB PO SCH (22:30)
[2021-02-13] MEDS ORDERED: QUEtiapine 100 MG TAB PO SCH (22:30)
[2021-02-13] MEDS ORDERED: HYDROCORTISONE 1% CREAM 30 GM TUBE TOPICAL PRN (22:30)
[2021-02-13] MEDS ORDERED: ATORVASTATIN 10 MG TAB PO SCH (22:30)
[2021-02-13 22:53] VITALS: RESP 20
[2021-02-14] MEDS: SYMBICORT 160-4.5 MCG INHALER INHALATION SCH ×2 (03:37→07:41)
[2021-02-14] MEDS ORDERED: PANTOPRAZOLE 40 MG TABLET PO SCH (06:00)
[2021-02-14] MEDS ORDERED: HYDROcodone/APAP 7.5-325MG 1 EACH TAB PO PRN (06:26)
[2021-02-14] MEDS: IPRATROPIUM-ALBUTEROL 3 ML NEB INHALATION SCH ×3 (07:41→16:00)
[2021-02-14] MEDS ORDERED: polyethylene glycoL 3350 17 GM POWD.PACK PO SCH (08:00)
[2021-02-14] MEDS ORDERED: ASPIRIN 81 MG PO SCH (08:00)
[2021-02-14] MEDS ORDERED: MAGNESIUM OXIDE 400 MG TAB PO SCH (08:00)
[2021-02-14] MEDS ORDERED: CLOPIDOGREL 75 MG TAB PO SCH (08:00)
[2021-02-14] MEDS ORDERED: SERTRALINE 100 MG TAB PO SCH (08:00)
[2021-02-14] MEDS ORDERED: NON FORMULARY DRUG (Mirabegron [Myrbetriq] 25 MG Tab.Er.24h) PO SCH (08:00)
[2021-02-14] MEDS: DOCUSATE 100 MG CAP PO SCH ×2 (08:23→16:54)
--- NOTE | 2021-02-14 12:01 | ECHOF ---
Referral Reason:Chest pain MEASUREMENTS -------- HEIGHT: 162.6 cm WEIGHT: 71.7 kg BP: RVIDd: 2.1 cm (< 3.3) IVSd: 0.9 cm (0.6 - 1.1) LVIDd: 4.7 cm (3.9 - 5.3) LVPWd: 1.2 cm (0.6 - 1.1) IVSs: 1.8 cm LVIDs: 2.0 cm LVPWs: 1.6 cm LAESV Index (A-L): 22.23 ml/m Ao Diam: 3.1 cm (2.0 - 3.7) AV Cusp: 2.4 cm (1.5 - 2.6) LA Diam: 3.2 cm (2.7 - 3.8) MV EXCURSION: 16.659 mm (> 18.000) MV EF SLOPE: 120 mm/s (70 - 150) EPSS: 0.8 cm MV E Manpreet: 0.84 m/s MV DecT: 160 ms MV A Manpreet: 1.02 m/s MV E/A Ratio: 0.82 RAP: 5.00 mmHg RVSP: 11.97 mmHg FINDINGS -------- This was a technically difficult study with suboptimal views. The left ventricular size is normal. There is mild concentric left ventricular hypertrophy. Overa ll left ventricular systolic function is normal with, an EF between 55 - 60 %. The diastolic fillin g pattern is normal for the age of the patient 11.76. The right ventricle is normal in size. The left atrial size is normal. Normal LA size by volume 22+/-6 ml/m2. The right atrial size is normal. Lumason used The aortic valve is trileaflet and appears structurally normal. The mitral valve is normal. There is trace mitral regurgitation. The tricuspid valve appears structurally normal. Trace tricuspid regurgitation present. Right gely tricular systolic pressure is normal at < 35 mmHg. There is no pulmonic regurgitation present. The aortic root size is normal. IVC Not well visulized. CONCLUSIONS -------- 1. The left ventricular size is normal. 2. There is mild concentric left ventricular hypertrophy. 3. Overall left ventricular systolic function is normal with, an EF between 55 - 60 %. 4. The diastolic filling pattern is normal for the age of the patient 11.76 5. There is trace mitral regurgitation. 6. Trace tricuspid regurgitation present. RETAIL SALES REPRESENTATIVE: Marta Sharpe RDCS
--- NOTE | 2021-02-14 12:43 | P.CRDCN ---
History of Present Illness Consult date: 02/14/21 History of present illness: HISTORY OF PRESENT ILLNESS: This is a 60-year-old female with a past medical history significant for myocardial infarction, CVA, COPD, and hyperlipidemia. Patient follows with Dr. Chau. We have been asked to see the patient in consultation for chest pain. Patient examined at the bedside in the emergency room. Patient states she is currently at an [facility] for therapy. Patient states she began having chest pain yesterday and was brought to the ER. She denies having chest pain at the time of examination. However, she does have pain upon palpation of the chest wall and with movement on the stretcher. She denied any radiation of the pain or any shortness of breath. EKG reveals sinus tachycardia with T-wave inversions in anterolateral leads, unchanged from previous EKG Chest xray negative for acute process Laboratory data: WBC 5.1. Hemoglobin 10.1. Platelet count 269. Sodium 138. Potassium 4.1. BUN 17. Creatinine 0.67. Magnesium 1.9. Troponin negative 3. Current home cardiac medications include Plavix 75 mg daily, Lipitor 10 mg daily, and aspirin 81 mg daily Echocardiogram completed revealed ejection fraction 55-60%, trace mitral regurgitation, and trace tricuspid regurgitation. Patient underwent dobutamine stress echo in 2019 which was negative for ischemia REVIEW OF SYSTEMS: At the time of my exam: CONSTITUTIONAL: Denies fever or chills. HEENT: Denies blurred vision, vision changes, or eye pain. Denies hemoptysis CARDIOVASCULAR: Denies chest pain. Denies orthopnea. Denies PND. Denies palpitations RESPIRATORY: Denies shortness of breath. GASTROINTESTINAL: Denies abdominal pain. Denies nausea or vomiting. HEMATOLOGIC: Denies bleeding disorders. GENITOURINARY: Denies any blood in urine. SKIN: Denies pruitis. Denies rash. PHYSICAL EXAM: VITAL SIGNS: Reviewed. GENERAL: Well-developed in no acute distress. HEENT: Head is normocephalic. Pupils are equal, round. Sclerae anicteric. Mucous membranes of the mouth are moist. Neck supple. No JVD or thyromegaly LUNGS: Respirations even and unlabored. Lungs essentially clear to auscultation bilaterally. HEART: Regular rate and rhythm. S1 and S2 heard. ABDOMEN: Soft. Nondistended. Nontender. EXTREMITIES: Normal range of motion. No clubbing or cyanosis. Peripheral pulses intact. No lower extremity edema NEUROLOGIC: Awake and alert. Oriented x 3. ASSESSMENT: Chest pain, atypical, reproducible with movement and chest wall palpation, troponin negative 3 Hyperlipidemia History of CVA History of myocardial infarction Former nicotine dependence PLAN: An acute coronary event has been ruled out Patients pain is atypical for angina and is reproducible with movement and chest wall palpation Continue home cardiac medications No further inpatient workup from a cardiac standpoint Patient to follow up outpatient with her instant printer operator, Dr. Chau Nurse practitioner note has been reviewed by physician. Signing provider agrees with the documented findings, assessment, and plan of care. Past Medical History Past Medical History: Cancer, COPD, CVA/TIA, Hyperlipidemia, Myocardial Infarction (MS) Additional Past Medical History / Comment(s): Rt sided CVA 2003 with foot drop. smoker 2 ppd since age 16 (40+ yrs), aspirated, MS, cardiac arrest, History of Any Multi-Drug Resistant Organisms: None Reported Past Surgical History: Appendectomy, Cholecystectomy, Hysterectomy, Tonsillectomy Additional Past Surgical History / Comment(s): recent thorascopic biopsy left mediastinal masses 01/21/18/. pneumectomy Past Anesthesia/Blood Transfusion Reactions: No Reported Reaction Past Psychological History: Anxiety, Depression Smoking Status: Former smoker Past Alcohol Use History: None Reported Past Drug Use History: Marijuana - Past Family History Father Family Medical History: Cancer Additional Family Medical History / Comment(s): Her father had bone cancer Mother Family Medical History: CVA/TIA Additional Family Medical History / Comment(s): aneurysm, heart problems Medications and Allergies Home Medications Medication Instructions Recorded Confirmed Type ARIPiprazole [Abilify] 5 mg PO HS@209903/10/17 02/13/21 History Clopidogrel [Plavix] 75 mg PO DAILY@79901/13/18 02/13/21 History Sertraline [Zoloft] 100 mg PO DAILY@79901/13/18 02/13/21 History Atorvastatin [Lipitor] 10 mg PO HS@209903/20/20 02/13/21 History Mirabegron [Myrbetriq] 25 mg PO DAILY@79903/20/20 02/13/21 History Aspirin EC [Ecotrin Low Dose] 81 mg PO DAILY@79911/23/20 02/13/21 History Magnesium Oxide 400 mg PO DAILY@0800 11/23/20 02/13/21 History ALPRAZolam [Xanax] 0.25 mg PO HS PRN 02/13/21 02/13/21 History Budesonide/Formoterol Fumarate 2 puff INHALATION RT-BID@0800,2100 02/13/21 02/13/21 History [Symbicort 160-4.5 Mcg Inhaler] Docusate [Colace] 100 mg PO BID@0800,1700 02/13/21 02/13/21 History HYDROcodone/APAP 7.5-325MG [[place] 1 tab PO Q4H PRN 02/13/21 02/13/21 History 7.5-325] Hydrocortisone Cream 1 applic TOPICAL BID PRN 02/13/21 02/13/21 History [Hydrocortisone 2.5% Cream] Ipratropium-Albuterol Nebulize 3 ml INHALATION RT-Q6H PRN 02/13/21 02/13/21 History [Duoneb 0.5 mg-3 mg/3 ml Soln] Ipratropium-Albuterol Nebulize 3 ml INHALATION RT-QID 02/13/21 02/13/21 History [Duoneb 0.5 mg-3 mg/3 ml Soln] Magnesium Hydroxide [Milk of 7,200 mg PO DAILY PRN 02/13/21 02/13/21 History Magnesia Concentrate] Na Phos,M-B/Na Phos,Di-Ba [Fleet 133 ml RECTAL DAILY PRN 02/13/21 02/13/21 History Adult] Ondansetron [Zofran] 4 mg PO Q8HR PRN 02/13/21 02/13/21 History Pantoprazole [Protonix] 40 mg PO DAILY@0600 02/13/21 02/13/21 History QUEtiapine [SEROquel] 200 mg PO HS@2100 02/13/21 02/13/21 History Vitamin B Complex 1 cap PO DAILY@0800 02/13/21 02/13/21 History bisacodyL [Dulcolax] 10 mg RECTAL DAILY PRN 02/13/21 02/13/21 History polyethylene glycoL 3350 [Miralax] 17 gm PO DAILY@0800 02/13/21 02/13/21 History Allergies Allergy/AdvReac Type Severity Reaction Status Date / Time codeine AdvReac Nausea & Verified 02/13/21 20:21 Vomiting & Diarrhea Iodinated Contrast Media AdvReac Rash/Hives Verified 02/13/21 20:21 Physical Exam Vitals: Vital Signs Temp Pulse Resp BP Pulse Ox 02/14/21 10:49 98.5 F 02/14/21 10:00 96 20 103/69 99 02/14/21 08:09 98.1 F 94 20 103/69 98 02/14/21 07:53 96 02/14/21 07:41 92 02/14/21 04:52 100 02/14/21 04:46 97 02/14/21 04:44 97 02/13/21 22:49 97.5 F L 94 20 98/79 100 02/13/21 21:15 97.6 F 92 18 105/83 98 02/13/21 19:28 91 18 91/68 98 02/13/21 18:58 98.2 F 98 20 92/72 98 02/13/21 18:24 98.1 F 101 H 18 103/68 97 Intake and Output 02/13/21 02/14/21 02/14/21 22:59 06:59 14:59 Other: Weight 52.163 kg Results 02/13/21 19:26 02/13/21 19:26 Cardiac Enzymes 02/13/21 02/13/21 02/13/21 Range/Units 19:26 19:26 22:50 AST 20 (14-36) U/L Troponin I <0.012 <0.012 (0.000-0.034) ng/mL 02/14/21 Range/Units 01:59 AST (14-36) U/L Troponin I <0.012 (0.000-0.034) ng/mL Coagulation 02/13/21 Range/Units 19:26 PT 9.4 (9.0-12.0) sec APTT 21.0 L (22.0-30.0) sec CBC 02/13/21 Range/Units 19:26 WBC 5.1 (3.8-10.6) k/uL RBC 3.33 L (3.80-5.40) m/uL Hgb 10.1 L (11.4-16.0) gm/dL Hct 31.0 L (34.0-46.0) % Plt Count 269 (150-450) k/uL Comprehensive Metabolic Panel 02/13/21 Range/Units 19:26 Sodium 138 (137-145) mmol/L Potassium 4.1 (3.5-5.1) mmol/L Chloride 103 (98-107) mmol/L Carbon Dioxide 30 (22-30) mmol/L BUN 17 (7-17) mg/dL Creatinine 0.67 (0.52-1.04) mg/dL Glucose 117 H (74-99) mg/dL Calcium 8.9 (8.4-10.2) mg/dL AST 20 (14-36) U/L ALT 17 (4-34) U/L Alkaline Phosphatase 92 (38-126) U/L Total Protein 5.6 L (6.3-8.2) g/dL Albumin 3.5 (3.5-5.0) g/dL Current Medications Generic Name Dose Route Start Last Admin Trade Name Freq PRN Reason Stop Dose Admin Hydrocodone Bitart/Acetaminophen 1 each 02/14/21 06:26 02/14/21 06:56 Hydrocodone/Apap 7.5-325mg 1 Each Tab PO 1 each Q6H PRN Administration Pain Albuterol/Ipratropium 3 ml 02/14/21 08:00 02/14/21 07:41 Ipratropium-Albuterol 3 Ml Neb INHALATION 3 ml RT-QID SHAVON Administration Albuterol/Ipratropium 3 ml 02/13/21 20:49 02/14/21 04:33 Ipratropium-Albuterol 3 Ml Neb INHALATION 3 ml RT-Q6H PRN Administration Shortness Of Breath Aripiprazole 5 mg 02/13/21 22:30 02/13/21 23:03 Aripiprazole 5 Mg Tab PO 5 mg HS@2100 SHAVON Administration Aspirin 81 mg 02/14/21 08:00 02/14/21 08:24 Aspirin 81 Mg PO 81 mg DAILY@0800 SHAVON Administration Atorvastatin Calcium 10 mg 02/13/21 22:30 02/13/21 23:03 Atorvastatin 10 Mg Tab PO 10 mg HS@2100 SHAVON Administration Bisacodyl 10 mg 02/13/21 20:49 Bisacodyl 10 Mg Supp RECTAL DAILY PRN Constipation Budesonide/Formoterol Fumarate 2 puff 02/13/21 22:30 02/14/21 07:41 Symbicort 160-4.5 Mcg Inhaler INHALATION 2 puff RT-BID@0800,2100 SHAVON Administration Clopidogrel Bisulfate 75 mg 02/14/21 08:00 02/14/21 08:24 Clopidogrel 75 Mg Tab PO 75 mg DAILY@0800 SHAVON Administration Docusate Sodium 100 mg 02/14/21 08:00 02/14/21 08:23 Docusate 100 Mg Cap PO 100 mg BID@0800,1700 SHAVON Administration Hydrocortisone 1 applic 02/13/21 22:30 Hydrocortisone 1% Cream 30 Gm Tube TOPICAL BID PRN Hemorrhoids Magnesium Oxide 400 mg 02/14/21 08:00 02/14/21 08:24 Magnesium Oxide 400 Mg Tab PO 400 mg DAILY@0800 SHAVON Administration Naloxone HCl 0.2 mg 02/13/21 20:48 Naloxone 0.4 Mg/Ml 1 Ml Vial IV Q2M PRN Opioid Reversal Non-Formulary Medication 25 mg 02/14/21 08:00 02/14/21 08:24 Mirabegron [Myrbetriq] PO Not Given DAILY@0800 SHAVON Pantoprazole Sodium 40 mg 02/14/21 06:00 02/14/21 06:56 Pantoprazole 40 Mg Tablet PO 40 mg DAILY@0600 SHAVON Administration Polyethylene Glycol 17 gm 02/14/21 08:00 02/14/21 08:23 Polyethylene Glycol 3350 17 Gm Powd.Pack PO 17 gm DAILY@0800 SHAVON Administration Quetiapine Fumarate 200 mg 02/13/21 22:30 02/13/21 23:03 Quetiapine 100 Mg Tab PO 200 mg HS@2100 SHAVON Administration Sertraline HCl 100 mg 02/14/21 08:00 02/14/21 08:23 Sertraline 100 Mg Tab PO 100 mg DAILY@0800 SHAVON Administration Intake and Output 02/13/21 02/14/21 02/14/21 22:59 06:59 14:59 Other: Weight 52.163 kg 02/13/21 19:26 02/13/21 19:26
[2021-02-14 14:30] VITALS: BP 95/58; PULSE 95; TEMP 97.8
[2021-02-14 14:58] VITALS: BMI 21.4
--- NOTE | 2021-02-14 15:20 | P.HPIM ---
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 Patient follows Dr. Garcia and Dr. Elkins in the office. And wears 3 L oxygen all the time. Patient document suffered cardiac arrest that happened a few weeks ago at [facility] and was in the hospital for 3 weeks and required chest compressions for the same. Patient stated she was intubated during the process and has dysphagia and raspiness otherwise since then. She was recently discharged to [facility] one week ago. No record of that visit noted in our chart. Apparently patient is having chest pain when she goes to bed and early in the morning when she wakes up for the past 1 week. The nurse who evaluated the patient recommended evaluation. Chest pain worsens on lying flat and round movement on the stretcher. Chest pain is reproducible. She denies any shortness of breath or radiation of the pain. EKG reviewed suggest a sinus tachycardia with T-wave inversions which is unchanged from previous EKGs. Chest x-rays negative for any acute abnormality. Blood work evaluated. He is 5.1 hemoglobin 10.1 platelets with 69 sodium 138 potassium 4.1 BUN 17 creatinine 0.6; magnesium 1.9 troponin 3 negative. Echocardiogram ordered by cardiology suggest mild concentric left hypertrophy with ejection fraction 50- 60% and trace MR and TR present.. Cardiology eval the patient and rule out ACS Review of Systems Constitutional: Denies chills, Denies fever, Denies lethargy, Denies malaise, Denies poor appetite, Denies weakness, Denies weight loss Eyes: denies decreased vision, denies diplopia, denies discharge, denies pain Ears: deny: decreased hearing Ears, nose, mouth and throat: Denies dental pain, Denies headache, Denies nasal discharge, Denies nose pain Cardiovascular: Endorses chest pain, Denies decreased exercise tolerance, Denies edema, Denies high blood pressure, Denies irregular heart beat, Denies palpitations, Denies paroxysmal nocturnal dyspnea, Denies rapid heart beat, Denies shortness of breath Respiratory: Denies congestion, Denies cough, Denies cough with sputum, Denies dyspnea, Denies home oxygen, Denies wheezing Gastrointestinal: Denies abdominal pain, Denies change in bowel habits, Denies coffee ground emesis, Denies early satiety, Denies excessive gas, Denies heartburn, Denies hematemesis, Denies hematochezia, Denies loss of appetite, Denies nausea, Denies vomiting Genitourinary: Denies dysuria, Denies flank pain, Denies kidney stones, Denies menorrhagia, Denies urgency, Denies urinary frequency Musculoskeletal: Denies gait dysfunction, Denies limitation of motion, Denies morning stiffness, Denies muscle cramps Integumentary: Denies rash, Denies wounds, Denies brittle nails, Denies change in hair/nails, Denies darkening of skin Neurological: Denies balance difficulties, Denies change in speech, Denies double vision, left-sided weakness and foot drop, Denies loss of vision, Denies motor disturbance, Denies numbness, Denies paralysis, Denies paresthesias, Denies seizures Psychiatric: Denies anxiety, Denies depression Endocrine: Denies excessive sweating, Denies excessive thirst, Denies high blood sugars, Denies palpitations Hematologic/Lymphatic: Denies easy bruising, Denies lymphadenopathy Past Medical History Past Medical History: Cancer, Chest Pain / Angina, COPD, CVA/TIA, GERD/Reflux, Hyperlipidemia, Pneumonia, Respiratory Disorder Additional Past Medical History / Comment(s): 01/18/21 pt states she was hospitalized at [facility] for respiratory distress (aspiration pneumonia)/pt told both that she had a OH and that she did not have a OH at that time/was on ventilator and hospitalized for 2 weeks and now in [facility] for rehab. Since this experience pt has had dysphagia/weak voice and L sided chest pain she believes from compressions. Other hx: 2018 neuroendocreine tumor s/t L lower lobe lung resection with chemo and radiation, CVA with L sided weakness/foot drop and L side of mouth numbness, gastric ulcer, chronic pain back and knees and now L chest, tracheobronchitis, home oxygen at 3L/NC past few years. History of Any Multi-Drug Resistant Organisms: None Reported Past Surgical History: Appendectomy, Cholecystectomy, Hysterectomy, Tonsillectomy, Tubal Ligation Additional Past Surgical History / Comment(s): 2018 thorascopic biopsy of L mediastinal masses and L lung partial pneumonectomy, EGD, colonoscopies. Past Anesthesia/Blood Transfusion Reactions: No Reported Reaction, Motion Sickness Smoking Status: Former smoker - Past Family History Father Family Medical History: Cancer Additional Family Medical History / Comment(s): Her father had lung cancer with mets Mother Family Medical History: CVA/TIA, Vascular Disorder Additional Family Medical History / Comment(s): aneurysm, heart problems Medications and Allergies Home Medications Medication Instructions Recorded Confirmed Type ARIPiprazole [Abilify] 5 mg PO HS@209903/10/17 02/13/21 History Clopidogrel [Plavix] 75 mg PO DAILY@0801/13/18 02/13/21 History Sertraline [Zoloft] 100 mg PO DAILY@79901/13/18 02/13/21 History Atorvastatin [Lipitor] 10 mg PO HS@209903/20/20 02/13/21 History Mirabegron [Myrbetriq] 25 mg PO DAILY@0803/20/20 02/13/21 History Aspirin EC [Ecotrin Low Dose] 81 mg PO DAILY@0800 11/23/20 02/13/21 History Magnesium Oxide 400 mg PO DAILY@0800 11/23/20 02/13/21 History Budesonide/Formoterol Fumarate 2 puff INHALATION RT-BID@0800,2100 02/13/21 02/13/21 History [Symbicort 160-4.5 Mcg Inhaler] Docusate [Colace] 100 mg PO BID@0800,1700 02/13/21 02/13/21 History Hydrocortisone Cream 1 applic TOPICAL BID PRN 02/13/21 02/13/21 History [Hydrocortisone 2.5% Cream] Ipratropium-Albuterol Nebulize 3 ml INHALATION RT-Q6H PRN 02/13/21 02/13/21 History [Duoneb 0.5 mg-3 mg/3 ml Soln] Ipratropium-Albuterol Nebulize 3 ml INHALATION RT-QID 02/13/21 02/13/21 History [Duoneb 0.5 mg-3 mg/3 ml Soln] Magnesium Hydroxide [Milk of 7,200 mg PO DAILY PRN 02/13/21 02/13/21 History Magnesia Concentrate] Na Phos,M-B/Na Phos,Di-Ba [Fleet 133 ml RECTAL DAILY PRN 02/13/21 02/13/21 History Adult] Ondansetron [Zofran] 4 mg PO Q8HR PRN 02/13/21 02/13/21 History Pantoprazole [Protonix] 40 mg PO DAILY@0600 02/13/21 02/13/21 History QUEtiapine [SEROquel] 200 mg PO HS@2100 02/13/21 02/13/21 History Vitamin B Complex 1 cap PO DAILY@0800 02/13/21 02/13/21 History bisacodyL [Dulcolax] 10 mg RECTAL DAILY PRN 02/13/21 02/13/21 History polyethylene glycoL 3350 [Miralax] 17 gm PO DAILY@0800 02/13/21 02/13/21 History ALPRAZolam [Xanax] 0.25 mg PO HS PRN #3 tab 02/14/21 Rx Ergocalciferol [Vitamin D2 (1250 1,250 mcg PO WEEKLY #12 cap 02/14/21 Rx Mcg = 42667 Iu)] HYDROcodone/APAP 7.5-325MG [[place] 1 tab PO Q4H PRN #12 tab 02/14/21 Rx 7.5-325] predniSONE [Deltasone] 40 mg PO DAILY #14 tab 02/14/21 Rx Allergies Allergy/AdvReac Type Severity Reaction Status Date / Time codeine AdvReac Nausea & Verified 02/13/21 20:21 Vomiting & Diarrhea Iodinated Contrast Media AdvReac Rash/Hives Verified 02/13/21 20:21 Physical Exam Vitals: Vital Signs Temp Pulse Resp BP Pulse Ox 02/14/21 10:49 98.5 F 02/14/21 10:00 96 20 103/69 99 02/14/21 08:09 98.1 F 94 20 103/69 98 02/14/21 07:53 96 02/14/21 07:41 92 02/14/21 04:52 100 02/14/21 04:46 97 02/14/21 04:44 97 02/13/21 22:49 97.5 F L 94 20 98/79 100 02/13/21 21:15 97.6 F 92 18 105/83 98 02/13/21 19:28 91 18 91/68 98 02/13/21 18:58 98.2 F 98 20 92/72 98 02/13/21 18:24 98.1 F 101 H 18 103/68 97 Intake and Output 02/13/21 02/14/21 02/14/21 22:59 06:59 14:59 Other: Voiding Method Toilet # Voids 2 Weight 52.163 kg 52.163 kg - Constitutional General appearance: cooperative, no acute distress, appeared suggested H - EENT Eyes: anicteric sclerae, PERRLA, normal appearance ENT: hearing grossly normal resting was - Neck Neck: no lymphadenopathy, normal ROM, no other, no rigidity, no stridor, no thyromegaly - Respiratory Respiratory: bilateral: CTA, negative: diminished, dullness, rales, rhonchi - Cardiovascular Rhythm: regular Heart sounds: normal: S1, S2 Abnormal Heart Sounds: no systolic murmur, no diastolic murmur, no rub, no S3 Gallop, no S4 Gallop, no click, no other - Gastrointestinal General gastrointestinal: normal bowel sounds, soft nontender - Integumentary Integumentary: no rash - Neurologic Neurologic: Left-sided weakness with left foot drop noted - Musculoskeletal Musculoskeletal: gait not assessed strength reduced on the left side compared to the right lower extremity - Psychiatric Psychiatric: A&O x's 3, appropriate affect Results CBC & Chem 7: 02/13/21 19:26 02/13/21 19:26 Labs: Abnormal Lab Results - Last 24 Hours (Table) 02/13/21 02/13/21 02/13/21 Range/Units 19:26 19:26 19:26 RBC 3.33 L (3.80-5.40) m/uL Hgb 10.1 L (11.4-16.0) gm/dL Hct 31.0 L (34.0-46.0) % RDW 16.0 H (11.5-15.5) % APTT 21.0 L (22.0-30.0) sec Glucose 117 H (74-99) mg/dL Total Protein 5.6 L (6.3-8.2) g/dL Thrombosis Risk Factor Assmnt - DVT/VTE Prophylaxis DVT/VTE Prophylaxis: Pharmacologic Prophylaxis ordered - Choose All That Apply Any of the Below Risk Factors Present?: Yes Each Factor Represents 1 point: Age 41-60 years, Serious lung disease incl. pneumonia (< 1month) Other Risk Factors: Yes Each Risk Factor Represents 2 Points: Malignancy Other congenital or acquired thrombophilia - If yes, enter type in comment: No Thrombosis Risk Factor Assessment Total Risk Factor Score: 4 Thrombosis Risk Factor Assessment Level: Moderate Risk Assessment and Plan Plan: #1 acute atypical chest pain ACS ruled out. Likely secondary to costochondritis would benefit from prednisone 40 for 7 days. Would recommend vitamin D and high dose for 12 weeks. #2 history of COPD on 3 L of oxygen not in exacerbation continue DuoNeb as needed for shortness of breathcontinue Symbicort twice a day #3 history of CVA/TIA 2003 with left-sided weakness and footdrop chronic on aspirin and Plavix, Lipitor 10 mg daily #4 hyperlipidemia continue Lipitor 10 mg daily #5 history of cardiac arrest details unclear. Appears to be respiratory failure from COPD exacerbation as patient was intubated. Unclear if patient had an OH #6 GERD/gastric ulcer on pantoprazole 40 mg daily #7 history of neuroendocrine tumor status post left lung partial pneumonectomy with chemo and radiation 2018, stable #8 CODE STATUS full code #9 DVT prophylaxis heparin every 12 #10 urinary incontinence continue myrbetrix #11 history of anxiety and depression continue Zoloft, Seroquel and Abilify #12 chronic tobacco dependence AND 40 years of smoking #13 disposition discharged to [facility]
== END 2021-02-14 17:36 ==
LOC: EC 18:23 → 1SOBS 20:48 → 6NMEDSUR 23:08
PROVIDERS: ADMIT Internal Medicine; ATTEND Internal Medicine
DX: R07.89 Other chest pain (principal); J44.9 Chronic obstructive pulmonary disease, unspecified; E78.5 Hyperlipidemia, unspecified; I69.354 Hemiplegia and hemiparesis following cerebral infarction affecting left non-dominant side; M21.379 Foot drop, unspecified foot; F17.210 Nicotine dependence, cigarettes, uncomplicated; F32.9 Major depressive disorder, single episode, unspecified; F41.9 Anxiety disorder, unspecified; R13.10 Dysphagia, unspecified; R49.0 Dysphonia; R00.0 Tachycardia, unspecified; R32 Unspecified urinary incontinence; K21.9 Gastro-esophageal reflux disease without esophagitis; G89.29 Other chronic pain; M54.9 Dorsalgia, unspecified; M25.562 Pain in left knee; M25.561 Pain in right knee; R20.0 Anesthesia of skin; Z20.822 Contact with and (suspected) exposure to COVID-19; Z99.81 Dependence on supplemental oxygen; Z79.02 Long term (current) use of antithrombotics/antiplatelets; Z79.82 Long term (current) use of aspirin; Z79.51 Long term (current) use of inhaled steroids; Z79.899 Other long term (current) drug therapy; Z88.5 Allergy status to narcotic agent; Z91.041 Radiographic dye allergy status; Z85.118 Personal history of other malignant neoplasm of bronchus and lung; Z92.3 Personal history of irradiation; I25.2 Old myocardial infarction; Z90.49 Acquired absence of other specified parts of digestive tract; Z92.21 Personal history of antineoplastic chemotherapy; Z87.01 Personal history of pneumonia (recurrent); Z86.74 Personal history of sudden cardiac arrest; Z87.11 Personal history of peptic ulcer disease; Z90.2 Acquired absence of lung [part of]; Z90.710 Acquired absence of both cervix and uterus; Z98.890 Other specified postprocedural states; Z80.1 Family history of malignant neoplasm of trachea, bronchus and lung; Z82.3 Family history of stroke; Z80.8 Family history of malignant neoplasm of other organs or systems; Z82.49 Family history of ischemic heart disease and other diseases of the circulatory system
CPT/HCPCS: 99285; 36415; 94640 ×2; 94760; 93005; 93306; 83880; 80053; 83735; 84484 ×2; 85025; 85610; 85730; 87635; 71046; G0378 ×3

== ENCOUNTER → 2021-03-16 | Outpatient (CLI) | payer MEDICARE, OTHER ==
--- NOTE | 2021-03-19 08:09 | PE ---
EXAMINATION TYPE: PET CT fusion skull to thigh DATE OF EXAM: 03/16/2021 COMPARISON: CT chest abdomen and pelvis January 08, 2021 and older studies. PET/CT December 20, 2017 HISTORY: Lung cancer progress study. Originally diagnosed left upper lobe 2018 TECHNIQUE: Following the intravenous administration of 11.8 mCi of F-18 FDG, whole body images are p erformed from the skull base to the midthigh. Images are reviewed on the computer in the coronal, ax ial, and sagittal planes. Reconstructed rotating images are created on independent workstation and r eviewed on the computer. A localization and attenuation correction CT is performed in conjunction w ith the PET scan. Blood glucose level equals 114. SCAN: Subsequent Scan FINDINGS: SKULL BASE AND NECK: In posterior aspect right parotid gland there is persistent hypermetabolic 9 x 4 mm solid nodule max SUV is 3.24 on current study. Correlate with prior workup and sampling January. There is however new suspicious soft tissue lesion left anterior tongue base measuring 2.4 x 1.7 cm a xial image 32, maximum SUV is 6.37. Mild uptake bilateral shoulder region presumed postinflammatory. CHEST, MEDIASTINUM, AND HILAR REGION: There is background mild to moderate underlying emphysematous c hange redemonstrated. Post treatment changes to the left lung is redemonstrated. Masslike consolidati on left suprahilar region axial image 84 measures roughly 3.2 x 1.1 cm is ametabolic. No new areas of suspicious hypermetabolic uptake are seen in the thorax. ABDOMEN AND PELVIS: No suspicious hypermetabolic uptake is identified in the abdomen or pelvis. No ad renal masses are noted. OSSEOUS STRUCTURES: No suspicious hypermetabolic uptake is seen. OTHER CT: Cholecystectomy clips are present. There is some asymmetric cortical atrophy in the right kidney. There is redemonstration of prominent renal pelvises bilaterally without definitive calyceal dilatation consistent with extrarenal pelvises . Nonobstructing calculi lower pole the left kidney. Uterus is surgically absent. There are few scattered colonic diverticula. There is mild to moderate calcified plaque scattered throughout the aorta and visualized branches. Slight underlying S-shaped scoliosis is present. IMPRESSION: Stable right parotid lesion. No new suspicious hypermetabolic uptake to suggest active ne oplastic recurrence. There is however suspicious uptake anterior left tongue base worrisome for new n eoplasm. Advise ENT referral.
== END | disposition home or self-care (01) ==
LOC: RADPETMAIN 12:42
PROVIDERS: ATTEND Internal Medicine Hematology & Oncology
DX: K11.8 Other diseases of salivary glands (principal); Z85.118 Personal history of other malignant neoplasm of bronchus and lung
CPT/HCPCS: 78815; A9552

== ENCOUNTER → 2021-07-12 | Outpatient (CLI) | payer MEDICARE, OTHER ==
--- NOTE | 2021-07-12 15:13 | MR ---
EXAMINATION TYPE: MR brain wo/w con DATE OF EXAM: 07/12/2021 COMPARISON: Most recent brain MRI January 04, 2021 HISTORY: Lung cancer, evaluate for metastatic disease. TECHNIQUE: Multiplanar, multisequence images of the brain and brainstem is performed without and with IV contras t, utilizing 7 mL intravenous Gadavist . FINDINGS: Diffusion weighted images demonstrate no evidence of a recent infarct or other diffusion ab normality. There is no worrisome new extra-axial fluid collection. The ventricular system and cisternal spaces are stable in size and appearance. The brain volume is age appropriate. Old infarct right regan ra diata near flair axial image 28 is redemonstrated. Few scattered foci of T2 hyperintensity seen throu ghout the deep and periventricular white matter are redemonstrated. Midline structures redemonstrates somewhat empty sella morphology. The craniocervical junction remai ns within normal limits. Post contrast images demonstrate no new enhancing masses or suspicious enhancement. The dural venous sinuses remain patent. The visualized sinuses are clear and the globes remain intact. Stable slight i ncreased CSF prominence surrounding the optic nerves. Correlate clinically to exclude increased intra cranial pressure in the appropriate clinical setting. Increased fluid signal bilateral mastoid air ce lls left greater than right remains present. Findings perfusion product of retained secretions as no significant change from 2018 study. Anterior left nasal septal deviation is redemonstrated. IMPRESSION: Overall stable findings, no new enhancing intraparenchymal lesions identified to suggest metastatic disease.
== END | disposition home or self-care (01) ==
LOC: RADMRIMAIN 12:07
PROVIDERS: ATTEND Radiology Radiation Oncology
DX: C34.90 Malignant neoplasm of unspecified part of unspecified bronchus or lung (principal); R93.0 Abnormal findings on diagnostic imaging of skull and head, not elsewhere classified
CPT/HCPCS: 70553; A9585

== ENCOUNTER 2021-07-27 10:45 | Day surgery (SDC) | payer MEDICARE, OTHER ==
[2021-07-26 08:54] VITALS: BMI 24.6
--- NOTE | 2021-07-26 19:19 | HP ---
HISTORY AND PHYSICAL CHIEF COMPLAINT: Chronic laryngitis. HISTORY OF PRESENT ILLNESS: This patient is a 61-year-old female who recently presented to my office for a history of chronic laryngitis dating back to January of 2021. At that time, the patient was hospitalized and being treated for COPD and pneumonia. She states that she apparently was intubated and at some point during the time that she was intubated, she managed to extubate herself. She subsequently noted that she was extremely hoarse. Since that time her voice has improved somewhat. She denies any pain, but occasionally experiences episodes of aspiration when drinking thin liquids such as coffee. She is a former smoker and quit smoking approximately 4 or 5 years ago. She has also had a partial lung resection for cancer of the lungs, which has been in men in remission for the past three years. I reminded the patient that she needs to stay away from first- hand and secondhand smoke. She was also advised that whenever she gets hoarse then she should definitely stop talking. At the time that she was seen in my office, clinical examination including indirect laryngoscopy revealed that there appeared to be some limited mobility of her left true vocal cord. It was difficult to visualize all her larynx because of an overhanging epiglottis. It was therefore recommended that she undergo a suspension microlaryngoscopy under general anesthesia for further examination to see if there is any damage that was done to the vocal cords or arytenoids during her self extubation. PAST MEDICAL HISTORY: Reveals she has allergies to IODINE. CURRENT MEDICATIONS: Include albuterol, Seroquel, Plavix, Myrbetriq, oxybutynin, Atrovent, Zoloft, Abilify, Hondo, Lasix, baby aspirin daily, Singulair, prednisone, Symbicort, Trelegy. REVIEW OF SYSTEMS: CARDIOVASCULAR: Negative. RESPIRATORY: Positive for COPD and emphysema. METABOLIC/ENDOCRINE: Positive for hypercholesterolemia. The remainder of review of systems is unremarkable. PREVIOUS SURGERIES: Include appendectomy, tonsillectomy and adenoidectomy and ventilation tubes in the ears. PHYSICAL EXAMINATION: The patient is a 61-year-old female who was alert, cooperative and is in no acute distress. Her voice is quite breathy. HEENT examination: Patient is normocephalic. Tympanic membranes are normal. Middle ear space is free of any fluid or infection. Pupils are equal, round, and reactive to light and accommodation. Extraocular movements within normal limits. Intranasal examination reveals moderate to severe septal deviation with compensatory hypertrophy of inferior turbinates. Mild amount of mucus on the mucous membrane draining down the posterior pharynx. Examination of oropharynx is unremarkable. Indirect laryngoscopy using the headlight and mirror reveals that there is no suspicious lesion of the right or left piriform sinuses, base of tongue, floor of the mouth, vallecular, or epiglottis. The patient has an overhanging epiglottis which makes the visualization of the larynx difficult. However, it appears that the left true vocal cord appears to have impaired mobility. Palpation of the neck, cranial nerves 2 through 12 and remainder of the head and neck exam are within normal limits Chest/cardiovascular: Both lung fernando are clear to percussion and auscultation. The patient is in regular sinus rhythm. S1, S2 are present. No murmurs, S3s or S4s. Peripheral pulses are bilaterally symmetrical. Abdomen: There is no evidence any masses, megaly, or tenderness. The abdomen is soft. Skin is unremarkable. Musculoskeletal and neurological within normal limits. Pelvic/rectal exam: Deferred at this time because the patient has this done on a regular basis at her family physician's office. The remainder of physical exam was essentially unremarkable. IMPRESSION: Chronic laryngitis, suspect laryngeal trauma secondary to patient's self extubation in January 2021. PLAN: I have not ordered any pre-surgical prophylactic antibiotics for this patient. If the pharmacy department sends any pre-surgical prophylactic antibiotics to the pre-surgical area for this patient, please cancel that order and return the medication to the pharmacy department. Also, make sure that the patient's account is credited appropriately. I have ordered for this patient to receive 1000 mg of Ofirmev IV to be given once an intravenous line has been established. I have discussed the risks, benefits and alternative therapies for the above-mentioned procedure and for both sedation/analgesia as well as necessary blood product administration, if indicated, as they pertain to this patient. The patient has indicated his or her understanding and acceptance of the risks and procedures discussed. MMODL / IJN: [id number] /
[~2021-07-27 10:45] MED LIST changes: +DEXAMETHASONE SOD PHOSPHATE 4 MG/ML 1 ML VIAL IV ONE; -DOBUTamine DRIP for NUC MED 500 MG in DEXTROSE/WATER 1 250ML.BAG IV ONE; +HYDROmorphone 0.5 MG/0.5 ML SYRINGE IVP PRN; +LACTATED RINGERS 1,000 ML IV SCH; +ONDANSETRON 4 MG/2 ML VIAL IVP ONE; +Pre Op ABX Message 1 EACH MISC MISCELLANE ONE
[2021-07-27] MEDS ORDERED: LACTATED RINGERS 1,000 ML IV ONE (11:35)
[2021-07-27] MEDS ORDERED: ACETAMINOPHEN IV (For NPO) 1,000 MG in EMPTY BAG 1 BAG IVPB ONE (12:00)
[2021-07-27] MEDS ORDERED: NEOSTIGMINE 1 MG/ML 10 ML VIAL ONE (12:48)
[2021-07-27] MEDS ORDERED: GLYCOPYRROLATE 0.2 MG/ML 2 ML VIAL ONE (12:48)
[2021-07-27] MEDS ORDERED: LIDOCAINE 1% INJ 10MG/ML (20 ML MDV) ONE (12:48)
[2021-07-27] MEDS ORDERED: SUCCINYLCHOLINE CHLORIDE 100 MG/5 ML SYR IV ONE (12:48)
[2021-07-27] MEDS ORDERED: SUGAMMADEX SODIUM 500 MG/5 ML SDV IV ONE (12:48)
[2021-07-27] MEDS ORDERED: fentaNYL (PF) 50 MCG/ML 2 ML AMP ONE (12:48)
[2021-07-27] MEDS ORDERED: MIDAZOLAM 2 MG/2 ML VIAL ONE (12:48)
[2021-07-27] MEDS ORDERED: ACETAMINOPHEN IV (For NPO) 1,000 MG/100 ML VIAL ONE (12:48)
[2021-07-27] MEDS ORDERED: PROPOFOL 10 MG/ML 20 ML VIAL IV ONE (12:48)
[2021-07-27] MEDS ORDERED: ROCURONIUM 10 MG/ML (5 ML VIAL) IV ONE (12:48)
[2021-07-27 13:59] VITALS: TEMP 96.9
[2021-07-27] MEDS ORDERED: ALBUTEROL NEBULIZED 2.5 MG/3 ML INHALATION ONE ×2 (14:03→14:07)
[2021-07-27 14:51] VITALS: BP 108/77; PULSE 89; RESP 18
--- NOTE | 2021-07-31 00:11 | OP ---
OPERATIVE REPORT DATE OF SURGERY: 07/27/2021 PREOPERATIVE DIAGNOSIS: Chronic laryngitis secondary to laryngeal trauma. 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 ANESTHESIA: General. OPERATIVE PROCEDURE: Suspension microlaryngoscopy. SURGEON: Dr. Gould. COMPLICATIONS: None. ESTIMATED BLOOD LOSS: Zero. OPERATIVE PROCEDURE: The patient was placed on the operating table in supine position, and after uneventful induction and endotracheal intubation, satisfactory general anesthesia was obtained. Next, the patient was draped in usual and customary fashion. Following this, the Maria Eugenia anterior commissure laryngoscope was introduced into the oropharynx in the usual fashion, and the entire hypopharynx, including the right and left piriform sinuses, base of tongue, valleculae and epiglottis, was inspected and found to be free of any suspicious lesions or disease. Next the tip of the laryngoscope was presented to the laryngeal introitus. The laryngoscope was then suspended on the patient's chest using the Lewy apparatus. Following this, using the Zeiss operating microscope and under magnified visualization, one could see that the left true vocal cord appeared to be completely paralyzed, and the arytenoid cartilage appeared to be dislocated. The right true vocal cord appeared to function normally, although there appeared to be some scar tissue present in the area of the vocalis muscle. The patient was given 10 mg of Decadron intraoperatively to reduce any postoperative laryngeal edema. At this point, the procedure was terminated. No biopsies were obtained. There were no intraoperative complications. The patient tolerated the procedure well and was to the recovery room in satisfactory condition. MMODL / IJN: [id number] /
== END 2021-07-27 15:05 | disposition home or self-care (01) ==
LOC: OR 10:45
PROVIDERS: ATTEND Otolaryngology
DX: J38.01 Paralysis of vocal cords and larynx, unilateral (principal); J43.9 Emphysema, unspecified; Z91.041 Radiographic dye allergy status; Z79.899 Other long term (current) drug therapy; Z79.02 Long term (current) use of antithrombotics/antiplatelets; Z85.118 Personal history of other malignant neoplasm of bronchus and lung; E78.00 Pure hypercholesterolemia, unspecified; I69.354 Hemiplegia and hemiparesis following cerebral infarction affecting left non-dominant side; Z88.5 Allergy status to narcotic agent
CPT/HCPCS: 31525; J2250; J1100; J2710; J2405; J2001; J3010; J0131; J0330; J2704

== ENCOUNTER 2021-08-27 13:41 | Emergency (ER) | payer MEDICARE, OTHER ==
[2021-08-27 18:05] VITALS: RESP 18; TEMP 98
--- NOTE | 2021-08-27 18:31 | XR ---
EXAMINATION TYPE: XR ankle complete LT DATE OF EXAM: 08/27/2021 COMPARISON: NONE HISTORY: Pain TECHNIQUE: 3 views FINDINGS: Ankle mortise is anatomic. I see no fracture nor dislocation. Joint spaces are normal. IMPRESSION: Negative left ankle exam.
--- NOTE | 2021-08-27 18:33 | XR ---
EXAMINATION TYPE: XR foot complete LT DATE OF EXAM: 08/27/2021 COMPARISON: NONE HISTORY: Pain TECHNIQUE: 3 views FINDINGS: The metatarsals are intact. There is some deformity of the head of the proximal phalanx of the big toe with some mild valgus deformity of the IP joint. There is probably a nondisplaced oblique fracture through the shaft of the proximal phalanx. There is no dislocation. IMPRESSION: Nondisplaced oblique fracture through the shaft of the proximal phalanx of the big toe.
[2021-08-27] MEDS ORDERED: HYDROmorphone 0.5 MG/0.5 ML SYRINGE IM STA (19:15)
[2021-08-27] MEDS ORDERED: LIDOCAINE 1% INJ 10MG/ML (20 ML MDV) SQ ONE (19:21)
--- NOTE | 2021-08-27 20:28 | ED ---
Lower Extremity Injury HPI - General Source: patient, RN notes reviewed Mode of arrival: wheelchair Limitations: no limitations <Brown Ibrahim - Last Filed: 08/27/21 20:50> <Nancy Chand - Last Filed: 08/30/21 00:13> - General Chief Complaint: Extremity Injury, Lower Stated Complaint: Fall/Lt Foot Injury Time Seen by Provider: 08/27/21 18:52 - History of Present Illness Initial Comments: 61-year-old female that presents to the emergency room complaining of left great toe and left ankle pain after tripping over a rug in falling. She notes that she did this approximately 2:00 this afternoon and then came to the emergency room several hours later. She was otherwise well-appearing in no apparent distress or pain. She denied any weakness numbness tingling in her left foot. She denied any chest pain shortness of breath headache nausea vomiting diarrhea constipation fever fatigue chills. (Brown Ibrahim) - Related Data Home Medications Medication Instructions Recorded Confirmed ARIPiprazole [Abilify] 5 mg PO HS@209903/10/17 07/26/21 Clopidogrel [Plavix] 75 mg PO DAILY@0800 01/13/18 07/26/21 Sertraline [Zoloft] 100 mg PO DAILY@0800 01/13/18 07/26/21 Atorvastatin [Lipitor] 10 mg PO HS@209903/20/20 07/26/21 Mirabegron [Myrbetriq] 25 mg PO DAILY@0800 03/20/20 07/26/21 Aspirin EC [Ecotrin Low Dose] 81 mg PO DAILY@0800 11/23/20 07/26/21 Magnesium Oxide 400 mg PO DAILY@0800 11/23/20 07/26/21 Budesonide/Formoterol Fumarate 2 puff INHALATION RT-BID@0800,209902/13/21 07/26/21 [Symbicort 160-4.5 Mcg Inhaler] Docusate [Colace] 100 mg PO BID@0800,1700 02/13/21 07/26/21 Ipratropium-Albuterol Nebulize 3 ml INHALATION RT-Q6H PRN 02/13/21 07/26/21 [Duoneb 0.5 mg-3 mg/3 ml Soln] Magnesium Hydroxide [Milk of 7,200 mg PO DAILY PRN 02/13/21 07/26/21 Magnesia Concentrate] Ondansetron [Zofran] 4 mg PO Q8HR PRN 02/13/21 07/26/21 Pantoprazole [Protonix] 40 mg PO DAILY@0600 02/13/21 07/26/21 Vitamin B Complex 1 cap PO DAILY@0800 02/13/21 07/26/21 polyethylene glycoL 3350 [Miralax] 17 gm PO DAILY@0800 02/13/21 07/26/21 Ergocalciferol [Vitamin D2 (1250 1,250 mcg PO MO 07/26/21 07/26/21 Mcg = 31385 Iu)] Fluticasone/Umeclidin/Vilanter 1 inhalation INHALATION DAILY 07/26/21 07/26/21 [Trelegy Ellipta 100-62.5-25] Furosemide [Lasix] 40 mg PO DAILY 07/26/21 07/26/21 Previous Rx's Medication Instructions Recorded HYDROcodone/APAP 7.5-325MG [Wortham 1 tab PO Q6HR PRN 3 Days #12 tab 08/27/21 7.5-325] Allergies Allergy/AdvReac Type Severity Reaction Status Date / Time codeine AdvReac Nausea & Verified 08/27/21 18:00 Vomiting & Diarrhea Iodinated Contrast Media AdvReac Rash/Hives Verified 08/27/21 18:00 Review of Systems ROS Other: All systems not noted in ROS Statement are negative. <Brown Ibrahim - Last Filed: 08/27/21 20:50> ROS Other: All systems not noted in ROS Statement are negative. <Nancy Chand - Last Filed: 08/30/21 00:13> ROS Statement: Those systems with pertinent positive or pertinent negative responses have been documented in the HPI. Past Medical History Past Medical History: Cancer, Chest Pain / Angina, COPD, CVA/TIA, GERD/Reflux, Hyperlipidemia, Pneumonia, Respiratory Disorder Additional Past Medical History / Comment(s): 01/18/21 pt states she was hospitalized at [facility] for respiratory distress (aspiration pneumonia)/pt told both that she had a GA and that she did not have a GA at that time/was on ventilator and hospitalized for 2 weeks and now in [facility] for rehab. Since this experience pt has had dysphagia/weak voice and L sided chest pain she believes from compressions. 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 Past Anesthesia/Blood Transfusion Reactions: No Reported Reaction, Motion Sickness Past Psychological History: Anxiety, Depression Smoking Status: Former smoker Past Alcohol Use History: None Reported Past Drug Use History: Marijuana - Past Family History Father Family Medical History: Cancer Additional Family Medical History / Comment(s): Her father had lung cancer with mets Mother Family Medical History: CVA/TIA, Vascular Disorder Additional Family Medical History / Comment(s): aneurysm, heart problems <Brown Ibrahim - Last Filed: 08/27/21 20:50> General Exam Limitations: no limitations General appearance: alert, in no apparent distress Head exam: Present: atraumatic, normocephalic, normal inspection Eye exam: Present: normal appearance, PERRL, EOMI. Absent: scleral icterus, conjunctival injection, periorbital swelling ENT exam: Present: normal exam, mucous membranes moist Neck exam: Present: normal inspection Respiratory exam: Present: normal lung sounds bilaterally. Absent: respiratory distress, wheezes, rales, rhonchi, stridor Cardiovascular Exam: Present: regular rate, normal rhythm, normal heart sounds. Absent: systolic murmur, diastolic murmur, rubs, gallop, clicks Extremities exam: Present: normal inspection, full ROM, normal capillary refill. Absent: tenderness, pedal edema, joint swelling, calf tenderness Left Foot/Toe exam: Present: tenderness (Left great toe), deformity (Mild medial angulation of distal aspect great toe). Absent: normal inspection, full ROM, swelling, abrasion, laceration, ecchymosis Neurological exam: Present: alert, oriented X3 Psychiatric exam: Present: normal affect, normal mood Skin exam: Present: warm, dry, intact, normal color. Absent: rash <Brown Ibrahim - Last Filed: 08/27/21 20:50> Course Vital Signs 08/27/21 08/27/21 18:01 21:20 Temperature 98 F Pulse Rate 93 77 Respiratory 18 18 Rate Blood Pressure 147/75 O2 Sat by Pulse 95 99 Oximetry Procedures - Orthopedic Splinting/Casting Injury #1 Side: left Lower Extremity Injury Location: toe (Great toe) Lower Extremity Immobilizer: supa tape <Brown Ibrahim - Last Filed: 08/27/21 20:50> Medical Decision Making - Radiology Data Radiology results: report reviewed, image reviewed <Brown Ibrahim - Last Filed: 08/27/21 20:50> <Nancy Chand - Last Filed: 08/30/21 00:13> - Medical Decision Making 61-year-old female complaining of left great toe and left ankle pain. Left ankle and left foot x-ray ordered. 0.5 mg of Dilaudid and lidocaine ordered. X-ray shows nondisplaced oblique fracture of the distal aspect of the proximal phalanx of left great toe. Patient will be given orthopedic shoe. Case discussed with Dr. 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 (Brown Ibrahim) I was available for consultation in the emergency department. The history and physical exam were done by the midlevel provider. I was consulted for this patients care. I reviewed the case with the midlevel provider and based on their presentation of the patient, I agree with the assessment, medical decision making and plan of care as documented. Chart was dictated using [employer] dictation software. Attempts were made to correct any dictation errors however some typographical errors may persist. (Nancy Chand) - Radiology Data X-ray left foot: Nondisplaced oblique fracture through the shaft of the proximal phalanx of the big toe. X-ray left ankle: Negative left equal exam. (Brown Ibrahim) Disposition Is patient prescribed a controlled substance at d/c from ED?: Yes When asked, does pt state using other controlled substances?: No If prescribed controlled substance>3 days was MAPS reviewed?: Prescribed <3 Days If opioid is for acute pain is fill amount 7 days or less?: Yes Time of Disposition: 20:52 <Brown Ibrahim - Last Filed: 08/27/21 20:50> <Nancy Chand - Last Filed: 08/30/21 00:13> Clinical Impression: Fracture of left great toe Disposition: HOME SELF-CARE Condition: Stable Instructions (If sedation given, give patient instructions): Toe Fracture (ED) Additional Instructions: Please return to the Emergency Department if symptoms worsen or any other concerns. Follow-up with primary care 1-2 days. Follow-up with podiatry as soon as possible. Prescriptions: HYDROcodone/APAP 7.5-325MG [Wortham 7.5-325] 1 tab PO Q6HR PRN 3 Days #12 tab PRN Reason: Pain Referrals: Niranjan Freed MD [Primary Care Provider] - 1-2 days Chuck Eastman DPM [STAFF PHYSICIAN] - 1-2 days
[2021-08-27 21:21] VITALS: BP 147/75; PULSE 77
== END 2021-08-27 21:16 | disposition home or self-care (01) ==
LOC: EC 13:41
DX: S92.402A Displaced unspecified fracture of left great toe, initial encounter for closed fracture (principal); J44.9 Chronic obstructive pulmonary disease, unspecified; E78.5 Hyperlipidemia, unspecified; K21.9 Gastro-esophageal reflux disease without esophagitis; F41.9 Anxiety disorder, unspecified; F32.A Depression, unspecified; F12.90 Cannabis use, unspecified, uncomplicated; Z79.82 Long term (current) use of aspirin; Z79.51 Long term (current) use of inhaled steroids; Z79.899 Other long term (current) drug therapy; Z87.891 Personal history of nicotine dependence; W01.198A Fall on same level from slipping, tripping and stumbling with subsequent striking against other object, initial encounter
CPT/HCPCS: 73610; 73630; 99283; 96372; J2001; J1170

== ENCOUNTER 2021-10-16 18:17 | Inpatient (IN) | payer MEDICARE, OTHER ==
[2021-10-16] MEDS ORDERED: ALBUTEROL NEBULIZED 2.5 MG/3 ML INHALATION STA (18:19)
[2021-10-16] MEDS ORDERED: IPRATROPIUM 0.5 MG/2.5 ML NEBU INHALATION STA (18:19)
[2021-10-16] MEDS ORDERED: TERBUTALINE 1 MG/ML VIAL SQ STA (18:19)
[2021-10-16] MEDS ORDERED: methylPREDNISolone SOD SUCCI 125 MG/2 ML VIAL IV STA (18:19)
--- NOTE | 2021-10-16 18:35 | ED ---
General Adult HPI - General Stated complaint: KURTIS, syncope Time Seen by Provider: 10/16/21 18:17 Source: patient, RN notes reviewed, old records reviewed - History of Present Illness Initial comments: This is a 61-year-old female presents emergency Department complaining of difficulty breathing. Patient just left the hospital and went home. Patient was in the hospital for COVID pneumonia and also has a history of lung cancer with a partial pneumonectomy on the left. Patient got home today he did go to the bathroom and went to the bathroom and passed out according to EMS she was laying on her right side which was the side of her good lung. According to EMS she was very cold infection short of breath when they arrived. Patient was paced on [address] and was very tachypneic and tachycardic. Patient herself denied any pain but she states she is having a very difficult time breathing. - Related Data Home Medications Medication Instructions Recorded Confirmed Clopidogrel [Plavix] 75 mg PO DAILY 01/13/18 10/16/21 Atorvastatin [Lipitor] 10 mg PO HS 03/20/20 10/16/21 Mirabegron [Myrbetriq] 25 mg PO DAILY 03/20/20 10/16/21 Docusate [Colace] 100 mg PO BID PRN 02/13/21 10/16/21 Ergocalciferol [Vitamin D2 (1250 1,250 mcg PO Q7D 07/26/21 10/16/21 Mcg = 93993 Iu)] Fluticasone/Umeclidin/Vilanter 1 puff INHALATION RT-DAILY 07/26/21 10/16/21 [Stacey Kingston 100-62.5-25] Metoprolol Succinate (ER) [Toprol 50 mg PO DAILY 10/16/21 10/16/21 Xl] Montelukast [Singulair] 10 mg PO HS 10/16/21 10/16/21 Oxybutynin Chloride [Ditropan XL] 5 mg PO DAILY 10/16/21 10/16/21 Allergies Allergy/AdvReac Type Severity Reaction Status Date / Time codeine AdvReac Nausea & Verified 10/16/21 20:04 Vomiting & Diarrhea Iodinated Contrast Media AdvReac Rash/Hives Verified 10/16/21 20:04 Review of Systems ROS Statement: Those systems with pertinent positive or pertinent negative responses have been documented in the HPI. ROS Other: All systems not noted in ROS Statement are negative. Past Medical History Past Medical History: Cancer, Chest Pain / Angina, COPD, CVA/TIA, GERD/Reflux, Hyperlipidemia, Pneumonia, Respiratory Disorder Additional Past Medical History / Comment(s): 01/18/21 pt states she was hospitalized at [facility] for respiratory distress (aspiration pneumon ia)/pt told both that she had a UT and that she did not have a UT at that time/was on ventilator and hospitalized for 2 weeks and now in [facility] for rehab. Since this experience pt has had dysphagia/weak voice and L sided chest pain she believes from compressions. 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 Past Anesthesia/Blood Transfusion Reactions: No Reported Reaction, Motion Sickness Past Psychological History: Anxiety, Depression Smoking Status: Former smoker Past Alcohol Use History: None Reported Past Drug Use History: Marijuana - Past Family History Father Family Medical History: Cancer Additional Family Medical History / Comment(s): Her father had lung cancer with mets Mother Family Medical History: CVA/TIA, Vascular Disorder Additional Family Medical History / Comment(s): aneurysm, heart problems General Exam - General Exam Comments Initial Comments: GENERAL: Patient is well-developed and well-nourished. Patient is nontoxic and well- hydrated and is in moderate distress. ENT: Neck is soft and supple. No significant lymphadenopathy is noted. Oropharynx is clear. Moist mucous membranes. Neck has full range of motion without eliciting any pain. EYES: The sclera were anicteric and conjunctiva were pink and moist. Extraocular movements were intact and pupils were equal round and reactive to light. Eyelids were unremarkable. PULMONARY: Patient has crackles bilaterally and is moving very little air. CARDIOVASCULAR: Patient is tachycardic at 120 beats a minute. ABDOMEN: Soft and nontender with normal bowel sounds. SKIN: Skin is clear with no lesions or rashes and otherwise unremarkable. NEUROLOGIC: Patient is alert and oriented x3. Cranial nerves II through XII are grossly i ntact. MUSCULOSKELETAL: Normal extremities with adequate strength and full range of motion. LYMPHATICS: No significant lymphadenopathy is noted PSYCHIATRIC: Difficult to assess secondary to the patient's respiratory distress Course Vital Signs 10/16/21 10/16/21 10/16/21 18:19 18:49 18:55 Temperature 97.4 F L Pulse Rate 123 H 123 H 122 H Respiratory 40 H 40 H Rate Blood Pressure 84/59 121/90 O2 Sat by Pulse 96 98 Oximetry 10/16/21 10/16/21 10/16/21 19:05 19:15 19:25 Temperature Pulse Rate 122 H 121 H 122 H Respiratory 41 H 47 H 46 H Rate Blood Pressure 128/63 138/94 73/29 O2 Sat by Pulse 98 97 98 Oximetry 10/16/21 19:30 Temperature Pulse Rate 122 H Respiratory 44 H Rate Blood Pressure 106/51 O2 Sat by Pulse 96 Oximetry Procedures - Procedures Initial comment: Respiratory therapist was unable to get an ABG so I debi blood from the right femoral through the ABG. - Central Line Placement Right Femoral Consent Obtained: verbal consent Patient Placed on Monitor/Pulse Ox: Yes MD Prep: mask, gown, gloves Central Line Prep: Chlorhexidine scrub Local Anesthesia Used: Lidocaine 1% Ultrasound Used for Placement: Yes Central Line Lumen Inserted: triple Bloods Obtained for Lab: No Central Line Position: good blood return, all ports aspirated, flushed, capped, sutured in place with nylon Dressing Applied: Tegaderm Post Procedure X-Ray: tip of catheter in good position Patient Tolerated Procedure: well Complications: none - Intubation Sedative: Versed Mg Given: 10 Paralytic: Succinylcholine Mg Given: 35 Laryngoscope: [place] Size: 3 ET Tube Size: 7.5 ET Tube Uncuffed: No Tube Secured Location: teeth Tube Placement Confirmation: visualized tube passing through cords, equal breath sounds bilaterally, no breath sounds over epigastrium, confirmation by capnometry Patient Tolerated Procedure: well Intubation Complications: none Medical Decision Making - Medical Decision Making EKG shows sinus tachycardia at 123 bpm [place] interval 140 QT Interval 408 QTC Is 440. Patient's EKG Shows No ST Segment Elevation or Depression. Chest x-ray showed bilateral infiltrates. Patient had infiltrates consistent with multifocal or COVID pneumonia. Patient was stated on Rocephin at this time patient started the oxygenation at this point time I intubated the patient and I started place a central line in the right femoral because patient's blood pressure started to decline. Patient was then given another 2 L of fluid. Patient was given 2 in-line treatments. Chest x-ray was repeated and shows good placement of the ET tube infiltrates not changed. I spoke with Dr. Elkins he agreed to see the patient on consult. - Lab Data Result diagrams: 10/16/21 18:49 10/16/21 18:49 Lab Results 10/16/21 10/16/21 10/16/21 Range/Units 18:49 18:49 18:49 WBC 22.8 H (3.8-10.6) k/uL RBC 5.27 (3.80-5.40) m/uL Hgb 16.4 H (11.4-16.0) gm/dL Hct 49.1 H (34.0-46.0) % MCV 93.2 (80.0-100.0) fL MCH 31.2 (25.0-35.0) pg MCHC 33.5 (31.0-37.0) g/dL RDW 13.7 (11.5-15.5) % Plt Count 384 (150-450) k/uL MPV 7.0 Neutrophils % 77 % Lymphocytes % 16 % Monocytes % 5 % Eosinophils % 0 % Basophils % 1 % Neutrophils # 17.7 H (1.3-7.7) k/uL Lymphocytes # 3.7 (1.0-4.8) k/uL Monocytes # 1.1 H (0-1.0) k/uL Eosinophils # 0.0 (0-0.7) k/uL Basophils # 0.1 (0-0.2) k/uL Hypochromasia Slight PT 10.1 (9.0-12.0) sec INR 0.9 (<1.2) APTT 18.7 L (22.0-30.0) sec Sodium 136 L (137-145) mmol/L Potassium 5.8 H (3.5-5.1) mmol/L Chloride 98 (98-107) mmol/L Carbon Dioxide 24 (22-30) mmol/L Anion Gap 14 mmol/L BUN 27 H (7-17) mg/dL Creatinine 1.03 (0.52-1.04) mg/dL Est GFR (CKD-EPI)AfAm 68 (>60 ml/min/1.73 sqM) Est GFR (CKD-EPI)NonAf 59 (>60 ml/min/1.73 sqM) Glucose 271 H (74-99) mg/dL POC Glucose (mg/dL) (75-99) mg/dL POC Glu Sales Representative Trainee ID Plasma Lactic Acid William (0.7-2.0) mmol/L Calcium 9.0 (8.4-10.2) mg/dL Total Bilirubin 0.6 (0.2-1.3) mg/dL AST 55 H (14-36) U/L ALT 36 H (4-34) U/L Alkaline Phosphatase 103 (38-126) U/L Troponin I (0.000-0.034) ng/mL Total Protein 7.1 (6.3-8.2) g/dL Albumin 4.0 (3.5-5.0) g/dL Urine Color Urine Appearance (Clear) Urine pH (5.0-8.0) Ur Specific [place] (1.001-1.035) Urine Protein (Negative) Urine Glucose (UA) (Negative) Urine Ketones (Negative) Urine Blood (Negative) Urine Nitrite (Negative) Urine Bilirubin (Negative) Urine Urobilinogen (<2.0) mg/dL Ur Leukocyte Esterase (Negative) Coronavirus (PCR) (Not Detectd) 10/16/21 10/16/21 10/16/21 Range/Units 18:49 18:49 18:49 WBC (3.8-10.6) k/uL RBC (3.80-5.40) m/uL Hgb (11.4-16.0) gm/dL Hct (34.0-46.0) % MCV (80.0-100.0) fL MCH (25.0-35.0) pg MCHC (31.0-37.0) g/dL RDW (11.5-15.5) % Plt Count (150-450) k/uL MPV Neutrophils % % Lymphocytes % % Monocytes % % Eosinophils % % Basophils % % Neutrophils # (1.3-7.7) k/uL Lymphocytes # (1.0-4.8) k/uL Monocytes # (0-1.0) k/uL Eosinophils # (0-0.7) k/uL Basophils # (0-0.2) k/uL Hypochromasia PT (9.0-12.0) sec INR (<1.2) APTT (22.0-30.0) sec Sodium (137-145) mmol/L Potassium (3.5-5.1) mmol/L Chloride (98-107) mmol/L Carbon Dioxide (22-30) mmol/L Anion Gap mmol/L BUN (7-17) mg/dL Creatinine (0.52-1.04) mg/dL Est GFR (CKD-EPI)AfAm (>60 ml/min/1.73 sqM) Est GFR (CKD-EPI)NonAf (>60 ml/min/1.73 sqM) Glucose (74-99) mg/dL POC Glucose (mg/dL) 260 H (75-99) mg/dL POC Glu Sales Representative Trainee ID Inga Mosley Plasma Lactic Acid William 5.8 H* (0.7-2.0) mmol/L Calcium (8.4-10.2) mg/dL Total Bilirubin (0.2-1.3) mg/dL AST (14-36) U/L ALT (4-34) U/L Alkaline Phosphatase (38-126) U/L Troponin I <0.012 (0.000-0.034) ng/mL Total Protein (6.3-8.2) g/dL Albumin (3.5-5.0) g/dL Urine Color Urine Appearance (Clear) Urine pH (5.0-8.0) Ur Specific [place] (1.001-1.035) Urine Protein (Negative) Urine Glucose (UA) (Negative) Urine Ketones (Negative) Urine Blood (Negative) Urine Nitrite (Negative) Urine Bilirubin (Negative) Urine Urobilinogen (<2.0) mg/dL Ur Leukocyte Esterase (Negative) Coronavirus (PCR) (Not Detectd) 10/16/21 10/16/21 Range/Units 20:20 20:45 WBC (3.8-10.6) k/uL RBC (3.80-5.40) m/uL Hgb (11.4-16.0) gm/dL Hct (34.0-46.0) % MCV (80.0-100.0) fL MCH (25.0-35.0) pg MCHC (31.0-37.0) g/dL RDW (11.5-15.5) % Plt Count (150-450) k/uL MPV Neutrophils % % Lymphocytes % % Monocytes % % Eosinophils % % Basophils % % Neutrophils # (1.3-7.7) k/uL Lymphocytes # (1.0-4.8) k/uL Monocytes # (0-1.0) k/uL Eosinophils # (0-0.7) k/uL Basophils # (0-0.2) k/uL Hypochromasia PT (9.0-12.0) sec INR (<1.2) APTT (22.0-30.0) sec Sodium (137-145) mmol/L Potassium (3.5-5.1) mmol/L Chloride (98-107) mmol/L Carbon Dioxide (22-30) mmol/L Anion Gap mmol/L BUN (7-17) mg/dL Creatinine (0.52-1.04) mg/dL Est GFR (CKD-EPI)AfAm (>60 ml/min/1.73 sqM) Est GFR (CKD-EPI)NonAf (>60 ml/min/1.73 sqM) Glucose (74-99) mg/dL POC Glucose (mg/dL) (75-99) mg/dL POC Glu Sales Representative Trainee ID Plasma Lactic Acid William (0.7-2.0) mmol/L Calcium (8.4-10.2) mg/dL Total Bilirubin (0.2-1.3) mg/dL AST (14-36) U/L ALT (4-34) U/L Alkaline Phosphatase (38-126) U/L Troponin I (0.000-0.034) ng/mL Total Protein (6.3-8.2) g/dL Albumin (3.5-5.0) g/dL Urine Color Light Yellow Urine Appearance Clear (Clear) Urine pH 6.0 (5.0-8.0) Ur Specific [place] 1.009 (1.001-1.035) Urine Protein Negative (Negative) Urine Glucose (UA) Negative (Negative) Urine Ketones Negative (Negative) Urine Blood Negative (Negative) Urine Nitrite Negative (Negative) Urine Bilirubin Negative (Negative) Urine Urobilinogen <2.0 (<2.0) mg/dL Ur Leukocyte Esterase Negative (Negative) Coronavirus (PCR) Detected A (Not Detectd) Critical Care Time Critical Care Time: Yes Total Critical Care Time: 45 Disposition Clinical Impression: Respiratory failure, Multifocal pneumonia, Septic shock Disposition: ADMITTED IP TO THIS HOSP Referrals: Niranjan Freed MD [Primary Care Provider] - 1-2 days Time of Disposition: 20:47
[2021-10-16 19:00] LABS: Glucose,Whole Blood 260 mg/dL (75-99)
[2021-10-16 19:14] LABS: Total Bilirubin 0.6 mg/dL (0.2-1.3); Total Protein 7.1 g/dL (6.3-8.2)
--- NOTE | 2021-10-16 19:18 | XR ---
EXAMINATION TYPE: XR chest 1V portable DATE OF EXAM: 10/16/2021 COMPARISON: 06/07/2021 HISTORY: 61 years Female. STUDY INDICATION GIVEN: difficulty breathing . TECHNIQUE: AP upright chest radiograph IMPRESSION: Bibasilar and peripheral right greater than left airspace and mild interstitial opacities compared to prior study concerning for multifocal pneumonia. Mild left hemidiaphragm eventration, increased compared to the prior. Normal cardiomediastinal silhouette. No large pleural effusion. No pneumothorax seen. No acute osseous abnormalities.
[2021-10-16 19:22] LABS: Potassium 5.8 mmol/L (3.5-5.1)
[2021-10-16 19:23] LABS: Basophils # (A) 0.1 k/uL (0-0.2); Basophils % (A) 1 %; Eosinophils % (A) 0 %; HCT 49.1 % (34.0-46.0); HGB 16.4 gm/dL (11.4-16.0); Hypochromasia Slight; INR 0.9 (<1.2); Lymphocytes # (A) 3.7 k/uL (1.0-4.8); Lymphocytes % (A) 16 %; MCH 31.2 pg (25.0-35.0); MCHC 33.5 g/dL (31.0-37.0); MCV 93.2 fL (80.0-100.0); Monocytes # (A) 1.1 k/uL (0-1.0); Monocytes % (A) 5 %; Neutrophils # (A) 17.7 k/uL (1.3-7.7); Neutrophils % (A) 77 %; Platelet Count 384 k/uL (150-450); Prothrombin Time 10.1 sec (9.0-12.0); RBC 5.27 m/uL (3.80-5.40); RDW 13.7 % (11.5-15.5); WBC 22.8 k/uL (3.8-10.6)
[2021-10-16 19:33] LABS: Partial Thromboplastin Time 18.7 sec (22.0-30.0)
[2021-10-16] MEDS ORDERED: MIDAZOLAM 1 MG/ML 5 ML VIAL IV STA (19:34)
[2021-10-16] MEDS ORDERED: SUCCINYLCHOLINE CHLORIDE VIAL 200 MG/10 ML VIAL IV STA (19:34)
[2021-10-16] MEDS ORDERED: LORazepam 2 MG/ML INJ IV STA (20:00)
[2021-10-16] MEDS ORDERED: SODIUM CHLORIDE 0.9% 500 ML 500 ML IV ONE (20:06)
[2021-10-16] MEDS: SODIUM CHLORIDE 0.9% 1,000 ML IV ONE ×2 (20:17→20:18)
[2021-10-16] MEDS ORDERED: NOREPINEPHRINE 32 MG in SODIUM CHLORIDE 0.9% 218 ML IV ONE (20:20)
--- NOTE | 2021-10-16 20:28 | XR ---
EXAMINATION TYPE: XR chest 1V DATE OF EXAM: 10/16/2021 COMPARISON: 10/16/2021 HISTORY: 61 years Female. STUDY INDICATION GIVEN: line placement . TECHNIQUE: AP supine chest radiograph IMPRESSION: Tip of endotracheal tube 4.5 cm above the amina. The patient was intubated the interval. Enteric tub e courses and cold in the stomach. Bibasilar and peripheral right greater than left airspace and mild interstitial opacities are again s een during for multifocal pneumonia. Stable mild left hemidiaphragm eventration. Normal cardiomediastinal silhouette. No large pleural effusion. No pneumothorax. No acute osseous abnormalities.
[2021-10-16] MEDS: NOREPINEPHRINE 32 MG in SODIUM CHLORIDE 0.9% 218 ML IV ONE (20:29)
[2021-10-16 20:37] LABS: Appearance,Urine Clear (Clear); Bilirubin,Urine Negative (Negative); Blood,Urine Negative (Negative); Color,Urine Light Yellow; Glucose,Urine (UA) Negative (Negative); Ketones,Urine Negative (Negative); Leukocyte Esterase,Urine Negative (Negative); Nitrite,Urine Negative (Negative); Protein,Urine Negative (Negative); Specific Gravity,Urine 1.009 (1.001-1.035); Urobilinogen,Urine <2.0 mg/dL (<2.0)
[2021-10-16] MEDS ORDERED: diphenhydrAMINE 50 MG/ML 1 ML VIAL IVP STA (20:40)
[2021-10-16] MEDS ORDERED: FAMOTIDINE 20 MG/2 ML VIAL IV STA (20:40)
[2021-10-16] MEDS ORDERED: NALOXONE 0.4 MG/ML 1 ML VIAL IV PRN (20:47)
[2021-10-16 21:16] LABS: ABG Base Excess -2.6 mmol/L; ABG HCO3 25 mmol/L (21-25); ABG Oxygen Saturation 99.9 % (94-97); ABG PCO2 59 mmHg (35-45); ABG PH 7.23 (7.35-7.45); ABG PO2 327 mmHg (83-108); ABG TCO2 27 mmol/L (19-24); Allen Test Performed? Yes
--- NOTE | 2021-10-16 22:46 | CT ---
EXAMINATION TYPE: CT chest angio for PE DATE OF EXAM: 10/16/2021 COMPARISON: None HISTORY: KURTIS, Covid + Lung CA CT DLP: 554.9 mGycm Automated exposure control for dose reduction was used. CONTRAST: Performed with IV Contrast, patient injected with 80 mL of Isovue 370. Images obtained from the thoracic inlet to the diaphragm with IV contrast. There are Three-D postproc essed images. There is endotracheal tube. There is nasogastric tube in the stomach. There is coarse interstitial infiltrate in the anterior lung fernando bilaterally. There is mild pleura l thickening posteriorly in both lower lobes. Heart size is normal. There is no pericardial effusion. There is no evidence of mobile pleural fluid. There is contrast opacification of the pulmonary arteries. I see no definite filling defect. There is some spurring in the thoracic spine. There is no compression fracture. Sternum is intact. The upper abdominal soft tissues are intact. The thoracic aorta is intact. There is no aneurysm. There is no si gn of dissection. The ascending aorta measures 3.3 cm. IMPRESSION: No evidence of pulmonary embolism. Coarse bilateral upper lobe interstitial pneumonia. Patchy posterior basilar pulmonary infiltrates an d atelectasis. Mild pleural thickening at the lung bases. Pulmonary abnormalities likely related to m ultifocal pneumonia. Pulmonary infiltrates are essentially all new compared to old CT scan of .
[2021-10-16 22:57] LABS: Glucose,Whole Blood 326 mg/dL (75-99)
[2021-10-17 03:53] LABS: Basophils # (A) 0.1 k/uL (0-0.2); Basophils % (A) 0 %; Eosinophils # (A) 0.2 k/uL (0-0.7); Eosinophils % (A) 1 %; HGB 15.4 gm/dL (11.4-16.0); Hypochromasia Slight; Lymphocytes # (A) 1.2 k/uL (1.0-4.8); Lymphocytes % (A) 4 %; MCH 28.9 pg (25.0-35.0); MCHC 31.5 g/dL (31.0-37.0); MCV 91.8 fL (80.0-100.0); Monocytes # (A) 1.4 k/uL (0-1.0); Monocytes % (A) 5 %; Neutrophils # (A) 26.2 k/uL (1.3-7.7); Neutrophils % (A) 90 %; Platelet Count 318 k/uL (150-450); RBC 5.34 m/uL (3.80-5.40); RDW 13.6 % (11.5-15.5); WBC 29.2 k/uL (3.8-10.6)
[2021-10-17 04:04] LABS: Albumin 3.5 g/dL (3.5-5.0); Calcium 7.6 mg/dL (8.4-10.2); Total Bilirubin 0.5 mg/dL (0.2-1.3); Total Protein 6.4 g/dL (6.3-8.2)
[2021-10-17] MEDS ORDERED: SODIUM CHLORIDE 0.9% 2,000 ML IV ONE ×3 (07:56→21:07)
[2021-10-17] MEDS ORDERED: SODIUM BICARB 8.4% 50 ML SYR (1 MEQ/ML) IV STA (07:58)
[2021-10-17 08:02] LABS: Glucose,Whole Blood 234 mg/dL (75-99)
--- NOTE | 2021-10-17 08:02 | P.CNPUL ---
History of Present Illness Consult date: 10/16/21 Reason for consult: dyspnea History of present illness: 61-year-old female patient with known history of COPD, and non-small cell lung cancer involving the left upper lobe posterior left upper lobe wedge resection of the tumor with this anoscopy performed by systemic chemotherapy for a stage IIIa non-small cell lung cancer. This patient was in an outside hospita ([facility]) where she was treated for COVID-19 related pneumonia and respiratory failure. The patient was discharged home and within 24 hours of discharge, the patient was brought back to [facility] for shortness of breath and respiratory failure. The patient was seen in emergency department. According to the reported history, The patient was short of breath and EMS was called to the scene at home and the patient was seen in the bathroom and she passed out according to EMS and she was laying on her side. According to EMS, the patient was quite short of breath and she was very tachypneic and tachycardic. She denies having any pain. She was having difficulties in breathing. Upon arrival to the emergency department, the patient was in sig nificant respiratory distress. She was tachycardic with a heart rate of 122 and she was normotensive. She was given breathing treatments and steroids. Subsequently, she decompensated. She became more hypotensive. As such, decision was to intubate the patient placed on mechanical ventilator. Chest x- ray showed bilateral pulmonary infiltrates. Consistent chest x-ray with underlying COVID-19 related pneumonia. A triple lumen catheter was also inserted in the right femoral vein by the emergency physician and the patient was given a total of 2 L of IV fluids. Post intubation, repeat chest x-ray was done for tube placement. The white cell count was at 22.8 with a hemoglobin was 16.4 and platelets of 384. Sodium is 136 with a potassium level of 5.8 and the chloride is 98 with the Sinemet, 24 to the BUN of 27 and a creatinine of 1.03. Glucose was at 271. Troponins were negative. Lactic acid level initially was at 5.8. Troponin was negative. The patient was given 2 g of IV Rocephin. Currently intubated on a mechanical ventilator.morning is sedated and the patient is currently on propofol running at 40 mcg/kg per minute. She is on a mechanical ventilator and she is quite interested the mechanical ventilator. She is an assist-control mode at the rate of 16, tidal volume of 450, FiO2 50% and a PEEP of 5. The peak airway pressure is 26. The blood gases from today. Meanwhile, the white cell count from today is up to 29. Hemoglobin is at 15.4. The BNP is at 40 with a creatinine of 1.6 and the patient is admitted into an acute kidney injury. Potassium level is at 6.0. The patient's lactic acid level has dropped from 5.8 down to 2.6. As mentioned earlier, the repeat COVID 19 testing came back positive. A CT of the chest was also completed yesterday in the emergency department. The CAT scan showed no evidence of any pulmonary embolism. There was coarse bilateral upper lobe interstitial infiltrates consistent with pneumonia. There was also patchy posterior basilar home infiltrates. There was mild pleural thickening in the lung bases. This is consistent with multifocal pneumonia and obviously these are new infiltrates compared to the earlier CAT scan of the chest that was done on 01/08/2021. Post intubation, the patient became also hypotensive. The patient was given a total of 2 L of IV fluid in the emergency department. Current IV fluids is running at KVO. The patient was given a triple-lumen catheter in her right femoral vein. The patient was also started on pressors and she is currently on norepinephrine infusion running at 0.38 mcg/kg per minute. Her blood work today shows obvious acute kidney injury In terms of her history, the tattimmy was found to have a left upper lobe mass. The patient had a CAT scan of the chest on 12/17/19 which showed a 1 cm nodule in the left upper lobe abutting the pleura in addition to 2.4 cm left suprahilar mass. The PET scan that was done on 12/20/2017 was suspicious for uptake in the left upper lobe nodule and the suprahilar mass and in the right parotid gland. On 01/21/2018, the patient underwent a left upper lobe wedge resection and a biopsy of the AP window through a mediastinoscopy and the diagnosis was consistent with poorly differentiated neuroendocrine carcinoma, mixed with large cell neuroendocrine carcinoma. 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 The patient had a MRI of the brain on 02/10/2019 that was negative. The patient was started on chemotherapy with a combination of carboplatin and IMAGING NURSE-16 on 02/18/2018. She completed a total of 4 second of systemic chemotherapy. Follow-up CAT scan from 05/04/2018 showed significant improvement and repeat CAT scan on 08/03/2018 showed no evidence of any recurrence. Follow-up MRI of the brain that was done on 10/30/2018 showed no ev idence of any metastatic disease. Subsequent CAT scan of the chest abdomen and pelvis from 11/04/2018 and 02/19/2019, 07/07/2019 and 11/08/2019 showed no evidence of any disease recurrence. MRI of the brain repeated on 09/24/2019 was within normal limits. Further follow-up with a repeat CAT scan of the chest abdomen and pelvis from 02/04/2020 and this was negative. Repeat CAT scan of the chest on 01/08/2021 showed a new left hilar density which was thought to be related to radiation therapy versus recurrence. However, the patient had a respiratory events/cardiac arrest in January 2021 and for that reason she was intubated and placed on a mechanical ventilator and subsequently she was extubated and she was discharged to rehabilitation. She had a PET scan showed a stable right parotid lesion. No suspicious metabolic uptake to indicate neoplastic recurrence. The patient however had a uptake in the anterior left tongue worrisome for neoplastic disease. The patient was referred for ENT evalua tion and she saw an ENT physician in [place] and evaluation was negative for any malignancy. In summary, the patient has a history of lung cancer, which has been at admission, initial stage was stage IIIa, T1 N2 M0 disease. ENT evaluation was done by Dr. Tee. Other comorbidities include stroke in 2002 affecting her left side of the body, she also has issues with stomach ulcers, chronic anxiety, chronic depression, hyperlipidemia, and she also has had previous issues with dysphagia, weak voice, and a paralyzed left-sided vocal cords. The patient is also known to have COPD. She has a metallic Trelegy Ellipta on outpatient basis regarding her COPD. Most recent PET/CT from 03/16/2021 showed no metabolic activity involving the lungs to indicate recurrent tumor. The parotid lesion was stable. Has not completed COVID-19 vaccination. Review of Systems ROS unobtainable: due to endotracheal tube Past Medical History Past Medical History: Coronary Artery Disease (CAD), Cancer (Non small cell lung cancer , stage 3A), COPD, CVA/TIA, GERD/Reflux, Hyperlipidemia, Pneumonia (COVID 19), Respiratory Disorder Additional Past Medical History / Comment(s): 01/18/21 pt states she was hospital ized at [facility] for respiratory distress (aspiration pneumonia)/pt told both that she had a TN and that she did not have a TN at that time/was on ventilator and hospitalized for 2 weeks and now in [facility] for rehab. Since this experience pt has had dysphagia/weak voice and L sided chest pain she believes from compressions. 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 Past Anesthesia/Blood Transfusion Reactions: No Reported Reaction, Motion Sickness Past Psychological History: Anxiety, Depression Smoking Status: Former smoker Past Alcohol Use History: None Reported Past Drug Use History: Marijuana - Past Family History Father Family Medical History: Cancer Additional Family Medical History / Comment(s): Her father had lung cancer with mets Mother Family Medical History: CVA/TIA, Vascular Disorder Additional Family Medical History / Comment(s): aneurysm, heart problems Medications and Allergies Home Medications Medication Instructions Recorded Confirmed Type Clopidogrel [Plavix] 75 mg PO DAILY 01/13/18 10/16/21 History Atorvastatin [Lipitor] 10 mg PO HS 03/20/20 10/16/21 History Mirabegron [Myrbetriq] 25 mg PO DAILY 03/20/20 10/16/21 History Docusate [Colace] 100 mg PO BID PRN 02/13/21 10/16/21 History Ergocalciferol [Vitamin D2 (1250 1,250 mcg PO Q7D 07/26/21 10/16/21 History Mcg = 34577 Iu)] Fluticasone/Umeclidin/Vilanter 1 puff INHALATION RT-DAILY 07/26/21 10/16/21 History [Trelegy Ellipta 100-62.5-25] Metoprolol Succinate (ER) [Toprol 50 mg PO DAILY 10/16/21 10/16/21 History Xl] Montelukast [Singulair] 10 mg PO HS 10/16/21 10/16/21 History Oxybutynin Chloride [Ditropan XL] 5 mg PO DAILY 10/16/21 10/16/21 History Allergies Allergy/AdvReac Type Severity Reaction Status Date / Time codeine AdvReac Nausea & Verified 10/16/21 20:04 Vomiting & Diarrhea Iodinated Contrast Media AdvReac Rash/Hives Verified 10/16/21 20:04 Physical Exam Vitals: Vital Signs Temp Pulse Resp BP Pulse Ox 10/16/21 19:30 122 H 44 H 106/51 96 10/16/21 19:25 122 H 46 H 73/29 98 10/16/21 19:15 121 H 47 H 138/94 97 10/16/21 19:05 122 H 41 H 128/63 98 10/16/21 18:55 122 H 40 H 121/90 98 10/16/21 18:49 123 H 10/16/21 18:19 97.4 F L 123 H 40 H 84/59 96 Intake and Output 10/16/21 10/16/21 10/16/21 06:59 14:59 22:59 Other: Weight 79.379 kg Patient is currently intubated, sedated, calm and comfortable mechanical ventilator. Orogastric and orotracheal tube are both in place. Head exam was generally normal. There was no scleral icterus or corneal arcus. Mucous membranes were moist. Neck was supple and without jugular venous distension, thyromegaly, or carotid bruits. Carotids were easily palpable bilaterally. There was no adenopathy. Lungs sounds are diminished and the patient scattered expiratory wheezes without the lung his bilaterally. Cardiac exam revealed the PMI to be normally situated and sized. The rhythm was regular and no extrasystoles were noted during several minutes of auscultation. The first and second heart sounds were normal and physiologic splitting of the second heart sound was noted. There were no murmurs, rubs, clicks, or gallops. Abdominal exam revealed normal bowel sounds. The abdomen was soft, non-tender, and without masses, organomegaly, or appreciable enlargement of the abdominal aorta. Examination of the extremities revealed easily palpable radial, femoral and pedal pulses. There was no cyanosis, clubbing or edema. Examination of the skin revealed no evidence of significant rashes, suspicious appearing nevi or other concerning lesions. Neurologic the patient is sedated and calm and comfortable. Results - Laboratory Findings CBC and BMP: 10/17/21 03:45 10/17/21 03:45 ABG WBC 22.8 k/uL (3.8-10.6) H 10/16/21 18:49 RBC 5.27 m/uL (3.80-5.40) 10/16/21 18:49 Hgb 16.4 gm/dL (11.4-16.0) H 10/16/21 18:49 Hct 49.1 % (34.0-46.0) H 10/16/21 18:49 MCV 93.2 fL (80.0-100.0) 10/16/21 18:49 MCH 31.2 pg (25.0-35.0) 10/16/21 18:49 MCHC 33.5 g/dL (31.0-37.0) 10/16/21 18:49 RDW 13.7 % (11.5-15.5) 10/16/21 18:49 Plt Count 384 k/uL (150-450) 10/16/21 18:49 MPV 7.0 10/16/21 18:49 Neutrophils % 77 % 10/16/21 18:49 Lymphocytes % 16 % 10/16/21 18:49 Monocytes % 5 % 10/16/21 18:49 Eosinophils % 0 % 10/16/21 18:49 Basophils % 1 % 10/16/21 18:49 Neutrophils # 17.7 k/uL (1.3-7.7) H 10/16/21 18:49 Lymphocytes # 3.7 k/uL (1.0-4.8) 10/16/21 18:49 Monocytes # 1.1 k/uL (0-1.0) H 10/16/21 18:49 Eosinophils # 0.0 k/uL (0-0.7) 10/16/21 18:49 Basophils # 0.1 k/uL (0-0.2) 10/16/21 18:49 Hypochromasia Slight 10/16/21 18:49 PT 10.1 sec (9.0-12.0) 10/16/21 18:49 INR 0.9 (<1.2) 10/16/21 18:49 APTT 18.7 sec (22.0-30.0) L 10/16/21 18:49 Sodium 136 mmol/L (137-145) L 10/16/21 18:49 Potassium 5.8 mmol/L (3.5-5.1) H 10/16/21 18:49 Chloride 98 mmol/L (98-107) 10/16/21 18:49 Carbon Dioxide 24 mmol/L (22-30) 10/16/21 18:49 Anion Gap 14 mmol/L 10/16/21 18:49 BUN 27 mg/dL (7-17) H 10/16/21 18:49 Creatinine 1.03 mg/dL (0.52-1.04) 10/16/21 18:49 Est GFR (CKD-EPI)AfAm 68 (>60 ml/min/1.73 sqM) 10/16/21 18:49 Est GFR (CKD-EPI)NonAf 59 (>60 ml/min/1.73 sqM) 10/16/21 18:49 Glucose 271 mg/dL (74-99) H 10/16/21 18:49 POC Glucose (mg/dL) 260 mg/dL (75-99) H 10/16/21 18:49 POC Glu Brusher Operator ARGELIA Inga Mosley 10/16/21 18:49 Plasma Lactic Acid William 5.8 mmol/L (0.7-2.0) H* 10/16/21 18:49 Calcium 9.0 mg/dL (8.4-10.2) 10/16/21 18:49 Total Bilirubin 0.6 mg/dL (0.2-1.3) 10/16/21 18:49 AST 55 U/L (14-36) H 10/16/21 18:49 ALT 36 U/L (4-34) H 10/16/21 18:49 Alkaline Phosphatase 103 U/L (38-126) 10/16/21 18:49 Troponin I <0.012 ng/mL (0.000-0.034) 10/16/21 18:49 Total Protein 7.1 g/dL (6.3-8.2) 10/16/21 18:49 Albumin 4.0 g/dL (3.5-5.0) 10/16/21 18:49 PT/INR, D-dimer PT 10.1 sec (9.0-12.0) 10/16/21 18:49 INR 0.9 (<1.2) 10/16/21 18:49 Abnormal lab findings: Abnormal Labs 10/16/21 10/16/21 10/16/21 18:49 18:49 18:49 WBC 22.8 H Hgb 16.4 H Hct 49.1 H Neutrophils # 17.7 H Monocytes # 1.1 H APTT 18.7 L Sodium 136 L Potassium 5.8 H BUN 27 H Glucose 271 H POC Glucose (mg/dL) Plasma Lactic Acid William AST 55 H ALT 36 H 10/16/21 10/16/21 18:49 18:49 WBC Hgb Hct Neutrophils # Monocytes # APTT Sodium Potassium BUN Glucose POC Glucose (mg/dL) 260 H Plasma Lactic Acid William 5.8 H* AST ALT - Diagnostic Findings Chest x-ray: image reviewed Assessment and Plan Plan: 1 acute hypoxic respiratory failure. The patient presented with significant respiratory distress, pulse COVID-19 related pneumonia requiring hospitalization in an outside hospital, to be readmitted to our hospital within 24 hours of discharge for respiratory distress and the patient currently is intubated on a mechanical ventilator. Chest x-ray still showing diffuse bilateral pulmonary infiltrates consistent with COVID-19 related pneumonia. Computed tomography scan of the chest was done in emergency department. No evidence of any pulmonary embolism. There is evidence of bilateral pneumonia which could be related to COVID 19. Superinfection is highly likely. The patient is acting septic at this point in time and the patient is hypotensive with leukocytosis. Superinfection needs to be considered in this patient. At this point in time, the patient is intubated on a mechanical ventilator. 2 acute COVID-19 related pneumonia, patient is not vaccinated 3 neuroendocrine carcinoma of the left lung status post wedge resection, chemotherapy/radiation in 2018. Clinically stable and there is no evidence of recurrence based on the most recent PET scan done in March 2021 in addition to a negative MRI of the brain done 2020. 4 advanced COPD, maintained on surgery on [facility] on an outpatient basis. The patient has severe disease and the patient has an FEV1 of 26% based on a spirometry from 2018. The patient is also known to have chronic hypoxic respiratory failure 5 septic shock secondary to above, currently under investigation. The lactic acid level at time of admission was 5.8, dropped down to 2.6 after being given 2 L of IV fluids. 6 Acute leukocytosis and acute lactic acidosis 7 acute kidney injury, likely secondary to sepsishypotension. Creatinine is up to 1.6 and the patient has developed a component of hyperkalemia. 8 Hyperlipidemia 9 left vocal cord paralysis 10 History of anxiety/depression 11 Smoker 12 history of CVA back in 2003 Plan Keep the patient sedated with propofol and the patient is calm and comfortable at this point in time. Complete the fluid resuscitation. Give the patient additional 2 L of IV fluids in the form of normal saline and proceed with an insertion of arterial line to accurately monitor the blood pressure. We're going to titrate the norepinephrine accordingly to maintain a mean arterial pressure above 65. Check a pro-calcitonin level. Check sputum Gram stain and culture. Check blood cultures. Obtain a baseline serum cortisol level. I'm sure that the patient was given steroids in the other hospital. As such, it's important to restart this patient back on systemic steroids to avoid any form of adrenal insufficiency. Proceed with covering this patient with broad-spectrum antibiotics. I am going to stop the IV Rocephin and put the patient a combination of Zosyn and Levaquin at this point in time. Patient is known to have advanced COPD. Putting the patient IV Solu-Medrol is reasonable and we are going to put her on 60 mg IV every 6 hours. In terms of her acute kidney failure, we are going to monitor the kidney function. We'll give the patient 2 A of sodium bicarb and 10 g of Lokelma and we are going to monitor the renal function and obtain ultrasound the kidneys to rule out any hydronephrosis. Patient has a Proctor catheter in place and the urine output is wide diminished at this point in time and the patient produced only 100 mL overnight. Continue ventilator support. The patient has been drop the FiO2 down to 50%. We'll keep the tidal volume and 450 with a rate of 18 at this point in time. We'll obtain a follow-up blood. Then make the necessary ventilator changes. Put the patient IV Protonix 40 mg IV every 24 hours. Put the patient on Lovenox 40 mg subcu every 24 hours. Check inflammatory markers including LDH, CRP and d-dimer is Restart Plavix and Lipitor J sliding scale insulin coverage and use insulin drip if needed. We'll monitor the blood sugar and make appropriate decisions accordingly. Records from [facility] Condition is critical and outcome is poor baseline above-mentioned comorbidities. We'll continue to follow make further recommendations based on her progress. Time with Patient: Greater than 30
[2021-10-17] MEDS ORDERED: INSULIN ASPART (NovoLOG) 100 UNIT/ML VIAL SQ SCH (08:15)
[2021-10-17] MEDS ORDERED: CLOPIDOGREL 75 MG TAB PO SCH (09:00)
[2021-10-17] MEDS ORDERED: SODIUM ZIRCONIUM CYCLOSILICATE 10 GM PACKET PO ONE (09:00)
[2021-10-17] MEDS ORDERED: ENOXAPARIN 40 MG/0.4 ML SYRINGE SQ SCH (09:00)
[2021-10-17] MEDS ORDERED: PANTOPRAZOLE 40 MG/10 ML VIAL IVP SCH (09:00)
[2021-10-17] MEDS ORDERED: LEVOFLOXACIN 500MG-D5W PMX 500 MG in DEXTROSE/WATER 1 100ML.BAG IVPB SCH (09:00)
--- NOTE | 2021-10-17 09:09 | XR ---
EXAMINATION TYPE: XR chest 1V portable DATE OF EXAM: 10/17/2021 CLINICAL HISTORY: Difficulty breathing and covid progress study. History of lung cancer. TECHNIQUE: Single AP portable semiupright view of the chest is obtained. COMPARISON: CTA chest and Chest x-ray from one day earlier and older studies. FINDINGS: Stable endotracheal and orogastric tubes. Background chronic emphysematous and pulmonary fibrotic change with multifocal areas of increased opa city in the peripheral of the lower lungs redemonstrated. Cardiac silhouette size stable and upper li mits of normal. Osseous structures are intact. IMPRESSION: Chronic changes with faint increased peripheral opacities in the lower lungs redemonstrat ed consistent with covid-19 infection. No significant change from one day earlier.
[2021-10-17] MEDS: PIPERACILLIN-TAZOBACTAM 3.375 GM in SODIUM CHLORIDE 0.9% 100 ML IVPB SCH ×2 (09:42→17:00)
[2021-10-17] MEDS: CHLORHEXIDINE GLUCONATE 15 ML CUP MUCOUS MEM SCH ×2 (09:44→22:03)
[2021-10-17] MEDS: methylPREDNISolone SOD SUCCI 125 MG/2 ML VIAL IV SCH ×4 (09:45→22:48)
[2021-10-17] MEDS: NOREPINEPHRINE 32 MG in SODIUM CHLORIDE 0.9% 218 ML IV ONE (11:08)
[2021-10-17 11:22] LABS: ABG Base Excess 0.8 mmol/L; ABG HCO3 25 mmol/L (21-25); ABG Oxygen Saturation 97.3 % (94-97); ABG PCO2 37 mmHg (35-45); ABG PH 7.44 (7.35-7.45); ABG PO2 99 mmHg (83-108); ABG TCO2 26 mmol/L (19-24)
[2021-10-17 11:24] LABS: Allen Test Performed? no
[2021-10-17 12:33] LABS: Glucose,Whole Blood 163 mg/dL (75-99)
[2021-10-17 12:55] LABS: C Reactive Protein 1.9 mg/dL (<1.0)
--- NOTE | 2021-10-17 13:59 | P.PCN ---
Date of Procedure: 10/17/21 Preoperative Diagnosis: Lung cancer, respiratory failure Postoperative Diagnosis: same Procedure(s) Performed: arterial line insetion Anesthesia: local Surgeon: Nina Elkins Pathology: other Condition: critical Disposition: ICU Operative Findings: Indication: Hemodynamic monitoring. A time-out was completed verifying correct patient, procedure, site, positioning, and implant(s) or special equipment if applicable. Allens test was performed to ensure adequate perfusion. The patients right wrist was prepped and draped in sterile fashion. 1% Lidocaine was used to anesthetize the area. An 18G Arrow arterial line was introduced into the right radial artery. The catheter was threaded over the guide wire and the needle was removed with appropriate pulsatile blood return. Blood loss was minimal. The catheter was then sutured in place to the skin and a sterile dressing applied. Perfusion to the extremity distal to the point of catheter insertion was checked and found to be adequate. The patient tolerated the procedure well and there were no complications.
[2021-10-17] MEDS: ALBUTEROL HFA INHALER INHALATION SCH ×3 (14:01→20:15)
[2021-10-17] MEDS ORDERED: ACETAMINOPHEN TAB 325 MG TAB PO PRN (16:44)
[2021-10-17] MEDS ORDERED: VANCOMYCIN IV PER PHARMACY 1 EACH MISC MISCELLANE PRN (18:43)
[2021-10-17 18:58] LABS: Glucose,Whole Blood 114 mg/dL (75-99)
[2021-10-17] MEDS ORDERED: VANCOMYCIN 1,500 MG in SODIUM CHLORIDE 0.9% 250 ML IVPB SCH (19:00)
[2021-10-17] MEDS: INSULIN ASPART (NovoLOG) 100 UNIT/ML VIAL SQ SCH (19:34)
[2021-10-17] MEDS ORDERED: ACETAMINOPHEN IV (For NPO) 1,000 MG in EMPTY BAG 1 BAG IVPB PRN (19:44)
[2021-10-17] MEDS: NOREPINEPHRINE 32 MG in SODIUM CHLORIDE 0.9% 218 ML IV SCH (20:47)
[2021-10-17] MEDS ORDERED: ATORVASTATIN 10 MG TAB PO SCH (21:00)
[2021-10-17 21:15] LABS: HCT 34.8 % (34.0-46.0); MCH 30.4 pg (25.0-35.0); MCHC 34.1 g/dL (31.0-37.0); Mean Platelet Volume 6.6; RBC 3.91 m/uL (3.80-5.40); RDW 15.6 % (11.5-15.5); WBC 15.3 k/uL (3.8-10.6)
[2021-10-17] MEDS: SODIUM CHLORIDE 0.9% 50 ML with VASOPRESSIN 20 UNIT IVPB SCH ×2 (21:16)
[2021-10-17 21:24] LABS: HGB 11.9 gm/dL (11.4-16.0)
[2021-10-17 21:28] LABS: Albumin 1.8 g/dL (3.5-5.0); Magnesium 1.9 mg/dL (1.6-2.3); Phosphorus 2.8 mg/dL (2.5-4.5); Total Bilirubin 0.8 mg/dL (0.2-1.3); Total Protein 3.8 g/dL (6.3-8.2)
[2021-10-17 21:29] LABS: Platelet Count 12 k/uL (150-450)
[2021-10-17 21:47] LABS: Calcium 5.4 mg/dL (8.4-10.2)
[2021-10-17 21:57] LABS: INR 2.5 (<1.2); Prothrombin Time 24.5 sec (9.0-12.0)
[2021-10-17] MEDS ORDERED: CALCIUM GLUCONATE 2 GM in SODIUM CHLORIDE 0.9% 100 ML IVPB ONE (22:15)
--- NOTE | 2021-10-17 22:43 | P.HPIM ---
History of Present Illness H&P Date: 10/17/21 Chief Complaint: shortness of breath Kari Rooney is a 61 yo F with PMH of lung cancer s/p wedge resection and chemotherapy, COPD who was brought to the ED via EMS for worsening shortness of breath. Pt examined in the ICU, she is intubated and sedated, history obtained via chart review. She was recently treated at [facility] for Covid pneumonia and was subsequently discharged home. She then became very short of breath and when found by EMS was noted to be tachycardic and tachypneic. On arrival to the ED she was hypotensive, tachypneic and tachycardic, WBC 22k, lactic 5.8, trop negative, pH 7.23. CTA chest multifocal pneumonia, no PE. Review of Systems ROS unobtainable: due to endotracheal tube Past Medical History Past Medical History: Coronary Artery Disease (CAD), Cancer (Non small cell lung cancer , stage 3A), COPD, CVA/TIA, GERD/Reflux, Hyperlipidemia, Pneumonia (COVID 19), Respiratory Disorder Additional Past Medical History / Comment(s): 01/18/21 pt states she was hospitalized at [facility] for respiratory distress (aspiration pn eumonia)/pt told both that she had a RI and that she did not have a RI at that time/was on ventilator and hospitalized for 2 weeks and now in [facility] for rehab. Since this experience pt has had dysphagia/weak voice and L sided chest pain she believes from compressions. 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 Past Anesthesia/Blood Transfusion Reactions: No Reported Reaction, Motion Sickness Past Psychological History: Anxiety, Depression Smoking Status: Former smoker Past Alcohol Use History: None Reported Past Drug Use History: Marijuana - Past Family History Father Family Medical History: Cancer Additional Family Medical History / Comment(s): Her father had lung cancer with mets Mother Family Medical History: CVA/TIA, Vascular Disorder Additional Family Medical History / Comment(s): aneurysm, heart problems Medications and Allergies Home Medications Medication Instructions Recorded Confirmed Type Clopidogrel [Plavix] 75 mg PO DAILY 01/13/18 10/16/21 History Atorvastatin [Lipitor] 10 mg PO HS 03/20/20 10/16/21 History Mirabegron [Myrbetriq] 25 mg PO DAILY 03/20/20 10/16/21 History Docusate [Colace] 100 mg PO BID PRN 02/13/21 10/16/21 History Ergocalciferol [Vitamin D2 (1250 1,250 mcg PO Q7D 07/26/21 10/16/21 History Mcg = 88021 Iu)] Fluticasone/Umeclidin/Vilanter 1 puff INHALATION RT-DAILY 07/26/21 10/16/21 History [Trelegy Ellipta 100-62.5-25] Metoprolol Succinate (ER) [Toprol 50 mg PO DAILY 10/16/21 10/16/21 History Xl] Montelukast [Singulair] 10 mg PO HS 10/16/21 10/16/21 History Oxybutynin Chloride [Ditropan XL] 5 mg PO DAILY 10/16/21 10/16/21 History Allergies Allergy/AdvReac Type Severity Reaction Status Date / Time codeine AdvReac Nausea & Verified 10/16/21 20:04 Vomiting & Diarrhea Iodinated Contrast Media AdvReac Rash/Hives Verified 10/16/21 20:04 Physical Exam Vitals: Vital Signs Temp Pulse Resp BP Pulse Ox 10/17/21 22:00 108.0 F H 126 H 21 80 L 10/17/21 21:45 128 H 21 83 L 10/17/21 21:30 130 H 20 98/67 94 L 10/17/21 21:15 131 H 22 98/67 87 L 10/17/21 21:00 108.3 F H 133 H 21 84 L 10/17/21 20:45 129 H 16 89 L 10/17/21 20:30 131 H 16 88 L 10/17/21 20:15 133 H 16 96/58 89 L 10/17/21 20:00 107.4 F H 135 H 16 89 L 10/17/21 19:45 131 H 16 87/58 88 L 10/17/21 19:30 131 H 16 87/58 89 L 10/17/21 19:15 134 H 16 87/58 10/17/21 19:00 108 F H 133 H 16 104/61 86 L 10/17/21 18:45 133 H 20 104/61 90 L 10/17/21 18:30 103.8 F H 130 H 27 H 104/61 92 L 10/17/21 18:15 130 H 29 H 104/61 93 L 10/17/21 18:00 129 H 25 H 93 L 10/17/21 17:45 128 H 18 94 L 10/17/21 17:30 129 H 14 94 L 10/17/21 17:15 131 H 20 95 10/17/21 17:00 133 H 22 95 10/17/21 16:45 131 H 23 95 10/17/21 16:30 99.6 F 130 H 25 H 94 L 10/17/21 16:15 130 H 25 H 94 L 10/17/21 16:00 133 H 20 94 L 10/17/21 15:45 133 H 27 H 94 L 10/17/21 15:30 134 H 27 H 94 L 10/17/21 15:15 133 H 27 H 95 10/17/21 15:00 134 H 27 H 95 10/17/21 14:45 133 H 25 H 95 10/17/21 14:30 131 H 25 H 95 10/17/21 14:15 129 H 18 107/83 95 10/17/21 14:00 129 H 23 97 10/17/21 13:45 128 H 23 96 10/17/21 13:30 125 H 25 H 97 10/17/21 13:15 124 H 23 116/88 97 10/17/21 13:00 124 H 21 97 10/17/21 12:45 123 H 25 H 98 10/17/21 12:30 125 H 21 98 10/17/21 12:15 125 H 23 121/95 99 10/17/21 12:00 118 H 21 112/88 98 10/17/21 11:45 118 H 23 98 10/17/21 11:30 117 H 21 98 10/17/21 11:15 116 H 20 112/88 98 10/17/21 11:00 117 H 19 98 10/17/21 10:45 116 H 19 98 10/17/21 10:30 117 H 18 99 10/17/21 10:15 115 H 23 98 10/17/21 10:00 116 H 23 119/93 98 10/17/21 09:45 117 H 23 119/93 97 10/17/21 09:30 117 H 23 116/90 10/17/21 09:15 120 H 23 119/92 98 10/17/21 09:00 121 H 23 119/87 97 10/17/21 08:45 123 H 25 H 121/92 97 10/17/21 08:30 123 H 23 117/82 97 10/17/21 08:15 122 H 25 H 128/94 97 10/17/21 08:00 98.4 F 121 H 27 H 143/94 97 10/17/21 07:45 120 H 24 134/91 97 10/17/21 07:00 115 H 24 124/103 98 10/17/21 06:45 115 H 22 130/87 99 10/17/21 06:30 114 H 24 131/34 98 10/17/21 06:15 112 H 22 128/97 99 10/17/21 06:00 112 H 21 129/107 99 10/17/21 05:45 112 H 21 121/103 10/17/21 05:30 111 H 24 121/103 98 10/17/21 05:15 110 H 22 128/102 98 10/17/21 05:00 98.7 F 110 H 21 131/99 10/17/21 04:45 109 H 21 125/101 98 10/17/21 04:30 107 H 22 128/102 98 10/17/21 04:15 108 H 23 132/88 98 10/17/21 04:00 97.8 F 108 H 21 123/102 97 10/17/21 03:45 106 H 21 130/85 98 10/17/21 03:30 106 H 19 136/95 10/17/21 03:15 107 H 21 133/93 10/17/21 03:00 107 H 18 125/104 10/17/21 02:45 107 H 18 125/108 98 10/17/21 02:30 107 H 18 128/99 98 10/17/21 02:15 106 H 15 124/103 10/17/21 02:00 107 H 19 120/98 97 10/17/21 01:45 107 H 17 129/104 97 10/17/21 01:30 107 H 17 126/100 97 10/17/21 01:15 107 H 17 134/102 97 10/17/21 01:00 107 H 17 131/88 97 10/17/21 00:45 107 H 15 126/74 97 10/17/21 00:30 107 H 18 131/102 97 10/17/21 00:15 105 H 17 121/100 96 10/17/21 00:00 107 H 17 97 10/16/21 23:45 106 H 16 116/88 97 10/16/21 23:30 106 H 33 H 126/91 98 10/16/21 23:18 108 H 17 126/91 98 10/16/21 23:15 109 H 17 117/63 99 10/16/21 23:10 110 H 18 117/63 98 10/16/21 23:05 111 H 19 126/109 98 10/16/21 23:00 97.1 F L 110 H 44 H 126/109 98 10/16/21 22:41 97.4 F L 111 H 21 132/61 97 10/16/21 22:40 113 H 34 H 117/45 97 10/16/21 22:30 126 H 31 H 109/79 97 Intake and Output 10/17/21 10/17/21 10/17/21 06:59 14:59 22:59 Intake Total 923.810 6541.776 4276.616 Output Total 98 635 450 Balance 490.290 9295.776 3826.616 Intake: IV 2100 4160 .9 NS 100 160 Sodium Chloride 0.9% 2, 2000 4000 000 ml @ 999 mls/hr IV . Q2H1M ONE Rx#:[id number] Intake, IV Titration 236.919 187.776 116.616 Amount Norepinephrine 32 mg In 118.328 87.776 39.125 Sodium Chloride 0.9% 218 ml @ 0.05 MCG/KG/MIN 1.86 mls/hr IV .Q24H ONE Rx#: [id number] Norepinephrine 32 mg In 0.427 Sodium Chloride 0.9% 218 ml @ 0.7 MCG/KG/MIN 25. 594 mls/hr IV .Q9H47M SH[facility]ON Rx#:[id number] propofoL 1,000 mg In 118.591 100 77.064 Empty Bag 1 bag @ Titrate IV .Q0M SHAVON Rx#: [id number] Output: Urine 98 635 450 Other: Voiding Method Indwelling Catheter Indwelling Catheter Indwelling Catheter Weight 78 kg ABP, PAP, CO, CI - Last 8 Hours Arterial Blood Pressure 90/62 Arterial Blood Pressure 93/62 Arterial Blood Pressure 87/56 Arterial Blood Pressure 92/58 Arterial Blood Pressure 94/56 Arterial Blood Pressure 85/50 Arterial Blood Pressure 97/60 Arterial Blood Pressure 88/54 Arterial Blood Pressure 99/58 Arterial Blood Pressure 83/49 Arterial Blood Pressure 80/49 Arterial Blood Pressure 79/50 Arterial Blood Pressure 84/53 Arterial Blood Pressure 82/57 Arterial Blood Pressure 82/56 Arterial Blood Pressure 80/56 Arterial Blood Pressure 84/59 Arterial Blood Pressure 80/56 Arterial Blood Pressure 77/54 Arterial Blood Pressure 82/59 Arterial Blood Pressure 94/64 Arterial Blood Pressure 95/64 Arterial Blood Pressure 82/61 Arterial Blood Pressure 95/64 Arterial Blood Pressure 97/66 Arterial Blood Pressure 93/65 Arterial Blood Pressure 0/0 Arterial Blood Pressure 94/67 Arterial Blood Pressure 104/72 Arterial Blood Pressure 111/75 Arterial Blood Pressure 113/78 General: elderly female, intubated. Vitals reviewed Eyes: PERRL, conjunctiva normal HENT: normocephalic, mucus membranes moist Neck: supple, no JVD Lungs: rhonchi, no rales or wheezing CV: Regular rate and rhythm, no murmur. Peripheral pulses 2+ Abdomen: soft, nondistended, no organomegaly Lymph: no cervical or axillary LAD Skin: warm and dry. Results CBC & Chem 7: 10/17/21 21:00 10/17/21 21:00 Labs: Abnormal Lab Results - Last 24 Hours (Table) 10/16/21 10/17/21 10/17/21 Range/Units 22:55 00:08 03:45 WBC (3.8-10.6) k/uL Hct (34.0-46.0) % RDW (11.5-15.5) % Plt Count (150-450) k/uL Neutrophils # (1.3-7.7) k/uL Monocytes # (0-1.0) k/uL PT (9.0-12.0) sec INR (<1.2) D-Dimer (<0.60) mg/L FEU ABG Total CO2 (19-24) mmol/L ABG O2 Saturation (94-97) % Sodium (137-145) mmol/L Potassium (3.5-5.1) mmol/L Chloride (98-107) mmol/L Carbon Dioxide (22-30) mmol/L BUN (7-17) mg/dL Creatinine (0.52-1.04) mg/dL Glucose (74-99) mg/dL POC Glucose (mg/dL) 326 H (75-99) mg/dL Plasma Lactic Acid William 3.1 H* 2.6 H* (0.7-2.0) mmol/L Calcium (8.4-10.2) mg/dL Ionized Calcium Trice (4.5-5.3) mg/dL AST (14-36) U/L ALT (4-34) U/L Lactate Dehydrogenase (313-618) U/L C-Reactive Protein (<1.0) mg/dL Total Protein (6.3-8.2) g/dL Albumin (3.5-5.0) g/dL Procalcitonin (0.02-0.09) ng/mL 10/17/21 10/17/21 10/17/21 Range/Units 03:45 03:45 08:01 WBC 29.2 H (3.8-10.6) k/uL Hct 49.0 H (34.0-46.0) % RDW (11.5-15.5) % Plt Count (150-450) k/uL Neutrophils # 26.2 H (1.3-7.7) k/uL Monocytes # 1.4 H (0-1.0) k/uL PT (9.0-12.0) sec INR (<1.2) D-Dimer (<0.60) mg/L FEU ABG Total CO2 (19-24) mmol/L ABG O2 Saturation (94-97) % Sodium 136 L (137-145) mmol/L Potassium 6.0 H (3.5-5.1) mmol/L Chloride (98-107) mmol/L Carbon Dioxide (22-30) mmol/L BUN 40 H (7-17) mg/dL Creatinine 1.64 H (0.52-1.04) mg/dL Glucose 246 H (74-99) mg/dL POC Glucose (mg/dL) 234 H (75-99) mg/dL Plasma Lactic Acid William (0.7-2.0) mmol/L Calcium 7.6 L (8.4-10.2) mg/dL Ionized Calcium Trice (4.5-5.3) mg/dL AST 148 H (14-36) U/L ALT 105 H (4-34) U/L Lactate Dehydrogenase (313-618) U/L C-Reactive Protein (<1.0) mg/dL Total Protein (6.3-8.2) g/dL Albumin (3.5-5.0) g/dL Procalcitonin (0.02-0.09) ng/mL 10/17/21 10/17/21 10/17/21 Range/Units 11:20 12:16 12:16 WBC (3.8-10.6) k/uL Hct (34.0-46.0) % RDW (11.5-15.5) % Plt Count (150-450) k/uL Neutrophils # (1.3-7.7) k/uL Monocytes # (0-1.0) k/uL PT (9.0-12.0) sec INR (<1.2) D-Dimer (<0.60) mg/L FEU ABG Total CO2 26 H (19-24) mmol/L ABG O2 Saturation 97.3 H (94-97) % Sodium (137-145) mmol/L Potassium (3.5-5.1) mmol/L Chloride (98-107) mmol/L Carbon Dioxide (22-30) mmol/L BUN (7-17) mg/dL Creatinine (0.52-1.04) mg/dL Glucose (74-99) mg/dL POC Glucose (mg/dL) (75-99) mg/dL Plasma Lactic Acid William 2.2 H* (0.7-2.0) mmol/L Calcium (8.4-10.2) mg/dL Ionized Calcium Trice (4.5-5.3) mg/dL AST (14-36) U/L ALT (4-34) U/L Lactate Dehydrogenase (313-618) U/L C-Reactive Protein (<1.0) mg/dL Total Protein (6.3-8.2) g/dL Albumin (3.5-5.0) g/dL Procalcitonin 11.00 H (0.02-0.09) ng/mL 10/17/21 10/17/21 10/17/21 Range/Units 12:16 12:16 12:32 WBC (3.8-10.6) k/uL Hct (34.0-46.0) % RDW (11.5-15.5) % Plt Count (150-450) k/uL Neutrophils # (1.3-7.7) k/uL Monocytes # (0-1.0) k/uL PT (9.0-12.0) sec INR (<1.2) D-Dimer 7.13 H (<0.60) mg/L FEU ABG Total CO2 (19-24) mmol/L ABG O2 Saturation (94-97) % Sodium (137-145) mmol/L Potassium (3.5-5.1) mmol/L Chloride (98-107) mmol/L Carbon Dioxide (22-30) mmol/L BUN (7-17) mg/dL Creatinine (0.52-1.04) mg/dL Glucose (74-99) mg/dL POC Glucose (mg/dL) 163 H (75-99) mg/dL Plasma Lactic Acid William (0.7-2.0) mmol/L Calcium (8.4-10.2) mg/dL Ionized Calcium Trice (4.5-5.3) mg/dL AST (14-36) U/L ALT (4-34) U/L Lactate Dehydrogenase 7918 H (313-618) U/L C-Reactive Protein 1.9 H (<1.0) mg/dL Total Protein (6.3-8.2) g/dL Albumin (3.5-5.0) g/dL Procalcitonin (0.02-0.09) ng/mL 10/17/21 10/17/21 10/17/21 Range/Units 15:30 18:57 21:00 WBC 15.3 H (3.8-10.6) k/uL Hct (34.0-46.0) % RDW 15.6 H (11.5-15.5) % Plt Count 12 L* D (150-450) k/uL Neutrophils # (1.3-7.7) k/uL Monocytes # (0-1.0) k/uL PT (9.0-12.0) sec INR (<1.2) D-Dimer (<0.60) mg/L FEU ABG Total CO2 (19-24) mmol/L ABG O2 Saturation (94-97) % Sodium (137-145) mmol/L Potassium (3.5-5.1) mmol/L Chloride (98-107) mmol/L Carbon Dioxide (22-30) mmol/L BUN (7-17) mg/dL Creatinine (0.52-1.04) mg/dL Glucose (74-99) mg/dL POC Glucose (mg/dL) 114 H (75-99) mg/dL Plasma Lactic Acid William 2.1 H* (0.7-2.0) mmol/L Calcium (8.4-10.2) mg/dL Ionized Calcium Trice (4.5-5.3) mg/dL AST (14-36) U/L ALT (4-34) U/L Lactate Dehydrogenase (313-618) U/L C-Reactive Protein (<1.0) mg/dL Total Protein (6.3-8.2) g/dL Albumin (3.5-5.0) g/dL Procalcitonin (0.02-0.09) ng/mL 10/17/21 10/17/21 Range/Units 21:00 21:00 WBC (3.8-10.6) k/uL Hct (34.0-46.0) % RDW (11.5-15.5) % Plt Count (150-450) k/uL Neutrophils # (1.3-7.7) k/uL Monocytes # (0-1.0) k/uL PT 24.5 H (9.0-12.0) sec INR 2.5 H (<1.2) D-Dimer 9.66 H (<0.60) mg/L FEU ABG Total CO2 (19-24) mmol/L ABG O2 Saturation (94-97) % Sodium (137-145) mmol/L Potassium (3.5-5.1) mmol/L Chloride 116 H (98-107) mmol/L Carbon Dioxide 19 L (22-30) mmol/L BUN 49 H (7-17) mg/dL Creatinine 2.01 H (0.52-1.04) mg/dL Glucose (74-99) mg/dL POC Glucose (mg/dL) (75-99) mg/dL Plasma Lactic Acid William (0.7-2.0) mmol/L Calcium 5.4 L* (8.4-10.2) mg/dL Ionized Calcium Trice 4.0 L (4.5-5.3) mg/dL AST 3526 H (14-36) U/L ALT 2687 H (4-34) U/L Lactate Dehydrogenase 00008 H (313-618) U/L C-Reactive Protein 2.0 H (<1.0) mg/dL Total Protein 3.8 L (6.3-8.2) g/dL Albumin 1.8 L (3.5-5.0) g/dL Procalcitonin (0.02-0.09) ng/mL Thrombosis Risk Factor Assmnt - Choose All That Apply Each Factor Represents 1 point: Obesity (BMI >25), Sepsis (< 1month) Each Risk Factor Represents 2 Points: Age 61-74 years Thrombosis Risk Factor Assessment Total Risk Factor Score: 4 Thrombosis Risk Factor Assessment Level: Moderate Risk Assessment and Plan Plan: 1. Septic shock secondary to Covid pneumonia. Admit to ICU, pulmonology consulted. Solumedrol, lovenox. Cover with zosyn. Continue levophed drip and vent settings per Pulmonology. Continue albuterol
[2021-10-18] MEDS: PIPERACILLIN-TAZOBACTAM 3.375 GM in SODIUM CHLORIDE 0.9% 100 ML IVPB SCH (00:06)
[2021-10-18 00:19] LABS: Glucose,Whole Blood 88 mg/dL (75-99)
[2021-10-18] MEDS: INSULIN ASPART (NovoLOG) 100 UNIT/ML VIAL SQ SCH (00:26)
[2021-10-18 00:34] VITALS: BP 85/65
[2021-10-18] MEDS: NOREPINEPHRINE 32 MG in SODIUM CHLORIDE 0.9% 218 ML IV SCH (01:00)
[2021-10-18] MEDS: SODIUM CHLORIDE 0.9% 50 ML with VASOPRESSIN 20 UNIT IVPB SCH ×2 (01:58)
[2021-10-18 04:17] LABS: Anisocytosis Slight; HCT 38.7 % (34.0-46.0); HGB 13.9 gm/dL (11.4-16.0); Hypochromasia Slight; MCV 88.9 fL (80.0-100.0); Mean Platelet Volume 10.1; Poikilocytosis Slight; RBC 4.35 m/uL (3.80-5.40); RDW 16.4 % (11.5-15.5); WBC 26.5 k/uL (3.8-10.6)
[2021-10-18 04:20] LABS: Platelet Count 22 k/uL (150-450)
[2021-10-18 05:03] VITALS: PULSE 91; RESP 16; TEMP 104.5
[2021-10-19] MEDS ORDERED: LEVOFLOXACIN 750MG-D5W PMX 750 MG in DEXTROSE/WATER 1 150ML.BAG IVPB SCH (09:00)
--- NOTE | 2021-11-19 09:32 | P.DS ---
Providers Date of admission: 10/16/21 20:49 Expected date of discharge: 10/18/21 Attending physician: Niranjan Freed MD Consults: 10/16/21 20:49 Consult Physician Stat Consulting Provider: Nina Elkins Consult Reason/Comments: Critical care management Do you want consulting provider notified?: Yes Primary care physician: Niranjan Freed MD Hospital Course: Kari Rooney is a 61 yo F with PMH of lung cancer s/p wedge resection and chemotherapy, COPD who was brought to the ED via EMS for worsening shortness of breath. Pt examined in the ICU, she is intubated and sedated, history obtained via chart review. She was recently treated at [facility] for Covid pneumonia and was subsequently discharged home. She then became very short of breath and when found by EMS was noted to be tachycardic and tachypneic. On arrival to the ED she was hypotensive, tachypneic and tachycardic, WBC 22k, lactic 5.8, trop negative, pH 7.23. CTA chest multifocal pneumonia, no PE. Pt was treated with IV abx, steroids, vasopressors. Despite aggressive management she went into multisystem organ failure and subsequently on 10/18. Plan - Discharge Summary Discharge Rx Participant: No New Discharge Prescriptions: No Action Clopidogrel [Plavix] 75 mg PO DAILY Mirabegron [Myrbetriq] 25 mg PO DAILY Atorvastatin [Lipitor] 10 mg PO HS Docusate [Colace] 100 mg PO BID PRN PRN Reason: Constipation Fluticasone/Umeclidin/Vilanter [Trelegy Ellipta 100-62.5-25] 1 puff INHALATION RT-DAILY Oxybutynin Chloride [Ditropan XL] 5 mg PO DAILY Ergocalciferol [Vitamin D2 (1250 Mcg = 96601 Iu)] 1,250 mcg PO Q7D Montelukast [Singulair] 10 mg PO HS Metoprolol Succinate (ER) [Toprol Xl] 50 mg PO DAILY Discharge Medication List Clopidogrel [Plavix] 75 mg PO DAILY 01/13/18 [History] Atorvastatin [Lipitor] 10 mg PO HS 03/20/20 [History] Mirabegron [Myrbetriq] 25 mg PO DAILY 03/20/20 [History] Docusate [Colace] 100 mg PO BID PRN 02/13/21 [History] Ergocalciferol [Vitamin D2 (1250 Mcg = 10895 Iu)] 1,250 mcg PO Q7D 07/26/21 [History] Fluticasone/Umeclidin/Vilanter [Trelegy Ellipta 100-62.5-25] 1 puff INHALATION RT-DAILY 07/26/21 [History] Metoprolol Succinate (ER) [Toprol Xl] 50 mg PO DAILY 10/16/21 [History] Montelukast [Singulair] 10 mg PO HS 10/16/21 [History] Oxybutynin Chloride [Ditropan XL] 5 mg PO DAILY 10/16/21 [History] Follow up Appointment(s)/Referral(s): Niranjan Freed MD [Primary Care Provider] - 1-2 days Discharge Disposition: - Preliminary Cause of Preliminary Cause of : Covid
== END 2021-10-18 06:58 | disposition expired | DRG 871 ==
LOC: EC 18:17 → 2SICU 20:49
PROVIDERS: ADMIT Family Medicine; ATTEND Family Medicine
PROC: 3E033XZ Introduction of Vasopressor into Peripheral Vein, Percutaneous Approach (ICD-10-PCS; principal; 2021-10-16)
PROC: 0BH17EZ Insertion of Endotracheal Airway into Trachea, Via Natural or Artificial Opening (ICD-10-PCS; 2021-10-16)
PROC: 5A1945Z Respiratory Ventilation, 24-96 Consecutive Hours (ICD-10-PCS; 2021-10-16)
PROC: 03HY32Z Insertion of Monitoring Device into Upper Artery, Percutaneous Approach (ICD-10-PCS; 2021-10-17)
PROC: 4A133B1 Monitoring of Arterial Pressure, Peripheral, Percutaneous Approach (ICD-10-PCS; 2021-10-17)
PROC: 4A133J1 Monitoring of Arterial Pulse, Peripheral, Percutaneous Approach (ICD-10-PCS; 2021-10-17)
DX: A41.89 Other specified sepsis (principal); R65.21 Severe sepsis with septic shock; U07.1 COVID-19; J12.82 Pneumonia due to coronavirus disease 2019; J96.21 Acute and chronic respiratory failure with hypoxia; I69.354 Hemiplegia and hemiparesis following cerebral infarction affecting left non-dominant side; N17.9 Acute kidney failure, unspecified; J44.0 Chronic obstructive pulmonary disease with (acute) lower respiratory infection; E87.2 Acidosis; F32.A Depression, unspecified; F41.9 Anxiety disorder, unspecified; E78.5 Hyperlipidemia, unspecified; K11.8 Other diseases of salivary glands; Z66 Do not resuscitate; I25.10 Atherosclerotic heart disease of native coronary artery without angina pectoris; Z85.118 Personal history of other malignant neoplasm of bronchus and lung; I69.391 Dysphagia following cerebral infarction; Z79.02 Long term (current) use of antithrombotics/antiplatelets; Z79.899 Other long term (current) drug therapy; Z86.74 Personal history of sudden cardiac arrest; Z87.11 Personal history of peptic ulcer disease; Z87.891 Personal history of nicotine dependence; Z92.21 Personal history of antineoplastic chemotherapy; Z98.890 Other specified postprocedural states; Z99.81 Dependence on supplemental oxygen; Z98.51 Tubal ligation status; Z90.710 Acquired absence of both cervix and uterus; Z88.5 Allergy status to narcotic agent; Z91.041 Radiographic dye allergy status; Z80.1 Family history of malignant neoplasm of trachea, bronchus and lung; Z82.3 Family history of stroke
CPT/HCPCS: 31500; 36415; 36556; 36600; 71045; 71275; 80053; 81003; 82330; 82533; 82550; 82805; 83605; 83615; 83735; 84100; 84132; 84145; 84484; 85025; 85027; 85379; 85384; 85610; 85730; 86140; 87040; 87070; 87205; 87635; 93005; 94002; 94003; 94640; 94660; 96365; 96375; 99291